=== PATIENT | male | born 1955 | race Caucasian/White ===

== ENCOUNTER 2020-11-11 20:41 | Inpatient (IN) ==
[2020-11-11] MEDS ORDERED: CEFEPIME 2,000 MG/20 ML VIAL IV STA (20:53)
[2020-11-11] MEDS ORDERED: ACETAMINOPHEN 1000 MG/100 ML IV IV STA (20:58)
[2020-11-11] MEDS ORDERED: SODIUM CHLORIDE 0.9% 1000ML 1,000 ML IV SCH (21:00)
--- NOTE | 2020-11-11 21:05 | Emergency Department Note ---
Impression & Plan Sepsis, Altered mental status, Acute UTI, Hypokalemia, Elevated lactic acid level, COVID-19 ED Provider Note NAME: SHANON [id number] [facility] AGE: 65 SEX: M : 1955 ARRIVES VIA: Ambulance INFORMANT: [nurses, ems, guards] ED PROVIDER(S): [Ras Perkins MD] CHIEF COMPLAINT: Illness HISTORY OF PRESENT ILLNESS: The patient is a 65-year-old male who is confined to the [facility]. He was fine 2 hours ago but then suddenly, just before arrival, spiked a fever and stopped talking. He typically is verbal. The temperature was recorded 104 at the [facility]. The patient has not been coughing. There has been no vomiting or diarrhea, no rash. Patient has not had any complaints. He is at the [facility] on a permanent basis because of his inability to ambulate and his lower extremity contractures. He was tested recently for Covid and was negative, the exact day is unclear. Given the mental state, no further history obtainable. REVIEW OF SYSTEMS: Unobtainable given his mental state. PMHx/PSHx: See Below SOCIAL HISTORY: See Below. PHYSICAL EXAM: GENERAL: Patient is in no acute distress. HEENT: No acute trauma, normocephalic atraumatic, mucous membranes moist, no nasal congestion, no scleral icterus. NECK: No stridor, no adenopathy, no meningismus, trachea is midline. LUNGS: Clear to auscultation when listening anterior, no wheezing, no respiratory distress. HEART: Mildly tachycardic, 2/6 systolic murmur, regular rhythm. ABDOMEN: Soft, nontender, bowel sounds positive, no hernias, no peritonitis. EXTREMITIES: No cyanosis or edema, the patient does have lower extremity contractures as described in the history. No evidence for acute trauma. NEUROLOGIC: Awake and alert, nonverbal. Does not follow commands. SKIN: No rash, no jaundice, no diaphoresis. Groin: No scrotal erythema. DIFFERENTIAL DIAGNOSIS: Sepsis, UTI, pneumonia, metabolic abnormality, electrolyte abnormalities, COVID- 19, influenza, intracranial bleeding, stroke, cardiac sources, cellulitis, UTI, bacteremia, intracerebral event, toxicologic etiology, neurologic event, as well as other pathologies. EMERGENCY DEPARTMENT COURSE/PROCEDURES: ECG: Indication was possible sepsis. The ECG shows a normal sinus rhythm with a rate of 97. There is some subtle nonspecific ST changes noted diffusely. There is no ST elevation, no PVCs. The QTc is 480. There is some baseline artifact noted. Continuous Cardiac Monitoring: An order was placed for continuous cardiac mo nitoring. The monitor shows a rate of 83 with normal sinus rhythm. Critical Care Note: I have personally spent 52 minutes of critical care time in the direct management of this patient. This includes bedside care, interpretation of diagnostic studies, and testing, discussion with consultants, patient, and family members, and other required patient management activities. This 52 minutes is in excess of all separately billable procedures. MEDICAL DECISION MAKING: There is no leukocytosis or concerning anemia. There is a normal platelet count. No coagulopathy. Potassium was low at 2.6, no kidney failure. Lactic acid level was elevated at 2.8, consistent with infection/sepsis. No concerning liver enzyme elevation. Procalcitonin level was not elevated. Urinalysis did show evidence for infection, urine culture and blood cultures are pending. Chest film showed some congestion in the left lower lung consistent with a possible infiltrate versus atelectasis. Brain CT showed no acute bleed or mass- effect. Abdominal and pelvis CT showed some chronic findings, no source of infection identified by CT scan. Covid testing returned positive, influenza testing returned negative. On exam, the patient was febrile and mildly ta chycardic. He was nonverbal which was a shift from his baseline, typically he is talkative. The patient was aggressively managed. He was given IV Tylenol for his fever, he received a liter of IV saline for hydration. He received an additional 500 cc of saline for hydration. He was given IV potassium, IV daptomycin and IV cefepime. The patient's mental status has improved. He is now verbal and as per the nursing staff, appears oriented. He is improved. The patient is in need of a hospital stay. He meets criteria for sepsis. He presented with a change in mental status. He is hypokalemic. He appears to have a UTI. He is Covid positive. I did speak with the guards, I talked to the patient. The on-call hospitalist has been consulted. Case management has been involved. Past Med/Surg History Medical History Elevation of cardiac enzymes Tachycardia Weakness Social History Smoking Status: Unknown if ever smoked Feels Safe at Home: Yes Allergies Allergies Allergy/AdvReac Type Severity Reaction Status Date / Time No Known Allergies Allergy Unverified 11/11/20 22:07 Home Meds Home Medications Medication Instructions Recorded Confirmed cyanocobalamin (vitamin B-12) 500 mcg PO DAILY 11/11/20 11/11/20 [Vitamin B-12] furosemide [Lasix] 40 mg PO BID 11/11/20 11/11/20 lubiprostone [Amitiza] 24 mcg PO BID 11/11/20 11/11/20 metoprolol tartrate 50 mg PO BID 11/11/20 11/11/20 nortriptyline 25 mg PO DAILY 11/11/20 11/11/20 nystatin [Mycostatin] 1 applic TOPICAL DAILY 11/11/20 11/11/20 oxcarbazepine 600 mg PO BID 11/11/20 11/11/20 rosuvastatin 10 mg PO HS 11/11/20 11/11/20 tamsulosin [Flomax] 0.4 mg PO HS 11/11/20 11/11/20 terbinafine HCl 1 applic TOPICAL BID 11/11/20 11/11/20 zinc oxide 1 applic TOPICAL DAILY 11/11/20 11/11/20 Results & Data (ED) Vital Signs Vital Signs - 24 hr 11/11/20 20:46 11/11/20 20:50 11/11/20 21:00 Temperature Temperature Source Pulse Rate 97 H 98 H 96 H Pulse Rate from SpO2 Sensor 98 H 98 H Respiratory Rate 19 22 25 H Respiratory Effort / Characteristics Blood Pressure 157/87 H Blood Pressure Mean 110 Pulse Oximetry 95 94 Oxygen Delivery Method Sepsis Recent Fever Within 48 Hours Sepsis New/Unexplained Change in Mental Status Sepsis Action Taken by Nursing 11/11/20 21:15 11/11/20 21:16 11/11/20 21:22 Temperature 38.5 C H Temperature Source Oral Pulse Rate 105 H 97 H Pulse Rate from SpO2 Sensor 104 H 97 H Respiratory Rate 25 H 24 Respiratory Effort / Characteristics Non-Labored Blood Pressure 146/90 H 157/87 H Blood Pressure Mean 108 110 Pulse Oximetry 95 96 97 Oxygen Delivery Method Room Air Room Air Sepsis Recent Fever Within 48 Hours Yes Sepsis New/Unexplained Change in Mental Status Yes Sepsis Action Taken by Nursing Physician Notified 11/11/20 21:30 11/11/20 21:31 11/11/20 21:45 Temperature Temperature Source Pulse Rate 101 H 99 H 97 H Pulse Rate from SpO2 Sensor 101 H 99 H 97 H Respiratory Rate 24 24 25 H Respiratory Effort / Characteristics Blood Pressure 139/82 126/82 Blood Pressure Mean 101 96 Pulse Oximetry 94 93 93 Oxygen Delivery Method Sepsis Recent Fever Within 48 Hours Sepsis New/Unexplained Change in Mental Status Sepsis Action Taken by Nursing 11/11/20 21:46 11/11/20 22:00 11/11/20 22:01 Temperature Temperature Source Pulse Rate 94 H 93 H 94 H Pulse Rate from SpO2 Sensor 94 H 94 H 93 H Respiratory Rate 25 H 20 20 Respiratory Effort / Characteristics Blood Pressure 128/77 Blood Pressure Mean 94 Pulse Oximetry 93 93 93 Oxygen Delivery Method Sepsis Recent Fever Within 48 Hours Sepsis New/Unexplained Change in Mental Status Sepsis Action Taken by Nursing 11/11/20 22:22 11/11/20 22:23 11/11/20 22:24 Temperature Temperature Source Pulse Rate 91 H 90 89 Pulse Rate from SpO2 Sensor 91 H 90 89 Respiratory Rate 20 22 24 Respiratory Effort / Characteristics Blood Pressure 129/69 Blood Pressure Mean 89 Pulse Oximetry 94 93 94 Oxygen Delivery Method Sepsis Recent Fever Within 48 Hours Sepsis New/Unexplained Change in Mental Status Sepsis Action Taken by Nursing 11/11/20 22:30 11/11/20 22:31 11/11/20 22:45 Temperature Temperature Source Pulse Rate 88 87 83 Pulse Rate from SpO2 Sensor 88 87 83 Respiratory Rate 21 21 20 Respiratory Effort / Characteristics Blood Pressure 115/64 106/62 Blood Pressure Mean 81 76 Pulse Oximetry 95 94 95 Oxygen Delivery Method Sepsis Recent Fever Within 48 Hours Sepsis New/Unexplained Change in Mental Status Sepsis Action Taken by Nursing 11/11/20 22:46 11/11/20 23:00 11/11/20 23:01 Temperature Temperature Source Pulse Rate 83 82 82 Pulse Rate from SpO2 Sensor 83 81 83 Respiratory Rate 18 18 19 Respiratory Effort / Characteristics Blood Pressure 115/57 L Blood Pressure Mean 76 Pulse Oximetry 95 95 95 Oxygen Delivery Method Sepsis Recent Fever Within 48 Hours Sepsis New/Unexplained Change in Mental Status Sepsis Action Taken by Nursing 11/11/20 23:02 11/11/20 23:15 11/11/20 23:16 Temperature Temperature Source Pulse Rate 81 78 78 Pulse Rate from SpO2 Sensor 82 79 78 Respiratory Rate 24 20 19 Respiratory Effort / Characteristics Blood Pressure 108/59 L Blood Pressure Mean 75 Pulse Oximetry 94 94 94 Oxygen Delivery Method Sepsis Recent Fever Within 48 Hours Sepsis New/Unexplained Change in Mental Status Sepsis Action Taken by [facility] Medications Current Medication List: was personally reviewed by me Laboratory Data Attestation: I reviewed the patient's lab results. Result diagrams: 11/11/20 21:00 11/11/20 21:00 Lab Results 11/11/20 11/11/20 11/11/20 Range/Units 21:00 21:00 21:00 WBC 5.87 (4.8-10.8) K/uL RBC 4.49 L (4.7-6.1) M/uL Hgb 14.1 (14.0-18.0) g/dL Hct 41.0 L (42-52) % MCV 91.3 (80-100) fL MCH 31.4 (25-34) pg MCHC 34.4 (32-36) g/dL RDW Std Deviation 43.7 (36.4-46.3) fL RDW Coeff of Abad 13.0 (11.5-14.5) % Plt Count 190 (130-400) K/uL MPV 9.2 (7.4-10.4) fL Immature Gran % (Auto) 0.5 % Neut % (Auto) 80.4 % Lymph % (Auto) 14.3 % Elk % (Auto) 4.6 % Eos % (Auto) 0.0 % Baso % (Auto) 0.2 % Neut # (Auto) 4.72 (1.4-6.5) K/uL Lymph # (Auto) 0.84 L (1.2-3.4) K/uL Elk # (Auto) 0.27 (0.11-0.59) K/uL Eos # (Auto) 0.00 (0-0.5) K/uL Baso # (Auto) 0.01 (0-0.2) K/uL Immature Gran # (Auto) 0.03 H (0.00-0.02) K/uL PT (9.0-12.0) Seconds INR (0.9-1.1) APTT (21.0-31.0) Seconds PTT Ratio Sodium 142 (136-145) mmol/L Potassium 2.6 L (3.5-5.1) mmol/L Chloride 103 (98-107) mmol/L Carbon Dioxide 28 (21-32) mmol/L Anion Gap 11.0 (3-11) BUN 21 H (7-18) mg/dl Creatinine 0.99 (0.6-1.4) mg/dl Est Cr Clr Drug Dosing 76.8 ml/min Est GFR ( Amer) 92.2 Est GFR (Non-Af Amer) 79.6 BUN/Creatinine Ratio 21.1 H (10-20) Glucose 125 H (70-99) mg/dl Lactate (0.4-2.0) mmol/L Calcium 9.2 (8.5-10.1) mg/dl Magnesium 2.1 (1.8-2.4) mg/dl Total Bilirubin 0.9 (0.2-1) mg/dl AST 19 (15-37) U/L ALT 28 (12-78) U/L Alkaline Phosphatase 133 H (45-117) U/L Troponin I < 0.015 (0-0.045) ng/ml Total Protein 8.0 (6.4-8.2) gm/dl Albumin 3.3 L (3.4-5.0) gm/dl Globulin 4.7 H (2.5-4.0) gm/dl Albumin/Globulin Ratio 0.7 L (0.9-2) Procalcitonin 0.07 (0-0.5) ng/ml Urine Color Urine Appearance (Clear) Urine pH (4.5-7.5) Ur Specific [place] (1.000-1.030) Urine Protein (Negative) Urine Glucose (UA) (Negative) Urine Ketones (Negative) Urine Blood (Negative) Urine Nitrite (Negative) Urine Bilirubin (Negative) Urine Urobilinogen (Negative) Ur Leukocyte Esterase (Negative) Urine WBC (Auto) (0-5) /hpf Urine RBC (Auto) (0-4) /hpf U Hyaline Cast (Auto) (0-5) /lpf U Epithel Cells (Auto) (0-5) /lpf Urine Bacteria (Auto) (Negative) COVID-19 Eval Order SARS-CoV-2 (PCR) (Negative) Influenza Type A (PCR) (Neg) Influenza Type B (PCR) (Neg) RSV (RT-PCR) (Neg) 11/11/20 11/11/20 11/11/20 Range/Units 21:00 21:00 21:43 WBC (4.8-10.8) K/uL RBC (4.7-6.1) M/uL Hgb (14.0-18.0) g/dL Hct (42-52) % MCV (80-100) fL MCH (25-34) pg MCHC (32-36) g/dL RDW Std Deviation (36.4-46.3) fL RDW Coeff of Abad (11.5-14.5) % Plt Count (130-400) K/uL MPV (7.4-10.4) fL Immature Gran % (Auto) % Neut % (Auto) % Lymph % (Auto) % Elk % (Auto) % Eos % (Auto) % Baso % (Auto) % Neut # (Auto) (1.4-6.5) K/uL Lymph # (Auto) (1.2-3.4) K/uL Elk # (Auto) (0.11-0.59) K/uL Eos # (Auto) (0-0.5) K/uL Baso # (Auto) (0-0.2) K/uL Immature Gran # (Auto) (0.00-0.02) K/uL PT 11.4 (9.0-12.0) Seconds INR 1.1 (0.9-1.1) APTT 25.1 (21.0-31.0) Seconds PTT Ratio 1.0 Sodium (136-145) mmol/L Potassium (3.5-5.1) mmol/L Chloride (98-107) mmol/L Carbon Dioxide (21-32) mmol/L Anion Gap (3-11) BUN (7-18) mg/dl Creatinine (0.6-1.4) mg/dl Est Cr Clr Drug Dosing ml/min Est GFR ( Amer) Est GFR (Non-Af Amer) BUN/Creatinine Ratio (10-20) Glucose (70-99) mg/dl Lactate 2.8 H* (0.4-2.0) mmol/L Calcium (8.5-10.1) mg/dl Magnesium (1.8-2.4) mg/dl Total Bilirubin (0.2-1) mg/dl AST (15-37) U/L ALT (12-78) U/L Alkaline Phosphatase (45-117) U/L Troponin I (0-0.045) ng/ml Total Protein (6.4-8.2) gm/dl Albumin (3.4-5.0) gm/dl Globulin (2.5-4.0) gm/dl Albumin/Globulin Ratio (0.9-2) Procalcitonin (0-0.5) ng/ml Urine Color Urine Appearance (Clear) Urine pH (4.5-7.5) Ur Specific [place] (1.000-1.030) Urine Protein (Negative) Urine Glucose (UA) (Negative) Urine Ketones (Negative) Urine Blood (Negative) Urine Nitrite (Negative) Urine Bilirubin (Negative) Urine Urobilinogen (Negative) Ur Leukocyte Esterase (Negative) Urine WBC (Auto) (0-5) /hpf Urine RBC (Auto) (0-4) /hpf U Hyaline Cast (Auto) (0-5) /lpf U Epithel Cells (Auto) (0-5) /lpf Urine Bacteria (Auto) (Negative) COVID-19 Eval Order [facility] at [facility] SARS-CoV-2 (PCR) (Negative) Influenza Type A (PCR) (Neg) Influenza Type B (PCR) (Neg) RSV (RT-PCR) (Neg) 11/11/20 11/11/20 Range/Units 21:43 21:45 WBC (4.8-10.8) K/uL RBC (4.7-6.1) M/uL Hgb (14.0-18.0) g/dL Hct (42-52) % MCV (80-100) fL MCH (25-34) pg MCHC (32-36) g/dL RDW Std Deviation (36.4-46.3) fL RDW Coeff of Abad (11.5-14.5) % Plt Count (130-400) K/uL MPV (7.4-10.4) fL Immature Gran % (Auto) % Neut % (Auto) % Lymph % (Auto) % Elk % (Auto) % Eos % (Auto) % Baso % (Auto) % Neut # (Auto) (1.4-6.5) K/uL Lymph # (Auto) (1.2-3.4) K/uL Elk # (Auto) (0.11-0.59) K/uL Eos # (Auto) (0-0.5) K/uL Baso # (Auto) (0-0.2) K/uL Immature Gran # (Auto) (0.00-0.02) K/uL PT (9.0-12.0) Seconds INR (0.9-1.1) APTT (21.0-31.0) Seconds PTT Ratio Sodium (136-145) mmol/L Potassium (3.5-5.1) mmol/L Chloride (98-107) mmol/L Carbon Dioxide (21-32) mmol/L Anion Gap (3-11) BUN (7-18) mg/dl Creatinine (0.6-1.4) mg/dl Est Cr Clr Drug Dosing ml/min Est GFR ( Amer) Est GFR (Non-Af Amer) BUN/Creatinine Ratio (10-20) Glucose (70-99) mg/dl Lactate (0.4-2.0) mmol/L Calcium (8.5-10.1) mg/dl Magnesium (1.8-2.4) mg/dl Total Bilirubin (0.2-1) mg/dl AST (15-37) U/L ALT (12-78) U/L Alkaline Phosphatase (45-117) U/L Troponin I (0-0.045) ng/ml Total Protein (6.4-8.2) gm/dl Albumin (3.4-5.0) gm/dl Globulin (2.5-4.0) gm/dl Albumin/Globulin Ratio (0.9-2) Procalcitonin (0-0.5) ng/ml Urine Color Yellow Urine Appearance Cloudy A (Clear) Urine pH 6.5 (4.5-7.5) Ur Specific [place] 1.013 (1.000-1.030) Urine Protein Negative (Negative) Urine Glucose (UA) Negative (Negative) Urine Ketones Negative (Negative) Urine Blood 1+ H (Negative) Urine Nitrite Negative (Negative) Urine Bilirubin Negative (Negative) Urine Urobilinogen Negative (Negative) Ur Leukocyte Esterase 3+ H (Negative) Urine WBC (Auto) >30 H (0-5) /hpf Urine RBC (Auto) 0-4 (0-4) /hpf U Hyaline Cast (Auto) 1-5 (0-5) /lpf U Epithel Cells (Auto) 5-10 H (0-5) /lpf Urine Bacteria (Auto) 1+ H (Negative) COVID-19 Eval Order SARS-CoV-2 (PCR) POSITIVE A* (Negative) Influenza Type A (PCR) Negative (Neg) Influenza Type B (PCR) Negative (Neg) RSV (RT-PCR) Negative (Neg) Administered Medications Discontinued Medications Acetaminophen (Acetaminophen 1000 Mg/100 Ml Iv) 1,000 mg IV NOW STA Stop: 11/11/20 20:59 Last Admin: 11/11/20 21:39 Dose: 1,000 mg Documented by: [id number] Sodium Chloride (Nss 1000ml) 1,000 mls @ 999 mls/hr IV .[id number] JJ Stop: 11/11/20 22:00 Last Infusion: 11/11/20 22:44 Dose: 0 mls/hr Documented by: [id number] Admin: 11/11/20 21:40 Dose: 999 mls/hr Documented by: [id number] Cefepime HCl (Maxipime) 2,000 mg in 20 mls @ 5 mls/min IV NOW STA; Protocol Stop: 11/11/20 20:56 Last Admin: 11/11/20 21:40 Dose: 5 mls/min Documented by: [id number] Potassium Chloride (K Andrew / Wtr) 10 meq in 100 mls @ 100 mls/hr IV ONE ONE Stop: 11/11/20 22:44 Last Admin: 11/11/20 22:31 Dose: 100 mls/hr Documented by: [id number] Daptomycin 450 mg/ Syringe 9 mls @ 4.5 mls/min IV NOW ONE; Protocol Stop: 11/11/20 21:46 Last Admin: 11/11/20 23:22 Dose: 4.5 mls/min Documented by: [id number] Sodium Chloride (Nss 1000ml) 500 mls @ 999 mls/hr IV .Q31M ONE Stop: 11/11/20 22:16 Last Infusion: 11/11/20 23:25 Dose: 0 mls/hr Documented by: [id number] Admin: 11/11/20 22:32 Dose: 999 mls/hr Documented by: [id number] Imaging Data Attestation: I personally reviewed and interpreted this imaging study as follows: My Impression: Chest x-ray: There is some left lung congestion especially the lower lobes, this could be atelectasis or possibly an acute infiltrate. No free air. Radiologist's Impression: Brain CT without contrast: There is no intracranial hemorrhage, mass-effect or edema. No evidence for acute stroke. Periventricular small vessel ischemic change. Mastoid air cells are clear. Abdominal and pelvis CT with IV contrast: There is a moderate amount of fecal matter within the colon and rectum consistent with constipation. Bilateral nonobstructing stones measuring up to 6 mm in diameter were noted. There was dependent high density in the urinary bladder lumen suggestive of stones. There is dependent density in the gallbladder lumen which could be from sludge. Discharge Plan Visit Data Chief Complaint: Illness Stated Complaint: FEVER, AMS ED Provider: Ras Perkins Discharge Problem: Sepsis, Altered mental status, Acute UTI, Hypokalemia, Elevated lactic acid level, COVID-19 Patient Disposition: Admitted As Inpatient Condition: Serious Forms Stand Alone Forms: My [facility] Prescriptions Prescriptions: No Action furosemide [Lasix] 40 mg Tablet 40 mg PO BID RF: 0 terbinafine HCl 1 % Cream 1 applic TOPICAL BID RF: 0 nortriptyline 25 mg Capsule 25 mg PO DAILY RF: 0 cyanocobalamin (vitamin B-12) [Vitamin B-12] 500 mcg Tablet 500 mcg PO DAILY RF: 0 tamsulosin [Flomax] 0.4 mg Capsule 0.4 mg PO HS RF: 0 metoprolol tartrate 50 mg Tablet 50 mg PO BID RF: 0 oxcarbazepine 600 mg Tablet 600 mg PO BID RF: 0 nystatin [Mycostatin] 100,000 unit/gram Powder 1 applic TOPICAL DAILY RF: 0 rosuvastatin 10 mg Tablet 10 mg PO HS RF: 0 lubiprostone [Amitiza] 24 mcg Capsule 24 mcg PO BID RF: 0 zinc oxide 40 % Ointment 1 applic TOPICAL DAILY RF: 0 Referrals Referrals: Raj MARIO [Primary Care Provider] - Discharge Problem: Sepsis Qualifiers: Sepsis type: sepsis due to unspecified organism Sepsis acute organ dysfunction status: without acute organ dysfunction Qualified Code(s): A41.9 - Sepsis, unspecified organism Altered mental status Qualifiers: Altered mental status type: unspecified Qualified Code(s): R41.82 - Altered mental status, unspecified
[2020-11-11 21:23] LABS: Basophils # (auto) 0.01 K/uL (0-0.2); Basophils % (auto) 0.2 %; Hemoglobin 14.1 g/dL (14.0-18.0); Immature Granulocytes # (auto) 0.03 K/uL (0.00-0.02); Immature Granulocytes % (auto) 0.5 %; Lymphocytes # (auto) 0.84 K/uL (1.2-3.4); Lymphocytes % (auto) 14.3 %; Mean Corpuscular Hemoglobin 31.4 pg (25-34); Mean Corpuscular Hgb Conc 34.4 g/dL (32-36); Mean Corpuscular Volume 91.3 fL (80-100); Mean Platelet Volume 9.2 fL (7.4-10.4); Monocytes # (auto) 0.27 K/uL (0.11-0.59); Monocytes % (auto) 4.6 %; Neutrophils # (auto) 4.72 K/uL (1.4-6.5); Neutrophils % (auto) 80.4 %; Platelet Count 190 K/uL (130-400); RDW Standard Deviation 43.7 fL (36.4-46.3); Red Blood Count 4.49 M/uL (4.7-6.1); White Blood Count 5.87 K/uL (4.8-10.8)
[2020-11-11 21:39] LABS: Alanine Aminotransferase 28 U/L (12-78); Albumin Level 3.3 gm/dl (3.4-5.0); Aspartate Aminotransferase 19 U/L (15-37); BUN Creatinine Ratio 21.1 (10-20); Blood Urea Nitrogen 21 mg/dl (7-18); Calcium 9.2 mg/dl (8.5-10.1); Carbon Dioxide 28 mmol/L (21-32); Chloride 103 mmol/L (98-107); Creatinine Clr Calc Pharmacy 76.8 ml/min; Est GFR (African American) 92.2; Est GFR (Non-African American) 79.6; Glucose 125 mg/dl (70-99); INR 1.1 (0.9-1.1); Magnesium 2.1 mg/dl (1.8-2.4); Partial Thromboplastin Time 25.1 Seconds (21.0-31.0); Potassium 2.6 mmol/L (3.5-5.1); Prothrombin Time 11.4 Seconds (9.0-12.0); Sodium 142 mmol/L (136-145)
[2020-11-11 21:45] LABS: Albumin Globulin Ratio 0.7 (0.9-2); Alkaline Phosphatase 133 U/L (45-117); Bilirubin,Total 0.9 mg/dl (0.2-1); Globulin 4.7 gm/dl (2.5-4.0)
[2020-11-11] MEDS ORDERED: POTASSIUM CHLORIDE / WTR 10 MEQ/100 ML PLCT IV ONE (21:45)
[2020-11-11] MEDS ORDERED: DAPTOmycin 450 MG in SYRINGE 0 ML IV ONE (21:45)
[2020-11-11] MEDS ORDERED: SODIUM CHLORIDE 0.9% 1000ML 500 ML IV ONE (21:46)
[2020-11-11 21:58] LABS: Troponin I < 0.015 ng/ml (0-0.045)
[2020-11-11 22:38] LABS: Appearance Urine Cloudy (Clear); Bacteria Urine Automated 1+ (Negative); Bilirubin Urine Negative (Negative); Blood Urine 1+ (Negative); Color Urine Yellow; Glucose Urine UA Negative (Negative); Ketones Urine Negative (Negative); Leukocyte Esterase Urine 3+ (Negative); Nitrite Urine Negative (Negative); Protein Urine Negative (Negative); RBC Urine Automated 0-4 /hpf (0-4); Specific Gravity Urine 1.013 (1.000-1.030); Urobilinogen Urine Negative (Negative); WBC Urine Automated >30 /hpf (0-5); pH Urine 6.5 (4.5-7.5)
[2020-11-11 23:11] LABS: Influenza A virus by PCR Negative (Neg); Influenza B virus by PCR Negative (Neg); RSV by PCR Negative (Neg)
[2020-11-11 23:18] LABS: SARS CoV2 RNA(COVID-19) InHosp POSITIVE (Negative)
[2020-11-12] MEDS ORDERED: cefTRIAXone SODIUM 1,000 MG/50 ML BAG IV STA (00:14)
[2020-11-12] MEDS ORDERED: SODIUM CHLORIDE 0.9% 1000ML 500 ML IV ONE (00:14)
--- NOTE | 2020-11-12 00:53 | History & Physical Report ---
Date of Service November 12, 2020 Assessment & Plan (1) Sepsis: Sepsis/altered mental status/urinary tract infection- Empiric antibiotics with daptomycin and Zosyn IV. Follow urine culture and sensitivities Follow blood culture and sensitivities NSS + KCl 20 mEq 100 mils per hour. Patient did receive a total of 1500 mL of normal saline while in the ED with some improvement in mentation CT scan of abdomen and pelvis did note constipation, bladder stones, and bilateral stones up to 6 mm that were nonobstructive. Question of gallbladder sludge was noted as well, with normal liver tests, and no complaint of abdominal or right upper quadrant pain Present on Admission?: Yes (2) Acute UTI: See above Present on Admission?: Yes (3) Altered mental status: See above Patient was initially noted to be responsive upon arrival to the ED. At the time of my interview, patient was somewhat responsive, answering questions slowly but appropriately with short answers Present on Admission?: Yes (4) COVID-19: Unclear contribution to his initially unresponsive state which is now become somewhat improved after IV fluid rehydration. Place on dexamethasone 6 mg IV every morning Ventolin HFA 2 puffs 4 times daily as needed Zinc sulfate 220 mg p.o. every morning Nasal cannula oxygen, titrate to keep pulse ox around 95%. Lowest pulse ox recorded in the ED was 93% on room air Present on Admission?: Yes (5) Diabetes: Listed as a diagnosis for patient, however, he is on no medications for start, and his glucose is 125 upon admission If his glucose goes up on morning labs, will institute Accu-Chek and sliding scale program at that time. Present on Admission?: Yes (6) Hypokalemia: Hypokalemia/dehydration- Likely due to combination of illness and being on furosemide 40 mg p.o. twice daily, which will be held. Placed on NSS + KCl 20 mEq at 100 mils per hour. Repeat laboratories every a.m. Present on Admission?: Yes (7) Dehydration: See above Present on Admission?: Yes (8) Seizure disorder: Continue oxcarbazepine 600 mg p.o. twice daily Present on Admission?: Yes (9) Hypertension: Hypertension/tachycardia holding furosemide above as noted continue metoprolol tartrate 50 mg p.o. twice daily Present on Admission?: Yes (10) Tachycardia: See above Present on Admission?: Yes (11) BPH w urinary obs/LUTS: Continue tamsulosin 0.4 mg p.o. at bedtime Pinedo catheter placed, and draining large volumes of urine, at least 1 L by the time of discharge from the ED Present on Admission?: Yes (12) Hyperlipidemia: Continue rosuvastatin 10 mg at bedtime Present on Admission?: Yes History of Present Illness Chief Complaint: The patient presents to the emergency department from the [facility] at [facility], due to altered mental status and initially unresponsive. Primary Care Provider: FABIANO Anthony The patient is a 65-year-old male with a past medical history including tachycardia, weakness, elevated cardiac enzymes, diabetes, dehydration, generalized weakness, edema, gastric dysmotility, hypertension, BPH with LUTS, hyperlipidemia, seizure disorder, vitamin B12 deficiency, and lower extremity muscle contractures. The patient is [facility] due to persistent muscle contractures and ambulatory dysfunction. He was noted to be doing well 2 hours prior to arrival, but then suddenly developed a temperature of 104 F and stopped talking. He reportedly has had a recent negative COVID-19 test. The patient himself was not able to contribute to his HPI due to his nonresponsive state. Allergies Allergy/AdvReac Type Severity Reaction Status Date / Time No Known Allergies Allergy Unverified 11/11/20 22:07 Home Medications Medication Instructions Recorded Confirmed Type cyanocobalamin (vitamin B-12) 500 mcg PO DAILY 11/11/20 11/11/20 History [Vitamin B-12] furosemide [Lasix] 40 mg PO BID 11/11/20 11/11/20 History lubiprostone [Amitiza] 24 mcg PO BID 11/11/20 11/11/20 History metoprolol tartrate 50 mg PO BID 11/11/20 11/11/20 History nortriptyline 25 mg PO DAILY 11/11/20 11/11/20 History nystatin [Mycostatin] 1 applic TOPICAL DAILY 11/11/20 11/11/20 History oxcarbazepine 600 mg PO BID 11/11/20 11/11/20 History rosuvastatin 10 mg PO HS 11/11/20 11/11/20 History tamsulosin [Flomax] 0.4 mg PO HS 11/11/20 11/11/20 History terbinafine HCl 1 applic TOPICAL BID 11/11/20 11/11/20 History zinc oxide 1 applic TOPICAL DAILY 11/11/20 11/11/20 History Past Med/Surg History Medical History Elevation of cardiac enzymes Tachycardia Weakness Social History Smoking Status: Former smoker Smoking End Date: 2018; Second Hand Exposure: No; Do You Dip or Chew Tobacco: No; Hx Alcohol Use: No Hx Substance Use: No Preferred Language: Amharic Communication Ability: Effective [employer] Required: No Beliefs That Will Affect Care: Jewish Jewish Beliefs: Jewish Current Living Situation: Other Current Living Situation Comment: inmate at [facility] Other Information That Helps Us Care for You: No Feels Safe at Home: Yes Safety Concerns: Feels Safe At This Time Assistive Devices: Wheelchair Review of Systems Review of Systems: Unobtainable due to reduced consciousness Physical Exam Physical Exam: The patient is initially unresponsive, but later able to answer questions, normocephalic and atraumatic, lying in bed and in no acute distress. HEENT--PERRL, EOMI, mucous membranes and oropharynx dry. Neck--supple. No JVD. No bruits. Thyroid normal, trachea midline, no adenopathy. Heart--normal S1 and S2. No murmurs, rubs or gallops. Lungs--clear bilaterally, no respiratory distress, no accessory muscle use. Abdomen--normal bowel sounds and soft. Nontender. Nondistended. Extremities--no cyanosis or clubbing. No edema. There are good distal pulses b/l. Dermatologic--normal skin turgor, normal color, no abnormal lymph nodes, no rash. Neurologic--limited exam rheumatologic--contractures of lower greater than upper extremities noted, with subsequent decreased range of motion psychiatric--initially unresponsive, but did become more arousable after IV fluids Results & Data Results & Data ([facility]) Vital Signs (Past 12 Hours) Vital Signs Temp Pulse Resp BP Pulse Ox 11/12/20 00:31 71 19 95 11/12/20 00:30 75 20 95/57 L 96 11/12/20 00:16 74 19 94 11/12/20 00:15 74 19 92/53 L 95 11/12/20 00:01 71 20 93 11/12/20 00:00 70 20 92/51 L 94 11/11/20 23:46 70 21 95 11/11/20 23:45 71 21 93 11/11/20 23:38 97.7 F 11/11/20 23:31 79 17 95 11/11/20 23:30 77 19 103/56 L 95 11/11/20 23:16 78 19 94 11/11/20 23:15 78 20 108/59 L 94 11/11/20 23:02 81 24 94 11/11/20 23:01 82 19 115/57 L 95 11/11/20 23:00 82 18 95 11/11/20 22:46 83 18 95 11/11/20 22:45 83 20 106/62 95 11/11/20 22:31 87 21 94 11/11/20 22:30 88 21 115/64 95 11/11/20 22:24 89 24 94 11/11/20 22:23 90 22 129/69 93 11/11/20 22:22 91 H 20 94 11/11/20 22:01 94 H 20 93 11/11/20 22:00 93 H 20 128/77 93 11/11/20 21:46 94 H 25 H 93 11/11/20 21:45 97 H 25 H 126/82 93 11/11/20 21:31 99 H 24 93 11/11/20 21:30 101 H 24 139/82 94 11/11/20 21:22 97 11/11/20 21:16 101.3 F H 97 H 24 157/87 H 96 11/11/20 21:15 105 H 25 H 146/90 H 95 11/11/20 21:00 96 H 25 H 11/11/20 20:50 98 H 22 94 11/11/20 20:46 97 H 19 157/87 H 95 Laboratory Results Laboratory Results WBC 5.87 K/uL (4.8-10.8) 11/11/20 21:00 RBC 4.49 M/uL (4.7-6.1) L 11/11/20 21:00 Hgb 14.1 g/dL (14.0-18.0) 11/11/20 21:00 Hct 41.0 % (42-52) L 11/11/20 21:00 MCV 91.3 fL (80-100) 11/11/20 21:00 MCH 31.4 pg (25-34) 11/11/20 21:00 MCHC 34.4 g/dL (32-36) 11/11/20 21:00 RDW Std Deviation 43.7 fL (36.4-46.3) 11/11/20 21:00 RDW Coeff of Abad 13.0 % (11.5-14.5) 11/11/20 21:00 Plt Count 190 K/uL (130-400) 11/11/20 21:00 MPV 9.2 fL (7.4-10.4) 11/11/20 21:00 Immature Gran % (Auto) 0.5 % 11/11/20 21:00 Neut % (Auto) 80.4 % 11/11/20 21:00 Lymph % (Auto) 14.3 % 11/11/20 21:00 Burke % (Auto) 4.6 % 11/11/20 21:00 Eos % (Auto) 0.0 % 11/11/20 21:00 Baso % (Auto) 0.2 % 11/11/20 21:00 Neut # (Auto) 4.72 K/uL (1.4-6.5) 11/11/20 21:00 Lymph # (Auto) 0.84 K/uL (1.2-3.4) L 11/11/20 21:00 Burke # (Auto) 0.27 K/uL (0.11-0.59) 11/11/20 21:00 Eos # (Auto) 0.00 K/uL (0-0.5) 11/11/20 21:00 Baso # (Auto) 0.01 K/uL (0-0.2) 11/11/20 21:00 Immature Gran # (Auto) 0.03 K/uL (0.00-0.02) H 11/11/20 21:00 PT 11.4 Seconds (9.0-12.0) 11/11/20 21:00 INR 1.1 (0.9-1.1) 11/11/20 21:00 APTT 25.1 Seconds (21.0-31.0) 11/11/20 21:00 PTT Ratio 1.0 11/11/20 21:00 Sodium 142 mmol/L (136-145) 11/11/20 21:00 Potassium 2.6 mmol/L (3.5-5.1) L 11/11/20 21:00 Chloride 103 mmol/L (98-107) 11/11/20 21:00 Carbon Dioxide 28 mmol/L (21-32) 11/11/20 21:00 Anion Gap 11.0 (3-11) 11/11/20 21:00 BUN 21 mg/dl (7-18) H 11/11/20 21:00 Creatinine 0.99 mg/dl (0.6-1.4) 11/11/20 21:00 Est Cr Clr Drug Dosing 76.8 ml/min 11/11/20 21:00 Est GFR ( Amer) 92.2 11/11/20 21:00 Est GFR (Non-Af Amer) 79.6 11/11/20 21:00 BUN/Creatinine Ratio 21.1 (10-20) H 11/11/20 21:00 Glucose 125 mg/dl (70-99) H 11/11/20 21:00 Lactate 0.9 mmol/L (0.4-2.0) 11/11/20 23:35 Calcium 9.2 mg/dl (8.5-10.1) 11/11/20 21:00 Magnesium 2.1 mg/dl (1.8-2.4) 11/11/20 21:00 Total Bilirubin 0.9 mg/dl (0.2-1) 11/11/20 21:00 AST 19 U/L (15-37) 11/11/20 21:00 ALT 28 U/L (12-78) 11/11/20 21:00 Alkaline Phosphatase 133 U/L (45-117) H 11/11/20 21:00 Troponin I < 0.015 ng/ml (0-0.045) 11/11/20 21:00 Total Protein 8.0 gm/dl (6.4-8.2) 11/11/20 21:00 Albumin 3.3 gm/dl (3.4-5.0) L 11/11/20 21:00 Globulin 4.7 gm/dl (2.5-4.0) H 11/11/20 21:00 Albumin/Globulin Ratio 0.7 (0.9-2) L 11/11/20 21:00 Procalcitonin 0.07 ng/ml (0-0.5) 11/11/20 21:00 Urine Color Yellow 11/11/20 21:45 Urine Appearance Cloudy (Clear) A 11/11/20 21:45 Urine pH 6.5 (4.5-7.5) 11/11/20 21:45 Ur Specific [place] 1.013 (1.000-1.030) 11/11/20 21:45 Urine Protein Negative (Negative) 11/11/20 21:45 Urine Glucose (UA) Negative (Negative) 11/11/20 21:45 Urine Ketones Negative (Negative) 11/11/20 21:45 Urine Blood 1+ (Negative) H 11/11/20 21:45 Urine Nitrite Negative (Negative) 11/11/20 21:45 Urine Bilirubin Negative (Negative) 11/11/20 21:45 Urine Urobilinogen Negative (Negative) 11/11/20 21:45 Ur Leukocyte Esterase 3+ (Negative) H 11/11/20 21:45 Urine WBC (Auto) >30 /hpf (0-5) H 11/11/20 21:45 Urine RBC (Auto) 0-4 /hpf (0-4) 11/11/20 21:45 U Hyaline Cast (Auto) 1-5 /lpf (0-5) 11/11/20 21:45 U Epithel Cells (Auto) 5-10 /lpf (0-5) H 11/11/20 21:45 Urine Bacteria (Auto) 1+ (Negative) H 11/11/20 21:45 COVID-19 Eval Order CovFluRsv at [facility] 11/11/20 21:43 SARS-CoV-2 (PCR) POSITIVE (Negative) A* 11/11/20 21:43 Influenza Type A (PCR) Negative (Neg) 11/11/20 21:43 Influenza Type B (PCR) Negative (Neg) 11/11/20 21:43 RSV (RT-PCR) Negative (Neg) 11/11/20 21:43 Diagnostic Findings [facility] Patient: SHANON WILL [id number] (Male) : 55 Status: ER Date: 11/11/20 22:12 Room #: History: AMS Slices: 73 Priors: Tech: Jackson Hays @ [id number] Exams: CT HEAD Contrast: Accession Numbers: [id number] Preliminary Findings Only See Final Report For Complete Findings CT HEAD: No ICH, mass effect or edema. No evidence of acute cortical stroke. Periventricular small vessel ischemic change. Visualized sinuses and mastoid air cells are clear. Radiologist: Kashif Victoria MD Study ready at 22:14 and initial results transmitted at 22:22 *This report constitutes a preliminary interpretation only. Non-acute findings felt to be unrelated to the clinical presentation may not be discussed in this report. The study will be interpreted and a final report will be generated by the local Radiologist the following shift. To reach the hospital radiology department call [phone]. If a discrepancy is found between the preliminary and final interpretations of this study, please notify us via our Client Portal at [email or web address].You can also fax this report with a description of the discrepancy, or include the final report, to our daytime fax number [phone].If faxing, please indicate the severity of discrepancy using one of the following categories: [ ] 1 - Agree/Informational [ ] 2 - Unlikely to Affect Management [ ] 3 - Possible Eventual Change of Management [ ] 4 - Probable Immediate Change of Management For all other patient related information, please fax us at [phone]. [id number] [facility] Patient: SHANON WILL [id number] (Male) : 55 Status: ER Date: 11/11/20 22:19 Room #: History: FEVER POSSIBLE INFECTION Slices: 840 Priors: Tech: Jackson Hays @ [id number] Exams: CT ABDOMEN & PELVIS With Contrast Contrast: IV Amt: 93 Accession Numbers: [id number] Preliminary Findings Only See Final Report For Complete Findings CT ABDOMEN & PELVIS With Contrast: Impression: Moderate amount of fecal matter seen in the colon and rectum. This is suggestive of constipation. Bilateral nonobstructing stones measuring up to 6 mm in diameter. Dependent high density in the urinary bladder lumen, suggestive of stones. Dependent density in the gallbladder lumen could be from sludge. Radiologist: Kashif Victoria MD Study ready at 22:33 and initial results transmitted at 22:40 *This report constitutes a preliminary interpretation only. Non-acute findings felt to be unrelated to the clinical presentation may not be discussed in this report. The study will be interpreted and a final report will be generated by the local Radiologist the following shift. To reach the hospital radiology department call [phone]. If a discrepancy is found between the preliminary and final interpretations of this study, please notify us via our Client Portal at [email or web address].You can also fax this report with a description of the discrepancy, or include the final report, to our daytime fax number [phone].If faxing, please indicate the severity of discrepancy using one of the following categories: [ ] 1 - Agree/Informational [ ] 2 - Unlikely to Affect Management [ ] 3 - Possible Eventual Change of Management [ ] 4 - Probable Immediate Change of Management For all other patient related information, please fax us at [phone]. [id number] Code Status & VTE Plan Code Status Full code VTE Prophylaxis Plan VTE Prophylaxis will be ordered: Yes PG Care Time/CCT Total # of Minutes Spent Total Time Spent with Patient: Total time spent is greater than 50% in coordination of care (as documented) at patient's floor/unit and/or counseling patient: Coding Level of Care Code 63388 Initial Inpt Care Lvl 3 Diagnoses Sepsis A41.9 Sepsis acute organ dysfunction status: without acute organ dysfunction Sepsis type: sepsis due to unspecified organism Acute UTI N39.0 Altered mental status R41.82 Altered mental status type: unspecified COVID-19 U07.1 Diabetes E11.9 Hypokalemia E87.6 Dehydration E86.0 Seizure disorder G40.909 Hypertension I10 Tachycardia R00.0 BPH w urinary obs/LUTS N40.1; N13.8 Hyperlipidemia E78.5 (1) Sepsis Sepsis acute organ dysfunction status: without acute organ dysfunction Sepsis type: sepsis due to unspecified organism Qualified Code(s): A41.9 - Sepsis, unspecified organism (2) Altered mental status Altered mental status type: unspecified Qualified Code(s): R41.82 - Altered mental status, unspecified
[2020-11-12] MEDS ORDERED: ONDANSETRON INJ 2 MG/ML 2 ML VIAL IV PRN (03:05)
[2020-11-12] MEDS ORDERED: PIPERACILLIN/TAZOBACTAM 4.5 GM in DEXTROSE 5% 100 ML IV ONE (03:05)
[2020-11-12] MEDS ORDERED: PIPERACILL/TAZOBAC CONSULT ACTIVE PRN (03:05)
[2020-11-12] MEDS ORDERED: ALBUTEROL HFA 8 GM INHALER INH PRN (03:05)
[2020-11-12] MEDS: NSS + 20MEQ KCL 20 MEQ/1,000 ML BAG IV SCH ×3 (03:33→23:31)
[2020-11-12] MEDS: OXcarbazepine 150 MG TABLET PO SCH ×3 (03:38→20:32)
--- NOTE | 2020-11-12 07:16 | CT Scan Report ---
HEAD CT NONCONTRAST CT DOSE: 1988.19 mGy.cm HISTORY: mental status change TECHNIQUE: Multiaxial CT images of the head were performed without the use of intravenous contrast. A utomated exposure control was utilized for this study. A dose lowering technique was utilized adheri ng to the principles of ALARA. Comparison: None. Findings: The paranasal sinuses and mastoid air cells are clear. The calvarium and skull base are int act. There is no mass, hematoma, midline shift, acute infarct. White matter hypodensity is nonspecifi c but suggestive of microvascular ischemic change. The ventricles and sulci demonstrate mild age-rela rena involutional changes. Impression: No acute intracranial abnormality. ACT 112: Negative or not required by law. Electronically signed by: Emre Morgan M.D. 11/12/2020 7:14 AM
--- NOTE | 2020-11-12 08:01 | XRay Report ---
XR chest 1V portable CLINICAL HISTORY: SEPSIS COMPARISON STUDY: 07/01/2014 FINDINGS: The patient is listing to the left. The cardiac and mediastinal contours remain stable. The re are low lung volumes with bronchovascular crowding. There is no lobar consolidation. Increased mar kings at the left lung base, are likely atelectatic[ IMPRESSION: 1. Low lung volumes with bronchovascular crowding 2. No evidence of lobar consolidation 3. Increased left basilar markings likely atelectatic ACT 112: Negative or not required by law. Electronically signed by: Rush Cohen M.D. 11/12/2020 8:00 AM
--- NOTE | 2020-11-12 08:17 | CT Scan Report ---
ABDOMEN AND PELVIS CT WITH IV CONTRAST CT DOSE: 1101.52 mGy.cm HISTORY: fever, poss infection TECHNIQUE: Multiaxial CT images of the abdomen and pelvis were performed following the use of intrave nous contrast. A dose lowering technique was utilized adhering to the principles of ALARA. COMPARISON STUDY: None. FINDINGS: A few small bibasilar linear densities suggesting subsegmental atelectasis. Otherwise, lung bases are clear. Motion artifact results in suboptimal evaluation of the abdomen and pelvis. No pneu moperitoneum. No pneumatosis. No fractures within the visualized osseous structures. Lobular contour to the liver suggesting mild cirrhosis. No definite hepatic or splenic masses. The gallbladder is mil dly distended. No gallbladder wall thickening. Mild thickening at the fundus of the gallbladder may r epresent adenomyomatosis. The adrenal glands, pancreas, and spleen are unremarkable. Multifocal scarr ing seen within the kidneys. A few punctate bilateral renal calculi. No ureteral calculi. No hydronep hrosis. The main portal vein is patent. Small fat-containing left inguinal hernia. There is a Pinedo c atheter decompressing the bladder. Punctate densities within the bladder favor small stones. No retro peritoneal lymphadenopathy. Moderate to large amount well-formed stool seen throughout the colon and rectum. No bowel wall thickening or obstruction. Normal appendix. IMPRESSION: 1. Lobular contour to the liver suggesting mild cirrhosis. 2. Distended gallbladder. No gallbladder wall thickening. 3. Bilateral nephrolithiasis. No hydronephrosis. Punctate densities within the bladder favor small st ones. 4. Moderate to large amount of well-formed stool seen throughout the colon and rectum. 5. No bowel wall thickening or obstruction. 6. Normal appendix. ACT 112: Negative or not required by law. Electronically signed by: Emre Morgan M.D. 11/12/2020 8:16 AM
[2020-11-12 08:38] LABS: Hematocrit (blood only) 35.4 % (42-52); Hemoglobin 12.2 g/dL (14.0-18.0); Mean Corpuscular Hemoglobin 31.9 pg (25-34); Mean Corpuscular Hgb Conc 34.5 g/dL (32-36); Mean Corpuscular Volume 92.7 fL (80-100); Mean Platelet Volume 9.2 fL (7.4-10.4); Platelet Count 157 K/uL (130-400); RDW Coefficient of Variation 13.1 % (11.5-14.5); RDW Standard Deviation 44.3 fL (36.4-46.3); Red Blood Count 3.82 M/uL (4.7-6.1); White Blood Count 3.55 K/uL (4.8-10.8)
[2020-11-12] MEDS: FUROSEMIDE 40 MG TAB PO SCH ×2 (08:44→09:08)
[2020-11-12] MEDS: CYANOCOBALAMIN 500 MCG TABLET (VITAMIN B-12) PO SCH (08:44)
[2020-11-12] MEDS: METOPROLOL TARTRATE 50 MG TAB PO SCH ×2 (08:44→20:32)
[2020-11-12] MEDS: ZINC SULFATE 220 MG CAPSULE PO SCH (08:44)
[2020-11-12] MEDS: LUBIPROSTONE 8 MCG CAP PO SCH ×2 (08:45→20:32)
[2020-11-12 08:48] LABS: BUN Creatinine Ratio 20.4 (10-20); Calcium 8.6 mg/dl (8.5-10.1); Creatinine Clr Calc Pharmacy 62.3 ml/min; Est GFR (African American) 71.7; Est GFR (Non-African American) 61.8; Magnesium 2.2 mg/dl (1.8-2.4); Potassium 2.7 mmol/L (3.5-5.1)
[2020-11-12] MEDS: PIPERACILLIN/TAZOBACTAM 3.375 GM in DEXTROSE 5% 100 ML IV SCH ×3 (08:51→23:31)
[2020-11-12] MEDS ORDERED: dexAMETHasone 6 MG in SYRINGE 0 ML IV SCH (09:00)
[2020-11-12] MEDS ORDERED: ZINC OXIDE 40% TOP SCH (09:00)
--- NOTE | 2020-11-12 11:28 | History & Physical Bridge Note ---
Date of Service November 12, 2020 History & Physical Bridge Note I have examined the patient, reviewed the History & Physical and in the interval since the performance of the History & Physical I have noted the following changes of clinical significance: patient admitted after midnight for UTI, sepsis, had a + COVID test patient says he tested positive for COVID in the past at [facility], he has no dyspnea, no hypoxia and CXR is clear, will stop dexamethasone repeat labs show K is still low at 2.7, will add PO replacement to the K in the maintenance fluids follow up on urine and blood cultures, continue IV antibiotics eating well, had a double breakfast he is resting comfortably, discussed that he will likely be here through the weekend
[2020-11-12] MEDS: POTASSIUM CHLORIDE CRTAB 20 MEQ TABCR PO SCH ×2 (12:05→20:32)
[2020-11-12] MEDS: DAPTOmycin 450 MG in SYRINGE 0 ML IV SCH (20:26)
[2020-11-12] MEDS: ROSUVASTATIN CALCIUM 10 MG TAB PO SCH (20:31)
[2020-11-12] MEDS: NORTRIPTYLINE HCL 25 MG CAP PO SCH (20:32)
[2020-11-12] MEDS: TAMSULOSIN HCL 0.4 MG CAP PO SCH (20:32)
--- NOTE | 2020-11-13 06:05 | Electrocardiogram Report ---
Test Reason : Blood Pressure : / mmHG Vent. Rate : 097 BPM Atrial Rate : 097 BPM P-R Int : 176 ms QRS Dur : 104 ms QT Int : 378 ms P-R-T Axes : -05 055 030 degrees QTc Int : 480 ms Poor data quality, interpretation may be adversely affected Normal sinus rhythm Incomplete right bundle branch block Nonspecific ST and T wave abnormality Prolonged QT Abnormal ECG When compared with ECG of 28-JUL-2014 20:52, QRS duration has increased ST now depressed in Anterior leads Confirmed by Alan Greenfield ([id number]) on 11/13/2020 6:05:10 AM Referred By: Raj MARIO Confirmed By:Alan Greenfield
[2020-11-13 07:04] LABS: Basophils # (auto) 0.01 K/uL (0-0.2); Basophils % (auto) 0.2 %; Eosinophils # (auto) 0.07 K/uL (0-0.5); Eosinophils % (auto) 1.7 %; Hematocrit (blood only) 35.7 % (42-52); Hemoglobin 12.2 g/dL (14.0-18.0); Immature Granulocytes # (auto) 0.01 K/uL (0.00-0.02); Immature Granulocytes % (auto) 0.2 %; Lymphocytes # (auto) 0.66 K/uL (1.2-3.4); Lymphocytes % (auto) 16.1 %; Mean Corpuscular Hemoglobin 30.5 pg (25-34); Mean Corpuscular Hgb Conc 34.2 g/dL (32-36); Mean Corpuscular Volume 89.3 fL (80-100); Mean Platelet Volume 8.8 fL (7.4-10.4); Monocytes % (auto) 7.3 %; Neutrophils # (auto) 3.06 K/uL (1.4-6.5); Neutrophils % (auto) 74.5 %; Platelet Count 140 K/uL (130-400); RDW Standard Deviation 42.6 fL (36.4-46.3); White Blood Count 4.11 K/uL (4.8-10.8)
[2020-11-13 07:33] LABS: Albumin Level 2.5 gm/dl (3.4-5.0); BUN Creatinine Ratio 18.8 (10-20); Calcium 8.4 mg/dl (8.5-10.1); Creatinine Clr Calc Pharmacy 76.3 ml/min; Est GFR (African American) 82.1; Est GFR (Non-African American) 70.9; Potassium 2.9 mmol/L (3.5-5.1)
[2020-11-13 07:42] LABS: Albumin Globulin Ratio 0.7 (0.9-2); Bilirubin,Total 0.5 mg/dl (0.2-1); Globulin 3.5 gm/dl (2.5-4.0)
[2020-11-13] MEDS: OXcarbazepine 150 MG TABLET PO SCH ×2 (08:23→21:56)
[2020-11-13] MEDS: METOPROLOL TARTRATE 50 MG TAB PO SCH ×2 (08:23→21:55)
[2020-11-13] MEDS: ZINC SULFATE 220 MG CAPSULE PO SCH (08:23)
[2020-11-13] MEDS: POTASSIUM CHLORIDE CRTAB 20 MEQ TABCR PO SCH ×3 (08:24→21:55)
[2020-11-13] MEDS: CYANOCOBALAMIN 500 MCG TABLET (VITAMIN B-12) PO SCH (08:24)
[2020-11-13] MEDS: LUBIPROSTONE 8 MCG CAP PO SCH ×2 (08:24→21:53)
[2020-11-13] MEDS: NSS + 20MEQ KCL 20 MEQ/1,000 ML BAG IV SCH (08:29)
[2020-11-13] MEDS: PIPERACILLIN/TAZOBACTAM 3.375 GM in DEXTROSE 5% 100 ML IV SCH ×2 (08:31→16:37)
--- NOTE | 2020-11-13 15:34 | Hospitalist Progress Note ---
Date of Service November 13, 2020 Assessment & Plan (1) Sepsis: Sepsis/altered mental status/urinary tract infection- continue with daptomycin and Zosyn IV urine culture with Streptococcus, could be enterococcus, VRE? taper antibiotics once final culture/sensitivity back blood cultures clean reduce NSS + KCl 20 mEq to 80 mils per hour and then stop tonight CT scan of abdomen and pelvis did note constipation, bladder stones, and bilateral stones up to 6 mm that were nonobstructive. give Miralax for constipation (2) Acute UTI: See above culture growing Streptococcus (3) Altered mental status: Patient was initially noted to be unresponsive upon arrival to the ED. he is alert/oriented today, suspect AMS due to infection (4) COVID-19: Unclear contribution to his initially unresponsive state which is now become somewhat improved after IV fluid rehydration. no hypoxia, no need for dexamethasone tested positive in detention over a week ago Ventolin HFA 2 puffs 4 times daily as needed Zinc sulfate 220 mg p.o. every morning (5) Hypokalemia: Hypokalemia/dehydration- Likely due to combination of illness and being on furosemide 40 mg p.o. twice daily, which will be held. Placed on NSS + KCl 20 mEq, can stop this evening continue TID replacement PO K is 2.9, repeat tomorrow (6) Dehydration: resolved with IV fluids, appears euvolemic eating and drinking well (7) Seizure disorder: Continue oxcarbazepine 600 mg p.o. twice daily (8) Hypertension: Hypertension/tachycardia holding furosemide above as noted continue metoprolol tartrate 50 mg p.o. twice daily (9) Tachycardia: resolved with fluids due to sepsis and dehydration (10) BPH w urinary obs/LUTS: Continue tamsulosin 0.4 mg p.o. at bedtime Pinedo catheter placed, and draining large volumes of urine, at least 1 L by the time of discharge from the ED (11) Hyperlipidemia: Continue rosuvastatin 10 mg at bedtime Admission and Anticipated Discharge Date Admission Date: November 12, 2020 Subjective patient doing okay, no major issues overnight or today eating very well, no BM in a few days, making urine no dyspnea, no chest pain, no fever, no sweats, no nausea/diarrhea reviewed cultures, blood clean, urine growing Streptococcus species vitals stable, no hypoxia WBC 4k, Cr 1.09, k low at 2.9 Review of Systems Review of Systems: All systems reviewed & are unremarkable except as noted in Subjective Constitutional: no fever, no chills, no sweats, no fatigue and no weakness Respiratory: no cough and no dyspnea Cardiovascular: no chest pain and no edema Gastrointestinal: + constipation Physical Exam Constitutional: well developed and well nourished; no acute distress Neck: trachea midline, no thyromegaly Respiratory: normal respiratory effort, lungs clear to auscultation Cardiovascular: RRR, no murmur, no edema Gastrointestinal (Abdomen): normal bowel sounds, soft, nontender, no hepatosplenomegaly Musculoskeletal: Head/Neck/Chest: normocephalic, head atraumatic and neck supple Extremities: + abnormal strength; + extremities abnormal to inspection (lower extremities with contractures), no cyanosis, no clubbing and no petechiae Skin: no rashes, warm and dry Neurologic: patellar DTR's 2+ bilat, sensation intact and PERRL, EOMI, accommodation nl, no face palsy, no dysarthria Psychiatric: A+Ox3, euthymic affect Lymphatic: no cervical or axillary lymphadenopathy Results & Data Results & Data ([facility]) Vital Signs (Past 12 Hours) Vital Signs Temp Pulse Pulse Resp BP Pulse Ox 11/13/20 13:34 36.7 C 81 19 108/66 94 11/13/20 08:00 96 H 11/13/20 05:15 36.9 C 99 H 18 121/75 93 Laboratory Results Laboratory Results - last 24 hr 11/13/20 11/13/20 06:42 06:42 WBC 4.11 L RBC 4.00 L Hgb 12.2 L Hct 35.7 L MCV 89.3 MCH 30.5 MCHC 34.2 RDW Std Deviation 42.6 RDW Coeff of Abad 13.0 Plt Count 140 MPV 8.8 Immature Gran % (Auto) 0.2 Neut % (Auto) 74.5 Lymph % (Auto) 16.1 [place] % (Auto) 7.3 Eos % (Auto) 1.7 Baso % (Auto) 0.2 Neut # (Auto) 3.06 Lymph # (Auto) 0.66 L [place] # (Auto) 0.30 Eos # (Auto) 0.07 Baso # (Auto) 0.01 Immature Gran # (Auto) 0.01 Sodium 143 Potassium 2.9 L Chloride 111 H Carbon Dioxide 23 Anion Gap 9.0 BUN 21 H Creatinine 1.09 Est Cr Clr Drug Dosing 76.3 Est GFR ( Amer) 82.1 Est GFR (Non-Af Amer) 70.9 BUN/Creatinine Ratio 18.8 Glucose 93 Calcium 8.4 L Total Bilirubin 0.5 AST 26 ALT 23 Alkaline Phosphatase 90 Total Protein 6.0 L D Albumin 2.5 L Globulin 3.5 Albumin/Globulin Ratio 0.7 L Medications Administered Current Inpatient Medications Acetaminophen (Acetaminophen 325 Mg Tab) 650 mg PO Q4H PRN PRN Reason: Pain or Fever Stop: 12/12/20 03:04 Albuterol (Albuterol Hfa 8 Gm Inhaler) 2 puffs INH QID PRN PRN Reason: Dyspnea Stop: 12/12/20 03:04 Cyanocobalamin (Cyanocobalamin 500 Mcg Tablet (Vitamin B-12)) 500 mcg PO DAILY [facility] Stop: 12/12/20 08:59 Last Admin: 11/13/20 08:24 Dose: 500 mcg Documented by: Furosemide (Furosemide 40 Mg Tab) 40 mg PO [id number] [facility] Stop: 12/12/20 08:59 Last Admin: 11/12/20 09:08 Dose: Not Given Documented by: Potassium Chloride/Sodium Chloride (Normal Saline W/20 Meq Kcl) 20 meq in 1,000 mls @ 80 mls/hr IV .[id number] [facility] Stop: 12/12/20 03:04 Last Admin: 11/13/20 08:29 Dose: 100 mls/hr Documented by: Daptomycin 450 mg/ Syringe 9 mls @ 4.5 mls/min IV Q24H [facility]; Protocol Stop: 11/17/20 23:59 Last Admin: 11/12/20 20:26 Dose: 4.5 mls/min Documented by: Piperacillin Sod/Tazobactam (Sod 3.375 gm/ Dextrose) 115 mls @ 28.75 mls/hr IV Q8H [facility]; Protocol Stop: 11/17/20 23:59 Last Infusion: 11/13/20 12:35 Dose: Infused Documented by: Lubiprostone (Lubiprostone 8 Mcg Cap) 24 mcg PO BID JJ Stop: 12/12/20 08:59 Last Admin: 11/13/20 08:24 Dose: 24 mcg Documented by: Metoprolol Tartrate (Metoprolol Tartrate 50 Mg Tab) 50 mg PO BID [facility] Stop: 12/12/20 08:59 Last Admin: 11/13/20 08:23 Dose: 50 mg Documented by: Miscellaneous Information (Daptomycin Consult Active) 1 ea N/A UD PRN PRN Reason: Consult Stop: 12/12/20 03:04 Miscellaneous Information (Piperacill/Tazobac Consult Active) 1 ea N/A UD PRN PRN Reason: Consult Stop: 12/12/20 03:04 Nortriptyline HCl (Nortriptyline Hcl 25 Mg Cap) 25 mg PO [facility] Stop: 12/12/20 20:59 Last Admin: 11/12/20 20:32 Dose: 25 mg Documented by: Ondansetron HCl (Ondansetron Inj 2 Mg/Ml 2 Ml Vial) 4 mg IV Q6H PRN PRN Reason: Nausea Stop: 12/12/20 03:04 Oxcarbazepine (Oxcarbazepine 150 Mg Tablet) 600 mg PO BID JJ Stop: 12/12/20 03:04 Last Admin: 11/13/20 08:23 Dose: 600 mg Documented by: Potassium Chloride (Potassium Chloride Crtab 20 Meq Tabcr) 20 meq PO TID [facility] Stop: 12/13/20 08:59 Last Admin: 11/13/20 14:56 Dose: 20 meq Documented by: Rosuvastatin Calcium (Rosuvastatin Calcium 10 Mg Tab) 10 mg PO [facility] Stop: 12/12/20 20:59 Last Admin: 11/12/20 20:31 Dose: 10 mg Documented by: Tamsulosin HCl (Tamsulosin Hcl 0.4 Mg Cap) 0.4 mg PO [facility] Stop: 12/12/20 20:59 Last Admin: 11/12/20 20:32 Dose: 0.4 mg Documented by: Zinc Sulfate (Zinc Sulfate 220 Mg Capsule) [facility] Stop: 12/12/20 08:59 Last Admin: 11/13/20 08:23 Dose: 220 mg Documented by: PG Care Time/CCT Total # of Minutes Spent Total Time Spent with Patient: Total time spent is greater than 50% in coordination of care (as documented) at patient's floor/unit and/or counseling patient: Coding Level of Care Code 35439 Subseq Hosp Care Lvl 3 Diagnoses Sepsis A41.9 Sepsis acute organ dysfunction status: without acute organ dysfunction Sepsis type: sepsis due to unspecified organism Acute UTI N39.0 Altered mental status R41.82 Altered mental status type: unspecified COVID-19 U07.1 Hypokalemia E87.6 Dehydration E86.0 Seizure disorder G40.909 Hypertension I10 Tachycardia R00.0 BPH w urinary obs/LUTS N40.1; N13.8 Hyperlipidemia E78.5 (1) Sepsis Sepsis acute organ dysfunction status: without acute organ dysfunction Sepsis type: sepsis due to unspecified organism Qualified Code(s): A41.9 - Sepsis, unspecified organism (2) Altered mental status Altered mental status type: unspecified Qualified Code(s): R41.82 - Altered mental status, unspecified
[2020-11-13] MEDS: DAPTOmycin 450 MG in SYRINGE 0 ML IV SCH (21:52)
[2020-11-13] MEDS: ROSUVASTATIN CALCIUM 10 MG TAB PO SCH (21:54)
[2020-11-13] MEDS: TAMSULOSIN HCL 0.4 MG CAP PO SCH (21:54)
[2020-11-13] MEDS: NORTRIPTYLINE HCL 25 MG CAP PO SCH (21:55)
[2020-11-14] MEDS: PIPERACILLIN/TAZOBACTAM 3.375 GM in DEXTROSE 5% 100 ML IV SCH ×3 (00:25→16:18)
[2020-11-14 08:37] LABS: Eosinophils # (auto) 0.34 K/uL (0-0.5); Eosinophils % (auto) 9.1 %; Hematocrit (blood only) 36.2 % (42-52); Hemoglobin 12.3 g/dL (14.0-18.0); Immature Granulocytes # (auto) 0.01 K/uL (0.00-0.02); Immature Granulocytes % (auto) 0.3 %; Lymphocytes # (auto) 0.67 K/uL (1.2-3.4); Mean Corpuscular Hemoglobin 31.4 pg (25-34); Mean Corpuscular Volume 92.3 fL (80-100); Mean Platelet Volume 8.8 fL (7.4-10.4); Monocytes # (auto) 0.25 K/uL (0.11-0.59); Monocytes % (auto) 6.7 %; Neutrophils # (auto) 2.46 K/uL (1.4-6.5); Neutrophils % (auto) 65.9 %; Platelet Count 121 K/uL (130-400); RDW Coefficient of Variation 13.6 % (11.5-14.5); RDW Standard Deviation 45.6 fL (36.4-46.3); Red Blood Count 3.92 M/uL (4.7-6.1); White Blood Count 3.73 K/uL (4.8-10.8)
[2020-11-14] MEDS: LUBIPROSTONE 8 MCG CAP PO SCH ×2 (08:49→21:33)
[2020-11-14] MEDS: METOPROLOL TARTRATE 50 MG TAB PO SCH ×2 (08:50→21:34)
[2020-11-14] MEDS: CYANOCOBALAMIN 500 MCG TABLET (VITAMIN B-12) PO SCH (08:50)
[2020-11-14] MEDS: POTASSIUM CHLORIDE CRTAB 20 MEQ TABCR PO SCH ×2 (08:50→21:34)
[2020-11-14] MEDS: OXcarbazepine 150 MG TABLET PO SCH ×2 (08:50→21:33)
[2020-11-14] MEDS: ZINC SULFATE 220 MG CAPSULE PO SCH (08:51)
[2020-11-14] MEDS ORDERED: POLYETHYLENE (MIRALAX) 17 GM PACK PO SCH (09:00)
[2020-11-14 09:44] LABS: Albumin Globulin Ratio 0.8 (0.9-2); Albumin Level 2.5 gm/dl (3.4-5.0); BUN Creatinine Ratio 21.2 (10-20); Bilirubin,Total 0.5 mg/dl (0.2-1); Calcium 8.4 mg/dl (8.5-10.1); Est GFR (African American) 106.5; Est GFR (Non-African American) 91.9; Globulin 3.3 gm/dl (2.5-4.0); Potassium 3.5 mmol/L (3.5-5.1); Total Protein 5.8 gm/dl (6.4-8.2)
--- NOTE | 2020-11-14 11:10 | Hospitalist Progress Note ---
Date of Service November 14, 2020 Assessment & Plan (1) Sepsis: Sepsis/altered mental status/urinary tract infection- continue with daptomycin and Zosyn IV urine culture with Streptococcus, 100k colonies, could be enterococcus, VRE? taper antibiotics once final culture/sensitivity back, hopeful by today/tomorrow morning blood cultures clean off fluids since 11/13 CT scan of abdomen and pelvis did note constipation, bladder stones, and bilateral stones up to 6 mm that were nonobstructive. give Miralax for constipation, still no success (2) Acute UTI: See above culture growing Streptococcus 100k colonies (3) Altered mental status: Patient was initially noted to be unresponsive upon arrival to the ED. he is alert/oriented past three days, suspect AMS due to infection (4) COVID-19: no hypoxia, no need for dexamethasone tested positive in [facility] over a week ago Ventolin HFA 2 puffs 4 times daily as needed Zinc sulfate 220 mg p.o. every morning (5) Hypokalemia: Hypokalemia/dehydration- Likely due to combination of illness and being on furosemide 40 mg p.o. twice daily, which will be held. K is up to 3.5 today, repeat tomorrow decrease supplementation to BID (6) Dehydration: resolved with IV fluids, appears euvolemic eating and drinking well (7) Seizure disorder: Continue oxcarbazepine 600 mg p.o. twice daily (8) Hypertension: Hypertension/tachycardia holding furosemide above as noted continue metoprolol tartrate 50 mg p.o. twice daily (9) Tachycardia: resolved with fluids due to sepsis and dehydration (10) BPH w urinary obs/LUTS: Continue tamsulosin 0.4 mg p.o. at bedtime Pinedo catheter placed, and draining large volumes of urine, at least 1 L by the time of discharge from the ED (11) Hyperlipidemia: Continue rosuvastatin 10 mg at bedtime (12) Constipated: Miralax daily says he has a hard time using bedpan, but admits that he does not walk well Admission and Anticipated Discharge Date Admission Date: November 12, 2020 Subjective patient is stable today, no complaints labs show K is 3.5, continue supplementation urine culture still with just 100k Streptococcus, still awaiting sensitivities no fever, vitals stable no chest pain, no dyspnea, no cough, no headache, no GI symptoms Review of Systems Review of Systems: All systems reviewed & are unremarkable except as noted in Subjective Physical Exam Constitutional: well developed and well nourished; no acute distress Neck: trachea midline, no thyromegaly Respiratory: normal respiratory effort, lungs clear to auscultation Cardiovascular: RRR, no murmur, no edema Gastrointestinal (Abdomen): normal bowel sounds, soft, nontender, no hepatosplenomegaly Musculoskeletal: Head/Neck/Chest: normocephalic, head atraumatic and neck supple Extremities: + abnormal strength; + extremities abnormal to inspection (lower extremities with contractures), no cyanosis, no clubbing and no petechiae Skin: no rashes, warm and dry Neurologic: patellar DTR's 2+ bilat, sensation intact and PERRL, EOMI, accommodation nl, no face palsy, no dysarthria Psychiatric: A+Ox3, euthymic affect Lymphatic: no cervical or axillary lymphadenopathy Results & Data Results & Data ([facility]) Vital Signs (Past 12 Hours) Vital Signs Temp Pulse Pulse Resp BP Pulse Ox 11/14/20 07:15 79 11/14/20 00:46 37.2 C 82 20 115/73 94 Laboratory Results Laboratory Results - last 24 hr 11/13/20 11/13/20 11/14/20 16:13 20:42 08:13 WBC 3.73 L RBC 3.92 L Hgb 12.3 L Hct 36.2 L MCV 92.3 MCH 31.4 MCHC 34.0 RDW Std Deviation 45.6 RDW Coeff of Abad 13.6 Plt Count 121 L MPV 8.8 Immature Gran % (Auto) 0.3 Neut % (Auto) 65.9 Lymph % (Auto) 18.0 [place] % (Auto) 6.7 Eos % (Auto) 9.1 Baso % (Auto) 0.0 Neut # (Auto) 2.46 Lymph # (Auto) 0.67 L [place] # (Auto) 0.25 Eos # (Auto) 0.34 Baso # (Auto) 0.00 Immature Gran # (Auto) 0.01 Sodium Potassium Chloride Carbon Dioxide Anion Gap BUN Creatinine Est Cr Clr Drug Dosing Est GFR ( Amer) Est GFR (Non-Af Amer) BUN/Creatinine Ratio Glucose POC Glucose 112 H 90 Calcium Total Bilirubin AST ALT Alkaline Phosphatase Total Protein Albumin Globulin Albumin/Globulin Ratio 11/14/20 08:13 WBC RBC Hgb Hct MCV MCH MCHC RDW Std Deviation RDW Coeff of Abad Plt Count MPV Immature Gran % (Auto) Neut % (Auto) Lymph % (Auto) [place] % (Auto) Eos % (Auto) Baso % (Auto) Neut # (Auto) Lymph # (Auto) [place] # (Auto) Eos # (Auto) Baso # (Auto) Immature Gran # (Auto) Sodium 147 H Potassium 3.5 D Chloride 115 H Carbon Dioxide 26 Anion Gap 6.0 BUN 18 Creatinine 0.84 Est Cr Clr Drug Dosing 99.0 Est GFR ( Amer) 106.5 Est GFR (Non-Af Amer) 91.9 BUN/Creatinine Ratio 21.2 H Glucose 85 POC Glucose Calcium 8.4 L Total Bilirubin 0.5 AST 28 ALT 24 Alkaline Phosphatase 83 Total Protein 5.8 L Albumin 2.5 L Globulin 3.3 Albumin/Globulin Ratio 0.8 L Medications Administered Current Inpatient Medications Acetaminophen (Acetaminophen 325 Mg Tab) 650 mg PO Q4H PRN PRN Reason: Pain or Fever Stop: 12/12/20 03:04 Albuterol (Albuterol Hfa 8 Gm Inhaler) 2 puffs INH QID PRN PRN Reason: Dyspnea Stop: 12/12/20 03:04 Cyanocobalamin (Cyanocobalamin 500 Mcg Tablet (Vitamin B-12)) 500 mcg PO DAILY [facility] Stop: 12/12/20 08:59 Last Admin: 11/14/20 08:50 Dose: 500 mcg Documented by: Furosemide (Furosemide 40 Mg Tab) 40 mg PO BID17 [facility] Stop: 12/12/20 08:59 Last Admin: 11/12/20 09:08 Dose: Not Given Documented by: Daptomycin 450 mg/ Syringe 9 mls @ 4.5 mls/min IV Q24H JJ; Protocol Stop: 11/17/20 23:59 Last Admin: 11/13/20 21:52 Dose: 4.5 mls/min Documented by: Piperacillin Sod/Tazobactam (Sod 3.375 gm/ Dextrose) 115 mls @ 28.75 mls/hr IV Q8H JJ; Protocol Stop: 11/17/20 23:59 Last Admin: 11/14/20 08:57 Dose: 28.8 mls/hr Documented by: Lubiprostone (Lubiprostone 8 Mcg Cap) 24 mcg PO BID JJ Stop: 12/12/20 08:59 Last Admin: 11/14/20 08:49 Dose: 24 mcg Documented by: Metoprolol Tartrate (Metoprolol Tartrate 50 Mg Tab) 50 mg PO BID JJ Stop: 12/12/20 08:59 Last Admin: 11/14/20 08:50 Dose: 50 mg Documented by: Miscellaneous Information (Daptomycin Consult Active) 1 ea N/A UD PRN PRN Reason: Consult Stop: 12/12/20 03:04 Miscellaneous Information (Piperacill/Tazobac Consult Active) 1 ea N/A UD PRN PRN Reason: Consult Stop: 12/12/20 03:04 Nortriptyline HCl (Nortriptyline Hcl 25 Mg Cap) 25 mg PO HS JJ Stop: 12/12/20 20:59 Last Admin: 11/13/20 21:55 Dose: 25 mg Documented by: Ondansetron HCl (Ondansetron Inj 2 Mg/Ml 2 Ml Vial) 4 mg IV Q6H PRN PRN Reason: Nausea Stop: 12/12/20 03:04 Oxcarbazepine (Oxcarbazepine 150 Mg Tablet) 600 mg PO BID JJ Stop: 12/12/20 03:04 Last Admin: 11/14/20 08:50 Dose: 600 mg Documented by: Polyethylene Glycol (Polyethylene (Miralax) 17 Gm Pack) 17 gm PO DAILY JJ Stop: 12/14/20 08:59 Last Admin: 11/14/20 08:49 Dose: 17 gm Documented by: Potassium Chloride (Potassium Chloride Crtab 20 Meq Tabcr) 20 meq PO TID JJ Stop: 12/13/20 08:59 Last Admin: 11/14/20 08:50 Dose: 20 meq Documented by: Rosuvastatin Calcium (Rosuvastatin Calcium 10 Mg Tab) 10 mg PO HS JJ Stop: 12/12/20 20:59 Last Admin: 11/13/20 21:54 Dose: 10 mg Documented by: Tamsulosin HCl (Tamsulosin Hcl 0.4 Mg Cap) 0.4 mg PO HS JJ Stop: 12/12/20 20:59 Last Admin: 11/13/20 21:54 Dose: 0.4 mg Documented by: Zinc Sulfate (Zinc Sulfate 220 Mg Capsule) 220 mg PO QAM JJ Stop: 12/12/20 08:59 Last Admin: 11/14/20 08:51 Dose: 220 mg Documented by: PG Care Time/CCT Total # of Minutes Spent Total Time Spent with Patient: Total time spent is greater than 50% in coordination of care (as documented) at patient's floor/unit and/or counseling patient: Coding Level of Care Code 87311 Subseq Hosp Care Lvl 2 Diagnoses Sepsis A41.9 Sepsis acute organ dysfunction status: without acute organ dysfunction Sepsis type: sepsis due to unspecified organism Acute UTI N39.0 Altered mental status R41.82 Altered mental status type: unspecified COVID-19 U07.1 Hypokalemia E87.6 Dehydration E86.0 Seizure disorder G40.909 Hypertension I10 Tachycardia R00.0 BPH w urinary obs/LUTS N40.1; N13.8 Hyperlipidemia E78.5 Constipated K59.00 (1) Sepsis Sepsis acute organ dysfunction status: without acute organ dysfunction Sepsis type: sepsis due to unspecified organism Qualified Code(s): A41.9 - Sepsis, unspecified organism (2) Altered mental status Altered mental status type: unspecified Qualified Code(s): R41.82 - Altered mental status, unspecified
[2020-11-14] MEDS: ROSUVASTATIN CALCIUM 10 MG TAB PO SCH (21:33)
[2020-11-14] MEDS: DAPTOmycin 450 MG in SYRINGE 0 ML IV SCH (21:33)
[2020-11-14] MEDS: TAMSULOSIN HCL 0.4 MG CAP PO SCH (21:33)
[2020-11-14] MEDS: POLYETHYLENE (MIRALAX) 17 GM PACK PO SCH (21:34)
[2020-11-14] MEDS: NORTRIPTYLINE HCL 25 MG CAP PO SCH (21:34)
[2020-11-15] MEDS: POLYETHYLENE (MIRALAX) 17 GM PACK PO SCH ×2 (08:14→21:43)
[2020-11-15] MEDS: OXcarbazepine 150 MG TABLET PO SCH ×2 (08:14→21:42)
[2020-11-15] MEDS: ZINC SULFATE 220 MG CAPSULE PO SCH (08:15)
[2020-11-15] MEDS: METOPROLOL TARTRATE 50 MG TAB PO SCH ×2 (08:15→21:42)
[2020-11-15] MEDS: POTASSIUM CHLORIDE CRTAB 20 MEQ TABCR PO SCH ×2 (08:15→21:42)
[2020-11-15] MEDS: CYANOCOBALAMIN 500 MCG TABLET (VITAMIN B-12) PO SCH (08:15)
[2020-11-15] MEDS: LUBIPROSTONE 8 MCG CAP PO SCH ×2 (08:15→21:42)
[2020-11-15] MEDS: FUROSEMIDE 40 MG TAB PO SCH ×2 (08:16→16:52)
--- NOTE | 2020-11-15 11:51 | Hospitalist Progress Note ---
Date of Service November 15, 2020 Assessment & Plan (1) Sepsis: Sepsis/altered mental status/urinary tract infection- treated with Daptomycin and Zosyn initially urine culture with VRE back on 11/14, stopped Zosyn, continue Daptomycin 450mg IV daily for 10 days total today is day 4 spoke with BILL at [facility], they will order in Daptomcyin 450mg IV, should have it by Monday so he can go back tomorrow afternoon/evening would treat for 10 days total blood cultures clean off fluids since 11/13 CT scan of abdomen and pelvis did note constipation, bladder stones, and bilateral stones up to 6 mm that were nonobstructive. give Miralax for constipation, still no success (2) Acute UTI: See above culture growing VRE, only sensitive to Daptomycin no urinary symptoms (3) Altered mental status: Patient was initially noted to be unresponsive upon arrival to the ED. he is alert/oriented past four days, suspect AMS due to infection (4) COVID-19: no hypoxia, no need for dexamethasone tested positive in [facility] over a week ago Ventolin HFA 2 puffs 4 times daily as needed Zinc sulfate 220 mg p.o. every morning (5) Hypokalemia: Hypokalemia/dehydration- Likely due to combination of illness and being on furosemide 40 mg p.o. twice daily, which will be held. K is up to 3.5 on 11/14 decrease supplementation to BID check BMP tomorrow (6) Dehydration: resolved with IV fluids, appears euvolemic eating and drinking well (7) Seizure disorder: Continue oxcarbazepine 600 mg p.o. twice daily (8) Hypertension: Hypertension/tachycardia holding furosemide above as noted continue metoprolol tartrate 50 mg p.o. twice daily (9) Tachycardia: resolved with fluids due to sepsis and dehydration (10) BPH w urinary obs/LUTS: Continue tamsulosin 0.4 mg p.o. at bedtime Vieira catheter placed, and draining large volumes of urine, at least 1 L by the time of discharge from the ED would keep vieira for 10 days, can perform a voiding trial at [facility] after discharge spoke with PALLIATIVE MEDICINE PHYSICIAN at [facility] and she agrees with plan (11) Hyperlipidemia: Continue rosuvastatin 10 mg at bedtime (12) Constipated: Miralax daily had a BM last night Admission and Anticipated Discharge Date Admission Date: November 12, 2020 Subjective urine culture with VRE, sensitive to Daptomycin spoke with pv design and installation technician PALLIATIVE MEDICINE PHYSICIAN at [facility], Eve, requested she order the Daptomycin 450mg IV daily plan to send back to [facility] tomorrow as long as they can get the Daptomcyin by Monday patient had a BM last night he is eating well, no fevers Review of Systems Review of Systems: All systems reviewed & are unremarkable except as noted in Subjective Physical Exam Constitutional: well developed and well nourished; no acute distress Neck: trachea midline, no thyromegaly Respiratory: normal respiratory effort, lungs clear to auscultation Cardiovascular: RRR, no murmur, no edema Gastrointestinal (Abdomen): normal bowel sounds, soft, nontender, no hepatosplenomegaly Musculoskeletal: Head/Neck/Chest: normocephalic, head atraumatic and neck supple Extremities: + abnormal strength; + extremities abnormal to inspection (lower extremities with contractures), no cyanosis, no clubbing and no petechiae Skin: no rashes, warm and dry Neurologic: patellar DTR's 2+ bilat, sensation intact and PERRL, EOMI, accommodation nl, no face palsy, no dysarthria Psychiatric: A+Ox3, euthymic affect Lymphatic: no cervical or axillary lymphadenopathy Results & Data Results & Data ([facility]) Vital Signs (Past 12 Hours) Vital Signs Temp Pulse Pulse Resp BP Pulse Ox 11/15/20 07:56 37 C 89 16 111/71 98 11/15/20 07:30 87 11/15/20 00:13 95 H Laboratory Results Laboratory Results - last 24 hr 11/15/20 05:57 Total Creatine Kinase 162 Medications Administered Current Inpatient Medications Acetaminophen (Acetaminophen 325 Mg Tab) 650 mg PO Q4H PRN PRN Reason: Pain or Fever Stop: 12/12/20 03:04 Albuterol (Albuterol Hfa 8 Gm Inhaler) 2 puffs INH QID PRN PRN Reason: Dyspnea Stop: 12/12/20 03:04 Cyanocobalamin (Cyanocobalamin 500 Mcg Tablet (Vitamin B-12)) 500 mcg PO DAILY JJ Stop: 12/12/20 08:59 Last Admin: 11/15/20 08:15 Dose: 500 mcg Documented by: Furosemide (Furosemide 40 Mg Tab) 40 mg PO BID17 JJ Stop: 12/12/20 08:59 Last Admin: 11/15/20 08:16 Dose: Not Given Documented by: Daptomycin 450 mg/ Syringe 9 mls @ 4.5 mls/min IV Q24H [facility]; Protocol Stop: 11/17/20 23:59 Last Admin: 11/14/20 21:33 Dose: 4.5 mls/min Documented by: Lubiprostone (Lubiprostone 8 Mcg Cap) 24 mcg PO BID JJ Stop: 12/12/20 08:59 Last Admin: 11/15/20 08:15 Dose: 24 mcg Documented by: Metoprolol Tartrate (Metoprolol Tartrate 50 Mg Tab) 50 mg PO BID [facility] Stop: 12/12/20 08:59 Last Admin: 11/15/20 08:15 Dose: 50 mg Documented by: Miscellaneous Information (Daptomycin Consult Active) 1 ea N/A UD PRN PRN Reason: Consult Stop: 12/12/20 03:04 Nortriptyline HCl (Nortriptyline Hcl 25 Mg Cap) 25 mg PO [facility] Stop: 12/12/20 20:59 Last Admin: 11/14/20 21:34 Dose: 25 mg Documented by: Ondansetron HCl (Ondansetron Inj 2 Mg/Ml 2 Ml Vial) 4 mg IV Q6H PRN PRN Reason: Nausea Stop: 12/12/20 03:04 Oxcarbazepine (Oxcarbazepine 150 Mg Tablet) 600 mg PO BID [facility] Stop: 12/12/20 03:04 Last Admin: 11/15/20 08:14 Dose: 600 mg Documented by: Polyethylene Glycol (Polyethylene (Miralax) 17 Gm Pack) 17 gm PO BID [facility] Stop: 12/14/20 20:59 Last Admin: 11/15/20 08:14 Dose: 17 gm Documented by: Potassium Chloride (Potassium Chloride Crtab 20 Meq Tabcr) 20 meq PO BID [facility] Stop: 12/14/20 20:59 Last Admin: 11/15/20 08:15 Dose: 20 meq Documented by: Rosuvastatin Calcium (Rosuvastatin Calcium 10 Mg Tab) 10 mg PO [facility] Stop: 12/12/20 20:59 Last Admin: 11/14/20 21:33 Dose: 10 mg Documented by: Tamsulosin HCl (Tamsulosin Hcl 0.4 Mg Cap) 0.4 mg PO HS JJ Stop: 12/12/20 20:59 Last Admin: 11/14/20 21:33 Dose: 0.4 mg Documented by: Zinc Sulfate (Zinc Sulfate 220 Mg Capsule) 220 mg PO QAM JJ Stop: 12/12/20 08:59 Last Admin: 11/15/20 08:15 Dose: 220 mg Documented by: PG Care Time/CCT Total # of Minutes Spent Total Time Spent: 32 Total Time Spent with Patient: Total time spent is greater than 50% in coordination of care (as documented) at patient's floor/unit and/or counseling patient: spent 12 minutes on phone with [facility] and then calling PALLIATIVE MEDICINE PHYSICIAN to discuss plan 20 minutes on exam, reviewing records, plan, documentation Coding Level of Care Code 55943 Subseq Hosp Care Lv 3 Diagnoses Sepsis A41.9 Sepsis acute organ dysfunction status: without acute organ dysfunction Sepsis type: sepsis due to unspecified organism Acute UTI N39.0 Altered mental status R41.82 Altered mental status type: unspecified COVID-19 U07.1 Hypokalemia E87.6 Dehydration E86.0 Seizure disorder G40.909 Hypertension I10 Tachycardia R00.0 BPH w urinary obs/LUTS N40.1; N13.8 Hyperlipidemia E78.5 Constipated K59.00 (1) Sepsis Sepsis acute organ dysfunction status: without acute organ dysfunction Sepsis type: sepsis due to unspecified organism Qualified Code(s): A41.9 - Sepsis, unspecified organism (2) Altered mental status Altered mental status type: unspecified Qualified Code(s): R41.82 - Altered mental status, unspecified
[2020-11-15] MEDS: ACETAMINOPHEN 325 MG TAB PO PRN (12:19)
[2020-11-15] MEDS: NORTRIPTYLINE HCL 25 MG CAP PO SCH (21:42)
[2020-11-15] MEDS: ROSUVASTATIN CALCIUM 10 MG TAB PO SCH (21:42)
[2020-11-15] MEDS: TAMSULOSIN HCL 0.4 MG CAP PO SCH (21:42)
[2020-11-15] MEDS: DAPTOmycin 450 MG in SYRINGE 0 ML IV SCH (21:43)
[2020-11-16 07:22] LABS: BUN Creatinine Ratio 16.1 (10-20); Calcium 8.3 mg/dl (8.5-10.1); Creatinine Clr Calc Pharmacy 103.1 ml/min; Est GFR (African American) 108.1; Est GFR (Non-African American) 93.3; Magnesium 1.8 mg/dl (1.8-2.4); Phosphorus 2.1 mg/dl (2.5-4.9); Potassium 3.1 mmol/L (3.5-5.1)
[2020-11-16] MEDS: LUBIPROSTONE 8 MCG CAP PO SCH ×2 (09:46→21:50)
[2020-11-16] MEDS: CYANOCOBALAMIN 500 MCG TABLET (VITAMIN B-12) PO SCH (09:47)
[2020-11-16] MEDS: ZINC SULFATE 220 MG CAPSULE PO SCH (09:47)
[2020-11-16] MEDS: POLYETHYLENE (MIRALAX) 17 GM PACK PO SCH ×2 (09:47→22:25)
[2020-11-16] MEDS: POTASSIUM CHLORIDE CRTAB 20 MEQ TABCR PO SCH ×2 (09:47→21:50)
[2020-11-16] MEDS: METOPROLOL TARTRATE 50 MG TAB PO SCH ×2 (09:47→22:25)
[2020-11-16] MEDS: OXcarbazepine 150 MG TABLET PO SCH ×2 (09:47→22:25)
[2020-11-16] MEDS: FUROSEMIDE 40 MG TAB PO SCH ×2 (09:47→15:48)
[2020-11-16] MEDS ORDERED: POTASSIUM PHOS 3 MMOL/1 ML INFUSION IV STA (09:49)
[2020-11-16] MEDS ORDERED: POTASSIUM PHOSPHATE 15 MMOL in SODIUM CHLORIDE 0.9% 250 ML IV ONE (10:00)
[2020-11-16] MEDS ORDERED: LINEZOLID CONSULT ACTIVE PRN (16:53)
[2020-11-16] MEDS ORDERED: methylPREDNISolone 125 MG/2 ML VIAL IV STA (16:54)
--- NOTE | 2020-11-16 16:55 | Hospitalist Progress Note ---
Date of Service November 16, 2020 Assessment & Plan (1) Sepsis: Presented with fever, acute metabolic encephalopathy, tachycardia, and evidence of UTI. Also with Covid-19. Blood cultures remain no growth UTI with VRE treated with Daptomycin and Zosyn initially Then has been on Daptomycin 450mg IV daily for 5 days, however with diffuse rash today possibly drug rash versus viral exanthem CT scan of abdomen and pelvis did note constipation, bladder stones, and bilateral stones up to 6 mm that were nonobstructive. Continues with low-grade fevers today but could very well likely just be from the Covid-19 Discussed antibiotic choice with pharmacy-DC daptomycin given possible allergic reaction and start linezolid 600 mg p.o. twice daily to finish out the 10-day course -We will need to hold nortriptyline while on linezolid and watch for serotonin syndrome over the next 2 weeks Continue to follow blood cultures (2) Acute UTI: See above culture growing VRE, changing from daptomycin to linezolid on 11/16 no urinary symptoms (3) Rash: With diffuse petechial and macular erythematous rash on limbs, torso, abdomen-first noted on 11/16 Could be drug reaction possibly to daptomycin versus viral exanthem from Covid- 19? I have requested a dermatology consultation and discussed the case with Dr. Torrez who will likely see the patient tomorrow -Start IV Solu-Medrol 125 mg x 1 loading dose and then 60 mg IV every 8 hours Tylenol as needed for fever and discomfort (4) Altered mental status: Acute metabolic encephalopathy secondary to sepsis and Covid-19 Patient was initially noted to be unresponsive upon arrival to the ED. he was alert/oriented for the next four days, although today he seems to be not quite as oriented or perhaps with some behavioral issues? Does have low-grade fever and perhaps this is contributing-treat with Tylenol Continue antibiotics and reassess tomorrow Check vitamin B1 level in the morning and start IV thiamine given his poor nutritional status (5) COVID-19: no hypoxia, no need for dexamethasone, but now on IV Solu-Medrol as well for suspected drug rash Unclear if tested positive in [facility] over a week ago Ventolin HFA 2 puffs 4 times daily as needed Zinc sulfate 220 mg p.o. every morning (6) Hypokalemia: Hypokalemia/dehydration- Likely due to combination of illness and being on furosemide 40 mg p.o. twice daily, which was held but has since been restarted. Potassium remains low at 3.1 Giving potassium phosphorus IV today along with p.o. potassium chloride 20 mEq p.o. twice daily Follow BMP, magnesium levels in the morning -Hold Lasix for now especially as he had very minimal p.o. intake today Giving normal saline 1 L over 10 hours (7) Dehydration: resolved with IV fluids, now with poor p.o. intake Holding Lasix and giving IV fluids as above (8) Seizure disorder: No acute issues Continue oxcarbazepine 600 mg p.o. twice daily (9) Hypertension: Blood pressures are mildly elevated -Continue metoprolol tartrate 50 mg p.o. twice daily (10) Tachycardia: Sinus tachycardia-resolved with fluids, but now returning again with mild fever due to sepsis and dehydration Give Tylenol and IV fluids No need to remain on telemetry (11) BPH w urinary obs/LUTS: Continue tamsulosin 0.4 mg p.o. at bedtime Vieira catheter placed, and draining large volumes of urine, at least 1 L by the time of discharge from the ED would keep vieira for 10 days, can perform a voiding trial at [facility] after discharge spoke with CLAM SORTER at [facility] and she agrees with plan (12) Hyperlipidemia: Continue rosuvastatin 10 mg at bedtime (13) Constipated: Found to have large amounts of stool on CT scan of abdomen/pelvis Continue Miralax daily, Amitiza twice daily had a BM on 11/14 and again on 11/16 (14) Hypophosphatemia: Mildly low today, replacing with IV potassium phosphorus Follow level in the morning (15) Flexion contractures: Noted in LUE and bilateral lower extremities, and is bedbound typically in the infirmary at the present (16) DVT prophylaxis: Add Lovenox high-dose given Covid-19 and bedbound status Disposition-continued stay, can downgrade to medical/surgical floor Eventually back to the [facility] Admission and Anticipated Discharge Date Admission Date: November 12, 2020 Subjective Patient mostly nonverbal with me except when I asked if he was eating, he said "while I try to." He then refused to answer any of my other questions but when the guard at the bedside said his name, he promptly directed his attention to him. Nursing reports that he will do this at times and then be more conversational at other times. He is eating some food for breakfast but not much for lunch today. He has a diffuse rash all over his body which was not present yesterday as per my discussion with previous hospitalist. The patient does not seem to be bothered by the rash but will not answer my questions about if it is bothering him. Telemetry with normal sinus rhythm and sinus tachycardia with rates in the 80s to 100s I discussed his care with the pharmacist regarding his antibiotics. I discussed his care with the russian history professor who will be consulted. Review of Systems Review of Systems: Unobtainable due to cognitive status Physical Exam Constitutional: well developed, + behavioral limitations (It seems he chooses not to answer questions at times-guards confirm this) and + disheveled; no acute distress Eyes: + anicteric sclerae Neck: trachea midline, no thyromegaly Respiratory: normal respiratory effort, lungs clear to auscultation Cardiovascular: Rate/Rhythm: regular rate and regular rhythm Heart Sounds: + murmur (2/6 HEIDY RUSB) Extremities: no edema Chest (Breasts): Chest: normal inspection of chest Gastrointestinal (Abdomen): normal bowel sounds, soft, nontender, no hepatosplenomegaly Musculoskeletal: Extremities: + extremities abnormal to inspection (LUE and Bilat LEs with flexion contractures), no cyanosis and no clubbing Skin: + rash (Diffuse petechial rash on extremities and abdomen and macular erythema) Neurologic: awake; not confused Speech / Cognition: normal speech Psychiatric: Orientation: alert; + uncooperative Eye Contact: + fair eye contact Affect: + flat affect Genitourinary: no penis abnormality (Vieira catheter in place) Results & Data Results & Data ([facility]) Vital Signs (Past 12 Hours) Vital Signs Temp Pulse Pulse Resp BP Pulse Ox 11/16/20 13:13 36.9 C 102 H 16 129/74 96 11/16/20 08:00 94 H 11/16/20 07:16 37.0 C 98 H 16 117/73 98 Laboratory Results 11/16/20 Range/Units 06:21 Sodium 140 (136-145) mmol/L Potassium 3.1 L (3.5-5.1) mmol/L Chloride 107 (98-107) mmol/L Carbon Dioxide 26 (21-32) mmol/L Anion Gap 7.0 (3-11) BUN 13 (7-18) mg/dl Creatinine 0.81 (0.6-1.4) mg/dl Est Cr Clr Drug Dosing 103.1 ml/min Est GFR ( Amer) 108.1 Est GFR (Non-Af Amer) 93.3 BUN/Creatinine Ratio 16.1 (10-20) Glucose 118 H (70-99) mg/dl Calcium 8.3 L (8.5-10.1) mg/dl Phosphorus 2.1 L (2.5-4.9) mg/dl Magnesium 1.8 (1.8-2.4) mg/dl PG Care Time/CCT Total # of Minutes Spent Total Time Spent with Patient: Total time spent is greater than 50% in coordination of care (as documented) at patient's floor/unit and/or counseling patient: Coding Level of Care Code 02036 Subseq Hosp Care Lvl 3 Diagnoses Sepsis A41.9 Sepsis acute organ dysfunction status: without acute organ dysfunction Sepsis type: sepsis due to unspecified organism Acute UTI N39.0 Rash R21 Altered mental status R41.82 Altered mental status type: unspecified COVID-19 U07.1 Hypokalemia E87.6 Dehydration E86.0 Seizure disorder G40.909 Hypertension I10 Tachycardia R00.0 BPH w urinary obs/LUTS N40.1; N13.8 Hyperlipidemia E78.5 Constipated K59.00 Hypophosphatemia E83.39 Flexion contractures M24.50 DVT prophylaxis Z29.9 (1) Sepsis Sepsis acute organ dysfunction status: without acute organ dysfunction Sepsis type: sepsis due to unspecified organism Qualified Code(s): A41.9 - Sepsis, unspecified organism (2) Altered mental status Altered mental status type: unspecified Qualified Code(s): R41.82 - Altered mental status, unspecified
[2020-11-16] MEDS ORDERED: methylPREDNISolone 125 MG in SYRINGE 0 ML IV STA (16:59)
[2020-11-16] MEDS ORDERED: ACETAMINOPHEN 1,000 MG/100 ML VIAL IV STA (19:32)
[2020-11-16] MEDS ORDERED: SODIUM CHLORIDE 0.9% 1000ML 1,000 ML IV SCH (20:00)
[2020-11-16] MEDS: ENOXAPARIN INJ 60 MG/0.6 ML SYR SQ SCH (20:47)
[2020-11-16] MEDS: ROSUVASTATIN CALCIUM 10 MG TAB PO SCH (21:50)
[2020-11-16] MEDS: TAMSULOSIN HCL 0.4 MG CAP PO SCH (21:50)
[2020-11-16] MEDS: LINEZOLID 600 MG TAB PO SCH (22:25)
[2020-11-16] MEDS: methylPREDNISolone 60 MG in SYRINGE 0 ML IV SCH (22:42)
[2020-11-17] MEDS: methylPREDNISolone 60 MG in SYRINGE 0 ML IV SCH ×3 (06:08→22:19)
[2020-11-17 07:42] LABS: Basophils # (auto) 0.02 K/uL (0-0.2); Basophils % (auto) 0.2 %; Eosinophils # (auto) 0.19 K/uL (0-0.5); Eosinophils % (auto) 1.7 %; Hematocrit (blood only) 39.8 % (42-52); Hemoglobin 13.4 g/dL (14.0-18.0); Immature Granulocytes # (auto) 0.03 K/uL (0.00-0.02); Immature Granulocytes % (auto) 0.3 %; Lymphocytes # (auto) 0.72 K/uL (1.2-3.4); Lymphocytes % (auto) 6.3 %; Mean Corpuscular Hemoglobin 30.6 pg (25-34); Mean Corpuscular Hgb Conc 33.7 g/dL (32-36); Mean Corpuscular Volume 90.9 fL (80-100); Mean Platelet Volume 9.7 fL (7.4-10.4); Monocytes # (auto) 0.37 K/uL (0.11-0.59); Monocytes % (auto) 3.3 %; Neutrophils # (auto) 10.04 K/uL (1.4-6.5); Neutrophils % (auto) 88.2 %; Platelet Count 156 K/uL (130-400); RDW Coefficient of Variation 13.5 % (11.5-14.5); RDW Standard Deviation 44.8 fL (36.4-46.3); Red Blood Count 4.38 M/uL (4.7-6.1); White Blood Count 11.37 K/uL (4.8-10.8)
[2020-11-17 08:09] LABS: BUN Creatinine Ratio 21.2 (10-20); Calcium 8.3 mg/dl (8.5-10.1); Creatinine Clr Calc Pharmacy 86.1 ml/min; Est GFR (African American) 94.6; Est GFR (Non-African American) 81.6; Magnesium 1.8 mg/dl (1.8-2.4); Potassium 3.5 mmol/L (3.5-5.1)
[2020-11-17 08:10] LABS: Phosphorus 2.7 mg/dl (2.5-4.9)
[2020-11-17] MEDS: ENOXAPARIN INJ 60 MG/0.6 ML SYR SQ SCH ×2 (08:59→22:15)
[2020-11-17] MEDS: POLYETHYLENE (MIRALAX) 17 GM PACK PO SCH ×2 (09:00→22:18)
[2020-11-17] MEDS: METOPROLOL TARTRATE 50 MG TAB PO SCH ×2 (09:00→22:18)
[2020-11-17] MEDS: LINEZOLID 600 MG TAB PO SCH ×2 (09:00→22:19)
[2020-11-17] MEDS: ZINC SULFATE 220 MG CAPSULE PO SCH (09:01)
[2020-11-17] MEDS: POTASSIUM CHLORIDE CRTAB 20 MEQ TABCR PO SCH ×2 (09:01→22:18)
[2020-11-17] MEDS: LUBIPROSTONE 8 MCG CAP PO SCH ×2 (09:01→22:17)
[2020-11-17] MEDS: OXcarbazepine 150 MG TABLET PO SCH ×2 (09:02→22:18)
[2020-11-17] MEDS: CYANOCOBALAMIN 500 MCG TABLET (VITAMIN B-12) PO SCH (09:02)
[2020-11-17] MEDS: THIAMINE HCL 200 MG in SODIUM CHLORIDE 0.9% 50 ML IV SCH ×2 (09:07→22:07)
--- NOTE | 2020-11-17 12:58 | Dermatology Consultation ---
Date of Consultation November 17, 2020 Assessment & Plan (1) Morbilliform rash: Patient's presentation is c/w a morbilliform/exanthematous drug eruption, which typically starts 3-14 days after drug initiation. Doubt COVID-related component given that he is not symptomatic otherwise (also there seems to be some uncertainty as to whether he previously tested positive at [facility]). Based on medications received, favor daptomycin over zosyn given that the zosyn had been stopped prior to the eruption starting. Both medications have been appropriately stopped at this point. - Agree with short-term systemic steroids (can be tapered over the next 7-10 days) - Start triamcinolone 0.1% cream to areas twice daily x 2 weeks. - It is common for it to take 2-3 weeks for the eruption to completely resolve depending on half-life of the offending agent. - Thanks for the consult. Call with questions. Present on Admission?: No History of Present Illness Reason for Consultation: Rash Requesting Physician: Gisela Garvin MD Attending Physician: Gisela Garvin MD History of Present Illness Patient is a 65 y/o male admitted to [facility] on 11/12/2020 with VRE UTI + sepsis. He was also found to be COVID-positive (it is unclear whether or not he tested positive at [facility] last week). I have been consulted for evaluation of a rash on the trunk and proximal extremities. According to the nursing staff, this apparently started on the trunk region around 11/15/2020. It has gradually spread to involve areas of the arms and proximal legs. Patient denies any significant itching. He denies any sores in the mouth, pain with swallowing or any irritation in the eyes. He was initially started on empiric IV daptomycin and Zosyn at the time of admission. Zosyn was discontinued on 11/14/2020 after his urine culture was finally resulted. Daptomycin was continued until yesterday when concern arose for possible contribution to his rash. Yesterday daptomycin was switched to linezolid 600 mg twice daily to finish out his treatm ent course. He was also started on IV Solumedrol 125mg x 1, then 60mg every 8 hours. Patient denies any history of similar eruption in the past. He denies any other skin complaints today and reports that he is starting to feel better overall. Allergies Allergy/AdvReac Type Severity Reaction Status Date / Time No Known Allergies Allergy Unverified 11/11/20 22:07 Home Medications Medication Instructions Recorded Confirmed Type cyanocobalamin (vitamin B-12) 500 mcg PO DAILY 11/11/20 11/11/20 History [Vitamin B-12] furosemide [Lasix] 40 mg PO BID 11/11/20 11/11/20 History lubiprostone [Amitiza] 24 mcg PO BID 11/11/20 11/11/20 History metoprolol tartrate 50 mg PO BID 11/11/20 11/11/20 History nortriptyline 25 mg PO DAILY 11/11/20 11/11/20 History nystatin [Mycostatin] 1 applic TOPICAL DAILY 11/11/20 11/11/20 History oxcarbazepine 600 mg PO BID 11/11/20 11/11/20 History rosuvastatin 10 mg PO HS 11/11/20 11/11/20 History tamsulosin [Flomax] 0.4 mg PO HS 11/11/20 11/11/20 History terbinafine HCl 1 applic TOPICAL BID 11/11/20 11/11/20 History zinc oxide 1 applic TOPICAL DAILY 11/11/20 11/11/20 History Patient History Medical History (Updated 11/17/20 @ 12:50 by Uziel Dietz MD) BPH w urinary obs/LUTS Elevation of cardiac enzymes Flexion contractures Hyperlipidemia Hypertension Morbilliform rash Seizure disorder Tachycardia Weakness Social History Smoking Status: Former smoker Smoking End Date: 2018; Second Hand Exposure: No; Do You Dip or Chew Tobacco: No; Hx Alcohol Use: No Hx Substance Use: No Preferred Language: Serbian Communication Ability: Impaired Opal Polisher Required: No Beliefs That Will Affect Care: Sabianism Sabianism Beliefs: Restorationism Current Living Situation: Other Current Living Situation Comment: inmate at [facility] Other Information That Helps Us Care for You: No Feels Safe at Home: Yes Safety Concerns: Feels Safe At This Time Assistive Devices: None Review of Systems Review of Systems: All systems reviewed & are unremarkable except as noted in HPI & below Constitutional: no fever and no chills Eyes: no eye pain Ear, Nose, Mouth, Throat: no mouth lesions Respiratory: no cough and no dyspnea Integumentary: as per Subjective / HPI Physical Exam Physical Exam: General Appearance: Well developed, well-nourished and in no acute distress Psych: Alert and Appropriate Skin Type: 2 Scalp/Hair: no abnormalities noted Face: no abnormalities noted Eyelids/Ocular Mucosa: no abnormalities noted Lips/Teeth/Gums: no ulcerations/erosions Neck: no abnormalities noted Right Lower Extremity: morbilliform, erythematous blanchable patches on the proximal thigh; no vesicles/bullae/erosions Left Lower Extremity: morbilliform, erythematous blanchable patches on the proximal thigh; no vesicles/bullae/erosions Back: morbilliform, erythematous blanchable patches; no vesicles/bullae/erosions Buttocks/Groin/Genitalia: morbilliform, erythematous blanchable patches; no vesicles/bullae/erosions Right Upper Extremity: morbilliform, erythematous blanchable patches on the upper arm, proximal forearm; no vesicles/bullae/erosions Left Upper Extremity: morbilliform, erythematous blanchable patches on the upper arm, proximal forearm; no vesicles/bullae/erosions Chest/Breast/Axillae: morbilliform, erythematous blanchable patches; no vesicles/bullae/erosions Abdomen: morbilliform, erythematous blanchable patches; no vesicles/bullae/erosions Nails: no abnormalities noted Results & Data ([facility]) Vital Signs (Past 12 Hours) Vital Signs Temp Pulse Resp BP BP Pulse Ox 11/17/20 08:07 36.8 C 103 H 22 148/88 H 97 11/17/20 03:39 36.4 C L 11/17/20 00:51 36.6 C 104 H 32 H 141/85 H 96 Laboratory Results Laboratory Results - last 24 hr 11/17/20 11/17/20 11/17/20 07:19 07:19 07:19 WBC 11.37 H RBC 4.38 L Hgb 13.4 L Hct 39.8 L MCV 90.9 MCH 30.6 MCHC 33.7 RDW Std Deviation 44.8 RDW Coeff of Abad 13.5 Plt Count 156 MPV 9.7 Immature Gran % (Auto) 0.3 Neut % (Auto) 88.2 Lymph % (Auto) 6.3 Dunn % (Auto) 3.3 Eos % (Auto) 1.7 Baso % (Auto) 0.2 Neut # (Auto) 10.04 H Lymph # (Auto) 0.72 L Dunn # (Auto) 0.37 Eos # (Auto) 0.19 Baso # (Auto) 0.02 Immature Gran # (Auto) 0.03 H Sodium 142 Potassium 3.5 Chloride 112 H Carbon Dioxide 21 Anion Gap 9.0 BUN 21 H D Creatinine 0.97 Est Cr Clr Drug Dosing 86.1 Est GFR ( Amer) 94.6 Est GFR (Non-Af Amer) 81.6 BUN/Creatinine Ratio 21.2 H Glucose 177 H Calcium 8.3 L Phosphorus 2.7 Magnesium 1.8 Whole Bld Vitamin B1 Pending Diagnostic Findings 11/11/20 21:00 Aerobic Blood Culture - Final Blood No growth in Aerobic bottle after 5 days. Anaerobic Blood Culture - Final No growth in Anaerobic bottle after 5 days. 11/11/20 21:05 Aerobic Blood Culture - Final Blood No growth in Aerobic bottle after 5 days. Anaerobic Blood Culture - Final No growth in Anaerobic bottle after 5 days. 11/11/20 21:45 Urine Culture - Final Urine,Straight Cath Enterococcus faecium VRE PG Care Time/CCT Total # of Minutes Spent Total Time Spent with Patient: Total time spent is greater than 50% in coordination of care (as documented) at patient's floor/unit and/or counseling patient: Coding Level of Care Code 77805 Inpt Consult Level 3 Diagnoses Morbilliform rash R21
--- NOTE | 2020-11-17 18:07 | Hospitalist Progress Note ---
Date of Service November 17, 2020 Assessment & Plan (1) Sepsis: Presented with fever, acute metabolic encephalopathy, tachycardia, and evidence of UTI. Also with Covid-19. Blood cultures remain no growth UTI with VRE treated with Daptomycin and Zosyn initially and then Zosyn was discontinued shortly afterwards after urine culture resulted Then was on Daptomycin 450mg IV daily for 5 days, however with diffuse rash starting around 11/16-suspected morbilliform/exanthematous drug eruption as per dermatology consultation and daptomycin discontinued Linezolid was started on 11/16 CT scan of abdomen and pelvis did note constipation, bladder stones, and bilateral stones up to 6 mm that were nonobstructive. Again had fever on 11/16 but could very well likely just be from the Covid-19 as the UTI is adequately treated. Perhaps fever also could be part of a drug reaction Continue linezolid 600 mg p.o. twice daily to finish out the 10-day course -We will need to hold nortriptyline while on linezolid and watch for serotonin syndrome over the next 2 weeks Continue to follow blood cultures (2) Acute UTI: See above culture growing VRE, changing from daptomycin to linezolid on 11/16 no urinary symptoms Vieira catheter remains in place for urinary retention (3) Morbilliform rash: As above, suspected drug eruption related to daptomycin Continue steroids and taper over the next 7 to 10 days Start triamcinolone cream twice daily Appreciate dermatology consultation Have since discontinued daptomycin (4) Altered mental status: Acute metabolic encephalopathy secondary to sepsis and Covid-19 Patient was initially noted to be unresponsive upon arrival to the ED. he was alert/oriented for the next four days, then became altered again on 11/16 in the setting of a fever and drug eruption-this was treated with Tylenol Now significantly improved after fever resolved on 11/17 Check vitamin B1 level-pending -Started IV thiamine given his poor nutritional status (5) COVID-19: no hypoxia, no need for dexamethasone, but now on IV Solu-Medrol as well for suspected drug rash Unclear [facility], but is positive here on 11/11 Ventolin HFA 2 puffs 4 times daily as needed Zinc sulfate 220 mg p.o. every morning (6) Hypokalemia: Hypokalemia/dehydration- Likely due to combination of illness and being on furosemide 40 mg p.o. twice daily, which has now been held Now improved with replacement Follow BMP, magnesium levels in the morning -Continue to hold Lasix as he has minimal p.o. intake although is picking up today Gave 1 L of normal saline on 11/16-11/17 (7) Dehydration: resolved with IV fluids, holding Lasix (8) Seizure disorder: No acute issues Continue oxcarbazepine 600 mg p.o. twice daily (9) Hypertension: Blood pressures are controlled -Continue metoprolol tartrate 50 mg p.o. twice daily (10) Tachycardia: Sinus tachycardia-resolved with fluids, then returned on 11/16 again with mild fever-now resolved due to sepsis and dehydration Give Tylenol and IV fluids as needed No need to remain on telemetry (11) BPH w urinary obs/LUTS: Continue tamsulosin 0.4 mg p.o. at bedtime Vieira catheter placed, and draining large volumes of urine, at least 1 L by the time of discharge from the ED would keep vieira for 10 days, can perform a voiding trial at [facility] after discharge spoke with SUPERVISOR [employer]ING [employer] at [facility] and she agrees with plan (12) Hyperlipidemia: Continue rosuvastatin 10 mg at bedtime (13) Constipated: Found to have large amounts of stool on CT scan of abdomen/pelvis Continue Miralax daily, Amitiza twice daily had a BM on 11/14 and again on 11/16 (14) Hypophosphatemia: Replaced and resolved (15) Flexion contractures: Noted in LUE and bilateral lower extremities, and is bedbound typically in the [facility] at the present (16) DVT prophylaxis: Lovenox high-dose given Covid-19 and bedbound status Disposition-continued stay on medical/surgical floor Eventually back to the [facility] Admission and Anticipated Discharge Date Admission Date: November 12, 2020 Subjective Patient ended up having a fever last night and after was given IV Tylenol, his mental status significantly improved after being quite lethargic. Patient feeling much better today. He states that he does not like to eat and he only likes to drink sodas-guards report he is already had 5 sodas today and is requesting another one. He is much more interactive. He denies any pain or itching anywhere. Rash is still present diffusely and I discussed his case with the butcher apprentice today. He denies chest pain or shortness of breath, no cough, no headache. No pain anywhere. Review of Systems Review of Systems: All systems reviewed & are unremarkable except as noted in HPI & below Physical Exam Constitutional: well developed and + disheveled; no acute distress Eyes: + anicteric sclerae Neck: trachea midline, no thyromegaly Respiratory: normal respiratory effort, lungs clear to auscultation Cardiovascular: Rate/Rhythm: regular rate and regular rhythm Heart Sounds: + murmur (2/6 HEIDY RUSB) Extremities: no edema Chest (Breasts): Chest: normal inspection of chest Gastrointestinal (Abdomen): normal bowel sounds, soft, nontender, no hepatosplenomegaly Musculoskeletal: Extremities: + extremities abnormal to inspection (LUE and Bilat LEs with flexion contractures), no cyanosis and no clubbing Skin: + rash (Diffuse petechial rash on extremities and abdomen and macular erythema) Neurologic: awake; not confused Speech / Cognition: normal speech Psychiatric: Orientation: alert, oriented to person, oriented to place and cooperative Speech: normal rate/rhythm/volume of speech Affect: euthymic affect Genitourinary: no penis abnormality (Vieira catheter in place) Results & Data Results & Data ([facility]) Vital Signs (Past 12 Hours) Vital Signs Temp Pulse Resp BP BP Pulse Ox 11/17/20 15:43 36.8 C 81 22 118/54 L 96 11/17/20 08:07 36.8 C 103 H 22 148/88 H 97 Laboratory Results 11/17/20 11/17/20 11/17/20 Range/Units 07:19 07:19 07:19 WBC 11.37 H (4.8-10.8) K/uL RBC 4.38 L (4.7-6.1) M/uL Hgb 13.4 L (14.0-18.0) g/dL Hct 39.8 L (42-52) % MCV 90.9 (80-100) fL MCH 30.6 (25-34) pg MCHC 33.7 (32-36) g/dL RDW Std Deviation 44.8 (36.4-46.3) fL RDW Coeff of Abad 13.5 (11.5-14.5) % Plt Count 156 (130-400) K/uL MPV 9.7 (7.4-10.4) fL Immature Gran % (Auto) 0.3 % Neut % (Auto) 88.2 % Lymph % (Auto) 6.3 % Hettinger % (Auto) 3.3 % Eos % (Auto) 1.7 % Baso % (Auto) 0.2 % Neut # (Auto) 10.04 H (1.4-6.5) K/uL Lymph # (Auto) 0.72 L (1.2-3.4) K/uL Hettinger # (Auto) 0.37 (0.11-0.59) K/uL Eos # (Auto) 0.19 (0-0.5) K/uL Baso # (Auto) 0.02 (0-0.2) K/uL Immature Gran # (Auto) 0.03 H (0.00-0.02) K/uL Sodium 142 (136-145) mmol/L Potassium 3.5 (3.5-5.1) mmol/L Chloride 112 H (98-107) mmol/L Carbon Dioxide 21 (21-32) mmol/L Anion Gap 9.0 (3-11) BUN 21 H D (7-18) mg/dl Creatinine 0.97 (0.6-1.4) mg/dl Est Cr Clr Drug Dosing 86.1 ml/min Est GFR ( Amer) 94.6 Est GFR (Non-Af Amer) 81.6 BUN/Creatinine Ratio 21.2 H (10-20) Glucose 177 H (70-99) mg/dl Calcium 8.3 L (8.5-10.1) mg/dl Phosphorus 2.7 (2.5-4.9) mg/dl Magnesium 1.8 (1.8-2.4) mg/dl Whole Bld Vitamin B1 Pending PG Care Time/CCT Total # of Minutes Spent Total Time Spent with Patient: Total time spent is greater than 50% in coordination of care (as documented) at patient's floor/unit and/or counseling patient: Coding Level of Care Code 67271 Subseq Hosp Care Lvl 2 Diagnoses Sepsis A41.9 Sepsis acute organ dysfunction status: without acute organ dysfunction Sepsis type: sepsis due to unspecified organism Acute UTI N39.0 Morbilliform rash R21 Altered mental status R41.82 Altered mental status type: unspecified COVID-19 U07.1 Hypokalemia E87.6 Dehydration E86.0 Seizure disorder G40.909 Hypertension I10 Tachycardia R00.0 BPH w urinary obs/LUTS N40.1; N13.8 Hyperlipidemia E78.5 Constipated K59.00 Hypophosphatemia E83.39 Flexion contractures M24.50 DVT prophylaxis Z29.9 (1) Sepsis Sepsis acute organ dysfunction status: without acute organ dysfunction Sepsis type: sepsis due to unspecified organism Qualified Code(s): A41.9 - Sepsis, unspecified organism (2) Altered mental status Altered mental status type: unspecified Qualified Code(s): R41.82 - Altered mental status, unspecified
[2020-11-17] MEDS: TRIAMCINOLONE ACET 0.1% CR 80 GM TUBE EXT SCH (22:17)
[2020-11-17] MEDS: ROSUVASTATIN CALCIUM 10 MG TAB PO SCH (22:18)
[2020-11-17] MEDS: TAMSULOSIN HCL 0.4 MG CAP PO SCH (22:18)
[2020-11-18] MEDS: methylPREDNISolone 60 MG in SYRINGE 0 ML IV SCH (05:53)
[2020-11-18] MEDS: POLYETHYLENE (MIRALAX) 17 GM PACK PO SCH ×2 (07:58→19:19)
[2020-11-18] MEDS: LUBIPROSTONE 8 MCG CAP PO SCH ×2 (08:00→21:14)
[2020-11-18] MEDS: TRIAMCINOLONE ACET 0.1% CR 80 GM TUBE EXT SCH ×2 (08:00→21:14)
[2020-11-18] MEDS: OXcarbazepine 150 MG TABLET PO SCH ×2 (08:00→21:15)
[2020-11-18] MEDS: POTASSIUM CHLORIDE CRTAB 20 MEQ TABCR PO SCH ×2 (08:01→21:15)
[2020-11-18] MEDS: LINEZOLID 600 MG TAB PO SCH ×2 (08:01→21:15)
[2020-11-18] MEDS: METOPROLOL TARTRATE 50 MG TAB PO SCH ×2 (08:01→21:15)
[2020-11-18] MEDS: THIAMINE HCL 200 MG in SODIUM CHLORIDE 0.9% 50 ML IV SCH (08:38)
[2020-11-18] MEDS: ENOXAPARIN INJ 60 MG/0.6 ML SYR SQ SCH ×2 (08:39→21:13)
[2020-11-18] MEDS: CYANOCOBALAMIN 500 MCG TABLET (VITAMIN B-12) PO SCH (08:40)
[2020-11-18] MEDS: ZINC SULFATE 220 MG CAPSULE PO SCH (08:40)
--- NOTE | 2020-11-18 14:57 | Hospitalist Progress Note ---
Date of Service November 18, 2020 Assessment & Plan (1) Sepsis: Presented with fever, acute metabolic encephalopathy, tachycardia, and evidence of UTI. Also with Covid-19. Blood cultures remain no growth UTI with VRE treated with Daptomycin and Zosyn initially and then Zosyn was discontinued shortly afterwards after urine culture resulted Then was on Daptomycin 450mg IV daily for 5 days, however with diffuse rash starting around 11/16-suspected morbilliform/exanthematous drug eruption as per dermatology consultation and daptomycin discontinued Linezolid was started on 11/16--> end date will be evening of 11/20 CT scan of abdomen and pelvis did note constipation, bladder stones, and justin ateral stones up to 6 mm that were nonobstructive. Again had fever on 11/16 but could very well likely just be from the Covid-19 as the UTI is adequately treated. Perhaps fever also could be part of a drug reaction Continue linezolid 600 mg p.o. twice daily to finish out the 10-day course -We will need to hold nortriptyline while on linezolid and watch for serotonin syndrome over the next 2 weeks Continue to follow blood cultures-NGTD (2) Acute UTI: See above culture growing VRE, changing from daptomycin to linezolid on 11/16 no urinary symptoms Vieira catheter remains in place for urinary retention and should have a trial of void in 1 week (3) Morbilliform rash: As above, suspected drug eruption related to daptomycin Continue steroids and taper over the next 7 to 10 days-transition to po prednisone today Started triamcinolone cream twice daily Appreciate dermatology consultation Have since discontinued daptomycin Rash not bothersome at all (4) Altered mental status: Acute metabolic encephalopathy secondary to sepsis and Covid-19 Patient was initially noted to be unresponsive upon arrival to the ED. he was alert/oriented for the next four days, then became altered again on 11/16 in the setting of a fever and drug eruption-this was treated with Tylenol Now significantly improved after fever resolved on 11/17 Check vitamin B1 level-pending -Started IV thiamine given his poor nutritional status-switch to po thiamine (5) COVID-19: no symptoms, doing well no hypoxia, no need for dexamethasone, but now on IV Solu-Medrol as well for suspected drug rash Unclear if tested positive in [facility] over a week ago, but is positive here on 11/11 Ventolin HFA 2 puffs 4 times daily as needed Zinc sulfate 220 mg p.o. every morning (6) Hypokalemia: Hypokalemia/dehydration- Likely due to combination of illness and being on furosemide 40 mg p.o. twice daily, which has now been held Now improved with replacement Follow BMP, magnesium levels in the morning -Continue to hold Lasix as he has minimal p.o. intake although is picking up today Gave 1 L of normal saline on 11/16-11/17 (7) Dehydration: resolved with IV fluids, holding Lasix (8) Seizure disorder: No acute issues Continue oxcarbazepine 600 mg p.o. twice daily (9) Hypertension: Blood pressures are controlled -Continue metoprolol tartrate 50 mg p.o. twice daily (10) Tachycardia: Sinus tachycardia-resolved with fluids, then returned on 11/16 again with mild fever-now resolved due to sepsis and dehydration Give Tylenol and IV fluids as needed no longer on telemetry (11) BPH w urinary obs/LUTS: Continue tamsulosin 0.4 mg p.o. at bedtime Vieira catheter placed, and draining large volumes of urine, at least 1 L by the time of discharge from the ED would keep vieira for 10 days, can perform a voiding trial at [facility] after discharge spoke with CAMELID FIBER SORTER at [facility] and she agrees with plan (12) Hyperlipidemia: Continue rosuvastatin 10 mg at bedtime (13) Constipated: Found to have large amounts of stool on CT scan of abdomen/pelvis Continue Miralax daily, Amitiza twice daily had a BM on 11/14 and again on 11/16, 11/18 (14) Hypophosphatemia: Replaced and resolved (15) Flexion contractures: Noted in LUE and bilateral lower extremities, and is bedbound typically in the [place] at the present (16) DVT prophylaxis: Lovenox high-dose given Covid-19 and bedbound status Disposition-continued stay on medical/surgical floor---> medically stable for discharge but I was unable to get through to the [facility] after 4 attempts throughout the morning. When I finally did get through and spoke to the MD relocation services specialist, it was 1445 and they said it was too late in the day to arrange a litter transport Plan for return back to the [facility] tomorrow, will send his last dose of linezolid with him from our pharmacy Admission and Anticipated Discharge Date Admission Date: November 12, 2020 Subjective Pt has no complaints. Denies SOB or CP, no abd pain. He refuses to eat because he doesn't want to, but loves to drink Boost and sodas. No cough, no itching, rash not bothersome Review of Systems Review of Systems: All systems reviewed & are unremarkable except as noted in HPI & below Physical Exam Constitutional: well developed; no acute distress Eyes: + anicteric sclerae Neck: trachea midline, no thyromegaly Respiratory: normal respiratory effort, lungs clear to auscultation Cardiovascular: Rate/Rhythm: regular rate and regular rhythm Heart Sounds: + murmur (2/6 HEIDY RUSB) Extremities: no edema Chest (Breasts): Chest: normal inspection of chest Gastrointestinal (Abdomen): normal bowel sounds, soft, nontender, no hepatosplenomegaly Musculoskeletal: Extremities: + extremities abnormal to inspection (LUE and Bilat LEs with flexion contractures), no cyanosis and no clubbing Skin: + rash (Diffuse petechial rash on extremities and abdomen and macular erythema) Neurologic: awake; not confused Speech / Cognition: normal speech Psychiatric: Orientation: alert, oriented to person, oriented to place and cooperative Eye Contact: + fair eye contact Speech: normal rate/rhythm/volume of speech Affect: euthymic affect Genitourinary: no penis abnormality (Vieira catheter in place) Results & Data Results & Data ([facility]) Vital Signs (Past 12 Hours) Vital Signs Temp Pulse Resp BP Pulse Ox 11/18/20 07:31 36.3 C L 67 16 121/73 99 Laboratory Results PG Care Time/CCT Total # of Minutes Spent Total Time Spent with Patient: Total time spent is greater than 50% in coordination of care (as documented) at patient's floor/unit and/or counseling patient: Coding Level of Care Code 69151 Subseq Hosp Care Lvl 2 Diagnoses Sepsis A41.9 Sepsis acute organ dysfunction status: without acute organ dysfunction Sepsis type: sepsis due to unspecified organism Acute UTI N39.0 Morbilliform rash R21 Altered mental status R41.82 Altered mental status type: unspecified COVID-19 U07.1 Hypokalemia E87.6 Dehydration E86.0 Seizure disorder G40.909 Hypertension I10 Tachycardia R00.0 BPH w urinary obs/LUTS N40.1; N13.8 Hyperlipidemia E78.5 Constipated K59.00 Hypophosphatemia E83.39 Flexion contractures M24.50 DVT prophylaxis Z29.9 (1) Sepsis Sepsis acute organ dysfunction status: without acute organ dysfunction Sepsis type: sepsis due to unspecified organism Qualified Code(s): A41.9 - Sepsis, unspecified organism (2) Altered mental status Altered mental status type: unspecified Qualified Code(s): R41.82 - Altered mental status, unspecified
[2020-11-18] MEDS: TAMSULOSIN HCL 0.4 MG CAP PO SCH (21:14)
[2020-11-18] MEDS: ROSUVASTATIN CALCIUM 10 MG TAB PO SCH (21:14)
[2020-11-18] MEDS: THIAMINE HCL 100 MG TAB PO SCH (21:15)
[2020-11-19] MEDS: METOPROLOL TARTRATE 50 MG TAB PO SCH (08:34)
[2020-11-19] MEDS: LUBIPROSTONE 8 MCG CAP PO SCH (08:34)
[2020-11-19] MEDS: POTASSIUM CHLORIDE CRTAB 20 MEQ TABCR PO SCH (08:34)
[2020-11-19] MEDS: CYANOCOBALAMIN 500 MCG TABLET (VITAMIN B-12) PO SCH (08:35)
[2020-11-19] MEDS: THIAMINE HCL 100 MG TAB PO SCH (08:35)
[2020-11-19] MEDS: ZINC SULFATE 220 MG CAPSULE PO SCH (08:35)
[2020-11-19] MEDS: OXcarbazepine 150 MG TABLET PO SCH (08:35)
[2020-11-19] MEDS: ENOXAPARIN INJ 60 MG/0.6 ML SYR SQ SCH (08:36)
[2020-11-19] MEDS: LINEZOLID 600 MG TAB PO SCH (08:36)
[2020-11-19] MEDS ORDERED: predniSONE 20 MG TAB PO SCH (09:00)
[2020-11-19 09:09] LABS: BUN Creatinine Ratio 23.3 (10-20); Calcium 8.3 mg/dl (8.5-10.1); Creatinine Clr Calc Pharmacy 107.1 ml/min; Est GFR (African American) 109.8; Est GFR (Non-African American) 94.7; Potassium 3.7 mmol/L (3.5-5.1)
[2020-11-19] MEDS ORDERED: LINEZOLID CONSULT ACTIVE PRN (09:47)
--- NOTE | 2020-11-19 09:47 | Discharge Summary ---
Date of Service November 19, 2020 Admission HPI Per Admitting Provider The patient is a 65-year-old male with a past medical history including tachycardia, weakness, elevated cardiac enzymes, diabetes, dehydration, generalized weakness, edema, gastric dysmotility, hypertension, BPH with LUTS, hyperlipidemia, seizure disorder, vitamin B12 deficiency, and lower extremity muscle contractures. [facility] due to persistent muscle contractures and ambulatory dysfunction. He was noted to be doing well 2 hours prior to arrival, but then suddenly developed a temperature of 104 F and stopped talking. He reportedly has had a recent negative COVID-19 test. The patient himself was not able to contribute to his HPI due to his nonresponsive state. Principal Diagnosis VRE UTI and sepsis, COVID-19, Drug rash, Acute metabolic encephalopathy Discharge Exam Constitutional well developed; no acute distress Eyes + anicteric sclerae Neck trachea midline, no thyromegaly Respiratory normal respiratory effort, lungs clear to auscultation Cardiovascular Rate/Rhythm: regular rate and regular rhythm Heart Sounds: + murmur (2/6 systoic murmur at apex radiating to axilla) Extremities: no edema Chest (Breasts) Chest: normal inspection of chest Gastrointestinal (Abdomen) normal bowel sounds, soft, nontender, no hepatosplenomegaly Musculoskeletal Extremities: + extremities abnormal to inspection (LUE and Bilat LEs with flexion contractures), no cyanosis and no clubbing Skin + rash (Diffuse petechial rash on extremities and abdomen and macular erythema) rash is improving, turning more purplish and less erythema Neurologic awake; not confused Speech / Cognition: normal speech Psychiatric Orientation: alert, oriented to person, oriented to place and cooperative Speech: normal rate/rhythm/volume of speech Affect: euthymic affect Genitourinary no penis abnormality (Vieira catheter in place) Discharge Data Allergies Allergy/AdvReac Type Severity Reaction Status Date / Time Daptomycin Allergy Intermediate Rash Uncoded 11/17/20 18:17 Consultations 11/11/20 22:51 ED Decision to Admit Stat 11/12/20 03:05 Consult Case Management - Discharge Planning Routine 11/16/20 17:19 Consult Dermatology Routine Ordered Studies 11/11/20 20:59 CT head/brain wo con Urgent 11/11/20 21:47 CT abd pelvis IV con only Urgent CXR Hospital Course (1) Sepsis: Presented with fever, acute metabolic encephalopathy, tachycardia, and evidence of UTI. Also with Covid-19. Blood cultures remain no growth UTI with VRE treated with Daptomycin and Zosyn initially and then Zosyn was discontinued shortly afterwards after urine culture resulted Then was on Daptomycin 450mg IV daily for 5 days, however with diffuse rash starting around 11/16-suspected morbilliform/exanthematous drug eruption as per dermatology consultation and daptomycin discontinued Linezolid was started on 11/16--> end date will be evening of 11/20 CT scan of abdomen and pelvis did note constipation, bladder stones, and bilateral stones up to 6 mm that were nonobstructive. Again had fever on 11/16 but could very well likely just be from the Covid-19 as the UTI is adequately treated. Perhaps fever also could be part of a drug reaction Continue linezolid 600 mg p.o. twice daily to finish out the 10-day course -We will need to hold nortriptyline while on linezolid and watch for serotonin syndrome over the next 2 weeks Blood cultures NEGATIVE (2) Acute UTI: See above culture growing VRE, changing from daptomycin to linezolid on 11/16 no urinary symptoms but had urinary retention, constipation Vieira catheter remains in place for urinary retention and should have a trial of void in 3-4 more days (3) Morbilliform rash: As above, suspected drug eruption related to daptomycin Review of hospital stay in 2011 he also had a similar diffuse rash and was noted to have had this rash back to 2011--> there was a question of a connective tissue disease Also with h/o chronic Hep C but does not seem like LCV Seen by DERM who agreed drug rash Continue steroids with prednisone 40mg daily x 5 more days Started triamcinolone cream twice daily x 2 weeks Appreciate dermatology consultation Have since discontinued daptomycin Rash not bothersome at all (4) Altered mental status: Acute metabolic encephalopathy secondary to sepsis and Covid-19 Patient was initially noted to be unresponsive upon arrival to the ED in setting of fever to 104. he was alert/oriented for the next four days, then became altered again on 11/16 in the setting of a fever and drug eruption-this was treated with Tylenol Now significantly improved after fever resolved on 11/17 Check vitamin B1 level-pending -Started IV thiamine given his poor nutritional status-switched to po thiamine for discharge (5) COVID-19: no symptoms, doing well no hypoxia, no need for dexamethasone, but then placed on IV Solu-Medrol as well for suspected drug rash Unclear if tested positive in correction over a week ago, but is positive here on 11/11 Ventolin HFA 2 puffs 4 times daily as needed Zinc sulfate 220 mg p.o. every morning (6) Hypokalemia: Hypokalemia/dehydration- Likely due to combination of illness and being on furosemide 40 mg p.o. twice daily, which was held here for poor po intake Was given IVFs initially Now improved with replacement continue KCl 20meq po once daily restart lasix once daily rather than home bid dosing (7) Dehydration: resolved with IV fluids, holding Lasix (8) Seizure disorder: No acute issues Continue oxcarbazepine 600 mg p.o. twice daily (9) Hypertension: Blood pressures are controlled -Continue metoprolol tartrate 50 mg p.o. twice daily (10) Tachycardia: Sinus tachycardia-resolved with fluids, then returned on 11/16 again with mild fever-now resolved due to sepsis and dehydration Gave Tylenol and IV fluids as needed no longer on telemetry (11) BPH w urinary obs/LUTS: Continue tamsulosin 0.4 mg p.o. at bedtime Vieira catheter placed, and draining large volumes of urine, at least 1 L by the time of discharge from the ED would keep vieira for 10 days, can perform a voiding trial at [facility] after discharge in 3 days spoke with [facility] at [facility] and she agrees with plan (12) Hyperlipidemia: Continue rosuvastatin 10 mg at bedtime (13) Constipated: Found to have large amounts of stool on CT scan of abdomen/pelvis Continue Miralax daily, Amitiza twice daily had a BM on 11/14 and again on 11/16, 11/18 (14) Hypophosphatemia: Replaced and resolved (15) Flexion contractures: Noted in LUE and bilateral lower extremities, and [facility] (16) Murmur, cardiac: has mitral regurg murmur on exam. Has a h/o MV endocarditis with vegetat ion noted in 2013 and was treated BCxs here are negative possible persistent scarring or nonifective vegetation with regurg? restart home lasix continue beta tiburcio follow as outpt with ECHO, PCP (17) DVT prophylaxis: Lovenox high-dose given Covid-19 and bedbound status Disposition-dc to [facility] Total Time Total Time Spent Total Time Spent (In Minutes): 40 min Total Time Includes: Examination of the Patient, Discharge Planning and Medication Reconciliation Discharge Plan Discharge Items Patient Disposition: [facility] Reason For Visit: SEPSIS, UTI, COVID-19 Discharge Diagnosis: COVID-19, Sepsis, VRE UTI, Drug rash Condition on Discharge: Fair Activity: Resume your previous activity Non-emergency contact: Primary Care Provider Call non-emergency contact if: you have any medication questions and your symptoms worsen Follow-up/Referrals: Raj MARIO [Primary Care Provider] - Diet: Heart Healthy Addtl Attending Provider Instructions: Please finish out the course of prednisone for the drug rash as a reaction to Daptomycin. Continue triamcinolone cream to the areas of rash twice a day x 2 weeks. You will need to finish your course of linezolid through the evening of 11/20 [facility] will be supplied by the [facility]. Please HOLD your nortriptyline until after the linezolid course is completed to avoid serotonin syndrome. Please continue Vieira catheter for now and trial of void with removal of Vieira in 3-4 more days. You were also quite constipated and this may contribute to development of urine retention and UTI. Please continue on a good daily bowl regimen. You do have COVID-19 but fortunately did not have significant issues with this and are not requiring oxygen. Pending Studies at Discharge: Yes Studies:: Vitamin B1 level-pending Stand-Alone Forms: My [facility] Skilled Items Patient informed of condition?: Yes Discharge Level of Care: Other Communicable Disease: Yes Discharge Prognosis: Improving Lines: None Urinary Catheter: Yes Medications and DC Order Prescriptions: New linezolid 600 mg Tablet 600 mg PO BID Qty: 3 RF: 0 polyethylene glycol 3350 [Miralax] 17 gram Powder In Packet 17 g PO BID Qty: 30 RF: 0 potassium chloride [Klor-Con M20] 20 mEq Tablet,Er Particles/Crystals 20 meq PO QAM Qty: 30 RF: 0 prednisone 20 mg Tablet 40 mg PO QAM 5 Days Qty: 10 RF: 0 triamcinolone acetonide 0.1 % Cream 1 applic EXT BID 14 Days Qty: 30 RF: 0 thiamine HCl (vitamin B1) [Vitamin B-1] 100 mg Tablet 100 mg PO QAM Qty: 30 RF: 0 Continued terbinafine HCl 1 % Cream 1 applic TOPICAL BID RF: 0 cyanocobalamin (vitamin B-12) [Vitamin B-12] 500 mcg Tablet 500 mcg PO DAILY RF: 0 tamsulosin [Flomax] 0.4 mg Capsule 0.4 mg PO HS RF: 0 metoprolol tartrate 50 mg Tablet 50 mg PO BID RF: 0 oxcarbazepine 600 mg Tablet 600 mg PO BID RF: 0 nystatin 100,000 unit/gram Powder 1 applic TOPICAL DAILY RF: 0 rosuvastatin 10 mg Tablet 10 mg PO HS RF: 0 lubiprostone [Amitiza] 24 mcg Capsule 24 mcg PO BID RF: 0 zinc oxide 40 % Ointment 1 applic TOPICAL DAILY RF: 0 Changed furosemide [Lasix] 40 mg Tablet 40 mg PO QAM Qty: 0 RF: 0 Discontinued nortriptyline 25 mg Capsule 25 mg PO DAILY RF: 0 Discharge Orders: Discharge Order (Routine); Ordered 11/19/20 Ordered By: Gisela Garvin Admission Data Admit Date/Time: 11/12/20 00:52 Attending Provider: Gisela Garvin Admit Provider: Bereket Palafox Primary Care Provider: Raj MARIO Other Providers: Bereket Palafox ; Uziel Dietz Other Interventions: Discharge Summary Assessment (RN) Last Done: 11/19/20 10:01 Coding Level of Care Code D/C Day Management >30 mins Diagnoses Sepsis A41.9 Sepsis acute organ dysfunction status: without acute organ dysfunction Sepsis type: sepsis due to unspecified organism Acute UTI N39.0 Morbilliform rash R21 Altered mental status R41.82 Altered mental status type: unspecified COVID-19 U07.1 Hypokalemia E87.6 Dehydration E86.0 Seizure disorder G40.909 Hypertension I10 Tachycardia R00.0 BPH w urinary obs/LUTS N40.1; N13.8 Hyperlipidemia E78.5 Constipated K59.00 Hypophosphatemia E83.39 Flexion contractures M24.50 Murmur, cardiac R01.1 DVT prophylaxis Z29.9
[2020-11-19] MEDS: TRIAMCINOLONE ACET 0.1% CR 80 GM TUBE EXT SCH (09:55)
[2020-11-19] MEDS: POLYETHYLENE (MIRALAX) 17 GM PACK PO SCH (09:55)
[2020-11-19] MEDS ORDERED: LINEZOLID 600 MG TAB PO SCH ×2 (10:00→21:00)
[2020-11-19] MEDS: ACETAMINOPHEN 325 MG TAB PO PRN (10:56)
== END 2020-11-19 11:26 | DRG 871 ==
LOC: ED 20:41 → 2S 11-12 00:52 → SUATTDRO 11-12 00:52 → 2S 11-12 01:43 → 2W 11-13 15:37 → 3E 11-16 14:42 → 3W 11-19 06:22

== ENCOUNTER 2020-12-04 09:20 | Inpatient (IN) ==
--- NOTE | 2020-12-04 09:52 | Emergency Department Note ---
Impression & Plan Weakness, COVID-19, Acute pyelonephritis, Hypokalemia ED Provider Note NAME: SHANON [id number] [facility] AGE: 65 SEX: M : 1955 ARRIVES VIA: Ambulance INFORMANT: Patient, ED PROVIDER(S): Des Raya DO CHIEF COMPLAINT: Altered mental status HPI: The patient is a 65-year-old male who presented to the emergency department from [facility] for an evaluation of altered mental status. The patient does have a history of hepatitis C. The patient has had no history of trauma. Reportedly the patient had unequal pupils when he was evaluated at the [facility] at the [facility]. The patient himself denies having any trauma. The patient states he has no abdominal pain. He denies having any chest pain. He has had no recent fevers. He does have a history of chronic urinary tract infections because of a chronic indwelling Pinedo. He does have a history of being paraplegic. The patient has been eating and drinking is normal. The patient was accompanied by 2 guards who are familiar with him and state that currently he is at his normal mental status. He has a history of seizures but no seizure was reported today. ROS: See above HPI for pertinent positives & negatives. A total of 10 systems reviewed and were otherwise negative. PAST MEDICAL HISTORY: See Below PAST SURGICAL HISTORY: See Below FAMILY HISTORY: See Below SOCIAL HISTORY: See Below HOME MEDICATIONS: See Below ALLERGIES: See Below VITALS: See Below PHYSICAL EXAMINATION: GENERAL: The patient is awake and alert. He answers questions appropriately. EYES: The conjunctivae are clear. The pupils are round and reactive. EARS, NOSE, MOUTH AND THROAT: The nose is without any evidence of any deformity. Mucous membranes are dry. NECK: The neck is nontender and supple. RESPIRATORY: Normal respiratory effort is noted there is no evidence of wheezing rhonchi or rales CARDIOVASCULAR: Regular rate and rhythm noted there no murmurs rubs or gallops normal S1 normal S2. GASTROINTESTINAL: The abdomen is soft. Abdomen is nontender. MUSCULOSKELETAL/EXTREMITIES: There is no evidence of gross deformity full range of motion is noted in the hips and shoulders. SKIN: Skin is warm and dry. There is pedal edema bilaterally. Pulses are symmetric in both feet. NEUROLOGIC: Patient is awake alert and oriented x3. Field Servicer strength is symm etric. There is no facial droop. MEDICAL DECISION MAKING: The patient is a 65-year-old male who presented to the emergency department for an evaluation of general weakness and altered mental status. The patient has a history of a chronic indwelling Pinedo. The patient has had very resistant bacteria in the urine in the past. Patient was treated with IV fluids in the emergency department. He was also treated with IV potassium replacement. He was started on IV antibiotics for presumed urinary tract infection with his urinalysis findings as well as his elevated white blood cell count. He was reevaluated multiple times and on subsequent reevaluation was feeling much better. I discussed the patient's laboratory and radiographic studies with him. [facility] have agreed to evaluate the patient in the emergency department for further management and disposition. Triage Nursing notes reviewed. Prior medical records reviewed Vital Signs: reviewed and remarkable for no significant abnormalities Differential diagnosis: Infection, hypoglycemia, electrolyte abnormalities, overdose, toxicologic, cardiac sources, intracerebral event, neurologic, trauma, as well as other pathologies. ER treatment provided: See below Diagnostics interpreted by me: ECG: EKG was obtained in the emergency department. My interpretation is sinus tachycardia at 101 bpm. There was no ectopy. There was no acute ST segment elevations noted. Diffuse ST depressions were noted with Q waves in the inferior leads. This was compared to a tracing from November 112020. The ST segment abnormalities do appear new compared to the earlier tracing. Cardiac Monitoring: An order was placed for continuous cardiac monitoring. The monitor shows a rate of 85 bpm with sinus rhythm. Laboratory studies: As stated above and show below. Imaging studies: See below Consultation(s): I discussed this case with Dr. Garvin who is on-call for the [facility] hospitalist group. They have agreed to evaluate the patient in the emergency department for further management and disposition. Past Med/Surg History Medical History BPH w urinary obs/LUTS Elevation of cardiac enzymes Flexion contractures History of endocarditis Hyperlipidemia Hypertension Morbilliform rash Murmur, cardiac Seizure disorder Weakness Social History Smoking Status: Former smoker Tobacco Type: Cigarettes Second Hand Exposure: No; Hx Alcohol Use: No Hx Substance Use: No Preferred Language: Yoruba Communication Ability: Impaired Tuber Helper Required: No Beliefs That Will Affect Care: Voodoo Voodoo Beliefs: Caodaism Current Living Situation: Other Current Living Situation Comment: inmate at [facility] Feels Safe at Home: Yes Assistive Devices: None Allergies Allergies Allergy/AdvReac Type Severity Reaction Status Date / Time Daptomycin Allergy Intermediate Rash Uncoded 12/04/20 10:37 Home Meds Home Medications Medication Instructions Recorded Confirmed cyanocobalamin (vitamin B-12) 500 mcg PO QAM 11/11/20 12/04/20 [Vitamin B-12] lubiprostone [Amitiza] 24 mcg PO BID 11/11/20 12/04/20 metoprolol tartrate 50 mg PO BID 11/11/20 12/04/20 oxcarbazepine 600 mg PO BID 11/11/20 12/04/20 rosuvastatin 10 mg PO HS 11/11/20 12/04/20 tamsulosin [Flomax] 0.4 mg PO HS 11/11/20 12/04/20 zinc oxide 1 applic TOPICAL QAM 11/11/20 12/04/20 nortriptyline 25 mg PO HS 12/04/20 12/04/20 nortriptyline 75 mg PO HS 12/04/20 12/04/20 nystatin [Mycostatin] 1 applic TOPICAL QAM 12/04/20 12/04/20 Previous Rx's Medication Instructions Recorded furosemide [Lasix] 40 mg PO QAM #0 tab 11/19/20 Results & Data (ED) Vital Signs Vital Signs - 24 hr 12/04/20 09:35 12/04/20 09:37 12/04/20 09:41 Temperature 36.8 C Temperature Source Oral Pulse Rate 100 H 100 H 101 H Pulse Rate from SpO2 Sensor 100 H 100 H Respiratory Rate 17 16 16 Respiratory Effort / Characteristics Non-Labored Spontaneous Respiratory Depth Normal Respiratory Pattern Regular Blood Pressure 104/72 104/72 Blood Pressure Mean 82 82 Pulse Oximetry 94 93 96 Oxygen Delivery Method Room Air Sepsis Recent Fever Within 48 Hours No Sepsis New/Unexplained Change in Mental Status N/A Sepsis Action Taken by Nursing No Action Required 12/04/20 10:00 12/04/20 10:01 12/04/20 10:30 Temperature Temperature Source Pulse Rate 101 H 101 H 101 H Pulse Rate from SpO2 Sensor 101 H 101 H Respiratory Rate 18 12 23 Respiratory Effort / Characteristics Respiratory Depth Respiratory Pattern Blood Pressure 101/49 L Blood Pressure Mean 66 Pulse Oximetry 94 93 Oxygen Delivery Method Sepsis Recent Fever Within 48 Hours Sepsis New/Unexplained Change in Mental Status Sepsis Action Taken by Nursing 12/04/20 11:00 12/04/20 11:02 12/04/20 11:03 Temperature Temperature Source Pulse Rate 99 H 102 H 103 H Pulse Rate from SpO2 Sensor 99 H 104 H 103 H Respiratory Rate 21 15 16 Respiratory Effort / Characteristics Respiratory Depth Respiratory Pattern Blood Pressure 112/74 Blood Pressure Mean 86 Pulse Oximetry 96 96 96 Oxygen Delivery Method Sepsis Recent Fever Within 48 Hours Sepsis New/Unexplained Change in Mental Status Sepsis Action Taken by Nursing 12/04/20 11:22 12/04/20 11:41 12/04/20 11:43 Temperature Temperature Source Pulse Rate 72 103 H 106 H Pulse Rate from SpO2 Sensor 103 H 106 H Respiratory Rate 20 14 23 Respiratory Effort / Characteristics Respiratory Depth Respiratory Pattern Blood Pressure 101/73 Blood Pressure Mean 82 Pulse Oximetry 96 96 95 Oxygen Delivery Method Sepsis Recent Fever Within 48 Hours Sepsis New/Unexplained Change in Mental Status Sepsis Action Taken by Nursing 12/04/20 12:00 12/04/20 12:01 12/04/20 12:30 Temperature Temperature Source Pulse Rate 100 H 101 H Pulse Rate from SpO2 Sensor 101 H 102 H 98 H Respiratory Rate 21 17 Respiratory Effort / Characteristics Respiratory Depth Respiratory Pattern Blood Pressure 114/69 105/67 Blood Pressure Mean 84 79 Pulse Oximetry 95 95 96 Oxygen Delivery Method Sepsis Recent Fever Within 48 Hours Sepsis New/Unexplained Change in Mental Status Sepsis Action Taken by Nursing 12/04/20 12:31 12/04/20 13:00 12/04/20 13:01 Temperature Temperature Source Pulse Rate Pulse Rate from SpO2 Sensor 97 H 95 H 95 H Respiratory Rate 20 Respiratory Effort / Characteristics Respiratory Depth Respiratory Pattern Blood Pressure 108/67 Blood Pressure Mean 80 Pulse Oximetry 96 95 95 Oxygen Delivery Method Sepsis Recent Fever Within 48 Hours Sepsis New/Unexplained Change in Mental Status Sepsis Action Taken by Nursing 12/04/20 13:30 12/04/20 13:31 12/04/20 14:00 Temperature Temperature Source Pulse Rate 98 H 98 H 94 H Pulse Rate from SpO2 Sensor 98 H 97 H 94 H Respiratory Rate 19 18 21 Respiratory Effort / Characteristics Respiratory Depth Respiratory Pattern Blood Pressure 110/68 97/62 L Blood Pressure Mean 82 73 Pulse Oximetry 96 95 98 Oxygen Delivery Method Sepsis Recent Fever Within 48 Hours Sepsis New/Unexplained Change in Mental Status Sepsis Action Taken by Nursing 12/04/20 14:01 12/04/20 14:30 12/04/20 14:31 Temperature Temperature Source Pulse Rate 90 97 H 91 H Pulse Rate from SpO2 Sensor 92 H 98 H 94 H Respiratory Rate 20 16 20 Respiratory Effort / Characteristics Respiratory Depth Respiratory Pattern Blood Pressure 97/71 L Blood Pressure Mean 79 Pulse Oximetry 97 99 98 Oxygen Delivery Method Sepsis Recent Fever Within 48 Hours Sepsis New/Unexplained Change in Mental Status Sepsis Action Taken by Nursing 12/04/20 15:00 12/04/20 15:01 Temperature Temperature Source Pulse Rate 81 81 Pulse Rate from SpO2 Sensor 82 79 Respiratory Rate 19 13 Respiratory Effort / Characteristics Respiratory Depth Respiratory Pattern Blood Pressure 104/68 Blood Pressure Mean 80 Pulse Oximetry 99 98 Oxygen Delivery Method Sepsis Recent Fever Within 48 Hours Sepsis New/Unexplained Change in Mental Status Sepsis Action Taken by [facility] Medications Current Medication List: was personally reviewed by me Laboratory Data Attestation: I reviewed the patient's lab results. Result diagrams: 12/04/20 10:23 12/04/20 10:23 Lab Results 12/04/20 12/04/20 12/04/20 Range/Units 10:23 10:23 10:23 WBC 17.94 H (4.8-10.8) K/uL RBC 4.39 L (4.7-6.1) M/uL Hgb 13.8 L (14.0-18.0) g/dL Hct 39.4 L (42-52) % MCV 89.7 (80-100) fL MCH 31.4 (25-34) pg MCHC 35.0 (32-36) g/dL RDW Std Deviation 45.6 (36.4-46.3) fL RDW Coeff of Abad 14.0 (11.5-14.5) % Plt Count 177 (130-400) K/uL MPV 9.6 (7.4-10.4) fL Immature Gran % (Auto) 0.4 % Neut % (Auto) 82.2 % Lymph % (Auto) 6.9 % [place] % (Auto) 10.3 % Eos % (Auto) 0.1 % Baso % (Auto) 0.1 % Neut # (Auto) 14.76 H (1.4-6.5) K/uL Lymph # (Auto) 1.23 (1.2-3.4) K/uL [place] # (Auto) 1.85 H (0.11-0.59) K/uL Eos # (Auto) 0.01 (0-0.5) K/uL Baso # (Auto) 0.02 (0-0.2) K/uL Immature Gran # (Auto) 0.07 H (0.00-0.02) K/uL PT 11.4 (9.0-12.0) Seconds INR 1.1 (0.9-1.1) APTT 26.9 (21.0-31.0) Seconds PTT Ratio 1.0 VBG pH (7.36-7.41) VBG pCO2 (38-50) mmHg VBG pO2 mmHg VBG HCO3 mmol/L VBG O2 Saturation % VBG Base Excess mEq/L Barometric Pressure mm/Hg Sodium 136 (136-145) mmol/L Potassium 2.7 L (3.5-5.1) mmol/L Chloride 100 (98-107) mmol/L Carbon Dioxide 27 (21-32) mmol/L Anion Gap 9.0 (3-11) BUN 15 (7-18) mg/dl Creatinine 0.92 (0.6-1.4) mg/dl Est Cr Clr Drug Dosing 82.7 ml/min Est GFR ( Amer) 100.8 Est GFR (Non-Af Amer) 87.0 BUN/Creatinine Ratio 16.1 (10-20) Glucose 154 H (70-99) mg/dl Lactate (0.4-2.0) mmol/L Calcium 8.8 (8.5-10.1) mg/dl Magnesium 2.0 (1.8-2.4) mg/dl Total Bilirubin 1.0 (0.2-1) mg/dl AST 29 (15-37) U/L ALT 33 (12-78) U/L Alkaline Phosphatase 130 H (45-117) U/L Ammonia (11-32) umol/L Total Creatine Kinase 547 H (39-308) U/L Troponin I < 0.015 (0-0.045) ng/ml Total Protein 7.1 (6.4-8.2) gm/dl Albumin 3.1 L (3.4-5.0) gm/dl Globulin 4.0 (2.5-4.0) gm/dl Albumin/Globulin Ratio 0.8 L (0.9-2) TSH 3.650 (0.300-4.500) uIu/ml Urine Color Urine Appearance (Clear) Urine pH (4.5-7.5) Ur Specific [place] (1.000-1.030) Urine Protein (Negative) Urine Glucose (UA) (Negative) Urine Ketones (Negative) Urine Blood (Negative) Urine Nitrite (Negative) Urine Bilirubin (Negative) Urine Urobilinogen (Negative) Ur Leukocyte Esterase (Negative) Urine WBC (Auto) (0-5) /hpf Urine RBC (Auto) (0-4) /hpf U Hyaline Cast (Auto) (0-5) /lpf U Epithel Cells (Auto) (0-5) /lpf Urine Bacteria (Auto) (Negative) COVID-19 Eval Order SARS-CoV-2, RNA, NAAT (NEGATIVE) 12/04/20 12/04/20 12/04/20 Range/Units 10:23 10:23 11:05 WBC (4.8-10.8) K/uL RBC (4.7-6.1) M/uL Hgb (14.0-18.0) g/dL Hct (42-52) % MCV (80-100) fL MCH (25-34) pg MCHC (32-36) g/dL RDW Std Deviation (36.4-46.3) fL RDW Coeff of Abad (11.5-14.5) % Plt Count (130-400) K/uL MPV (7.4-10.4) fL Immature Gran % (Auto) % Neut % (Auto) % Lymph % (Auto) % [place] % (Auto) % Eos % (Auto) % Baso % (Auto) % Neut # (Auto) (1.4-6.5) K/uL Lymph # (Auto) (1.2-3.4) K/uL [place] # (Auto) (0.11-0.59) K/uL Eos # (Auto) (0-0.5) K/uL Baso # (Auto) (0-0.2) K/uL Immature Gran # (Auto) (0.00-0.02) K/uL PT (9.0-12.0) Seconds INR (0.9-1.1) APTT (21.0-31.0) Seconds PTT Ratio VBG pH 7.53 H (7.36-7.41) VBG pCO2 34 L (38-50) mmHg VBG pO2 51 mmHg VBG HCO3 28 mmol/L VBG O2 Saturation 89.7 % VBG Base Excess 5.2 mEq/L Barometric Pressure 737.5 mm/Hg Sodium (136-145) mmol/L Potassium (3.5-5.1) mmol/L Chloride (98-107) mmol/L Carbon Dioxide (21-32) mmol/L Anion Gap (3-11) BUN (7-18) mg/dl Creatinine (0.6-1.4) mg/dl Est Cr Clr Drug Dosing ml/min Est GFR ( Amer) Est GFR (Non-Af Amer) BUN/Creatinine Ratio (10-20) Glucose (70-99) mg/dl Lactate (0.4-2.0) mmol/L Calcium (8.5-10.1) mg/dl Magnesium (1.8-2.4) mg/dl Total Bilirubin (0.2-1) mg/dl AST (15-37) U/L ALT (12-78) U/L Alkaline Phosphatase (45-117) U/L Ammonia 13.4 (11-32) umol/L Total Creatine Kinase (39-308) U/L Troponin I (0-0.045) ng/ml Total Protein (6.4-8.2) gm/dl Albumin (3.4-5.0) gm/dl Globulin (2.5-4.0) gm/dl Albumin/Globulin Ratio (0.9-2) TSH (0.300-4.500) uIu/ml Urine Color Dark Yellow Urine Appearance Cloudy A (Clear) Urine pH 6.0 (4.5-7.5) Ur Specific [place] 1.017 (1.000-1.030) Urine Protein 1+ H (Negative) Urine Glucose (UA) Negative (Negative) Urine Ketones Negative (Negative) Urine Blood Trace H (Negative) Urine Nitrite Negative (Negative) Urine Bilirubin Negative (Negative) Urine Urobilinogen Negative (Negative) Ur Leukocyte Esterase 3+ H (Negative) Urine WBC (Auto) >30 H (0-5) /hpf Urine RBC (Auto) 0-4 (0-4) /hpf U Hyaline Cast (Auto) 1-5 (0-5) /lpf U Epithel Cells (Auto) 5-10 H (0-5) /lpf Urine Bacteria (Auto) 4+ H (Negative) COVID-19 Eval Order SARS-CoV-2, RNA, NAAT (NEGATIVE) 12/04/20 12/04/20 12/04/20 Range/Units 13:20 13:20 14:52 WBC (4.8-10.8) K/uL RBC (4.7-6.1) M/uL Hgb (14.0-18.0) g/dL Hct (42-52) % MCV (80-100) fL MCH (25-34) pg MCHC (32-36) g/dL RDW Std Deviation (36.4-46.3) fL RDW Coeff of Abad (11.5-14.5) % Plt Count (130-400) K/uL MPV (7.4-10.4) fL Immature Gran % (Auto) % Neut % (Auto) % Lymph % (Auto) % [place] % (Auto) % Eos % (Auto) % Baso % (Auto) % Neut # (Auto) (1.4-6.5) K/uL Lymph # (Auto) (1.2-3.4) K/uL [place] # (Auto) (0.11-0.59) K/uL Eos # (Auto) (0-0.5) K/uL Baso # (Auto) (0-0.2) K/uL Immature Gran # (Auto) (0.00-0.02) K/uL PT (9.0-12.0) Seconds INR (0.9-1.1) APTT (21.0-31.0) Seconds PTT Ratio VBG pH (7.36-7.41) VBG pCO2 (38-50) mmHg VBG pO2 mmHg VBG HCO3 mmol/L VBG O2 Saturation % VBG Base Excess mEq/L Barometric Pressure mm/Hg Sodium (136-145) mmol/L Potassium (3.5-5.1) mmol/L Chloride (98-107) mmol/L Carbon Dioxide (21-32) mmol/L Anion Gap (3-11) BUN (7-18) mg/dl Creatinine (0.6-1.4) mg/dl Est Cr Clr Drug Dosing ml/min Est GFR ( Amer) Est GFR (Non-Af Amer) BUN/Creatinine Ratio (10-20) Glucose (70-99) mg/dl Lactate 2.0 (0.4-2.0) mmol/L Calcium (8.5-10.1) mg/dl Magnesium (1.8-2.4) mg/dl Total Bilirubin (0.2-1) mg/dl AST (15-37) U/L ALT (12-78) U/L Alkaline Phosphatase (45-117) U/L Ammonia (11-32) umol/L Total Creatine Kinase (39-308) U/L Troponin I (0-0.045) ng/ml Total Protein (6.4-8.2) gm/dl Albumin (3.4-5.0) gm/dl Globulin (2.5-4.0) gm/dl Albumin/Globulin Ratio (0.9-2) TSH (0.300-4.500) uIu/ml Urine Color Urine Appearance (Clear) Urine pH (4.5-7.5) Ur Specific [place] (1.000-1.030) Urine Protein (Negative) Urine Glucose (UA) (Negative) Urine Ketones (Negative) Urine Blood (Negative) Urine Nitrite (Negative) Urine Bilirubin (Negative) Urine Urobilinogen (Negative) Ur Leukocyte Esterase (Negative) Urine WBC (Auto) (0-5) /hpf Urine RBC (Auto) (0-4) /hpf U Hyaline Cast (Auto) (0-5) /lpf U Epithel Cells (Auto) (0-5) /lpf Urine Bacteria (Auto) (Negative) COVID-19 Eval [facility], RNA, NAAT POSITIVE A* (NEGATIVE) Administered Medications Discontinued Medications Sodium Chloride (Nss 1000ml) 1,000 mls @ 999 mls/hr IV .Q1H1M JJ Stop: 12/04/20 11:00 Last Infusion: 12/04/20 13:27 Dose: 0 mls/hr Documented by: [id number] Admin: 12/04/20 11:43 Dose: 999 mls/hr Documented by: [id number] Potassium Chloride (K Andrew / Wtr) 10 meq in 100 mls @ 100 mls/hr IV Q1H JJ Stop: 12/04/20 13:29 Last Infusion: 12/04/20 13:28 Dose: 0 mls/hr Documented by: [id number] Admin: 12/04/20 11:43 Dose: 100 mls/hr Documented by: [id number] Infusion: 12/04/20 11:43 Dose: 100 mls/hr Documented by: [id number] Admin: 12/04/20 11:43 Dose: 100 mls/hr Documented by: [id number] Sodium Chloride (Nss 1000ml) 1,000 mls @ 999 mls/hr IV .Q1H1M ONE Stop: 12/04/20 14:15 Last Infusion: 12/04/20 14:29 Dose: 0 mls/hr Documented by: [id number] Admin: 12/04/20 13:36 Dose: 999 mls/hr Documented by: [id number] Ceftriaxone Sodium (Rocephin) 1,000 mg in 50 mls @ 100 mls/hr IV NOW STA Stop: 12/04/20 13:49 Last Infusion: 12/04/20 14:29 Dose: 0 mls/hr Documented by: [id number] Admin: 12/04/20 13:36 Dose: 100 mls/hr Documented by: [id number] Potassium Chloride (Potassium Chloride 10 Meq Tabcr) 20 meq PO NOW STA Stop: 12/04/20 11:18 Last Admin: 12/04/20 11:43 Dose: 20 meq Documented by: [id number] Imaging Data Radiologist's Impression: [facility], [phone] CT Scan Report Patient: SHANON WILL [id number] Date: 12/04/20MR#: [id number]: [address] [place] [address] DRAcct ID:[id number]: [facility] [address] [facility] Zip: [place] [address]Rox: 65Location: EDSex: MRoom/Bed:Att Phy:Diagnosis: CONFUSIONPri Phy: [facility]nerService Date: 12/04/20Fam Phy:Interpreting Phy: Brian CabanAdmit Phy: Ordering Phy: Des Raya DO cc: ~ CT head/brain wo con CLINICAL HISTORY: 65 years-old Male with AMS. Acutely altered mental status TECHNIQUE: Multiple axial CT images of the head were obtained without contrast. A dose lowering technique was utilized adhering to the principles of ALARA. CT DOSE: 1123.23 mGycm COMPARISON: Head CT 11/11/2020. FINDINGS: No acute intracranial hemorrhage, midline shift, intracranial mass, hydrocephalus, territorial ischemia or abnormal extra-axial collection. Age- related involutional changes with ex vacuo ventriculomegaly. Minimal white matter hypodensities suggest chronic microvascular ischemic disease. Cerebral vascular calcifications. The calvarium is intact. The paranasal sinuses, mastoid air cells, and middle ear cavities are clear. IMPRESSION: No acute intracranial abnormality. ACT 112: Negative or not required by law. The above report was generated using voice recognition software. It may contain grammatical, syntax or spelling errors. Electronically signed by: Elmer Caban M.D. 12/04/2020 11:40 AM Dictated: 12/04/20 1139Transcribed: 12/04/20 1139 Patient: SHANON WILL [id number] Date: 12/04/20MR#: [id number]: [address] [place] [address] DRAcct ID:[id number]: SCI BENNERBirth Date: [address] [place] [address] Zip: [place], [place] [address]Sxh: 65Location: EDSex: MRoom/Bed:Att Phy:Diagnosis: CONFUSIONPri Phy: [facility] BennerService Date: 12/04/20Fam Phy:Interpreting Phy: Emre Morgan MDAdmit Phy: Ordering Phy: Des Raya DO cc: ~ XR chest 1V portable HISTORY: weakness COMPARISON: Chest 11/11/2020. FINDINGS: There are low lung volumes. The cardiac silhouette remains mildly enlarged. Small linear density left lung base favors subsegmental atelectasis are scarring. Otherwise, lungs are clear. No effusions. No pneumothorax. No evidence for pulmonary edema. IMPRESSION: Low lung volumes, unchanged. No acute process within the chest. ACT 112: Negative or not required by law. Electronically signed by: Emre Morgan M.D. 12/04/2020 10:48 AM Dictated: 12/04/20 1046Transcribed: 12/04/201045 Discharge Plan Visit Data Chief Complaint: Illness ED Provider: Des Raya Discharge Problem: Weakness, COVID-19, Acute pyelonephritis, Hypokalemia Forms Stand Alone Forms: [facility] charity: water Prescriptions Prescriptions: No Action cyanocobalamin (vitamin B-12) [Vitamin B-12] 500 mcg Tablet 500 mcg PO QAM RF: 0 tamsulosin [Flomax] 0.4 mg Capsule 0.4 mg PO HS RF: 0 metoprolol tartrate 50 mg Tablet 50 mg PO BID RF: 0 oxcarbazepine 600 mg Tablet 600 mg PO BID RF: 0 rosuvastatin 10 mg Tablet 10 mg PO HS RF: 0 lubiprostone [Amitiza] 24 mcg Capsule 24 mcg PO BID RF: 0 zinc oxide 40 % Ointment 1 applic TOPICAL QAM RF: 0 furosemide [Lasix] 40 mg Tablet 40 mg PO QAM Qty: 0 RF: 0 nortriptyline 25 mg Capsule 25 mg PO HS RF: 0 nortriptyline 75 mg Capsule 75 mg PO HS RF: 0 nystatin [Mycostatin] 100,000 unit/gram Powder 1 applic TOPICAL QAM RF: 0 Referrals Referrals: Araceli MARIO [Primary Care Provider] -
[2020-12-04] MEDS ORDERED: SODIUM CHLORIDE 0.9% 1000ML 1,000 ML IV SCH (10:00)
[2020-12-04 10:32] LABS: Basophils # (auto) 0.02 K/uL (0-0.2); Basophils % (auto) 0.1 %; Eosinophils # (auto) 0.01 K/uL (0-0.5); Eosinophils % (auto) 0.1 %; Hematocrit (blood only) 39.4 % (42-52); Hemoglobin 13.8 g/dL (14.0-18.0); Immature Granulocytes # (auto) 0.07 K/uL (0.00-0.02); Immature Granulocytes % (auto) 0.4 %; Lymphocytes # (auto) 1.23 K/uL (1.2-3.4); Lymphocytes % (auto) 6.9 %; Mean Corpuscular Hemoglobin 31.4 pg (25-34); Mean Corpuscular Volume 89.7 fL (80-100); Mean Platelet Volume 9.6 fL (7.4-10.4); Monocytes # (auto) 1.85 K/uL (0.11-0.59); Monocytes % (auto) 10.3 %; Neutrophils # (auto) 14.76 K/uL (1.4-6.5); Neutrophils % (auto) 82.2 %; Platelet Count 177 K/uL (130-400); RDW Standard Deviation 45.6 fL (36.4-46.3); Red Blood Count 4.39 M/uL (4.7-6.1); White Blood Count 17.94 K/uL (4.8-10.8)
[2020-12-04 10:34] LABS: Base Excess VBG 5.2 mEq/L; Oxygen Saturation VBG 89.7 %; pH VBG 7.53 (7.36-7.41)
[2020-12-04 10:43] LABS: INR 1.1 (0.9-1.1); Partial Thromboplastin Time 26.9 Seconds (21.0-31.0); Prothrombin Time 11.4 Seconds (9.0-12.0)
[2020-12-04 10:49] LABS: Albumin Level 3.1 gm/dl (3.4-5.0); Aspartate Aminotransferase 29 U/L (15-37); BUN Creatinine Ratio 16.1 (10-20); Blood Urea Nitrogen 15 mg/dl (7-18); Calcium 8.8 mg/dl (8.5-10.1); Carbon Dioxide 27 mmol/L (21-32); Chloride 100 mmol/L (98-107); Creatinine Clr Calc Pharmacy 82.7 ml/min; Est GFR (African American) 100.8; Glucose 154 mg/dl (70-99); Potassium 2.7 mmol/L (3.5-5.1); Sodium 136 mmol/L (136-145)
--- NOTE | 2020-12-04 10:49 | XRay Report ---
XR chest 1V portable HISTORY: weakness COMPARISON: Chest 11/11/2020. FINDINGS: There are low lung volumes. The cardiac silhouette remains mildly enlarged. Small linear de nsity left lung base favors subsegmental atelectasis are scarring. Otherwise, lungs are clear. No eff usions. No pneumothorax. No evidence for pulmonary edema. IMPRESSION: Low lung volumes, unchanged. No acute process within the chest. ACT 112: Negative or not required by law. Electronically signed by: Emre Morgan M.D. 12/04/2020 10:48 AM
[2020-12-04 11:00] LABS: Alanine Aminotransferase 33 U/L (12-78); Albumin Globulin Ratio 0.8 (0.9-2); Alkaline Phosphatase 130 U/L (45-117); Creatine Kinase 547 U/L (39-308); Total Protein 7.1 gm/dl (6.4-8.2); Troponin I < 0.015 ng/ml (0-0.045)
[2020-12-04] MEDS ORDERED: POTASSIUM CHLORIDE 10 MEQ TABCR PO STA (11:17)
[2020-12-04 11:26] LABS: Appearance Urine Cloudy (Clear); Bacteria Urine Automated 4+ (Negative); Bilirubin Urine Negative (Negative); Blood Urine Trace (Negative); Color Urine Dark Yellow; Glucose Urine UA Negative (Negative); Ketones Urine Negative (Negative); Leukocyte Esterase Urine 3+ (Negative); Nitrite Urine Negative (Negative); Protein Urine 1+ (Negative); RBC Urine Automated 0-4 /hpf (0-4); Specific Gravity Urine 1.017 (1.000-1.030); Urobilinogen Urine Negative (Negative); WBC Urine Automated >30 /hpf (0-5)
--- NOTE | 2020-12-04 11:42 | CT Scan Report ---
CT head/brain wo con CLINICAL HISTORY: 65 years-old Male with AMS. Acutely altered mental status TECHNIQUE: Multiple axial CT images of the head were obtained without contrast. A dose lowering tech nique was utilized adhering to the principles of ALARA. CT DOSE: 1123.23 mGycm COMPARISON: Head CT 11/11/2020. FINDINGS: No acute intracranial hemorrhage, midline shift, intracranial mass, hydrocephalus, territorial ischem ia or abnormal extra-axial collection. Age-related involutional changes with ex vacuo ventriculomegal y. Minimal white matter hypodensities suggest chronic microvascular ischemic disease. Cerebral vascul ar calcifications. The calvarium is intact. The paranasal sinuses, mastoid air cells, and middle ear cavities are clear . IMPRESSION: No acute intracranial abnormality. ACT 112: Negative or not required by law. The above report was generated using voice recognition software. It may contain grammatical, syntax o r spelling errors. Electronically signed by: Elmer Caban M.D. 12/04/2020 11:40 AM
[2020-12-04] MEDS: POTASSIUM CHLORIDE / WTR 10 MEQ/100 ML PLCT IV SCH (11:43)
[2020-12-04] MEDS ORDERED: SODIUM CHLORIDE 0.9% 1000ML 1,000 ML IV ONE (13:15)
[2020-12-04] MEDS ORDERED: cefTRIAXone SODIUM 1,000 MG/50 ML BAG IV STA (13:20)
[2020-12-04] MEDS ORDERED: LINEZOLID CONSULT ACTIVE PRN (13:20)
[2020-12-04] MEDS ORDERED: LINEZOLID 600 MG/300 ML D5W IV ONE (13:20)
[2020-12-04] MEDS ORDERED: LINEZOLID 600 MG/300 ML BAG IV ONE (13:20)
--- NOTE | 2020-12-04 14:55 | History & Physical Report ---
Date of Service December 04, 2020 Assessment & Plan (1) Sepsis: Tachycardic and hypotensive on arrival, received 2 liters of saline with adequate response in blood pressure and HR - Blood cultures pending, urine + culture and sensitivitis pending - VRE on last admission with murmur--> obtain ECHO - MAP goal >65 - Keep LR at 125 ml/hour tonight as patient's ability to replace fluids orally is decreased with contractures. -linezolid to cover for Dapto, Ceftriaxone for usual coverage for UTI -hold TCA while on linezolid (2) Acute metabolic encephalopathy: -likely secondary to infection -possible seizure? unclear history now resolved (3) UTI (urinary tract infection) due to urinary indwelling Vieira catheter: - WBC 17, NLR: 7:1, lactate 2.0 - Urine cloudy and yellow, WBC >30 LE (+), Nitrate (-) - Source urine- Vieira discontinued - Bladder training while in house with Vieiar discontinuation. Bladder scan and straight cath for >500 - Would like to keep instrumentation out of patient if possible (4) Hyperlipidemia: Continue Rosuvastatin (5) BPH w urinary obs/LUTS: As above, bladder training - diaper for incontinence - PVR after void if possible - keep skin dry, turn q2 hours (6) Hypertension: Hold antihypertensives for tonight to ensure to maintain MAPS - restart in morning goal <140 (7) Seizure disorder: Continue oxcarbazepine 600 mg BID - ? mild CK elevation on admission with mental status alteration and no reports of trauma - Normal head CT - Patient is at baseline now - Will continue hydration as below, recheck CK tonight to ensure decrease (8) COVID-19: Patient COVID remains (+) from nasal swab but is 23 days out from initial test, does not need precautions - renal and liver indices normal - not hypoxic - patient seems to have recovered well (9) Flexion contractures: range of motion as can be done - keep skin dry - Zinc oxide or protection in moist/wet areas (10) DVT prophylaxis: Lovenox SQ Disposition-admit to medical/surgical floor History of Present Illness Primary Care Provider: SCI Alex 65 YOM prisoner from [facility], with medical history of weakness, diabetes, weakness, gastric motility, HTN, BPH with LUTS, HLD, Vitamin B12 deficiency, and contractures, UTI and metabolic encephalopathy, COVID 19 (Nov 11, 2020) and generalized seizure disorder. Patient was recently discharged in October from a UTI and vieira catheter, that was to be discontinued at [facility] however, it remains in place. The patient comes in today for altered mental status and "not feeling well". His mental status has improved after receiving 1 liter of 0.9% saline and antibiotics. He is awake and conversant, just slow responses and weak appearing. Patient states that he has had some chills and fevers, with a decreased appetite, he is unable to say how long he has not felt well. He is contracted at baseline with pain in his hips and shoulders. The patient will be admitted for complicated UTI secondary to the altered mental status. He is also hypokalemic on evaluation. The report from [facility] was unequal pupils and unresponsive however, pupils and mental status are normal on my exam. The patient CK are elevated with no report of trauma and/or seizure. The gaurds with the patient are not familiar with him and just took over during my evaluation. The rash that was reported on last admission has since resolved, will add back the medications that he was discharged on, potassium chloride oral, thiamine, and PEG. Allergies Allergy/AdvReac Type Severity Reaction Status Date / Time daptomycin Allergy Rash Verified 12/04/20 17:40 Home Medications Medication Instructions Recorded Confirmed Type cyanocobalamin (vitamin B-12) 500 mcg PO QAM 11/11/20 12/04/20 History [Vitamin B-12] lubiprostone [Amitiza] 24 mcg PO BID 11/11/20 12/04/20 History metoprolol tartrate 50 mg PO BID 11/11/20 12/04/20 History oxcarbazepine 600 mg PO BID 11/11/20 12/04/20 History rosuvastatin 10 mg PO HS 11/11/20 12/04/20 History tamsulosin [Flomax] 0.4 mg PO HS 11/11/20 12/04/20 History zinc oxide 1 applic TOPICAL QAM 11/11/20 12/04/20 History furosemide [Lasix] 40 mg PO QAM #0 tab 11/19/20 12/04/20 Rx nortriptyline 25 mg PO HS 12/04/20 12/04/20 History nortriptyline 75 mg PO HS 12/04/20 12/04/20 History nystatin [Mycostatin] 1 applic TOPICAL QAM 12/04/20 12/04/20 History Past Med/Surg History Medical History BPH w urinary obs/LUTS Elevation of cardiac enzymes Flexion contractures History of endocarditis Hyperlipidemia Hypertension Morbilliform rash Murmur, cardiac Seizure disorder Weakness Family History (Updated 12/04/20 @ 20:44 by Gisela Garvin MD) Other Family history non-contributory Social History Smoking Status: Former smoker Tobacco Type: Cigarettes Second Hand Exposure: No; Hx Alcohol Use: No Hx Substance Use: No Preferred Language: Uzbek Communication Ability: Impaired Bobbin Hauler Required: No Beliefs That Will Affect Care: Restorationist Restorationist Beliefs: Alevism Current Living Situation: Other Current Living Situation Comment: SCI alex Inmate Feels Safe at Home: Yes Assistive Devices: None Review of Systems Review of Systems: REVIEW OF SYSTEMS: Constitutional: (+) fever, sweats or chills Eyes: No diplopia, no worsening or blurred vision ENT: normal hearing, no trouble swallowing Respiratory: No cough, sputum, dyspnea at rest or on exertion Cardiovascular: No chest pain, tightness or palpitations Abdomen: (+) constipation, No pain, nausea, vomiting, diarrhea, Musculoskeletal: (+) chronic flexed contractures, joint pain as per HPI, calf pain, swelling Neurologic: No weakness, numbness/tingling, or balance problems Psychiatric: No anxiety or depression Skin: No rash or itch Physical Exam Physical Exam: PHYSICAL EXAM: General: awake, alert, no apparent distress Head: normocephalic, atraumatic ENT: PERRL, EOMI, mucous membranes dry Neuro: AAO x 3, speech weak but appropriate, strength intact bilaterally 5/5, sensation intact and equal all extremities, contractures as above Chest: equal rise and fall of the chest, no accessory muscle use, no heaves or thrills, Clear to auscultation, on room air, Cardiac: Regular rate and rhythm, telemetry reviewed, skin warm dry, cap refill <3 seconds, peripheral pules +2 no JVD, no murmur, no edema GI: NABS x 4 quadrants, soft, nontender to palpation, no rebound, guarding or tenderness : Vieira to gravity, will be removed. No CVA tenderness, Urine clear yellow Extremities: Normal inspection, no peripheral edema or erythema, calfs nontender to palpation Psych: Normal mood and affect Skin: no rash or erythema Results & Data Results & Data ([facility]) Vital Signs (Past 12 Hours) Vital Signs Temp Pulse Resp BP Pulse Ox 12/04/20 14:01 90 20 97 12/04/20 14:00 94 H 21 97/62 L 98 12/04/20 13:31 98 H 18 95 12/04/20 13:30 98 H 19 110/68 96 12/04/20 13:01 95 12/04/20 13:00 20 108/67 95 12/04/20 12:31 96 12/04/20 12:30 105/67 96 12/04/20 12:01 101 H 17 95 12/04/20 12:00 100 H 21 114/69 95 12/04/20 11:43 106 H 23 101/73 95 12/04/20 11:41 103 H 14 96 12/04/20 11:22 72 20 96 12/04/20 11:03 103 H 16 96 12/04/20 11:02 102 H 15 112/74 96 12/04/20 11:00 99 H 21 96 12/04/20 10:30 101 H 23 93 12/04/20 10:01 101 H 12 101/49 L 94 12/04/20 10:00 101 H 18 12/04/20 09:41 36.8 C 101 H 16 104/72 96 12/04/20 09:37 100 H 16 93 12/04/20 09:35 100 H 17 104/72 94 Laboratory Results Abnormal lab results 12/04/20 12/04/20 12/04/20 Range/Units 10:23 10:23 10:23 WBC 17.94 H (4.8-10.8) K/uL RBC 4.39 L (4.7-6.1) M/uL Hgb 13.8 L (14.0-18.0) g/dL Hct 39.4 L (42-52) % Neut # (Auto) 14.76 H (1.4-6.5) K/uL Carolina # (Auto) 1.85 H (0.11-0.59) K/uL Immature Gran # (Auto) 0.07 H (0.00-0.02) K/uL VBG pH 7.53 H (7.36-7.41) VBG pCO2 34 L (38-50) mmHg Potassium 2.7 L (3.5-5.1) mmol/L Glucose 154 H (70-99) mg/dl Alkaline Phosphatase 130 H (45-117) U/L Total Creatine Kinase 547 H (39-308) U/L Albumin 3.1 L (3.4-5.0) gm/dl Albumin/Globulin Ratio 0.8 L (0.9-2) Urine Appearance (Clear) Urine Protein (Negative) Urine Blood (Negative) Ur Leukocyte Esterase (Negative) Urine WBC (Auto) (0-5) /hpf U Epithel Cells (Auto) (0-5) /lpf Urine Bacteria (Auto) (Negative) SARS-CoV-2, RNA, NAAT (NEGATIVE) 12/04/20 12/04/20 Range/Units 11:05 13:20 WBC (4.8-10.8) K/uL RBC (4.7-6.1) M/uL Hgb (14.0-18.0) g/dL Hct (42-52) % Neut # (Auto) (1.4-6.5) K/uL Carolina # (Auto) (0.11-0.59) K/uL Immature Gran # (Auto) (0.00-0.02) K/uL VBG pH (7.36-7.41) VBG pCO2 (38-50) mmHg Potassium (3.5-5.1) mmol/L Glucose (70-99) mg/dl Alkaline Phosphatase (45-117) U/L Total Creatine Kinase (39-308) U/L Albumin (3.4-5.0) gm/dl Albumin/Globulin Ratio (0.9-2) Urine Appearance Cloudy A (Clear) Urine Protein 1+ H (Negative) Urine Blood Trace H (Negative) Ur Leukocyte Esterase 3+ H (Negative) Urine WBC (Auto) >30 H (0-5) /hpf U Epithel Cells (Auto) 5-10 H (0-5) /lpf Urine Bacteria (Auto) 4+ H (Negative) SARS-CoV-2, RNA, NAAT POSITIVE A* (NEGATIVE) Diagnostic Findings CT head/brain wo con CLINICAL HISTORY: 65 years-old Male with AMS. Acutely altered mental status TECHNIQUE: Multiple axial CT images of the head were obtained without contrast. A dose lowering technique was utilized adhering to the principles of ALARA. CT DOSE: 1123.23 mGycm COMPARISON: Head CT 11/11/2020. FINDINGS: No acute intracranial hemorrhage, midline shift, intracranial mass, hydrocephalus, territorial ischemia or abnormal extra-axial collection. Age- related involutional changes with ex vacuo ventriculomegaly. Minimal white matter hypodensities suggest chronic microvascular ischemic disease. Cerebral vascular calcifications. The calvarium is intact. The paranasal sinuses, mastoid air cells, and middle ear cavities are clear. IMPRESSION: No acute intracranial abnormality. XR chest 1V portable HISTORY: weakness COMPARISON: Chest 11/11/2020. FINDINGS: There are low lung volumes. The cardiac silhouette remains mildly enlarged. Small linear density left lung base favors subsegmental atelectasis are scarring. Otherwise, lungs are clear. No effusions. No pneumothorax. No evidence for pulmonary edema. IMPRESSION: Low lung volumes, unchanged. No acute process within the chest. Medications Administered Discontinued Medications Sodium Chloride (Nss 1000ml) 1,000 mls @ 999 mls/hr IV .Q1H1M JJ Stop: 12/04/20 11:00 Last Infusion: 12/04/20 13:27 Dose: 0 mls/hr Documented by: [id number] Admin: 12/04/20 11:43 Dose: 999 mls/hr Documented by: [id number] Potassium Chloride (K Andrew / Wtr) 10 meq in 100 mls @ 100 mls/hr IV Q1H JJ Stop: 12/04/20 13:29 Last Infusion: 12/04/20 13:28 Dose: 0 mls/hr Documented by: [id number] Admin: 12/04/20 11:43 Dose: 100 mls/hr Documented by: [id number] Infusion: 12/04/20 11:43 Dose: 100 mls/hr Documented by: [id number] Admin: 12/04/20 11:43 Dose: 100 mls/hr Documented by: [id number] Sodium Chloride (Nss 1000ml) 1,000 mls @ 999 mls/hr IV .Q1H1M ONE Stop: 12/04/20 14:15 Last Infusion: 12/04/20 14:29 Dose: 0 mls/hr Documented by: [id number] Admin: 12/04/20 13:36 Dose: 999 mls/hr Documented by: [id number] Ceftriaxone Sodium (Rocephin) 1,000 mg in 50 mls @ 100 mls/hr IV NOW STA Stop: 12/04/20 13:49 Last Infusion: 12/04/20 14:29 Dose: 0 mls/hr Documented by: [id number] Admin: 12/04/20 13:36 Dose: 100 mls/hr Documented by: [id number] Potassium Chloride (Potassium Chloride 10 Meq Tabcr) 20 meq PO NOW STA Stop: 12/04/20 11:18 Last Admin: 12/04/20 11:43 Dose: 20 meq Documented by: [id number] ECG Additional Comments: Sinus tachycardia with 1st degree A-V block Code Status & VTE Plan Code Status FUll VTE: Lovenox VTE Prophylaxis Plan VTE Prophylaxis will be ordered: Yes Supervising Physician Co-Signing Physician Notes CASE CONSULTANT Supervision note: I have personally seen and examined the patient and discussed and verified the ash points of the history and physical along with the plan with BILL Pedro with the following exceptions and/or additions: This patient is a 65-year-old male with a history of flexion contractures, seizure disorder, hypertension, hyperlipidemia, urinary retention, constipation, here with altered mental status at the present and found to have UTI with indwelling Vieira catheter. [facility]-it is unclear if this ever occurred. He was found to have leukocytosis, elevated lactate, and altered mental status in the ER with UTI. History and ROS reviewed as above Vitals reviewed Gen: AAO to person and place, NAD HEENT: Anicteric sclerae, EOMI CV: RRR 3/6 systolic murmur heard at the apex nl S1S2 Pulm: CTAB no wcr Abd: +BS soft NT ND no masses or hernias Ext: No edema, flexion contractures in the lower extremities bilaterally Skin: No rashes, warm/dry Neuro: Moves all extremities 65-year-old male with history as above, here with UTI, sepsis, acute metabolic encephalopathy -Treatment plan outlined as above PG Care Time/CCT Total # of Minutes Spent Total Time Spent with Patient: Total time spent is greater than 50% in coordination of care (as documented) at patient's floor/unit and/or counseling patient: Coding Level of Care Code 64672 Initial Inpt Care Lvl 3 Diagnoses Sepsis A41.9 Acute metabolic encephalopathy G93.41 UTI (urinary tract infection) due to urinary indwelling Vieira catheter T83 .511A; N39.0 Hyperlipidemia E78.5 BPH w urinary obs/LUTS N40.1; N13.8 Hypertension I10 Seizure disorder G40.909 COVID-19 U07.1 Flexion contractures M24.50 DVT prophylaxis Z29.9
[2020-12-04] MEDS ORDERED: LACTATED RINGER'S 1,000 ML IV ONE (17:31)
[2020-12-04] MEDS ORDERED: ACETAMINOPHEN 325 MG TAB PO PRN (17:31)
[2020-12-04] MEDS ORDERED: ONDANSETRON INJ 2 MG/ML 2 ML VIAL IV PRN (17:31)
[2020-12-04] MEDS ORDERED: POLYETHYLENE (MIRALAX) 17 GM PACK PO PRN (17:31)
[2020-12-04] MEDS: LUBIPROSTONE 8 MCG CAP PO SCH (19:12)
[2020-12-04] MEDS: ROSUVASTATIN CALCIUM 10 MG TAB PO SCH (20:06)
[2020-12-04] MEDS: POTASSIUM CHLORIDE CRTAB 20 MEQ TABCR PO SCH (20:07)
[2020-12-04] MEDS: TAMSULOSIN HCL 0.4 MG CAP PO SCH (20:07)
[2020-12-04] MEDS: METOPROLOL TARTRATE 50 MG TAB PO SCH (20:08)
[2020-12-04] MEDS: ENOXAPARIN INJ 40 MG/0.4 ML SYR SQ SCH (20:09)
[2020-12-04] MEDS: OXcarbazepine 150 MG TABLET PO SCH (20:10)
[2020-12-04] MEDS ORDERED: NORTRIPTYLINE HCL 25 MG CAP PO SCH ×2 (21:00)
--- NOTE | 2020-12-04 21:05 | Electrocardiogram Report ---
Test Reason : Blood Pressure : / mmHG Vent. Rate : 101 BPM Atrial Rate : 101 BPM P-R Int : 220 ms QRS Dur : 088 ms QT Int : 362 ms P-R-T Axes : 101 066 051 degrees QTc Int : 469 ms Poor data quality, interpretation may be adversely affected Sinus tachycardia with 1st degree A-V block Nonspecific ST and T wave abnormality Abnormal ECG When compared with ECG of 11-NOV-2020 20:52, PA interval has increased ST less depressed in Anterior leads Confirmed by Venkatesh Shankar ([id number]) on 12/04/2020 9:04:33 PM Referred By: Raj MARIO Confirmed By:Venkatesh Shankar
[2020-12-04] MEDS: LACTATED RINGER'S 1,000 ML IV SCH (21:56)
[2020-12-05] MEDS: LINEZOLID 600 MG/300 ML BAG IV SCH ×2 (03:36→18:20)
[2020-12-05] MEDS: LACTATED RINGER'S 1,000 ML IV SCH ×3 (03:36→23:03)
[2020-12-05 07:19] LABS: Basophils # (auto) 0.03 K/uL (0-0.2); Basophils % (auto) 0.3 %; Eosinophils # (auto) 0.22 K/uL (0-0.5); Eosinophils % (auto) 2.3 %; Hematocrit (blood only) 32.6 % (42-52); Hemoglobin 11.2 g/dL (14.0-18.0); Immature Granulocytes # (auto) 0.02 K/uL (0.00-0.02); Immature Granulocytes % (auto) 0.2 %; Lymphocytes # (auto) 1.16 K/uL (1.2-3.4); Lymphocytes % (auto) 12.3 %; Mean Corpuscular Hemoglobin 30.7 pg (25-34); Mean Corpuscular Hgb Conc 34.4 g/dL (32-36); Mean Corpuscular Volume 89.3 fL (80-100); Mean Platelet Volume 9.5 fL (7.4-10.4); Monocytes # (auto) 1.01 K/uL (0.11-0.59); Monocytes % (auto) 10.7 %; Neutrophils # (auto) 7.01 K/uL (1.4-6.5); Neutrophils % (auto) 74.2 %; Platelet Count 140 K/uL (130-400); RDW Coefficient of Variation 14.1 % (11.5-14.5); RDW Standard Deviation 46.3 fL (36.4-46.3); Red Blood Count 3.65 M/uL (4.7-6.1); White Blood Count 9.45 K/uL (4.8-10.8)
[2020-12-05 07:47] LABS: BUN Creatinine Ratio 19.5 (10-20); Calcium 8.2 mg/dl (8.5-10.1); Creatinine Clr Calc Pharmacy 110.2 ml/min; Est GFR (African American) 115.5; Est GFR (Non-African American) 99.6; Magnesium 1.6 mg/dl (1.8-2.4); Potassium 2.9 mmol/L (3.5-5.1)
[2020-12-05] MEDS: THIAMINE HCL 100 MG TAB PO SCH (07:53)
[2020-12-05] MEDS: METOPROLOL TARTRATE 50 MG TAB PO SCH ×2 (07:53→20:11)
[2020-12-05] MEDS: OXcarbazepine 150 MG TABLET PO SCH ×2 (07:53→20:11)
[2020-12-05] MEDS: LUBIPROSTONE 8 MCG CAP PO SCH ×2 (07:54→16:41)
[2020-12-05] MEDS: CYANOCOBALAMIN 500 MCG TABLET (VITAMIN B-12) PO SCH (07:54)
[2020-12-05] MEDS: NYSTATIN POWDER 15GM BTL EXT SCH (07:54)
[2020-12-05] MEDS: POTASSIUM CHLORIDE CRTAB 20 MEQ TABCR PO SCH ×2 (07:54→20:11)
[2020-12-05] MEDS: BUTT PASTE (ZINC OXIDE 16%) 171 APPLN/57 GM JAR EXT SCH (07:58)
[2020-12-05] MEDS ORDERED: FUROSEMIDE 40 MG TAB PO SCH (09:00)
[2020-12-05] MEDS ORDERED: POTASSIUM CHLORIDE CRTAB 20 MEQ TABCR PO STA (12:29)
--- NOTE | 2020-12-05 12:29 | Hospitalist Progress Note ---
Date of Service December 05, 2020 Assessment & Plan (1) UTI (urinary tract infection) due to urinary indwelling Pinedo catheter: Urine cloudy and yellow, WBC >30 LE (+), Nitrate (-). Had a Pinedo at the time. - Continue ceftriaxone - Stopped linezolid on 12/05 for Gram(-) bacilli on urine culture - Required straight cath on 12/05. Consider urology consult. (2) Sepsis: Tachycardic and hypotensive on arrival, received 2 liters of saline with adequate response in blood pressure and HR. - No longer hypotensive. - Treat as above (3) BPH w urinary obs/LUTS: - Continue tamsulosin (4) Acute metabolic encephalopathy: Likely secondary to infection. - Now resolved (5) Hyperlipidemia: - Continue rosuvastatin (6) Hypertension: BP today is 110/70. - Continue metoprolol (7) Seizure disorder: No seizure inpatient so far. - Continue oxcarbazepine 600 mg BID (8) COVID-19: Patient COVID remains (+) from nasal swab but is 23 days out from initial test, does not need precautions. - No inpatient needs. (9) Flexion contractures: Unclear cause. Range of motion as can be done. - Keep skin dry - Zinc oxide or protection in moist/wet areas (10) DVT prophylaxis: Lovenox 40 mg SQ daily Admission and Anticipated Discharge Date Admission Date: December 04, 2020 Subjective Doing well today. No major pain in the suprapubic area. Appears alert and awake. Reports no fevers/chills, chest pain, shortness of breath, abdominal pain, nausea, or vomiting. Physical Exam Constitutional: WD/WN, vitals as above Eyes: EOM intact bilaterally; no conjunctival abnormality ENMT: external ear and nose normal, oropharynx normal Neck: trachea midline, no thyromegaly normal visual inspection Respiratory: normal respiratory effort, lungs clear to auscultation no respiratory distress Cardiovascular: RRR, no murmur, no edema Gastrointestinal (Abdomen): Inspection/Auscultation: abdomen normal to inspection; abdomen not distended Musculoskeletal: no cyanosis or clubbing, extremities motor strength 5/5 Skin: no rashes, warm and dry Neurologic: moves all extremities and awake Psychiatric: Orientation: alert, oriented to person and cooperative Results & Data Results & Data ([facility]) Vital Signs (Past 12 Hours) Vital Signs Temp Pulse Resp BP Pulse Ox 12/05/20 07:08 36.8 C 95 H 18 112/70 96 PG Care Time/CCT Total # of Minutes Spent Total Time Spent with Patient: Total time spent is greater than 50% in coordination of care (as documented) at patient's floor/unit and/or counseling patient: Coding Level of Care Code 64045 Subseq Hosp Care Lvl 2 Diagnoses UTI (urinary tract infection) due to urinary indwelling Pinedo catheter T83.511A; N39.0 Sepsis A41.9 BPH w urinary obs/LUTS N40.1; N13.8 Acute metabolic encephalopathy G93.41 Hyperlipidemia E78.5 Hypertension I10 Seizure disorder G40.909 COVID-19 U07.1 Flexion contractures M24.50 DVT prophylaxis Z29.9
[2020-12-05] MEDS ORDERED: cefTRIAXone SODIUM 2,000 MG in DEXTROSE 5% 50 ML IV SCH (14:00)
[2020-12-05] MEDS: MAGNESIUM SULFATE / D5W 1 GM/100 ML BAG IV SCH ×2 (14:28→16:36)
[2020-12-05] MEDS: TAMSULOSIN HCL 0.4 MG CAP PO SCH (20:11)
[2020-12-05] MEDS: ENOXAPARIN INJ 40 MG/0.4 ML SYR SQ SCH (20:11)
[2020-12-05] MEDS: ROSUVASTATIN CALCIUM 10 MG TAB PO SCH (20:11)
[2020-12-06] MEDS: LINEZOLID 600 MG/300 ML BAG IV SCH (03:43)
[2020-12-06] MEDS: LACTATED RINGER'S 1,000 ML IV SCH (08:24)
[2020-12-06] MEDS: LUBIPROSTONE 8 MCG CAP PO SCH ×2 (08:25→17:10)
[2020-12-06] MEDS: BUTT PASTE (ZINC OXIDE 16%) 171 APPLN/57 GM JAR EXT SCH (08:25)
[2020-12-06] MEDS: METOPROLOL TARTRATE 50 MG TAB PO SCH ×2 (08:26→20:29)
[2020-12-06] MEDS: NYSTATIN POWDER 15GM BTL EXT SCH (08:26)
[2020-12-06] MEDS: POTASSIUM CHLORIDE CRTAB 20 MEQ TABCR PO SCH ×2 (08:26→20:29)
[2020-12-06] MEDS: THIAMINE HCL 100 MG TAB PO SCH (08:27)
[2020-12-06] MEDS: OXcarbazepine 150 MG TABLET PO SCH ×2 (08:27→20:30)
[2020-12-06] MEDS: CYANOCOBALAMIN 500 MCG TABLET (VITAMIN B-12) PO SCH (08:27)
[2020-12-06 09:43] LABS: Basophils # (auto) 0.01 K/uL (0-0.2); Basophils % (auto) 0.2 %; Eosinophils # (auto) 0.36 K/uL (0-0.5); Eosinophils % (auto) 8.8 %; Hematocrit (blood only) 31.3 % (42-52); Hemoglobin 10.7 g/dL (14.0-18.0); Immature Granulocytes # (auto) 0.02 K/uL (0.00-0.02); Immature Granulocytes % (auto) 0.5 %; Lymphocytes # (auto) 0.76 K/uL (1.2-3.4); Lymphocytes % (auto) 18.6 %; Mean Corpuscular Hemoglobin 30.7 pg (25-34); Mean Corpuscular Hgb Conc 34.2 g/dL (32-36); Mean Corpuscular Volume 89.9 fL (80-100); Mean Platelet Volume 9.6 fL (7.4-10.4); Monocytes # (auto) 0.35 K/uL (0.11-0.59); Monocytes % (auto) 8.6 %; Neutrophils # (auto) 2.58 K/uL (1.4-6.5); Neutrophils % (auto) 63.3 %; Platelet Count 108 K/uL (130-400); Red Blood Count 3.48 M/uL (4.7-6.1); White Blood Count 4.08 K/uL (4.8-10.8)
[2020-12-06 10:06] LABS: Calcium 8.2 mg/dl (8.5-10.1); Creatinine Clr Calc Pharmacy 146.2 ml/min; Est GFR (African American) 129.7; Est GFR (Non-African American) 111.9; Magnesium 1.8 mg/dl (1.8-2.4); Potassium 3.1 mmol/L (3.5-5.1)
--- NOTE | 2020-12-06 13:32 | Hospitalist Progress Note ---
Date of Service December 06, 2020 Assessment & Plan (1) UTI (urinary tract infection) due to urinary indwelling Pinedo catheter: Urine cloudy and yellow, WBC >30 LE (+), Nitrate (-). Had a Pinedo at the time. - Continue ceftriaxone - Stopped linezolid on 12/05 for Gram(-) bacilli on urine culture - Switched to ertapenem on 12/06 for ESBL E. coli. Will get 7-day course given complex nature. End date: 12/13 since we are starting fresh coverage. - Required Pinedo on 12/05. Will get urology consult on Monday. (2) Sepsis: Tachycardic and hypotensive on arrival, received 2 liters of saline with adequate response in blood pressure and HR. - No longer hypotensive. - Treat as above (3) BPH w urinary obs/LUTS: - Continue tamsulosin (4) Acute metabolic encephalopathy: Likely secondary to infection. - Now resolved (5) Hyperlipidemia: - Continue rosuvastatin (6) Hypertension: BP today is 110/70. - Continue metoprolol (7) Seizure disorder: No seizure inpatient so far. - Continue oxcarbazepine 600 mg BID (8) COVID-19: Patient COVID remains (+) from nasal swab but is 23 days out from initial test, does not need precautions. - No inpatient needs. (9) Flexion contractures: Unclear cause. Range of motion as can be done. - Keep skin dry - Zinc oxide or protection in moist/wet areas (10) DVT prophylaxis: Lovenox 40 mg SQ daily Admission and Anticipated Discharge Date Admission Date: December 04, 2020 Subjective Feeling better today from the urinary standpoint; however, he notes multiple BMs yesterday night into this morning. Reports no fevers/chills, chest pain, shortness of breath, abdominal pain, nausea, or vomiting. Physical Exam Constitutional: WD/WN, vitals as above Eyes: EOM intact bilaterally; no conjunctival abnormality ENMT: external ear and nose normal, oropharynx normal Neck: trachea midline, no thyromegaly normal visual inspection Respiratory: normal respiratory effort, lungs clear to auscultation no respiratory distress Cardiovascular: RRR, no murmur, no edema Gastrointestinal (Abdomen): Inspection/Auscultation: abdomen normal to inspe ction; abdomen not distended Musculoskeletal: no cyanosis or clubbing, extremities motor strength 5/5 Skin: no rashes, warm and dry Neurologic: moves all extremities and awake Psychiatric: Orientation: alert, oriented to person and cooperative Results & Data Results & Data ([facility]) Vital Signs (Past 12 Hours) Vital Signs Temp Pulse Resp BP Pulse Ox 12/06/20 08:05 36.7 C 65 16 113/70 95 PG Care Time/CCT Total # of Minutes Spent Total Time Spent with Patient: Total time spent is greater than 50% in coordination of care (as documented) at patient's floor/unit and/or counseling patient: Coding Level of Care Code 37946 Subseq Hosp Care Lvl 2 Diagnoses UTI (urinary tract infection) due to urinary indwelling Pinedo catheter T83.511A; N39.0 Sepsis A41.9 BPH w urinary obs/LUTS N40.1; N13.8 Acute metabolic encephalopathy G93.41 Hyperlipidemia E78.5 Hypertension I10 Seizure disorder G40.909 COVID-19 U07.1 Flexion contractures M24.50 DVT prophylaxis Z29.9
[2020-12-06] MEDS: ERTAPENEM SODIUM 1,000 MG in SODIUM CHLORIDE 0.9% 50 ML IV SCH (14:45)
[2020-12-06] MEDS: TAMSULOSIN HCL 0.4 MG CAP PO SCH (20:29)
[2020-12-06] MEDS: ENOXAPARIN INJ 40 MG/0.4 ML SYR SQ SCH (20:30)
[2020-12-06] MEDS: ROSUVASTATIN CALCIUM 10 MG TAB PO SCH (20:30)
[2020-12-07 07:07] LABS: Basophils # (auto) 0.01 K/uL (0-0.2); Basophils % (auto) 0.3 %; Eosinophils # (auto) 0.49 K/uL (0-0.5); Eosinophils % (auto) 12.7 %; Hemoglobin 11.4 g/dL (14.0-18.0); Immature Granulocytes # (auto) 0.02 K/uL (0.00-0.02); Immature Granulocytes % (auto) 0.5 %; Lymphocytes # (auto) 0.83 K/uL (1.2-3.4); Lymphocytes % (auto) 21.6 %; Mean Corpuscular Hemoglobin 30.9 pg (25-34); Mean Corpuscular Hgb Conc 34.5 g/dL (32-36); Mean Corpuscular Volume 89.4 fL (80-100); Mean Platelet Volume 9.6 fL (7.4-10.4); Monocytes # (auto) 0.34 K/uL (0.11-0.59); Monocytes % (auto) 8.8 %; Neutrophils # (auto) 2.16 K/uL (1.4-6.5); Neutrophils % (auto) 56.1 %; Platelet Count 123 K/uL (130-400); RDW Coefficient of Variation 13.9 % (11.5-14.5); RDW Standard Deviation 45.9 fL (36.4-46.3); Red Blood Count 3.69 M/uL (4.7-6.1); White Blood Count 3.85 K/uL (4.8-10.8)
[2020-12-07 07:38] LABS: BUN Creatinine Ratio 11.8 (10-20); Calcium 7.8 mg/dl (8.5-10.1); Creatinine Clr Calc Pharmacy 122.6 ml/min; Est GFR (African American) 120.7; Est GFR (Non-African American) 104.1; Magnesium 1.8 mg/dl (1.8-2.4); Potassium 3.7 mmol/L (3.5-5.1)
[2020-12-07] MEDS: LUBIPROSTONE 8 MCG CAP PO SCH ×2 (09:17→18:11)
[2020-12-07] MEDS: METOPROLOL TARTRATE 50 MG TAB PO SCH ×2 (09:18→21:15)
[2020-12-07] MEDS: CYANOCOBALAMIN 500 MCG TABLET (VITAMIN B-12) PO SCH (09:18)
[2020-12-07] MEDS: BUTT PASTE (ZINC OXIDE 16%) 171 APPLN/57 GM JAR EXT SCH (09:18)
[2020-12-07] MEDS: THIAMINE HCL 100 MG TAB PO SCH (09:18)
[2020-12-07] MEDS: POTASSIUM CHLORIDE CRTAB 20 MEQ TABCR PO SCH ×2 (09:18→21:15)
[2020-12-07] MEDS: NYSTATIN POWDER 15GM BTL EXT SCH (09:19)
[2020-12-07] MEDS: OXcarbazepine 150 MG TABLET PO SCH ×2 (09:19→21:15)
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
--- NOTE | 2020-12-07 13:32 | Hospitalist Progress Note ---
Date of Service December 07, 2020 Assessment & Plan (1) UTI (urinary tract infection) due to urinary indwelling Pinedo catheter: Urine cloudy and yellow, WBC >30 LE (+), Nitrate (-). Had a Pinedo at the time. This was removed on admission (12/04). - Initially on ceftriaxone - Stopped linezolid on 12/05 for Gram(-) bacilli on urine culture - Switched to ertapenem on 12/06 for ESBL E. coli. Will get 14-day course given complex nature. End date: 12/20 since we are starting fresh coverage. - Required Pinedo on 12/05. - Urology on 12/07 saw the patient. Will follow up in 1-2 weeks for Pinedo removal and cystoscopy. (2) Sepsis: Tachycardic and hypotensive on arrival, received 2 liters of saline with adequate response in blood pressure and HR. - No longer hypotensive. - Treat as above (3) BPH w urinary obs/LUTS: - Continue tamsulosin (4) Acute metabolic encephalopathy: Likely secondary to infection. - Now resolved (5) Hyperlipidemia: - Continue rosuvastatin (6) Hypertension: BP today is 125/75. - Continue metoprolol (7) Seizure disorder: No seizure inpatient so far. - Continue oxcarbazepine 600 mg BID (8) COVID-19: Patient COVID remains (+) from nasal swab but is 23 days out from initial test, does not need precautions. - No inpatient needs. (9) Flexion contractures: Unclear cause. Range of motion as can be done. - Keep skin dry - Zinc oxide or protection in moist/wet areas (10) DVT prophylaxis: Lovenox 40 mg SQ daily Admission and Anticipated Discharge Date Admission Date: December 04, 2020 Subjective No issues today. No urinary pain, no bleeding. Reports no fevers/chills, chest pain, shortness of breath, abdominal pain, nausea, or vomiting. Physical Exam Constitutional: WD/WN, vitals as above Eyes: EOM intact bilaterally; no conjunctival abnormality ENMT: external ear and nose normal, oropharynx normal Neck: trachea midline, no thyromegaly normal visual inspection Respiratory: normal respiratory effort, lungs clear to auscultation no respiratory distress Cardiovascular: RRR, no murmur, no edema Gastrointestinal (Abdomen): Inspection/Auscultation: abdomen normal to inspection; abdomen not distended Musculoskeletal: no cyanosis or clubbing, extremities motor strength 5/5 Skin: no rashes, warm and dry Neurologic: moves all extremities and awake Psychiatric: Orientation: alert, oriented to person and cooperative Results & Data Results & Data ([facility]) Vital Signs (Past 12 Hours) Vital Signs Temp Pulse Resp BP Pulse Ox 12/07/20 08:02 37.1 C 105 H 18 124/77 97 PG Care Time/CCT Total # of Minutes Spent Total Time Spent with Patient: Total time spent is greater than 50% in coordination of care (as documented) at patient's floor/unit and/or counseling patient: Coding Level of Care Code 26656 Subseq Hosp Care Lvl 2 Diagnoses UTI (urinary tract infection) due to urinary indwelling Pinedo catheter T83.511A; N39.0 Sepsis A41.9 BPH w urinary obs/LUTS N40.1; N13.8 Acute metabolic encephalopathy G93.41 Hyperlipidemia E78.5 Hypertension I10 Seizure disorder G40.909 COVID-19 U07.1 Flexion contractures M24.50 DVT prophylaxis Z29.9
[2020-12-07] MEDS: ERTAPENEM SODIUM 1,000 MG in SODIUM CHLORIDE 0.9% 50 ML IV SCH (13:41)
[2020-12-07] MEDS: ROSUVASTATIN CALCIUM 10 MG TAB PO SCH (21:15)
[2020-12-07] MEDS: ENOXAPARIN INJ 40 MG/0.4 ML SYR SQ SCH (21:16)
[2020-12-07] MEDS: TAMSULOSIN HCL 0.4 MG CAP PO SCH (21:16)
[2020-12-08 09:12] LABS: BUN Creatinine Ratio 13.9 (10-20); Calcium 8.9 mg/dl (8.5-10.1); Creatinine Clr Calc Pharmacy 131.1 ml/min
[2020-12-08] MEDS: LUBIPROSTONE 8 MCG CAP PO SCH (09:16)
[2020-12-08] MEDS: POTASSIUM CHLORIDE CRTAB 20 MEQ TABCR PO SCH (09:17)
[2020-12-08] MEDS: BUTT PASTE (ZINC OXIDE 16%) 171 APPLN/57 GM JAR EXT SCH (09:17)
[2020-12-08] MEDS: NYSTATIN POWDER 15GM BTL EXT SCH (09:18)
[2020-12-08] MEDS: METOPROLOL TARTRATE 50 MG TAB PO SCH (09:18)
[2020-12-08] MEDS: CYANOCOBALAMIN 500 MCG TABLET (VITAMIN B-12) PO SCH (09:19)
[2020-12-08] MEDS: OXcarbazepine 150 MG TABLET PO SCH (09:19)
[2020-12-08] MEDS: THIAMINE HCL 100 MG TAB PO SCH (09:20)
--- NOTE | 2020-12-08 17:43 | Discharge Summary ---
Date of Service December 08, 2020 Admission HPI Per Admitting Provider 65 YOM prisoner from [facility], with medical history of weakness, diabetes, weakness, gastric motility, HTN, BPH with LUTS, HLD, Vitamin B12 deficiency, and contractures, UTI and metabolic encephalopathy, COVID 19 (Nov 11, 2020) and generalized seizure disorder. Patient was recently discharged in October from a UTI and vieira catheter, that was to be discontinued at [facility] however, it remains in place. The patient comes in today for altered mental status and "not feeling well". His mental status has improved after receiving 1 liter of 0.9% saline and antibiotics. He is awake and conversant, just slow responses and weak appearing. Patient states that he has had some chills and fevers, with a decreased appetite, he is unable to say how long he has not felt well. He is contracted at baseline with pain in his hips and shoulders. The patient will be admitted for complicated UTI secondary to the altered mental status. He is also hypokalemic on evaluation. The report from [facility] was unequal pupils and unresponsive however, pupils and mental status are normal on my exam. The patient CK are elevated with no report of trauma and/or seizure. The gaurds with the patient are not familiar with him and just took over during my evaluation. The rash that was reported on last admission has since resolved, will add back the medications that he was discharged on, potassium chloride oral, thiamine, and PEG. Principal Diagnosis ESBL E. coli UTI Discharge Exam Constitutional WD/WN, vitals as above Eyes EOM intact bilaterally; no conjunctival abnormality ENMT external ear and nose normal, oropharynx normal Neck trachea midline, no thyromegaly normal visual inspection Respiratory normal respiratory effort, lungs clear to auscultation no respiratory distress Cardiovascular RRR, no murmur, no edema Gastrointestinal (Abdomen) Inspection/Auscultation: abdomen normal to inspection; abdomen not distended Musculoskeletal no cyanosis or clubbing, extremities motor strength 5/5 Skin no rashes, warm and dry Neurologic moves all extremities and awake Psychiatric Orientation: alert, oriented to person and cooperative Discharge Data Allergies Allergy/AdvReac Type Severity Reaction Status Date / Time daptomycin Allergy Rash Verified 12/04/20 17:40 Consultations 12/04/20 13:56 ED Decision to Admit Stat 12/07/20 07:02 Consult Urology Routine Ordered Studies 12/04/20 09:48 CT head/brain wo con Stat Hospital Course (1) UTI (urinary tract infection) due to urinary indwelling Vieira catheter: Urine cloudy and yellow, WBC >30 LE (+), Nitrate (-). Had a Vieira at the time. This was removed on admission (12/04). - Initially on ceftriaxone - Stopped linezolid on 12/05 for Gram(-) bacilli on urine culture - Switched to ertapenem on 12/06 for ESBL E. coli. Will get 14-day course given complex nature. End date: 12/20 since we are starting fresh coverage. - Required Vieira on 12/05. - Urology on 12/07 saw the patient. Will follow up in 1-2 weeks for Vieira removal and cystoscopy. (2) Sepsis: Tachycardic and hypotensive on arrival, received 2 liters of saline with adequate response in blood pressure and HR. - No longer hypotensive. - Treat as above (3) BPH w urinary obs/LUTS: - Continue tamsulosin (4) Acute metabolic encephalopathy: Likely secondary to infection. - Now resolved (5) Hyperlipidemia: - Continue rosuvastatin (6) Hypertension: BP today is 125/75. - Continue metoprolol (7) Seizure disorder: No seizure inpatient so far. - Continue oxcarbazepine 600 mg BID (8) COVID-19: Patient COVID remains (+) from nasal swab but is 23 days out from initial test, does not need precautions. - No inpatient needs. (9) Flexion contractures: Unclear cause. Range of motion as can be done. - Keep skin dry - Zinc oxide or protection in moist/wet areas (10) DVT prophylaxis: Lovenox 40 mg SQ daily Total Time Total Time Spent Total Time Spent (In Minutes): 35 Discharge Plan Discharge Items [facility] Disposition[facility] Reason For Visit: SEPSIS Discharge Diagnosis: ESBL UTI Activity: Resume your previous activity Non-emergency contact: Primary Care Provider and Urologist Call non-emergency contact if: your symptoms worsen Follow-up/Referrals: Erick Gautam MD [Physician] - (Please see Dr. Gautam or another urology provider in 2 weeks.) Raj MARIO [Primary Care Provider] - Diet: Heart Healthy Addtl Attending Provider Instructions: Mr. Weakland was admitted with sepsis from a UTI. This turned out to be E. coli, and he will need a total of 14 days of ertapenem 1 g IV daily. End date: 12/20/2020. He got his dose of ertapenem before leaving on 12/08/2020, so next dose is tomorrow morning. He has an ultrasound-guided IV which can be left in until his treatment course is done. He should follow up with urology in 2 weeks for a voiding trial and cystoscopy. Pending Studies at Discharge: No Stand-Alone Forms: [facility] Skilled Items Patient informed of condition?: Yes Discharge Level of Care: Other Communicable Disease: Yes Discharge Prognosis: Stable Lines: Peripheral IV Urinary Catheter: Yes Medications and DC Order Prescriptions: Continued cyanocobalamin (vitamin B-12) [Vitamin B-12] 500 mcg Tablet 500 mcg PO QAM RF: 0 tamsulosin [Flomax] 0.4 mg Capsule 0.4 mg PO HS RF: 0 metoprolol tartrate 50 mg Tablet 50 mg PO BID RF: 0 oxcarbazepine 600 mg Tablet 600 mg PO BID RF: 0 rosuvastatin 10 mg Tablet 10 mg PO HS RF: 0 lubiprostone [Amitiza] 24 mcg Capsule 24 mcg PO BID RF: 0 zinc oxide 40 % Ointment 1 applic TOPICAL QAM RF: 0 furosemide [Lasix] 40 mg Tablet 40 mg PO QAM Qty: 0 RF: 0 nortriptyline 25 mg Capsule 25 mg PO HS RF: 0 nortriptyline 75 mg Capsule 75 mg PO HS RF: 0 nystatin 100,000 unit/gram Powder 1 applic TOPICAL QAM RF: 0 Discharge Orders: Discharge Order (Routine); Ordered 12/08/20 Ordered By: Sotero Hyman Admission Data Admit Date/Time: 12/04/20 14:55 Attending Provider: Sotero Hyman Admit Provider: Gisela Garvin Primary Care Provider: Raj MARIO Other Providers: Sotero Hyman ; Erick Gautam Other Interventions: Discharge Summary Assessment (RN) Last Done: 12/08/20 12:45 Coding Level of Care Code D/C Day Management >30 mins Diagnoses UTI (urinary tract infection) due to urinary indwelling Vieira catheter T83.511A; N39.0 Sepsis A41.9 BPH w urinary obs/LUTS N40.1; N13.8 Acute metabolic encephalopathy G93.41 Hyperlipidemia E78.5 Hypertension I10 Seizure disorder G40.909 COVID-19 U07.1 Flexion contractures M24.50 DVT prophylaxis Z29.9
== END 2020-12-08 13:56 | DRG 698 ==
LOC: ED 09:20 → 3W 14:55 → SUATTDRO 14:55 → 3W 16:16

== ENCOUNTER 2021-01-29 09:47 | Inpatient (IN) ==
[2021-01-29] MEDS ORDERED: VANCOMYCIN CONSULT ACTIVE PRN (10:00)
[2021-01-29] MEDS ORDERED: CEFEPIME 2,000 MG/20 ML VIAL IV STA (10:00)
[2021-01-29] MEDS ORDERED: VANCOMYCIN HCL 2,000 MG in SODIUM CHLORIDE 0.9% 500 ML IV ONE (10:00)
--- NOTE | 2021-01-29 10:38 | XRay Report ---
XR chest 1V portable CLINICAL HISTORY: Sepsis COMPARISON STUDY: 12/04/2020 FINDINGS: The cardiac and mediastinal contours remain stable. There is no failure. There is no lobar consolidation. There are no pleural effusions. There is a suboptimal inspiration with mild bronchovas cular crowding the lung bases.[ IMPRESSION: 1. Suboptimal inspiration with mild bronchovascular crowding lung bases 2. No evidence of lobar consolidation. ACT 112: Negative or not required by law. Electronically signed by: Rush Cohen M.D. 01/29/2021 10:36 AM
[2021-01-29 10:46] LABS: Appearance Urine Turbid (Clear); Bacteria Urine Automated 4+ (Negative); Basophils # (auto) 0.03 K/uL (0-0.2); Basophils % (auto) 0.2 %; Bilirubin Urine Negative (Negative); Blood Urine 2+ (Negative); Color Urine Yellow; Eosinophils # (auto) 0.01 K/uL (0-0.5); Eosinophils % (auto) 0.1 %; Glucose Urine UA Negative (Negative); Hematocrit (blood only) 39.4 % (42-52); Hemoglobin 13.4 g/dL (14.0-18.0); Immature Granulocytes # (auto) 0.08 K/uL (0.00-0.02); Immature Granulocytes % (auto) 0.5 %; Ketones Urine Negative (Negative); Leukocyte Esterase Urine 3+ (Negative); Lymphocytes # (auto) 0.99 K/uL (1.2-3.4); Lymphocytes % (auto) 6.7 %; Mean Corpuscular Hemoglobin 30.5 pg (25-34); Mean Corpuscular Volume 89.5 fL (80-100); Mean Platelet Volume 9.6 fL (7.4-10.4); Monocytes % (auto) 8.1 %; Neutrophils # (auto) 12.44 K/uL (1.4-6.5); Neutrophils % (auto) 84.4 %; Nitrite Urine Negative (Negative); Platelet Count 231 K/uL (130-400); Protein Urine 2+ (Negative); RDW Coefficient of Variation 14.5 % (11.5-14.5); RDW Standard Deviation 47.6 fL (36.4-46.3); Specific Gravity Urine 1.013 (1.000-1.030); Urobilinogen Urine Negative (Negative); WBC Urine Automated >30 /hpf (0-5); White Blood Count 14.75 K/uL (4.8-10.8); pH Urine 6.5 (4.5-7.5)
--- NOTE | 2021-01-29 10:50 | Emergency Department Note ---
History of Present Illness General Chief complaint: Illness Stated complaint: septic Source: patient Mode of arrival: EMS Limitations: altered mental status History of Present Illness Provider complaint: Fever This is a 65-year-old male who presents to the ED with a chief complaint of a fever. The patient had a fever at the [facility] in [facility], [facility] where he was prior to coming here. He is reportedly bedbound at baseline. He is normally more coherent but was not responding well this morning and EMS was called. He had a temperature of 38.2 here today. Patient answers basic questions like his name but otherwise seems to be very weak and cannot carry on a conversation or answer any other questions. Unable to provide any additional information at this time due to his altered mental status. He seems very weak. Evaluated by the wound care nurse yesterday for left foot ulcer. This apparently does not require antibiotics at this time. Home Medications Medication Instructions Recorded Confirmed Type cyanocobalamin (vitamin B-12) 500 mcg PO QAM 11/11/20 01/29/21 History [Vitamin B-12] lubiprostone [Amitiza] 24 mcg PO BID 11/11/20 01/29/21 History metoprolol tartrate 50 mg PO BID 11/11/20 01/29/21 History oxcarbazepine 600 mg PO BID 11/11/20 01/29/21 History rosuvastatin 10 mg PO HS 11/11/20 01/29/21 History tamsulosin [Flomax] 0.4 mg PO HS 11/11/20 01/29/21 History nortriptyline 25 mg PO HS 12/04/20 01/29/21 History nortriptyline 75 mg PO HS 12/04/20 01/29/21 History acetaminophen-codeine 1 tab PO BID 01/29/21 01/29/21 History ammonium lactate 1 applic TOPICAL BID 01/29/21 01/29/21 History baclofen 5 mg PO BID 01/29/21 01/29/21 History furosemide 20 mg PO DAILY 01/29/21 01/29/21 History Allergies Allergy/AdvReac Type Severity Reaction Status Date / Time daptomycin Allergy Rash Verified 01/29/21 11:52 Past Med/Surg History Medical History (Updated 01/29/21 @ 15:12 by Bubba Molina DO) Adjustment disorder with anxious mood Anemia BPH w urinary obs/LUTS Chronic hepatitis C Congestive heart failure Constipation Diverticulosis Dysthymia Elevation of cardiac enzymes Flexion contractures Gait abnormality GERD (gastroesophageal reflux disease) Hemorrhoids History of endocarditis Hyperlipidemia Hypertension Insomnia Low back pain Major depressive disorder Major depressive disorder with psychotic features Morbilliform rash Murmur, cardiac Onychomycosis Peripheral vascular disease Rhinitis, allergic Seizure disorder Tinea unguium Urinary retention Weakness Family History Other Family history non-contributory Social History Smoking Status: Former smoker Tobacco Type: Cigarettes Second Hand Exposure: No; Hx Alcohol Use: No Hx Substance Use: No Preferred Language: Qatari Communication Ability: Impaired Merchandise Displayer Required: No Beliefs That Will Affect Care: Orthodox Orthodox Beliefs: Religious Current Living Situation: Other Current Living Situation Comment: [facility] Inmate Feels Safe at Home: Yes Assistive Devices: None Review of Systems Unobtainable due to cognitive status Physical Exam Vital Signs Vital Signs - 24 hr 01/29/21 09:47 01/29/21 09:55 01/29/21 09:56 Temperature 38.2 C H Temperature Source Rectal Pulse Rate 96 H 95 H 92 H Pulse Rate [Apical] Pulse Rate from SpO2 Sensor 94 H 92 H Pulse Rhythm [Apical] Pulse Strength [Apical] Respiratory Rate 29 H 16 18 Respiratory Effort / Characteristics Respiratory Depth Blood Pressure 96/59 L Blood Pressure [Right Arm] 96/59 L Blood Pressure Mean 71 Blood Pressure Mean [Right Arm] 71 Blood Pressure Position [Right Arm] Pulse Oximetry 94 90 99 Oxygen Delivery Method Room Air Oxygen Flow Rate Sepsis Recent Fever Within 48 Hours Yes Sepsis New/Unexplained Change in Mental Status Yes Sepsis Action Taken by Nursing Physician Notified 01/29/21 10:00 01/29/21 10:03 01/29/21 10:05 Temperature Temperature Source Pulse Rate 91 H 92 H Pulse Rate [Apical] Pulse Rate from SpO2 Sensor 96 H Pulse Rhythm [Apical] Pulse Strength [Apical] Respiratory Rate 19 20 Respiratory Effort / Characteristics Respiratory Depth Blood Pressure Blood Pressure [Right Arm] Blood Pressure Mean Blood Pressure Mean [Right Arm] Blood Pressure Position [Right Arm] Pulse Oximetry 100 99 99 Oxygen Delivery Method Nasal Cannula Oxygen Flow Rate 2 2 Sepsis Recent Fever Within 48 Hours Sepsis New/Unexplained Change in Mental Status Sepsis Action Taken by Nursing 01/29/21 10:10 01/29/21 10:15 01/29/21 10:32 Temperature Temperature Source Pulse Rate 92 H 91 H 88 Pulse Rate [Apical] Pulse Rate from SpO2 Sensor 92 H 90 88 Pulse Rhythm [Apical] Pulse Strength [Apical] Respiratory Rate 19 21 20 Respiratory Effort / Characteristics Respiratory Depth Blood Pressure 87/57 L Blood Pressure [Right Arm] Blood Pressure Mean 67 Blood Pressure Mean [Right Arm] Blood Pressure Position [Right Arm] Pulse Oximetry 100 100 100 Oxygen Delivery Method Oxygen Flow Rate Sepsis Recent Fever Within 48 Hours Sepsis New/Unexplained Change in Mental Status Sepsis Action Taken by Nursing 01/29/21 10:40 01/29/21 10:45 01/29/21 10:46 Temperature Temperature Source Pulse Rate 78 85 85 Pulse Rate [Apical] Pulse Rate from SpO2 Sensor 86 87 89 Pulse Rhythm [Apical] Pulse Strength [Apical] Respiratory Rate 17 14 17 Respiratory Effort / Characteristics Respiratory Depth Blood Pressure 86/51 L 95/56 L Blood Pressure [Right Arm] Blood Pressure Mean 62 69 Blood Pressure Mean [Right Arm] Blood Pressure Position [Right Arm] Pulse Oximetry 100 100 94 Oxygen Delivery Method Oxygen Flow Rate Sepsis Recent Fever Within 48 Hours Sepsis New/Unexplained Change in Mental Status Sepsis Action Taken by Nursing 01/29/21 11:08 01/29/21 11:10 01/29/21 11:15 Temperature Temperature Source Pulse Rate 83 81 Pulse Rate [Apical] Pulse Rate from SpO2 Sensor 87 82 81 Pulse Rhythm [Apical] Pulse Strength [Apical] Respiratory Rate 15 15 Respiratory Effort / Characteristics Respiratory Depth Blood Pressure 81/55 L 77/53 L Blood Pressure [Right Arm] Blood Pressure Mean 63 61 Blood Pressure Mean [Right Arm] Blood Pressure Position [Right Arm] Pulse Oximetry 100 96 96 Oxygen Delivery Method Oxygen Flow Rate Sepsis Recent Fever Within 48 Hours Sepsis New/Unexplained Change in Mental Status Sepsis Action Taken by Nursing 01/29/21 11:16 01/29/21 11:17 01/29/21 11:25 Temperature Temperature Source Pulse Rate 73 84 Pulse Rate [Apical] Pulse Rate from SpO2 Sensor 75 83 Pulse Rhythm [Apical] Pulse Strength [Apical] Respiratory Rate 16 15 12 Respiratory Effort / Characteristics Non-Labored Spontaneous Respiratory Depth Normal Blood Pressure 83/53 L Blood Pressure [Right Arm] 83/53 L Blood Pressure Mean 63 Blood Pressure Mean [Right Arm] 63 Blood Pressure Position [Right Arm] Lying Pulse Oximetry 96 97 93 Oxygen Delivery Method Room Air Oxygen Flow Rate Sepsis Recent Fever Within 48 Hours Sepsis New/Unexplained Change in Mental Status Sepsis Action Taken by Nursing 01/29/21 11:26 01/29/21 11:30 01/29/21 11:31 Temperature Temperature Source Pulse Rate 66 66 Pulse Rate [Apical] 68 Pulse Rate from SpO2 Sensor 66 66 Pulse Rhythm [Apical] Regular Pulse Strength [Apical] Normal Respiratory Rate 12 10 L 15 Respiratory Effort / Characteristics Non-Labored Spontaneous Non-Labored Spontaneous Respiratory Depth Normal Blood Pressure 100/56 L Blood Pressure [Right Arm] 100/56 L Blood Pressure Mean 70 Blood Pressure Mean [Right Arm] 70 Blood Pressure Position [Right Arm] Pulse Oximetry 93 94 95 Oxygen Delivery Method Room Air Room Air Oxygen Flow Rate Sepsis Recent Fever Within 48 Hours Sepsis New/Unexplained Change in Mental Status Sepsis Action Taken by Nursing 01/29/21 11:45 01/29/21 11:46 01/29/21 11:52 Temperature Temperature Source Pulse Rate 75 69 78 Pulse Rate [Apical] Pulse Rate from SpO2 Sensor 69 Pulse Rhythm [Apical] Pulse Strength [Apical] Respiratory Rate 26 H 24 19 Respiratory Effort / Characteristics Respiratory Depth Blood Pressure 100/56 L 109/55 L Blood Pressure [Right Arm] Blood Pressure Mean 70 73 Blood Pressure Mean [Right Arm] Blood Pressure Position [Right Arm] Pulse Oximetry 56 L 58 L 100 Oxygen Delivery Method Oxygen Flow Rate Sepsis Recent Fever Within 48 Hours Sepsis New/Unexplained Change in Mental Status Sepsis Action Taken by Nursing 01/29/21 12:00 01/29/21 12:01 01/29/21 12:07 Temperature Temperature Source Pulse Rate 69 66 66 Pulse Rate [Apical] 74 Pulse Rate from SpO2 Sensor 68 68 67 Pulse Rhythm [Apical] Regular Pulse Strength [Apical] Normal Respiratory Rate 19 17 19 Respiratory Effort / Characteristics Non-Labored Spontaneous Respiratory Depth Normal Blood Pressure 90/53 L 76/53 L Blood Pressure [Right Arm] 90/53 L Blood Pressure Mean 65 60 Blood Pressure Mean [Right Arm] 65 Blood Pressure Position [Right Arm] Lying Pulse Oximetry 100 100 100 Oxygen Delivery Method Room Air Oxygen Flow Rate Sepsis Recent Fever Within 48 Hours Sepsis New/Unexplained Change in Mental Status Sepsis Action Taken by Nursing 01/29/21 12:15 01/29/21 12:16 01/29/21 12:30 Temperature Temperature Source Pulse Rate Pulse Rate [Apical] 69 70 Pulse Rate from SpO2 Sensor 68 68 Pulse Rhythm [Apical] Regular Regular Pulse Strength [Apical] Normal Normal Respiratory Rate 19 18 17 Respiratory Effort / Characteristics Non-Labored Non-Labored Spontaneous Respiratory Depth Normal Normal Blood Pressure 96/53 L 86/55 L Blood Pressure [Right Arm] 96/53 L 86/55 L Blood Pressure Mean 67 65 Blood Pressure Mean [Right Arm] 67 65 Blood Pressure Position [Right Arm] Pulse Oximetry 89 L 73 L 77 L Oxygen Delivery Method Room Air Nasal Cannula Oxygen Flow Rate 4 Sepsis Recent Fever Within 48 Hours Sepsis New/Unexplained Change in Mental Status Sepsis Action Taken by Nursing 01/29/21 12:31 01/29/21 12:45 01/29/21 12:46 Temperature Temperature Source Pulse Rate 78 71 71 Pulse Rate [Apical] 70 Pulse Rate from SpO2 Sensor 72 71 Pulse Rhythm [Apical] Regular Pulse Strength [Apical] Normal Respiratory Rate 26 H 19 15 Respiratory Effort / Characteristics Non-Labored Spontaneous Respiratory Depth Normal Blood Pressure 114/64 Blood Pressure [Right Arm] 114/64 Blood Pressure Mean 80 Blood Pressure Mean [Right Arm] 80 Blood Pressure Position [Right Arm] Lying Pulse Oximetry 80 L 100 100 Oxygen Delivery Method Nasal Cannula Oxygen Flow Rate 3 Sepsis Recent Fever Within 48 Hours Sepsis New/Unexplained Change in Mental Status Sepsis Action Taken by Nursing 01/29/21 13:00 01/29/21 13:01 01/29/21 13:15 Temperature Temperature Source Pulse Rate 70 71 75 Pulse Rate [Apical] 70 72 Pulse Rate from SpO2 Sensor 72 72 Pulse Rhythm [Apical] Regular Pulse Strength [Apical] Normal Respiratory Rate 18 18 19 Respiratory Effort / Characteristics Non-Labored Spontaneous Respiratory Depth Normal Blood Pressure 110/67 120/74 Blood Pressure [Right Arm] 110/67 120/74 Blood Pressure Mean 81 89 Blood Pressure Mean [Right Arm] 81 89 Blood Pressure Position [Right Arm] Pulse Oximetry 100 100 98 Oxygen Delivery Method Nasal Cannula Oxygen Flow Rate 3 3 Sepsis Recent Fever Within 48 Hours Sepsis New/Unexplained Change in Mental Status Sepsis Action Taken by Nursing 01/29/21 13:16 01/29/21 13:30 01/29/21 13:31 Temperature Temperature Source Pulse Rate 75 74 74 Pulse Rate [Apical] 73 Pulse Rate from SpO2 Sensor 75 74 75 Pulse Rhythm [Apical] Regular Pulse Strength [Apical] Respiratory Rate 19 19 24 Respiratory Effort / Characteristics Non-Labored Spontaneous Respiratory Depth Normal Blood Pressure 120/60 Blood Pressure [Right Arm] 120/60 Blood Pressure Mean 80 Blood Pressure Mean [Right Arm] 80 Blood Pressure Position [Right Arm] Pulse Oximetry 100 100 100 Oxygen Delivery Method Nasal Cannula Oxygen Flow Rate 3 Sepsis Recent Fever Within 48 Hours Sepsis New/Unexplained Change in Mental Status Sepsis Action Taken by Nursing 01/29/21 13:45 01/29/21 13:46 01/29/21 14:00 Temperature Temperature Source Pulse Rate 81 80 90 Pulse Rate [Apical] 80 87 Pulse Rate from SpO2 Sensor 81 78 86 Pulse Rhythm [Apical] Regular Regular Pulse Strength [Apical] Respiratory Rate 22 23 20 Respiratory Effort / Characteristics Non-Labored Respiratory Depth Normal Normal Blood Pressure 123/68 143/64 H Blood Pressure [Right Arm] 123/68 143/69 H Blood Pressure Mean 86 90 Blood Pressure Mean [Right Arm] 86 93 Blood Pressure Position [Right Arm] Pulse Oximetry 99 100 100 Oxygen Delivery Method Nasal Cannula Nasal Cannula Oxygen Flow Rate 3 3 Sepsis Recent Fever Within 48 Hours Sepsis New/Unexplained Change in Mental Status Sepsis Action Taken by Nursing 01/29/21 14:01 01/29/21 14:15 01/29/21 14:16 Temperature Temperature Source Pulse Rate 90 91 H 89 Pulse Rate [Apical] Pulse Rate from SpO2 Sensor 88 91 H 88 Pulse Rhythm [Apical] Pulse Strength [Apical] Respiratory Rate 18 21 19 Respiratory Effort / Characteristics Respiratory Depth Blood Pressure 133/71 Blood Pressure [Right Arm] Blood Pressure Mean 91 Blood Pressure Mean [Right Arm] Blood Pressure Position [Right Arm] Pulse Oximetry 98 100 100 Oxygen Delivery Method Oxygen Flow Rate Sepsis Recent Fever Within 48 Hours Sepsis New/Unexplained Change in Mental Status Sepsis Action Taken by Nursing 01/29/21 14:30 01/29/21 14:31 01/29/21 14:45 Temperature Temperature Source Pulse Rate 91 H 94 H 94 H Pulse Rate [Apical] Pulse Rate from SpO2 Sensor 94 H 92 H 96 H Pulse Rhythm [Apical] Pulse Strength [Apical] Respiratory Rate 21 22 22 Respiratory Effort / Characteristics Respiratory Depth Blood Pressure 131/76 111/60 Blood Pressure [Right Arm] Blood Pressure Mean 94 77 Blood Pressure Mean [Right Arm] Blood Pressure Position [Right Arm] Pulse Oximetry 100 96 100 Oxygen Delivery Method Oxygen Flow Rate Sepsis Recent Fever Within 48 Hours Sepsis New/Unexplained Change in Mental Status Sepsis Action Taken by Nursing 01/29/21 14:46 01/29/21 15:00 01/29/21 15:01 Temperature Temperature Source Pulse Rate 94 H 98 H 98 H Pulse Rate [Apical] Pulse Rate from SpO2 Sensor 93 H 95 H 97 H Pulse Rhythm [Apical] Pulse Strength [Apical] Respiratory Rate 25 H 22 22 Respiratory Effort / Characteristics Respiratory Depth Blood Pressure 112/63 Blood Pressure [Right Arm] Blood Pressure Mean 79 Blood Pressure Mean [Right Arm] Blood Pressure Position [Right Arm] Pulse Oximetry 100 100 100 Oxygen Delivery Method Oxygen Flow Rate Sepsis Recent Fever Within 48 Hours Sepsis New/Unexplained Change in Mental Status Sepsis Action Taken by Nursing CONSTITUTIONAL/VITAL SIGNS: Reviewed / noted above. GENERAL: Non-toxic in appearance. INTEGUMENTARY: Warm, dry, and [place]. HEAD: Normocephalic. EYES: without scleral icterus or trauma. ENT/OROPHARYNX: clear and moist. LYMPHADENOPATHY/NECK: Is supple without lymphadenopathy or meningismus. RESPIRATORY: Lungs clear and equal. CARDIOVASCULAR: Regular rate and rhythm. GI/ABDOMEN: Soft and nontender. No organomegaly or pulsatile mass. No rebound or guarding. Normal bowel sounds. EXTREMITIES: Warm and well perfused. Dressing on left foot. BACK: No CVA tenderness. NEUROLOGICAL: Patient seems groggy and weak. He weakly answer to his name when asked but otherwise was unable to carry on a conversation. Seems weak in all extremities. PSYCHIATRIC: normal affect. MUSCULOSKELETAL: Normally developed with poor muscle tone. TRIAGE NURSING DOCUMENTATION REVIEWED. Course Administered Medications Norepinephrine Bitartrate (Levophed/D5w) 8 mg in 508 mls @ 14.478 mls/hr IV .Q24H [facility]; Protocol Stop: 02/28/21 12:14 Last Titration: 01/29/21 14:28 Dose: 0 mcg/kg/min, 0 mls/hr Documented by: [id number] Admin: 01/29/21 12:33 Dose: 0.05 mcg/kg/min, 14.5 mls/hr Documented by: [id number] Cosigned by: [id number] Discontinued Medications Vancomycin HCl 2,000 mg/ (Sodium Chloride) 540 mls @ 200 mls/hr IV NOW ONE Stop: 01/29/21 12:41 Last Infusion: 01/29/21 13:52 Dose: 0 mls/hr Documented by: [id number] Admin: 01/29/21 10:56 Dose: 200 mls/hr Documented by: [id number] Sodium Chloride (Nss 1000ml) 1,000 mls @ 999 mls/hr IV .Q1H1M JJ Stop: 01/29/21 11:01 Last Infusion: 01/29/21 13:22 Dose: 0 mls/hr Documented by: [id number] Admin: 01/29/21 12:21 Dose: 999 mls/hr Documented by: [id number] Infusion: 01/29/21 12:21 Dose: 0 mls/hr Documented by: [id number] Admin: 01/29/21 11:20 Dose: 999 mls/hr Documented by: [id number] Sodium Chloride (Nss 1000ml) 1,000 mls @ 999 mls/hr IV .Q1H1M JJ Stop: 01/29/21 12:01 Last Infusion: 01/29/21 11:20 Dose: 0 mls/hr Documented by: [id number] Admin: 01/29/21 10:14 Dose: 999 mls/hr Documented by: [id number] Cefepime HCl (Maxipime) 2,000 mg in 20 mls @ 5 mls/min IV NOW STA; Protocol Stop: 01/29/21 10:03 Last Admin: 01/29/21 10:20 Dose: 5 mls/min Documented by: [id number] Potassium Chloride (K Andrew / Wtr) 20 meq in 100 mls @ 50 mls/hr IV ONE ONE Stop: 01/29/21 14:10 Last Admin: 01/29/21 14:17 Dose: 50 mls/hr Documented by: [id number] Meropenem 500 mg/ Syringe 10 mls @ 2 mls/min IV NOW STA; Protocol Stop: 01/29/21 13:19 Last Admin: 01/29/21 13:52 Dose: 2 mls/min Documented by: [id number] Critical Care Time Critical Care Time: Yes Total Critical Care Time: 90 I have personally spent 90 minutes of critical care time in the direct management of this patient. This includes bedside care, interpretation of diagnostic studies, and testing, discussion with consultants, patient, and family members, and other required patient management activities. This 90 minutes is in excess of all separately billable procedures. Medical Decision Making Differential Diagnosis Differential includes viral illness, influenza, streptococcal pharyngitis, meningitis, pneumonia, sinusitis, UTI, pyelonephritis, otitis media. Medical decision Medical Records Attestation: I reviewed the patient's medical records. Home Medications Current Medication List: was personally reviewed by me Laboratory Data Attestation: I reviewed the patient's lab results. Result diagrams: 01/29/21 10:08 01/29/21 10:08 Lab Results 01/29/21 01/29/21 01/29/21 Range/Units 10:08 10:08 10:08 WBC 14.75 H (4.8-10.8) K/uL RBC 4.40 L (4.7-6.1) M/uL Hgb 13.4 L (14.0-18.0) g/dL Hct 39.4 L (42-52) % MCV 89.5 (80-100) fL MCH 30.5 (25-34) pg MCHC 34.0 (32-36) g/dL RDW Std Deviation 47.6 H (36.4-46.3) fL RDW Coeff of Abad 14.5 (11.5-14.5) % Plt Count 231 (130-400) K/uL MPV 9.6 (7.4-10.4) fL Immature Gran % (Auto) 0.5 % Neut % (Auto) 84.4 % Lymph % (Auto) 6.7 % [place] % (Auto) 8.1 % Eos % (Auto) 0.1 % Baso % (Auto) 0.2 % Neut # (Auto) 12.44 H (1.4-6.5) K/uL Lymph # (Auto) 0.99 L (1.2-3.4) K/uL [place] # (Auto) 1.20 H (0.11-0.59) K/uL Eos # (Auto) 0.01 (0-0.5) K/uL Baso # (Auto) 0.03 (0-0.2) K/uL Immature Gran # (Auto) 0.08 H (0.00-0.02) K/uL PT (9.0-12.0) Seconds INR (0.9-1.1) APTT (21.0-31.0) Seconds PTT Ratio ABG pH ABG pCO2 ABG pO2 ABG HCO3 ABG O2 Saturation ABG Base Excess Maury Test Barometric Pressure Oxygen Given Sodium 143 (136-145) mmol/L Potassium 2.9 L (3.5-5.1) mmol/L Chloride 108 H (98-107) mmol/L Carbon Dioxide 27 (21-32) mmol/L Anion Gap 8.0 (3-11) BUN 25 H (7-18) mg/dl Creatinine 1.14 (0.6-1.4) mg/dl Est Cr Clr Drug Dosing 66.7 ml/min Est GFR ( Amer) 77.8 Est GFR (Non-Af Amer) 67.1 BUN/Creatinine Ratio 22.2 H (10-20) Glucose 151 H (70-99) mg/dl Lactate (0.4-2.0) mmol/L Calcium 8.7 (8.5-10.1) mg/dl Magnesium 2.0 (1.8-2.4) mg/dl Total Bilirubin 0.7 (0.2-1) mg/dl AST 31 (15-37) U/L ALT 39 (12-78) U/L Alkaline Phosphatase 150 H (45-117) U/L Troponin I < 0.015 (0-0.045) ng/ml Total Protein 6.8 (6.4-8.2) gm/dl Albumin 3.3 L (3.4-5.0) gm/dl Globulin 3.5 (2.5-4.0) gm/dl Albumin/Globulin Ratio 0.9 (0.9-2) Procalcitonin 0.42 (0-0.5) ng/ml Urine Color Urine Appearance (Clear) Urine pH (4.5-7.5) Ur Specific [place] (1.000-1.030) Urine Protein (Negative) Urine Glucose (UA) (Negative) Urine Ketones (Negative) Urine Blood (Negative) Urine Nitrite (Negative) Urine Bilirubin (Negative) Urine Urobilinogen (Negative) Ur Leukocyte Esterase (Negative) Urine WBC (Auto) (0-5) /hpf Urine RBC (Auto) (0-4) /hpf U Hyaline Cast (Auto) (0-5) /lpf U Epithel Cells (Auto) (0-5) /lpf Urine Bacteria (Auto) (Negative) Urine Yeast COVID-19 Eval Order SARS-CoV-2 (PCR) (Negative) Influenza Type A (PCR) (Neg) Influenza Type B (PCR) (Neg) RSV (RT-PCR) (Neg) 01/29/21 01/29/21 01/29/21 Range/Units 10:08 10:08 10:08 WBC (4.8-10.8) K/uL RBC (4.7-6.1) M/uL Hgb (14.0-18.0) g/dL Hct (42-52) % MCV (80-100) fL MCH (25-34) pg MCHC (32-36) g/dL RDW Std Deviation (36.4-46.3) fL RDW Coeff of Abad (11.5-14.5) % Plt Count (130-400) K/uL MPV (7.4-10.4) fL Immature Gran % (Auto) % Neut % (Auto) % Lymph % (Auto) % [place] % (Auto) % Eos % (Auto) % Baso % (Auto) % Neut # (Auto) (1.4-6.5) K/uL Lymph # (Auto) (1.2-3.4) K/uL [place] # (Auto) (0.11-0.59) K/uL Eos # (Auto) (0-0.5) K/uL Baso # (Auto) (0-0.2) K/uL Immature Gran # (Auto) (0.00-0.02) K/uL PT 11.4 (9.0-12.0) Seconds INR 1.1 (0.9-1.1) APTT 29.5 (21.0-31.0) Seconds PTT Ratio 1.1 ABG pH ABG pCO2 ABG pO2 ABG HCO3 ABG O2 Saturation ABG Base Excess Maury Test Barometric Pressure Oxygen Given Sodium (136-145) mmol/L Potassium (3.5-5.1) mmol/L Chloride (98-107) mmol/L Carbon Dioxide (21-32) mmol/L Anion Gap (3-11) BUN (7-18) mg/dl Creatinine (0.6-1.4) mg/dl Est Cr Clr Drug Dosing ml/min Est GFR ( Amer) Est GFR (Non-Af Amer) BUN/Creatinine Ratio (10-20) Glucose (70-99) mg/dl Lactate 1.7 (0.4-2.0) mmol/L Calcium (8.5-10.1) mg/dl Magnesium (1.8-2.4) mg/dl Total Bilirubin (0.2-1) mg/dl AST (15-37) U/L ALT (12-78) U/L Alkaline Phosphatase (45-117) U/L Troponin I (0-0.045) ng/ml Total Protein (6.4-8.2) gm/dl Albumin (3.4-5.0) gm/dl Globulin (2.5-4.0) gm/dl Albumin/Globulin Ratio (0.9-2) Procalcitonin (0-0.5) ng/ml Urine Color Yellow Urine Appearance Turbid A (Clear) Urine pH 6.5 (4.5-7.5) Ur Specific [place] 1.013 (1.000-1.030) Urine Protein 2+ H (Negative) Urine Glucose (UA) Negative (Negative) Urine Ketones Negative (Negative) Urine Blood 2+ H (Negative) Urine Nitrite Negative (Negative) Urine Bilirubin Negative (Negative) Urine Urobilinogen Negative (Negative) Ur Leukocyte Esterase 3+ H (Negative) Urine WBC (Auto) >30 H (0-5) /hpf Urine RBC (Auto) 5-10 H (0-4) /hpf U Hyaline Cast (Auto) 1-5 (0-5) /lpf U Epithel Cells (Auto) 10-20 H (0-5) /lpf Urine Bacteria (Auto) 4+ H (Negative) Urine Yeast Not Reportable COVID-19 Eval Order SARS-CoV-2 (PCR) (Negative) Influenza Type A (PCR) (Neg) Influenza Type B (PCR) (Neg) RSV (RT-PCR) (Neg) 01/29/21 01/29/21 01/29/21 Range/Units 10:21 10:21 12:34 WBC (4.8-10.8) K/uL RBC (4.7-6.1) M/uL Hgb (14.0-18.0) g/dL Hct (42-52) % MCV (80-100) fL MCH (25-34) pg MCHC (32-36) g/dL RDW Std Deviation (36.4-46.3) fL RDW Coeff of Abad (11.5-14.5) % Plt Count (130-400) K/uL MPV (7.4-10.4) fL Immature Gran % (Auto) % Neut % (Auto) % Lymph % (Auto) % [place] % (Auto) % Eos % (Auto) % Baso % (Auto) % Neut # (Auto) (1.4-6.5) K/uL Lymph # (Auto) (1.2-3.4) K/uL [place] # (Auto) (0.11-0.59) K/uL Eos # (Auto) (0-0.5) K/uL Baso # (Auto) (0-0.2) K/uL Immature Gran # (Auto) (0.00-0.02) K/uL PT (9.0-12.0) Seconds INR (0.9-1.1) APTT (21.0-31.0) Seconds PTT Ratio ABG pH Cancelled ABG pCO2 Cancelled ABG pO2 Cancelled ABG HCO3 Cancelled ABG O2 Saturation Cancelled ABG Base Excess Cancelled Maury Test Cancelled Barometric Pressure Cancelled Oxygen Given Cancelled Sodium (136-145) mmol/L Potassium (3.5-5.1) mmol/L Chloride (98-107) mmol/L Carbon Dioxide (21-32) mmol/L Anion Gap (3-11) BUN (7-18) mg/dl Creatinine (0.6-1.4) mg/dl Est Cr Clr Drug Dosing ml/min Est GFR ( Amer) Est GFR (Non-Af Amer) BUN/Creatinine Ratio (10-20) Glucose (70-99) mg/dl Lactate (0.4-2.0) mmol/L Calcium (8.5-10.1) mg/dl Magnesium (1.8-2.4) mg/dl Total Bilirubin (0.2-1) mg/dl AST (15-37) U/L ALT (12-78) U/L Alkaline Phosphatase (45-117) U/L Troponin I (0-0.045) ng/ml Total Protein (6.4-8.2) gm/dl Albumin (3.4-5.0) gm/dl Globulin (2.5-4.0) gm/dl Albumin/Globulin Ratio (0.9-2) Procalcitonin (0-0.5) ng/ml Urine Color Urine Appearance (Clear) Urine pH (4.5-7.5) Ur Specific [place] (1.000-1.030) Urine Protein (Negative) Urine Glucose (UA) (Negative) Urine Ketones (Negative) Urine Blood (Negative) Urine Nitrite (Negative) Urine Bilirubin (Negative) Urine Urobilinogen (Negative) Ur Leukocyte Esterase (Negative) Urine WBC (Auto) (0-5) /hpf Urine RBC (Auto) (0-4) /hpf U Hyaline Cast (Auto) (0-5) /lpf U Epithel Cells (Auto) (0-5) /lpf Urine Bacteria (Auto) (Negative) Urine Yeast COVID-19 Eval Order CovFluRsv at [facility] SARS-CoV-2 (PCR) POSITIVE A* (Negative) Influenza Type A (PCR) Negative (Neg) Influenza Type B (PCR) Negative (Neg) RSV (RT-PCR) Negative (Neg) 01/29/21 Range/Units 13:15 WBC (4.8-10.8) K/uL RBC (4.7-6.1) M/uL Hgb (14.0-18.0) g/dL Hct (42-52) % MCV (80-100) fL MCH (25-34) pg MCHC (32-36) g/dL RDW Std Deviation (36.4-46.3) fL RDW Coeff of Abad (11.5-14.5) % Plt Count (130-400) K/uL MPV (7.4-10.4) fL Immature Gran % (Auto) % Neut % (Auto) % Lymph % (Auto) % [place] % (Auto) % Eos % (Auto) % Baso % (Auto) % Neut # (Auto) (1.4-6.5) K/uL Lymph # (Auto) (1.2-3.4) K/uL [place] # (Auto) (0.11-0.59) K/uL Eos # (Auto) (0-0.5) K/uL Baso # (Auto) (0-0.2) K/uL Immature Gran # (Auto) (0.00-0.02) K/uL PT (9.0-12.0) Seconds INR (0.9-1.1) APTT (21.0-31.0) Seconds PTT Ratio ABG pH Cancelled ABG pCO2 Cancelled ABG pO2 Cancelled ABG HCO3 Cancelled ABG O2 Saturation Cancelled ABG Base Excess Cancelled [place] Test Cancelled Barometric Pressure Cancelled Oxygen Given Cancelled Sodium (136-145) mmol/L Potassium (3.5-5.1) mmol/L Chloride (98-107) mmol/L Carbon Dioxide (21-32) mmol/L Anion Gap (3-11) BUN (7-18) mg/dl Creatinine (0.6-1.4) mg/dl Est Cr Clr Drug Dosing ml/min Est GFR ( Amer) Est GFR (Non-Af Amer) BUN/Creatinine Ratio (10-20) Glucose (70-99) mg/dl Lactate (0.4-2.0) mmol/L Calcium (8.5-10.1) mg/dl Magnesium (1.8-2.4) mg/dl Total Bilirubin (0.2-1) mg/dl AST (15-37) U/L ALT (12-78) U/L Alkaline Phosphatase (45-117) U/L Troponin I (0-0.045) ng/ml Total Protein (6.4-8.2) gm/dl Albumin (3.4-5.0) gm/dl Globulin (2.5-4.0) gm/dl Albumin/Globulin Ratio (0.9-2) Procalcitonin (0-0.5) ng/ml Urine Color Urine Appearance (Clear) Urine pH (4.5-7.5) Ur Specific [place] (1.000-1.030) Urine Protein (Negative) Urine Glucose (UA) (Negative) Urine Ketones (Negative) Urine Blood (Negative) Urine Nitrite (Negative) Urine Bilirubin (Negative) Urine Urobilinogen (Negative) Ur Leukocyte Esterase (Negative) Urine WBC (Auto) (0-5) /hpf Urine RBC (Auto) (0-4) /hpf U Hyaline Cast (Auto) (0-5) /lpf U Epithel Cells (Auto) (0-5) /lpf Urine Bacteria (Auto) (Negative) Urine Yeast COVID-19 Eval Order SARS-CoV-2 (PCR) (Negative) Influenza Type A (PCR) (Neg) Influenza Type B (PCR) (Neg) RSV (RT-PCR) (Neg) Imaging Data Radiologist's Impression: Chest X-Ray 01/29/21 10:01 XR chest 1V portable CLINICAL HISTORY: Sepsis COMPARISON STUDY: 12/04/2020 FINDINGS: The cardiac and mediastinal contours remain stable. There is no failure. There is no lobar consolidation. There are no pleural effusions. There is a suboptimal inspiration with mild bronchovascular crowding the lung bases.[ IMPRESSION: 1. Suboptimal inspiration with mild bronchovascular crowding lung bases 2. No evidence of lobar consolidation. ACT 112: Negative or not required by law. Electronically signed by: Rush Cohen M.D. 01/29/2021 10:[address] 01/29/21 10:02 CT head/brain wo con CLINICAL HISTORY: Acute change in mental status COMPARISON STUDY: December 04, 2020 TECHNIQUE: Axial CT of the brain is performed from the vertex to the skull base. IV contrast was not administered for this examination. A dose lowering technique was utilized adhering to the principles of ALARA. CT DOSE: 691.05 mGy.cm FINDINGS: No intra or extra-axial mass lesions are visualized. There is no CT evidence of acute cortical infarction. There is no evidence of midline shift. There is no acute hemorrhage. No calvarial fractures are visualized. There are patchy white matter hypodensities likely on a small vessel basis. There is no evidence of pathologic ventricular dilatation. There is no evidence of acute sinusitis IMPRESSION: No acute intracranial findings ACT 112: Negative or not required by law. Electronically signed by: Rush Cohen M.D. 01/29/2021 11:11 AM Chest X-Ray 01/29/21 11:58 XR chest 1V portable CLINICAL HISTORY: Chest x-ray status post central line placement COMPARISON STUDY: 01/29/2021 FINDINGS: The cardiac and mediastinal contours remain stable. There has been interval insertion of a right internal jugular central venous catheter. The tip projects at the superior vena cava. There is no pneumothorax. There is no acute parenchymal consolidation.[ IMPRESSION: Interval placement of a right internal jugular central venous catheter. The tip projects over the superior vena cava. There is no pneumothorax. ACT 112: Negative or not required by law. Electronically signed by: Rush Cohen M.D. 01/29/2021 12:56 PM ECG Data Attestation: I personally reviewed and interpreted this ECG as follows: Indication: + weakness Rate (beats per minute): 93 Rhythm: + sinus rhythm ECG ST segments: no ST elevation ECG Findings: no PVCs MDM Narrative Patient presents to the ED with fever and altered mental status and worsening weakness. He was also hypotensive here. His initial vital signs for EMS with systolic blood pressure in the 80s. EMS provided 1 L normal saline IV. He was given additional 2 L IV here. He was also given IV antibiotics here. His twelve-lead EKG shows a normal sinus rhythm. Chest x-ray did not show acute process. CT scan of the brain was negative for acute disease white blood cell count is 14.7. Urine suggest infection. Potassium is 2.9. Troponin was negative. Procalcitonin was negative. Covid test was positive. The patient was apparently treated with IV Zosyn. He was also given a total of 3 L normal saline IV. The patient was given IV potassium 20 mEq. The patient's blood pressure was low during his stay despite IV fluids and norepinephrine was initiated through a central line. Central line was placed by myself. The patient blood pressure did improve after norepinephrine. The patient will be admitted to the hospitalist for further evaluation and care. Covid test was positive. Cardiac monitoring: An order was placed for continuous cardiac monitoring. The monitor shows a rate of 95 with sinus rhythm. Impression & Plan Sepsis, Acute UTI, COVID-19 Discharge Plan Visit Data Chief Complaint: Illness Stated Complaint: septic ED Provider: Bubba Molina Discharge Problem: Sepsis, Acute UTI, COVID-19 Patient Disposition: Admitted As Inpatient Forms Stand Alone Forms: [facility] Prescriptions Prescriptions: No Action cyanocobalamin (vitamin B-12) [Vitamin B-12] 500 mcg Tablet 500 mcg PO QAM RF: 0 tamsulosin [Flomax] 0.4 mg Capsule 0.4 mg PO HS RF: 0 metoprolol tartrate 50 mg Tablet 50 mg PO BID RF: 0 oxcarbazepine 600 mg Tablet 600 mg PO BID RF: 0 rosuvastatin 10 mg Tablet 10 mg PO HS RF: 0 lubiprostone [Amitiza] 24 mcg Capsule 24 mcg PO BID RF: 0 nortriptyline 25 mg Capsule 25 mg PO HS RF: 0 nortriptyline 75 mg Capsule 75 mg PO HS RF: 0 acetaminophen-codeine 300-30 mg Tablet 1 tab PO BID RF: 0 ammonium lactate 12 % Cream 1 applic TOPICAL BID RF: 0 furosemide 20 mg Tablet 20 mg PO DAILY RF: 0 baclofen 5 mg Tablet 5 mg PO BID RF: 0 Referrals Referrals: Raj MARIO [Primary Care Provider] - Discharge Problem: Sepsis Qualifiers: Sepsis type: sepsis due to unspecified organism Sepsis acute organ dysfunction status: unspecified Qualified Code(s): A41.9 - Sepsis, unspecified organism
[2021-01-29 10:55] LABS: INR 1.1 (0.9-1.1); Partial Thromboplastin Ratio 1.1; Partial Thromboplastin Time 29.5 Seconds (21.0-31.0); Prothrombin Time 11.4 Seconds (9.0-12.0)
[2021-01-29 10:58] LABS: Alanine Aminotransferase 39 U/L (12-78); Albumin Level 3.3 gm/dl (3.4-5.0); Aspartate Aminotransferase 31 U/L (15-37); BUN Creatinine Ratio 22.2 (10-20); Blood Urea Nitrogen 25 mg/dl (7-18); Calcium 8.7 mg/dl (8.5-10.1); Carbon Dioxide 27 mmol/L (21-32); Chloride 108 mmol/L (98-107); Creatinine Clr Calc Pharmacy 66.7 ml/min; Est GFR (African American) 77.8; Est GFR (Non-African American) 67.1; Glucose 151 mg/dl (70-99); Potassium 2.9 mmol/L (3.5-5.1); Sodium 143 mmol/L (136-145)
[2021-01-29] MEDS ORDERED: SODIUM CHLORIDE 0.9% 1000ML 1,000 ML IV SCH (11:01)
[2021-01-29 11:03] LABS: Albumin Globulin Ratio 0.9 (0.9-2); Alkaline Phosphatase 150 U/L (45-117); Bilirubin,Total 0.7 mg/dl (0.2-1); Globulin 3.5 gm/dl (2.5-4.0); Total Protein 6.8 gm/dl (6.4-8.2); Troponin I < 0.015 ng/ml (0-0.045)
--- NOTE | 2021-01-29 11:12 | CT Scan Report ---
CT head/brain wo con CLINICAL HISTORY: Acute change in mental status COMPARISON STUDY: December 04, 2020 TECHNIQUE: Axial CT of the brain is performed from the vertex to the skull base. IV contrast was not administered for this examination. A dose lowering technique was utilized adhering to the principles of ALARA. CT DOSE: 691.05 mGy.cm FINDINGS: No intra or extra-axial mass lesions are visualized. There is no CT evidence of acute cortical infarc tion. There is no evidence of midline shift. There is no acute hemorrhage. No calvarial fractures ar e visualized. There are patchy white matter hypodensities likely on a small vessel basis. There is no evidence of pathologic ventricular dilatation. There is no evidence of acute sinusitis IMPRESSION: No acute intracranial findings ACT 112: Negative or not required by law. Electronically signed by: Rush Cohen M.D. 01/29/2021 11:11 AM
[2021-01-29] MEDS: SODIUM CHLORIDE 0.9% 1000ML 1,000 ML IV SCH ×2 (11:20→12:21)
[2021-01-29 11:28] LABS: Influenza A virus by PCR Negative (Neg); Influenza B virus by PCR Negative (Neg); RSV by PCR Negative (Neg)
--- NOTE | 2021-01-29 11:51 | Electrocardiogram Report ---
Test Reason : Blood Pressure : / mmHG Vent. Rate : 093 BPM Atrial Rate : 097 BPM P-R Int : 198 ms QRS Dur : 094 ms QT Int : 370 ms P-R-T Axes : 025 070 065 degrees QTc Int : 460 ms Poor data quality, interpretation may be adversely affected Probable Sinus rhythm Abnormal ECG When compared with ECG of 04-DEC-2020 10:08, Artifact now present Otherwise no significant change Confirmed by Joel Messina ([id number]) on 01/29/2021 11:51:02 AM Referred By: REFERRED SELF Confirmed By:Joel Messina
[2021-01-29 11:54] LABS: SARS CoV2 RNA(COVID-19) InHosp POSITIVE (Negative)
[2021-01-29] MEDS ORDERED: POTASSIUM CHLORIDE / WTR 20 MEQ/100 ML PLCT IV ONE ×2 (12:11→17:00)
[2021-01-29] MEDS ORDERED: STAT IV Infusion **Titration per Protocol STA (12:14)
[2021-01-29] MEDS ORDERED: NOREPINEPHRINE/D5W 8 MG/508 ML BAG IV SCH (12:15)
--- NOTE | 2021-01-29 12:58 | XRay Report ---
XR chest 1V portable CLINICAL HISTORY: Chest x-ray status post central line placement COMPARISON STUDY: 01/29/2021 FINDINGS: The cardiac and mediastinal contours remain stable. There has been interval insertion of a right internal jugular central venous catheter. The tip projects at the superior vena cava. There is no pneumothorax. There is no acute parenchymal consolidation.[ IMPRESSION: Interval placement of a right internal jugular central venous catheter. The tip projects over the superior vena cava. There is no pneumothorax. ACT 112: Negative or not required by law. Electronically signed by: Rush Cohen M.D. 01/29/2021 12:56 PM
--- NOTE | 2021-01-29 13:04 | History & Physical Report ---
Date of Service January 29, 2021 Assessment & Plan (1) Sepsis: Most likely secondary to UTI from significant urinary retention, and less likely secondary to open wound of right foot as it does not really appear all that infected, with very minimal surrounding erythema With hypotension minimally responsive to IV fluid resuscitation with 3 L Was placed with central line in the right IJ, placed on Levophed in the ER and blood pressures are now improved Lactate negative, procalcitonin normal Blood cultures and urine culture pending Pinedo catheter placed in the ER -Admit to ICU for close monitoring of blood pressures -Appreciate records technician consultation-discussed care on the phone -Continue antibiotics but changed to IV meropenem and IV linezolid given history and sensitivities of ESBL Klebsiella and VRE, along with he has an allergy to IV daptomycin -Wean off Levophed as able to Follow urine output which is adequate -Creatinine increased over baseline-follow BMP, CBC -Consider MRI of the right foot once stabilized to further evaluate for evidence of osteomyelitis -Follow cultures -Continue maintenance IV fluids now with Normosol at 80 mL's per hour (2) Acute metabolic encephalopathy: Secondary to sepsis with shock, UTI Treating sepsis as below Keep n.p.o. until awake enough to eat and swallow (3) UTI (urinary tract infection) due to urinary indwelling Pinedo catheter: As above (4) Diabetic ulcer of right heel: As above Wound care consultation (5) Diabetic ulcer of right foot: As above (6) Hypokalemia: Potassium 2.9 on admission Received 20 mEq of IV potassium chloride in the ER We will give another 20 mEq IV after admission Follow BMP, magnesium (7) Murmur, cardiac: Mitral regurgitation murmur heard on examination Has a remote history of mitral valve endocarditis Check echocardiogram (8) COVID-19: He initially tested positive for Covid-19 in mid October 2020 and continues to test positive I do not think he has an active infection and does not need to be on airborne precautions He will be on contact precautions anyway for history of VRE and ESBL Klebsiella (9) Flexion contractures: Causing him to have bedbound status, this is for unknown reasons, is no history of stroke, has been nonambulatory and bedbound for many years at the present At risk for pressure ulcers as he does have these above -Hold home baclofen until can take p.o. that he takes for muscle spasms in the legs (10) Hyperlipidemia: Holding home statin until can take p.o. (11) BPH w urinary obs/LUTS: With numerous failures of trials of void throughout hospitalization and at the present Had 1200 mL returned upon placement of Pinedo catheter here Never followed up with urology since last admission and was supposed to have outpatient cystoscopy Consult urology this admission again for further evaluation for management Hold Flomax while hypotensive (12) Hypertension: Hypotensive as above Hold home metoprolol, furosemide (13) Seizure disorder: No concern for seizure at this time Hold home oxcarbazepine unless can take p.o. Seizure precautions (14) Diabetes: Has a presumed history of diabetes but is not on medication for this. No hemoglobin A1c is listed in the chart Check hemoglobin A1c in the morning Sliding scale insulin as needed and Accu-Cheks every 6 hours 1 p.o. (15) Major depressive disorder: Hold home nortriptyline while on linezolid (16) Constipation: Chronic constipation Continue home Amitiza once he can take p.o. Bisacodyl rectal suppositories as needed for now (17) DVT prophylaxis: Start Lovenox, SCDs Disposition-admit to ICU Full code, however may benefit from palliative care consultation to determine goals of care as he has had numerous recent hospitalizations and has overall very poor health, often comes in with encephalopathy and is difficult to determine what his wishes are History of Present Illness Chief Complaint: Fever, altered mental status/lethargy Primary Care Provider: FABIANO Anthony This patient is a 65-year-old male prisoner with a history of intermittent indwelling Pinedo catheter, HTN, flexion contractures and bedbound status, ESBL Klebsiella and VRE Pinedo catheter associated UTIs with sepsis, seizure disorder, hyperlipidemia, chronic constipation, history of mitral valve endocarditis in 2013 who presents to the ER with fever and increased lethargy at the residential today. He does have a long history of UTIs and sepsis, however he was also seen at the wound care clinic yesterday and had one of his right foot wounds debrided after it probed to the bone and was noted to have erythema surrounding it with moderate amount of serosanguineous drainage. His right heel wound is covered in eschar and is being pain and with Betadine, well his right lateral ankle wound with 70% improved in size with some surrounding erythema. When I saw him, all he did was moan when his legs were touched, but he would not answer any of my questions. He did open his eyes and look at me from time to time when I shouted his name and touched him. He was unable to give any information. In the ER, a Pinedo catheter was placed and approximately 1200 mL of purulent cloudy urine came out. EMS was contacted and he was given 1 L of IV fluids by EMS on the way here for blood pressures in the 80s systolic, and 2 more liters of IV fluids here in the ER. His blood pressures remained with a MAP less than 65 and he was started on Levophed and had a central line placed. He was febrile in the ER. Lactate was normal, procalcitonin was normal. He was initially given IV cefepime and vancomycin, however after review of his previous cultures, I ordered meropenem and linezolid to cover for his history of previous resistant bacteria. He was hypoxic to 73% and was also placed on 3 L nasal cannula. Chest x-ray was negative for pneumonia. CT of the head was negative for acute issues. CBC showed a leukocytosis of 14,000 with neutrophilia, he was also hypokalemic with potassium 2.9 and this was replaced in the ER with 20 mEq of IV potassium chloride. Renal function was up from baseline but still fairly within normal limits, and LFTs only with mildly elevated alkaline phosphatase. Troponin was negative. Urinalysis was grossly abnormal. His Covid-19 test was also positive, however he has been positive at 3 different times over the last 3 months and is still within 90 days from his initial positive test. It is unclear if he has an ongoing Covid infection, however most likely he does not. He will be admitted to the ICU for UTI and possibly acute osteomyelitis with septic shock requiring vasopressors as well as acute respiratory failure with hypoxia. Allergies Allergy/AdvReac Type Severity Reaction Status Date / Time daptomycin Allergy Rash Verified 01/29/21 11:52 Home Medications Medication Instructions Recorded Confirmed Type cyanocobalamin (vitamin B-12) 500 mcg PO QAM 11/11/20 01/29/21 History [Vitamin B-12] lubiprostone [Amitiza] 24 mcg PO BID 11/11/20 01/29/21 History metoprolol tartrate 50 mg PO BID 11/11/20 01/29/21 History oxcarbazepine 600 mg PO BID 11/11/20 01/29/21 History rosuvastatin 10 mg PO HS 11/11/20 01/29/21 History tamsulosin [Flomax] 0.4 mg PO HS 11/11/20 01/29/21 History nortriptyline 25 mg PO HS 12/04/20 01/29/21 History nortriptyline 75 mg PO HS 12/04/20 01/29/21 History acetaminophen-codeine 1 tab PO BID 01/29/21 01/29/21 History ammonium lactate 1 applic TOPICAL BID 01/29/21 01/29/21 History baclofen 5 mg PO BID 01/29/21 01/29/21 History furosemide 20 mg PO DAILY 01/29/21 01/29/21 History Past Med/Surg History Medical History (Updated 01/29/21 @ 14:52 by Gisela Garvin MD) Adjustment disorder with anxious mood Anemia BPH w urinary obs/LUTS Chronic hepatitis C Congestive heart failure Constipation Diverticulosis Dysthymia Elevation of cardiac enzymes Flexion contractures Gait abnormality GERD (gastroesophageal reflux disease) Hemorrhoids History of endocarditis Hyperlipidemia Hypertension Insomnia Low back pain Major depressive disorder Major depressive disorder with psychotic features Morbilliform rash Murmur, cardiac Onychomycosis Peripheral vascular disease Rhinitis, allergic Seizure disorder Tinea unguium Urinary retention Weakness Family History Other Family history non-contributory Social History Smoking Status: Former smoker Tobacco Type: Cigarettes Second Hand Exposure: No; Hx Alcohol Use: No Hx Substance Use: No Preferred Language: [place] Communication Ability: Impaired [employer] Unit Leader Required: No Beliefs That Will Affect Care: Scientologist Scientologist Beliefs: Sabianist Current Living Situation: Other Current Living Situation Comment: [facility] Inmate Feels Safe at Home: Yes Assistive Devices: None Review of Systems Review of Systems: Unobtainable due to cognitive status Physical Exam Constitutional: + ill appearing, average body habitus and + lethargic; no acute distress Eyes: PERRL, conjunctivae normal, anicteric sclerae ENMT: Nose: no external nose abnormality Mouth: + dry oral mucous membranes Neck: trachea midline, no thyromegaly Respiratory: normal respiratory effort, lungs clear to auscultation Cardiovascular: RRR, no murmur, no edema Chest (Breasts): Chest: normal inspection of chest Gastrointestinal (Abdomen): Inspection/Auscultation: + abdomen distended (Mild, chronic for him) and normal bowel sounds Percussion/Palpation: + abdomen tender (Moans with palpation but no guarding) and abdomen soft Musculoskeletal: Extremities: + extremities abnormal to inspection (Flexion contractures of the lower extremities bilaterally), no cyanosis and no clubbing Skin: no rashes, warm and dry right lateral ankle wound is closed over and is approximately half centimeter in size, very minimal erythema right first met head wound measures approximately 1 cm with small amount of surrounding erythema, with yellow exudate and scant bloody drainage Wound with eschar right heel measures 5 cm in size, no surrounding erythema, no drainage, painted with Betadine Neurologic: + focal motor deficit (Cannot extend legs) and + confused; + not awake (But does open eyes to loud verbal and tactile stimulus) Motor/Sensory: no tremor Genitourinary: Pinedo catheter in place with cloudy urine Lymphatic: no lymphedema Results & Data Results & Data ([facility]) Vital Signs (Past 12 Hours) Vital Signs Temp Pulse Pulse Resp BP BP Pulse Ox 01/29/21 12:46 71 15 100 01/29/21 12:45 71 70 19 114/64 114/64 100 01/29/21 12:31 78 26 H 80 L 01/29/21 12:30 70 17 86/55 L 86/55 L 77 L 01/29/21 12:16 18 73 L 01/29/21 12:15 69 19 96/53 L 96/53 L 89 L 01/29/21 12:07 66 19 76/53 L 100 01/29/21 12:01 66 17 100 01/29/21 12:00 69 74 19 90/53 L 90/53 L 100 01/29/21 11:52 78 19 109/55 L 100 01/29/21 11:46 69 24 58 L 01/29/21 11:45 75 26 H 100/56 L 56 L 01/29/21 11:31 66 15 95 01/29/21 11:30 66 68 10 L 100/56 L 100/56 L 94 01/29/21 11:26 12 93 01/29/21 11:25 12 83/53 L 93 01/29/21 11:17 84 15 83/53 L 97 01/29/21 11:16 73 16 96 01/29/21 11:15 81 15 77/53 L 96 01/29/21 11:10 83 15 81/55 L 96 01/29/21 11:08 100 01/29/21 10:46 85 17 94 01/29/21 10:45 85 14 95/56 L 100 01/29/21 10:40 78 17 86/51 L 100 01/29/21 10:32 88 20 100 01/29/21 10:15 91 H 21 100 01/29/21 10:10 92 H 19 87/57 L 100 01/29/21 10:05 99 01/29/21 10:03 92 H 20 99 01/29/21 10:00 91 H 19 100 01/29/21 09:56 92 H 18 96/59 L 96/59 L 99 01/29/21 09:55 95 H 16 90 01/29/21 09:47 38.2 C H 96 H 29 H 94 Laboratory Results 01/29/21 01/29/21 01/29/21 Range/Units 12:34 10:21 10:21 WBC (4.8-10.8) K/uL RBC (4.7-6.1) M/uL Hgb (14.0-18.0) g/dL Hct (42-52) % MCV (80-100) fL MCH (25-34) pg MCHC (32-36) g/dL RDW Std Deviation (36.4-46.3) fL RDW Coeff of Abad (11.5-14.5) % Plt Count (130-400) K/uL MPV (7.4-10.4) fL Immature Gran % (Auto) % Neut % (Auto) % Lymph % (Auto) % [place] % (Auto) % Eos % (Auto) % Baso % (Auto) % Neut # (Auto) (1.4-6.5) K/uL Lymph # (Auto) (1.2-3.4) K/uL [place] # (Auto) (0.11-0.59) K/uL Eos # (Auto) (0-0.5) K/uL Baso # (Auto) (0-0.2) K/uL Immature Gran # (Auto) (0.00-0.02) K/uL PT (9.0-12.0) Seconds INR (0.9-1.1) APTT (21.0-31.0) Seconds PTT Ratio ABG pH Cancelled ABG pCO2 Cancelled ABG pO2 Cancelled ABG HCO3 Cancelled ABG O2 Saturation Cancelled ABG Base Excess Cancelled [place] Test Cancelled Barometric Pressure Cancelled Oxygen Given Cancelled Sodium (136-145) mmol/L Potassium (3.5-5.1) mmol/L Chloride (98-107) mmol/L Carbon Dioxide (21-32) mmol/L Anion Gap (3-11) BUN (7-18) mg/dl Creatinine (0.6-1.4) mg/dl Est Cr Clr Drug Dosing ml/min Est GFR ( Amer) Est GFR (Non-Af Amer) BUN/Creatinine Ratio (10-20) Glucose (70-99) mg/dl Lactate (0.4-2.0) mmol/L Calcium (8.5-10.1) mg/dl Magnesium (1.8-2.4) mg/dl Total Bilirubin (0.2-1) mg/dl AST (15-37) U/L ALT (12-78) U/L Alkaline Phosphatase (45-117) U/L Troponin I (0-0.045) ng/ml Total Protein (6.4-8.2) gm/dl Albumin (3.4-5.0) gm/dl Globulin (2.5-4.0) gm/dl Albumin/Globulin Ratio (0.9-2) Procalcitonin (0-0.5) ng/ml Urine Color Urine Appearance (Clear) Urine pH (4.5-7.5) Ur Specific [place] (1.000-1.030) Urine Protein (Negative) Urine Glucose (UA) (Negative) Urine Ketones (Negative) Urine Blood (Negative) Urine Nitrite (Negative) Urine Bilirubin (Negative) Urine Urobilinogen (Negative) Ur Leukocyte Esterase (Negative) Urine WBC (Auto) (0-5) /hpf Urine RBC (Auto) (0-4) /hpf U Hyaline Cast (Auto) (0-5) /lpf U Epithel Cells (Auto) (0-5) /lpf Urine Bacteria (Auto) (Negative) Urine Yeast COVID-19 Eval Order CovFluRsv at [facility] SARS-CoV-2 (PCR) POSITIVE A* (Negative) Influenza Type A (PCR) Negative (Neg) Influenza Type B (PCR) Negative (Neg) RSV (RT-PCR) Negative (Neg) 01/29/21 01/29/21 01/29/21 Range/Units 10:08 10:08 10:08 WBC (4.8-10.8) K/uL RBC (4.7-6.1) M/uL Hgb (14.0-18.0) g/dL Hct (42-52) % MCV (80-100) fL MCH (25-34) pg MCHC (32-36) g/dL RDW Std Deviation (36.4-46.3) fL RDW Coeff of Abad (11.5-14.5) % Plt Count (130-400) K/uL MPV (7.4-10.4) fL Immature Gran % (Auto) % Neut % (Auto) % Lymph % (Auto) % [place] % (Auto) % Eos % (Auto) % Baso % (Auto) % Neut # (Auto) (1.4-6.5) K/uL Lymph # (Auto) (1.2-3.4) K/uL [place] # (Auto) (0.11-0.59) K/uL Eos # (Auto) (0-0.5) K/uL Baso # (Auto) (0-0.2) K/uL Immature Gran # (Auto) (0.00-0.02) K/uL PT 11.4 (9.0-12.0) Seconds INR 1.1 (0.9-1.1) APTT 29.5 (21.0-31.0) Seconds PTT Ratio 1.1 ABG pH ABG pCO2 ABG pO2 ABG HCO3 ABG O2 Saturation ABG Base Excess [place] Test Barometric Pressure Oxygen Given Sodium (136-145) mmol/L Potassium (3.5-5.1) mmol/L Chloride (98-107) mmol/L Carbon Dioxide (21-32) mmol/L Anion Gap (3-11) BUN (7-18) mg/dl Creatinine (0.6-1.4) mg/dl Est Cr Clr Drug Dosing ml/min Est GFR ( Amer) Est GFR (Non-Af Amer) BUN/Creatinine Ratio (10-20) Glucose (70-99) mg/dl Lactate 1.7 (0.4-2.0) mmol/L Calcium (8.5-10.1) mg/dl Magnesium (1.8-2.4) mg/dl Total Bilirubin (0.2-1) mg/dl AST (15-37) U/L ALT (12-78) U/L Alkaline Phosphatase (45-117) U/L Troponin I (0-0.045) ng/ml Total Protein (6.4-8.2) gm/dl Albumin (3.4-5.0) gm/dl Globulin (2.5-4.0) gm/dl Albumin/Globulin Ratio (0.9-2) Procalcitonin (0-0.5) ng/ml Urine Color Yellow Urine Appearance Turbid A (Clear) Urine pH 6.5 (4.5-7.5) Ur Specific [place] 1.013 (1.000-1.030) Urine Protein 2+ H (Negative) Urine Glucose (UA) Negative (Negative) Urine Ketones Negative (Negative) Urine Blood 2+ H (Negative) Urine Nitrite Negative (Negative) Urine Bilirubin Negative (Negative) Urine Urobilinogen Negative (Negative) Ur Leukocyte Esterase 3+ H (Negative) Urine WBC (Auto) >30 H (0-5) /hpf Urine RBC (Auto) 5-10 H (0-4) /hpf U Hyaline Cast (Auto) 1-5 (0-5) /lpf U Epithel Cells (Auto) 10-20 H (0-5) /lpf Urine Bacteria (Auto) 4+ H (Negative) Urine Yeast Not Reportable COVID-19 Eval Order SARS-CoV-2 (PCR) (Negative) Influenza Type A (PCR) (Neg) Influenza Type B (PCR) (Neg) RSV (RT-PCR) (Neg) 01/29/21 01/29/21 01/29/21 Range/Units 10:08 10:08 10:08 WBC 14.75 H (4.8-10.8) K/uL RBC 4.40 L (4.7-6.1) M/uL Hgb 13.4 L (14.0-18.0) g/dL Hct 39.4 L (42-52) % MCV 89.5 (80-100) fL MCH 30.5 (25-34) pg MCHC 34.0 (32-36) g/dL RDW Std Deviation 47.6 H (36.4-46.3) fL RDW Coeff of Abad 14.5 (11.5-14.5) % Plt Count 231 (130-400) K/uL MPV 9.6 (7.4-10.4) fL Immature Gran % (Auto) 0.5 % Neut % (Auto) 84.4 % Lymph % (Auto) 6.7 % [place] % (Auto) 8.1 % Eos % (Auto) 0.1 % Baso % (Auto) 0.2 % Neut # (Auto) 12.44 H (1.4-6.5) K/uL Lymph # (Auto) 0.99 L (1.2-3.4) K/uL [place] # (Auto) 1.20 H (0.11-0.59) K/uL Eos # (Auto) 0.01 (0-0.5) K/uL Baso # (Auto) 0.03 (0-0.2) K/uL Immature Gran # (Auto) 0.08 H (0.00-0.02) K/uL PT (9.0-12.0) Seconds INR (0.9-1.1) APTT (21.0-31.0) Seconds PTT Ratio ABG pH ABG pCO2 ABG pO2 ABG HCO3 ABG O2 Saturation ABG Base Excess [place] Test Barometric Pressure Oxygen Given Sodium 143 (136-145) mmol/L Potassium 2.9 L (3.5-5.1) mmol/L Chloride 108 H (98-107) mmol/L Carbon Dioxide 27 (21-32) mmol/L Anion Gap 8.0 (3-11) BUN 25 H (7-18) mg/dl Creatinine 1.14 (0.6-1.4) mg/dl Est Cr Clr Drug Dosing 66.7 ml/min Est GFR ( Amer) 77.8 Est GFR (Non-Af Amer) 67.1 BUN/Creatinine Ratio 22.2 H (10-20) Glucose 151 H (70-99) mg/dl Lactate (0.4-2.0) mmol/L Calcium 8.7 (8.5-10.1) mg/dl Magnesium 2.0 (1.8-2.4) mg/dl Total Bilirubin 0.7 (0.2-1) mg/dl AST 31 (15-37) U/L ALT 39 (12-78) U/L Alkaline Phosphatase 150 H (45-117) U/L Troponin I < 0.015 (0-0.045) ng/ml Total Protein 6.8 (6.4-8.2) gm/dl Albumin 3.3 L (3.4-5.0) gm/dl Globulin 3.5 (2.5-4.0) gm/dl Albumin/Globulin Ratio 0.9 (0.9-2) Procalcitonin 0.42 (0-0.5) ng/ml Urine Color Urine Appearance (Clear) Urine pH (4.5-7.5) Ur Specific [place] (1.000-1.030) Urine Protein (Negative) Urine Glucose (UA) (Negative) Urine Ketones (Negative) Urine Blood (Negative) Urine Nitrite (Negative) Urine Bilirubin (Negative) Urine Urobilinogen (Negative) Ur Leukocyte Esterase (Negative) Urine WBC (Auto) (0-5) /hpf Urine RBC (Auto) (0-4) /hpf U Hyaline Cast (Auto) (0-5) /lpf U Epithel Cells (Auto) (0-5) /lpf Urine Bacteria (Auto) (Negative) Urine Yeast COVID-19 Eval Order SARS-CoV-2 (PCR) (Negative) Influenza Type A (PCR) (Neg) Influenza Type B (PCR) (Neg) RSV (RT-PCR) (Neg) Diagnostic Findings Chest X-Ray 01/29/21 10:01 XR chest 1V portable CLINICAL HISTORY: Sepsis COMPARISON STUDY: 12/04/2020 FINDINGS: The cardiac and mediastinal contours remain stable. There is no failure. There is no lobar consolidation. There are no pleural effusions. There is a suboptimal inspiration with mild bronchovascular crowding the lung bases.[ IMPRESSION: 1. Suboptimal inspiration with mild bronchovascular crowding lung bases 2. No evidence of lobar consolidation. ACT 112: Negative or not required by law. Electronically signed by: Rush Cohen M.D. 01/29/2021 10:[address] 01/29/21 10:02 CT head/brain wo con CLINICAL HISTORY: Acute change in mental status COMPARISON STUDY: December 04, 2020 TECHNIQUE: Axial CT of the brain is performed from the vertex to the skull base. IV contrast was not administered for this examination. A dose lowering technique was utilized adhering to the principles of ALARA. CT DOSE: 691.05 mGy.cm FINDINGS: No intra or extra-axial mass lesions are visualized. There is no CT evidence of acute cortical infarction. There is no evidence of midline shift. There is no acute hemorrhage. No calvarial fractures are visualized. There are patchy white matter hypodensities likely on a small vessel basis. There is no evidence of pathologic ventricular dilatation. There is no evidence of acute sinusitis IMPRESSION: No acute intracranial findings ACT 112: Negative or not required by law. Electronically signed by: Rush Cohen M.D. 01/29/2021 11:11 AM Chest X-Ray 01/29/21 11:58 XR chest 1V portable CLINICAL HISTORY: Chest x-ray status post central line placement COMPARISON STUDY: 01/29/2021 FINDINGS: The cardiac and mediastinal contours remain stable. There has been interval insertion of a right internal jugular central venous catheter. The tip projects at the superior vena cava. There is no pneumothorax. There is no acute parenchymal consolidation.[ IMPRESSION: Interval placement of a right internal jugular central venous catheter. The tip projects over the superior vena cava. There is no pneumothorax. ACT 112: Negative or not required by law. Electronically signed by: Rush Cohen M.D. 01/29/2021 12:56 PM ECG Additional Comments: ECG on 01/29/2021 at 957 with probable sinus rhythm, rate 93, artifact present, otherwise no ischemic changes apparent Code Status & VTE Plan Code Status Full code as per previous admission VTE Prophylaxis Plan VTE Prophylaxis will be ordered: Yes PG Care Time/CCT Total # of Minutes Spent Total Time Spent with Patient: Total time spent is greater than 50% in coordination of care (as documented) at patient's floor/unit and/or counseling patient: Coding Level of Care Code 81219 Initial Inpt Care Lvl 3 Diagnoses Sepsis A41.9 Acute metabolic encephalopathy G93.41 UTI (urinary tract infection) due to urinary indwelling Pinedo catheter T83.511A; N39.0 Diabetic ulcer of right heel E11.621; L97.419 Diabetic ulcer of right foot E11.621; L97.519 Hypokalemia E87.6 Murmur, cardiac R01.1 COVID-19 U07.1 Flexion contractures M24.50 Hyperlipidemia E78.5 BPH w urinary obs/LUTS N40.1; N13.8 Hypertension I10 Seizure disorder G40.909 Diabetes E11.9 Major depressive disorder F32.9 Constipation K59.00 DVT prophylaxis Z29.9
[2021-01-29] MEDS ORDERED: MEROPENEM CONSULT ACITVE PRN (13:09)
[2021-01-29] MEDS ORDERED: LINEZOLID CONSULT ACTIVE PRN (13:09)
[2021-01-29] MEDS ORDERED: MEROPENEM 500 MG in SYRINGE 0 ML IV STA (13:15)
[2021-01-29] MEDS ORDERED: LINEZOLID 600 MG/300 ML D5W IV STA (13:16)
--- NOTE | 2021-01-29 15:31 | Critical Care Consultation ---
Date of Consultation January 29, 2021 Assessment & Plan (1) Acute UTI: Reason critically ill: 65 y/o male presented with urosepsis, required vasopressors in the ED but no longer on vasopressors. Neuro: - CAM: unable to assess secondary to altered mental status - Delirium precautions - Hx of seizure disorder; seizure precautions Metabolic Encephalopathy - Acute encephalopathy secondary to urosepsis - Patient does not verbally respond to questions nor does he follow commands - Per RN, patient has intermittently voiced statements such as that hurts but he does not speak to me at all - Head CT 01/29: No acute intracranial findings Cardiac/Vascular: - History of HTN, HLD, and mitral valve endocarditis - TTE pending for mitral murmur Hypotension - Continue IVF resuscitation with Normosol at 80 cc/hr - Maintain map > 65 Respiratory: Acute hypoxemic respiratory failure - CXR 01/29: Suboptimal inspiration with mild bronchovascular crowding lung bases. No evidence of lobar consolidation. - Patient maintaining O2 sats > 95% on 3 L NC. - Maintain O2 sats 92-94% COVID (+) Status - Patient has been COVID (+) since October with a total of 3 positive tests, most recent today on admission - Do not suspect that this is an acute infection GI/Nutrition: - NPO while patient remains with AMS Renal/Lytes: - Hypokalemia with K of 2.9 on admission. Repleting K as ordered on admission - [facility] qAM Genitourinary: UTI w/ urosepsis - Will treat with meropenem and linezolid as noted below - Awaiting urine cx, speciation/sensitivities - Vieira catheter in place - Monitor Is/Os - Urology consulted per hospitalist team - Lactate negative Endo: Hx of DM. Unknown most recent A1c. - BGs per unit protocol Heme: - Hemodynamically stable - No acute issues ID: - Leukocytosis with WBC 14.75. Febrile at 38.2 C. - Suspect source of infection is urinary. Also noted, though, are wounds to his right foot; he did have wound care visit yesterday -- per that documentation, recent XR with no osteomyelitis but recommend MRI for further evaluation to r/o osteomyelitis. Wound care consult. - Patient received IV cefepime and vancomycin in ED. Switched to meropenem and linezolid on admission. Continue until urine speciation and sensitivities with goal to change to ertapenem and linezolid. - Hold home nortriptyline while on linezolid; monitor for serotonin syndrome Lines/IV Access: R central line venous catheter, vieira catheter DVT Prophylaxis: [] (2) Sepsis: (3) COVID-19: (4) Constipation: (5) Major depressive disorder: (6) Diabetic ulcer of right heel: (7) Diabetic ulcer of right foot: (8) Acute metabolic encephalopathy: (9) Hypokalemia: (10) Murmur, cardiac: (11) Hyperlipidemia: (12) Hypertension: (13) Seizure disorder: Supervising Physician Co-Signing Physician Notes Patient seen and examined. Electronic medical record reviewed. Discussed with family practice resident as well as with the admitting hospitalist. Agree with FP assessment and plan as noted. There was initial concern about potential urosepsis. The patient was on vasopressors for an extremely short period of time in the emergency room and is now normotensive. His lactate was normal. He does have a chronic indwelling Vieira and a history of recurrent urinary tract infections. This is the likely source of his encephalopathy, and septic shock. He has responded favorably to IV fluids. Other potential sources of infection would include the ulcer on his lower extremities. Consider wound consult and potential MRI with orthopedics consult if osteomyelitis is felt to be in the differential. If this were the case he would require long-term antibiotics. As the patient's hypotension has resolved, I do not believe that he has a critical care need at this point time. Discussed with the hospitalist who are comfortable downgrading him to PCU status. Critical care services will sign off at this point time. Feel free to contact us if we can be of additional assistance. Total of 39 minutes critical care time was spent in evaluation management stabilization and coordinating care for this patient. History of Present Illness Reason for Consultation: UTI with sepsis and hypotension History of Present Illness Marc Shukla is a 65 yo male with a significant PMHx including HTN, HLD, DM, intermittent indwelling vieira catheters, flexion contractures, ESBL Klebsiella and VRE UTI w/ sepsis, seizure disorder, constipation, BPH, and mitral valve endocarditis who presented today from the [facility] due to altered mental status and fevers. History is limited due to patient's altered mental status and majority of the history is obtained through chart review. Per review, patient was transferred to [facility] ED from the [facility] due to fevers and AMS; while en route, patient was hypotensive with SBPs in the 80s and was given IVF. He continued to receive IVF resuscitation in the ED with an additional 2 L of IVFs. Patient was also started on levophed at 0.05 due to persistent hypo tension despite fluid resuscitation but BPs improved and levophen was subsequently discontinued. A vieira catheter was also placed which provided 1200 cc of "milky white" urine. He was started on IV cefepime and vancomycin which was subsequently changed to meropenem and linezolid. Patient was also hypoxic with O2 saturations down to low-mid 70s but he has significantly improved to the mid 90s with 3L supplemental O2 via NC. CXR with no consolidation. To note, he is COVID (+) today but he has had 3 COVID (+) tests within the past 3 months with no negative tests. On my evaluation of the patient, he is awake and alert but does not verbally respond to questions nor does he shake/nod his head/follow commands. Allergies Allergy/AdvReac Type Severity Reaction Status Date / Time daptomycin Allergy Rash Verified 01/29/21 11:52 Home Medications Medication Instructions Recorded Confirmed Type cyanocobalamin (vitamin B-12) 500 mcg PO QAM 11/11/20 01/29/21 History [Vitamin B-12] lubiprostone [Amitiza] 24 mcg PO BID 11/11/20 01/29/21 History metoprolol tartrate 50 mg PO BID 11/11/20 01/29/21 History oxcarbazepine 600 mg PO BID 11/11/20 01/29/21 History rosuvastatin 10 mg PO HS 11/11/20 01/29/21 History tamsulosin [Flomax] 0.4 mg PO HS 11/11/20 01/29/21 History nortriptyline 25 mg PO HS 12/04/20 01/29/21 History nortriptyline 75 mg PO HS 12/04/20 01/29/21 History acetaminophen-codeine 1 tab PO BID 01/29/21 01/29/21 History ammonium lactate 1 applic TOPICAL BID 01/29/21 01/29/21 History baclofen 5 mg PO BID 01/29/21 01/29/21 History furosemide 20 mg PO DAILY 01/29/21 01/29/21 History Patient History Medical History (Updated 01/29/21 @ 15:12 by Bubba Molina DO) Adjustment disorder with anxious mood Anemia BPH w urinary obs/LUTS Chronic hepatitis C Congestive heart failure Constipation Diverticulosis Dysthymia Elevation of cardiac enzymes Flexion contractures Gait abnormality GERD (gastroesophageal reflux disease) Hemorrhoids History of endocarditis Hyperlipidemia Hypertension Insomnia Low back pain Major depressive disorder Major depressive disorder with psychotic features Morbilliform rash Murmur, cardiac Onychomycosis Peripheral vascular disease Rhinitis, allergic Seizure disorder Tinea unguium Urinary retention Weakness Family History Other Family history non-contributory Social History Smoking Status: Former smoker Tobacco Type: Cigarettes Second Hand Exposure: No; Hx Alcohol Use: No Hx Substance Use: No Preferred Language: Vincentian Communication Ability: Impaired Hydrogen Braze Furnace Operator Required: No Beliefs That Will Affect Care: Buddhist Buddhist Beliefs: Restorationism Current Living Situation: Other Current Living Situation Comment: [facility] In[facility] Feels Safe at Home: Yes Assistive Devices: None Review of Systems Review of Systems: Unobtainable due to cognitive status Physical Exam Physical Exam: GENERAL: Patient appears ill, frail, and weak. Laying in bed, supine. Vital signs reviewed as above. EYES: PERRLA. Unable to assess EOM as patient does not cooperate with exam. Anicteric sclerae. Conjunctivae normal. HENT: NC in place. Dry mucous membranes. No cervical lymphadenopathy. No JVD. RESPIRATORY: Clear to auscultation bilaterally. No wheezing, rales, or rhonchi. CARDIOVASCULAR: Regular rate and rhythm. + murmur. ABDOMEN: Soft and nontender. Mildly distended. Normal bowel sounds. EXTREMITIES: No edema. Non-tender. BLE with flexion contractures and unable to extend knees. B/l hands with fingers flexed in fist position, difficult to extend fingers b/l. SKIN: Warm, dry. Right heel wound with eschar, no erythema, no drainage. NEUROLOGIC: Awake. Unable to assess due to current mental status. Patient does not follow commands. Results & Data Results & Data ([facility]) Vital Signs (Past 12 Hours) Vital Signs Temp Pulse Pulse Resp BP BP Pulse Ox 01/29/21 15:01 98 H 22 100 01/29/21 15:00 98 H 22 112/63 100 01/29/21 14:46 94 H 25 H 100 01/29/21 14:45 94 H 22 111/60 100 01/29/21 14:31 94 H 22 96 01/29/21 14:30 91 H 21 131/76 100 01/29/21 14:16 89 19 100 01/29/21 14:15 91 H 21 133/71 100 01/29/21 14:01 90 18 98 01/29/21 14:00 90 87 20 143/64 H 143/69 H 100 01/29/21 13:46 80 23 100 01/29/21 13:45 81 80 22 123/68 123/68 99 01/29/21 13:31 74 24 100 01/29/21 13:30 74 73 19 120/60 120/60 100 01/29/21 13:16 75 19 100 01/29/21 13:15 75 72 19 120/74 120/74 98 01/29/21 13:01 71 18 100 01/29/21 13:00 70 70 18 110/67 110/67 100 01/29/21 12:46 71 15 100 01/29/21 12:45 71 70 19 114/64 114/64 100 01/29/21 12:31 78 26 H 80 L 01/29/21 12:30 70 17 86/55 L 86/55 L 77 L 01/29/21 12:16 18 73 L 01/29/21 12:15 69 19 96/53 L 96/53 L 89 L 01/29/21 12:07 66 19 76/53 L 100 01/29/21 12:01 66 17 100 01/29/21 12:00 69 74 19 90/53 L 90/53 L 100 01/29/21 11:52 78 19 109/55 L 100 01/29/21 11:46 69 24 58 L 01/29/21 11:45 75 26 H 100/56 L 56 L 01/29/21 11:31 66 15 95 01/29/21 11:30 66 68 10 L 100/56 L 100/56 L 94 01/29/21 11:26 12 93 01/29/21 11:25 12 83/53 L 93 01/29/21 11:17 84 15 83/53 L 97 01/29/21 11:16 73 16 96 01/29/21 11:15 81 15 77/53 L 96 01/29/21 11:10 83 15 81/55 L 96 01/29/21 11:08 100 01/29/21 10:46 85 17 94 01/29/21 10:45 85 14 95/56 L 100 01/29/21 10:40 78 17 86/51 L 100 01/29/21 10:32 88 20 100 01/29/21 10:15 91 H 21 100 01/29/21 10:10 92 H 19 87/57 L 100 01/29/21 10:05 99 01/29/21 10:03 92 H 20 99 01/29/21 10:00 91 H 19 100 01/29/21 09:56 92 H 18 96/59 L 96/59 L 99 01/29/21 09:55 95 H 16 90 01/29/21 09:47 38.2 C H 96 H 29 H 94 Resident Activity Tracking Resident Involvement: Resident Care Provided Care Provided: Adult Hospital Medicine (1) Sepsis Sepsis acute organ dysfunction status: unspecified Sepsis type: sepsis due to unspecified organism Qualified Code(s): A41.9 - Sepsis, unspecified organism
[2021-01-29] MEDS ORDERED: GLUCAGON FOR INJ 1 MG VIAL SQ PRN (15:49)
[2021-01-29] MEDS ORDERED: ICU PROTOCOL FOR HYPERGLYCEMIA PRN (15:49)
[2021-01-29] MEDS ORDERED: GLUCOSE 10 TABS/TUBE PO PRN (15:49)
[2021-01-29] MEDS ORDERED: bisacodyL 10 MG SUPP PR PRN (15:49)
[2021-01-29] MEDS ORDERED: DEXTROSE 50% 50 ML SYRINGE IV PRN (15:49)
[2021-01-29] MEDS ORDERED: CARBOHYDRATES FOR HYPOGLYCEMIA PO PRN (15:49)
[2021-01-29] MEDS ORDERED: GLUCOSE 40% GEL 15 GM TUBE PO PRN (15:49)
[2021-01-29 15:57] LABS: Base Excess VBG 1.4 mEq/L; Oxygen Saturation VBG 66.7 %; pH VBG 7.42 (7.36-7.41)
--- NOTE | 2021-01-29 16:09 | Billing Data ---
Date of Service January 29, 2021 Coding Level of Care Code Critical Care 1st 30-74 mins Time Spent (min) 39
[2021-01-29] MEDS: NORMOSOL-R 1,000 ML IV SCH (16:28)
[2021-01-29] MEDS: INSULIN ASPART 100 UNITS/ML 3 ML PEN SC SCH ×2 (17:08→20:48)
[2021-01-29] MEDS: ENOXAPARIN INJ 40 MG/0.4 ML SYR SQ SCH (17:16)
[2021-01-29] MEDS: OXcarbazepine 150 MG TABLET PO SCH ×2 (20:05→20:10)
[2021-01-29] MEDS: MEROPENEM 500 MG in SYRINGE 0 ML IV SCH (20:14)
[2021-01-29] MEDS ORDERED: ACETAMINOPHEN 1,000 MG/100 ML VIAL IV STA (23:40)
[2021-01-30] MEDS ORDERED: LINEZOLID 600 MG/300 ML BAG IV SCH ×2 (02:00→04:00)
[2021-01-30] MEDS ORDERED: LINEZOLID 600 MG/300 ML D5W IV SCH (02:00)
[2021-01-30] MEDS: MEROPENEM 500 MG in SYRINGE 0 ML IV SCH ×4 (02:03→21:24)
[2021-01-30] MEDS: NORMOSOL-R 1,000 ML IV SCH (05:00)
[2021-01-30] MEDS: INSULIN ASPART 100 UNITS/ML 3 ML PEN SC SCH ×2 (05:02→13:46)
[2021-01-30 07:34] LABS: Basophils # (auto) 0.03 K/uL (0-0.2); Basophils % (auto) 0.3 %; Eosinophils # (auto) 0.06 K/uL (0-0.5); Eosinophils % (auto) 0.6 %; Hematocrit (blood only) 33.3 % (42-52); Hemoglobin 11.2 g/dL (14.0-18.0); Immature Granulocytes # (auto) 0.03 K/uL (0.00-0.02); Immature Granulocytes % (auto) 0.3 %; Lymphocytes % (auto) 7.4 %; Mean Corpuscular Hemoglobin 30.5 pg (25-34); Mean Corpuscular Hgb Conc 33.6 g/dL (32-36); Mean Corpuscular Volume 90.7 fL (80-100); Mean Platelet Volume 9.6 fL (7.4-10.4); Monocytes # (auto) 0.57 K/uL (0.11-0.59); Neutrophils # (auto) 8.08 K/uL (1.4-6.5); Neutrophils % (auto) 85.4 %; Platelet Count 122 K/uL (130-400); RDW Coefficient of Variation 14.8 % (11.5-14.5); RDW Standard Deviation 49.2 fL (36.4-46.3); Red Blood Count 3.67 M/uL (4.7-6.1); White Blood Count 9.47 K/uL (4.8-10.8)
[2021-01-30 08:08] LABS: Estimated Average Glucose 117 mg/dl; Hemoglobin A1C 5.7 % (4.5-5.6)
[2021-01-30 08:17] LABS: Albumin Level 2.6 gm/dl (3.4-5.0); BUN Creatinine Ratio 24.1 (10-20); Bilirubin Direct 0.3 mg/dl (0-0.2); Calcium 8.6 mg/dl (8.5-10.1); Creatinine Clr Calc Pharmacy 72.4 ml/min; Est GFR (African American) 85.9; Est GFR (Non-African American) 74.1; Magnesium 1.9 mg/dl (1.8-2.4); Potassium 2.8 mmol/L (3.5-5.1)
[2021-01-30 08:19] LABS: Bilirubin,Total 0.6 mg/dl (0.2-1); Phosphorus 2.2 mg/dl (2.5-4.9)
--- NOTE | 2021-01-30 08:27 | Urology Consultation ---
Date of Consultation January 30, 2021 Assessment & Plan (1) Sepsis: Patient with severe chronic infections with severe acute issues and overall poor health with multiple severe comorbidities. Patient came with likely bacteremia/sepsis with either urinary or foot ulcer source. Patient was on broad-spectrum antibiotics. Is poorly responsive. With significant baseline issues at baseline. Patient is being managed critically by the critical care team. He does have a history of Covid approximately 3 months ago and does continue to test positive. Patient significant infections have been an ongoing problem. Patient is recurrently getting admitted due to severe infections. Urine was significant purulent and patient has considerable issues. Has a catheter in place due to chronic retention issues. Had plans in place for cystoscopy and further assessment however patient has not been well enough to undergo work-up and has been readmitted. Patient had initially been placed on Levophed for pressor support. Was started on broad-spectrum antibiotics. Has been critically managed and is still dealing with significant acute illness. Is awaiting full cultures. Patient's complicated medical and surgical history is reviewed and summarized as above. Please see HPI section as well as previous consultations with most recent being approximately a month and a half ago. Patient had imaging from the early part of the year. No more recent imaging. Does have a history of small stones. These images were all reviewed. Discussed with hospital S possible need for repeat imaging if patient becomes more severe or develops worsening fevers or other problems. Patient currently has catheter in place which is draining. Patient's labs are all reviewed. Patient's vitals have been monitored as well. We will continue with hydration, active management of UTI, and further assessment. Need to plan for outpatient work-up and assessment with cystoscopy. We will need to consider further options for management of chronic retention with severe UTIs. Have been coordinating with the hospitalist and critical care team for management (2) Acute UTI: (3) COVID-19: (4) Diabetic ulcer of right foot: (5) BPH w urinary obs/LUTS: (6) Weakness: (7) Acute metabolic encephalopathy: History of Present Illness Attending Physician: Gisela Garvin MD History of Present Illness Urgent/emergent consultation for acutely ill and septic patient with UTI/Pyelo, discomfort, and ill feelings. Patient developed sudden onset of pain into flank going down and radiating into groin and back in waves comes and goes. Can be severe at times. Altered mental status due to acute illness Discussed and reviewed patient's personal medical, surgical, social, and family history for any history of issues, infections, and disease. Also, discussed patient's medical/surgery history especially related to any history of urinary issues or stone disease. Patient is undergoing intense/critical management for acute illness and is being admitted to undergo critical care. Hospitalist/ICU team has admitted and is undergoing observation with broad spectrum IV antibiotics. Allergies Allergy/AdvReac Type Severity Reaction Status Date / Time daptomycin Allergy Rash Verified 01/29/21 11:52 Home Medications Medication Instructions Recorded Confirmed Type cyanocobalamin (vitamin B-12) 500 mcg PO QAM 11/11/20 01/29/21 History [Vitamin B-12] lubiprostone [Amitiza] 24 mcg PO BID 11/11/20 01/29/21 History metoprolol tartrate 50 mg PO BID 11/11/20 01/29/21 History oxcarbazepine 600 mg PO BID 11/11/20 01/29/21 History rosuvastatin 10 mg PO HS 11/11/20 01/29/21 History tamsulosin [Flomax] 0.4 mg PO HS 11/11/20 01/29/21 History nortriptyline 25 mg PO HS 12/04/20 01/29/21 History nortriptyline 75 mg PO HS 12/04/20 01/29/21 History acetaminophen-codeine 1 tab PO BID 01/29/21 01/29/21 History ammonium lactate 1 applic TOPICAL BID 01/29/21 01/29/21 History baclofen 5 mg PO BID 01/29/21 01/29/21 History furosemide 20 mg PO DAILY 01/29/21 01/29/21 History Patient History Medical History Adjustment disorder with anxious mood Anemia BPH w urinary obs/LUTS Chronic hepatitis C Congestive heart failure Constipation Diverticulosis Dysthymia Elevation of cardiac enzymes Flexion contractures Gait abnormality GERD (gastroesophageal reflux disease) Hemorrhoids History of endocarditis Hyperlipidemia Hypertension Insomnia Low back pain Major depressive disorder Major depressive disorder with psychotic features Morbilliform rash Murmur, cardiac Onychomycosis Peripheral vascular disease Rhinitis, allergic Seizure disorder Tinea unguium Urinary retention Weakness Family History Other Family history non-contributory Social History Smoking Status: Former smoker Tobacco Type: Cigarettes Hx Alcohol Use: No Preferred Language: Malawian Communication Ability: Impaired Ore Charger Required: No Beliefs That Will Affect Care: None Current Living Situation: Other Current Living Situation Comment: [facility] Feels Safe at Home: Declines to Answer Assistive Devices: None Review of Systems Review of Systems: All systems reviewed & are unremarkable except as noted in HPI & below Limited due to patient illness Physical Exam Physical Exam: General: Acutely ill. Undergoing critical care management for acute severe infection HEENT: Normocephalic Atraumatic. Inspection normal. Cranial Nerves 2-12 Grossly intact. Nares are clear. Neck is supple. Normal inspection of face. Normal inspection of neck. Neurologic: No deficits on inspection. Baseline for motor function and sensory. Psychologic: Anxious, acute delirium secondary to illness Respiratory: Mild labored. No use of accessory muscles. No severe dyspnea. Cardiovascular: tachycardia Skin: [place] and Dry. No rashes or visible lesions. Febrile Extremities: Moving without issues. No motor deficits on inspection Lymphatics: Mild edema Abdomen: Mildly distended. No rebound or guarding. Mild suprapubic/flank tenderness Results & Data ([facility]) Vital Signs (Past 12 Hours) Vital Signs Temp Pulse Pulse Resp BP Pulse Ox 01/30/21 08:15 36.4 C L 98 H 18 112/79 97 01/30/21 03:29 36.7 C 103 H 20 116/89 96 01/29/21 23:47 99 H 01/29/21 22:49 36.4 C L 92 H 17 102/69 96 01/29/21 21:25 36.9 C 100 H 20 102/79 96 PG Care Time/CCT Total # of Minutes Spent Total Time Spent with Patient: Total time spent is greater than 50% in coordination of care (as documented) at patient's floor/unit and/or counseling p atient: Coding Level of Care Code 81921 Inpt Consult Level 5 Diagnoses Sepsis A41.9 Sepsis acute organ dysfunction status: unspecified Sepsis type: sepsis due to unspecified organism Acute UTI N39.0 COVID-19 U07.1 Diabetic ulcer of right foot E11.621; L97.519 BPH w urinary obs/LUTS N40.1; N13.8 Weakness R53.1 Acute metabolic encephalopathy G93.41 (1) Sepsis Sepsis acute organ dysfunction status: unspecified Sepsis type: sepsis due to unspecified organism Qualified Code(s): A41.9 - Sepsis, unspecified organism
[2021-01-30] MEDS ORDERED: POTASSIUM PHOS 3 MMOL/1 ML INFUSION IV STA (08:45)
[2021-01-30] MEDS ORDERED: ACETAMINOPHEN 1,000 MG/100 ML VIAL IV PRN (08:45)
[2021-01-30] MEDS ORDERED: POTASSIUM CHLORIDE / WTR 20 MEQ/100 ML PLCT IV ONE (09:00)
[2021-01-30] MEDS ORDERED: POTASSIUM PHOSPHATE 21 MMOL in SODIUM CHLORIDE 0.9% 500 ML IV ONE (10:00)
[2021-01-30] MEDS: OXcarbazepine 150 MG TABLET PO SCH ×2 (10:17→21:50)
[2021-01-30] MEDS ORDERED: ACETAMINOPHEN W/CODEINE #3 1 TAB PO PRN (15:02)
--- NOTE | 2021-01-30 15:11 | Hospitalist Progress Note ---
Date of Service January 30, 2021 Assessment & Plan (1) Gram negative septicemia: Secondary to UTI from significant urinary retention, and less likely secondary to open wound of right foot as it does not really appear all that infected, with very minimal surrounding erythema With hypotension minimally responsive to IV fluid resuscitation with 3 L Was placed with central line in the right IJ, placed on Levophed in the ER and blood pressures are now improved and weaned off Levophed very quickly Lactate negative, procalcitonin normal Blood cultures and urine culture now with GNRs Pineod catheter placed in the ER and should remain detention as per Urology -continued stay in PCU -Continue IV meropenem given history and sensitivities of ESBL Klebsiella, but 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 UOP great, BPs normal, 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 -Consider MRI of the right foot once stabilized to further evaluate for evidence of osteomyelitis, but do not suspect source of acute bacteremia -Follow cultures -dc maintenance IV fluids -ID consulted for length of course plus to see opinion on if should have prophylactic rotating antibodies moving forward as will have chronic indwelling Pinedo (2) Acute metabolic encephalopathy: Secondary to sepsis with shock, UTI Now much improved, was obtunded on admission, now interactive and talking Treating sepsis as below can advance diet to regular (3) UTI (urinary tract infection) due to urinary indwelling Pinedo catheter: As above (4) Diabetic ulcer of right heel: As above Wound care consultation pain with betadine (5) Diabetic ulcer of right foot: As above ordered Aquacel Ag (6) Hypokalemia: Potassium 2.9 on admission and replaced, still low today replace again with K-Phos and KCL IV Follow BMP, magnesium (7) Murmur, cardiac: Mitral regurgitation murmur heard on examination Has a remote history of mitral valve endocarditis Check echocardiogram (8) COVID-19: He initially tested positive for Covid-19 in mid October 2020 and continues to test positive I do not think he has an active infection and does not need to be on airborne precautions-to be transferred out of COVID cheney today He will be on contact precautions anyway for history of VRE and ESBL Klebsiella (9) Flexion contractures: Causing him to have bedbound status, this is for unknown reasons, is no history of stroke, has been nonambulatory and bedbound for many years at the present At risk for pressure ulcers as he does have these above -restart home baclofen, T#3, Pamelor (10) Hyperlipidemia: ok to restart home statin (11) BPH w urinary obs/LUTS: With numerous failures of trials of void throughout hospitalization and at the present Had 1200 mL returned upon placement of Pinedo catheter here Never followed up with urology since last admission and was supposed to have outpatient cystoscopy Consult urology this admission again for further evaluation for management- recommends eventual SP cathether once infection cleared vs prophylactic rotating abx/ID evaluation dc Flomax as will always have Pinedo (12) Hypertension: Hypotensive as above on admission, now improved Now with mild tachycardia restart home metoprolol, furosemide (13) Seizure disorder: No concern for seizure at this time continue home oxcarbazepine Seizure precautions (14) Diabetes: Has a presumed history of diabetes but is not on medication for this. No hemoglobin A1c is listed in the chart hemoglobin A1c here is normal at 5.7% Sliding scale insulin as needed and Accu-Cheks every 6 hours 1 p.o. (15) Major depressive disorder: Hold home nortriptyline while on linezolid, but now dcd linezolid so can restart Pamelor tonight (16) Constipation: Chronic constipation Continue home Amitiza Bisacodyl rectal suppositories as needed (17) DVT prophylaxis: Nick Roberson Disposition-continued stay in PCU Full code, however may benefit from palliative care consultation to determine goals of care as he has had numerous recent hospitalizations and has overall very poor health, often comes in with encephalopathy and is difficult to determine what his wishes are Admission and Anticipated Discharge Date Admission Date: January 29, 2021 Subjective Pt more alert and interactive today. Says he could try eating something. Has pain if covers are even lifted up from off hs legs, pain in legs and moans and yells out loud. Denies CP or SOB. Tele with ST, NSR rates 90-110s Review of Systems Review of Systems: All systems reviewed & are unremarkable except as noted in HPI & below Physical Exam Constitutional: average body habitus; no acute distress Eyes: + anicteric sclerae ENMT: Nose: no external nose abnormality Neck: trachea midline, no thyromegaly Respiratory: normal respiratory effort, lungs clear to auscultation Cardiovascular: RRR, no murmur, no edema Chest (Breasts): Chest: normal inspection of chest Gastrointestinal (Abdomen): Inspection/Auscultation: + abdomen distended (Mild, chronic for him) and normal bowel sounds Percussion/Palpation: abdomen soft Musculoskeletal: Extremities: + extremities abnormal to inspection (Flexion contractures of the lower extremities bilaterally,+TTP minimal touc), no cyanosis and no clubbing Skin: no rashes, warm and dry, right lateral ankle wound is closed over and is approximately half centimeter in size, very minimal erythema right first met head wound measures approximately 1 cm with small amount of surrounding erythema, with yellow exudate and scant bloody drainage Wound with eschar right heel measures 5 cm in size, no surrounding erythema, no drainage, painted with Betadine Neurologic: + focal motor deficit (Cannot extend legs) Motor/Sensory: no tremor Psychiatric: Orientation: alert, oriented to person, oriented to place and cooperative Eye Contact: + fair eye contact Genitourinary: no penis abnormality (Pinedo in place with clear yellow urine) Lymphatic: no lymphedema Results & Data Results & Data ([facility]) Vital Signs (Past 12 Hours) Vital Signs Temp Pulse Pulse Resp BP Pulse Ox 01/30/21 11:26 36.5 C 106 H 22 133/57 L 98 01/30/21 08:15 36.4 C L 98 H 18 112/79 97 01/30/21 08:00 101 H 01/30/21 03:29 36.7 C 103 H 20 116/89 96 Laboratory Results 01/30/21 01/30/21 01/30/21 Range/Units 12:23 07:15 07:15 WBC 9.47 (4.8-10.8) K/uL RBC 3.67 L (4.7-6.1) M/uL Hgb 11.2 L (14.0-18.0) g/dL Hct 33.3 L (42-52) % MCV 90.7 (80-100) fL MCH 30.5 (25-34) pg MCHC 33.6 (32-36) g/dL RDW Std Deviation 49.2 H (36.4-46.3) fL RDW Coeff of Abad 14.8 H (11.5-14.5) % Plt Count 122 L (130-400) K/uL MPV 9.6 (7.4-10.4) fL Immature Gran % (Auto) 0.3 % Neut % (Auto) 85.4 % Lymph % (Auto) 7.4 % Carbon % (Auto) 6.0 % Eos % (Auto) 0.6 % Baso % (Auto) 0.3 % Neut # (Auto) 8.08 H (1.4-6.5) K/uL Lymph # (Auto) 0.70 L (1.2-3.4) K/uL Carbon # (Auto) 0.57 (0.11-0.59) K/uL Eos # (Auto) 0.06 (0-0.5) K/uL Baso # (Auto) 0.03 (0-0.2) K/uL Immature Gran # (Auto) 0.03 H (0.00-0.02) K/uL VBG pH (7.36-7.41) VBG pCO2 (38-50) mmHg VBG pO2 mmHg VBG HCO3 mmol/L VBG O2 Saturation % VBG Base Excess mEq/L Barometric Pressure mm/Hg Sodium (136-145) mmol/L Potassium (3.5-5.1) mmol/L Chloride (98-107) mmol/L Carbon Dioxide (21-32) mmol/L Anion Gap (3-11) BUN (7-18) mg/dl Creatinine (0.6-1.4) mg/dl Est Cr Clr Drug Dosing ml/min Est GFR ( Amer) Est GFR (Non-Af Amer) BUN/Creatinine Ratio (10-20) Glucose (70-99) mg/dl POC Glucose 126 H (70-99) mg/dl Estimat Average Glucose 117 mg/dl Hemoglobin A1c 5.7 H (4.5-5.6) % Calcium (8.5-10.1) mg/dl Phosphorus (2.5-4.9) mg/dl Magnesium (1.8-2.4) mg/dl Total Bilirubin (0.2-1) mg/dl Direct Bilirubin (0-0.2) mg/dl AST (15-37) U/L ALT (12-78) U/L Alkaline Phosphatase (45-117) U/L Total Protein (6.4-8.2) gm/dl Albumin (3.4-5.0) gm/dl Nasal Screen MRSA (PCR) (Negative) 01/30/21 01/30/21 01/29/21 Range/Units 07:15 03:26 20:29 WBC (4.8-10.8) K/uL RBC (4.7-6.1) M/uL Hgb (14.0-18.0) g/dL Hct (42-52) % MCV (80-100) fL MCH (25-34) pg MCHC (32-36) g/dL RDW Std Deviation (36.4-46.3) fL RDW Coeff of Abad (11.5-14.5) % Plt Count (130-400) K/uL MPV (7.4-10.4) fL Immature Gran % (Auto) % Neut % (Auto) % Lymph % (Auto) % Carbon % (Auto) % Eos % (Auto) % Baso % (Auto) % Neut # (Auto) (1.4-6.5) K/uL Lymph # (Auto) (1.2-3.4) K/uL Carbon # (Auto) (0.11-0.59) K/uL Eos # (Auto) (0-0.5) K/uL Baso # (Auto) (0-0.2) K/uL Immature Gran # (Auto) (0.00-0.02) K/uL VBG pH (7.36-7.41) VBG pCO2 (38-50) mmHg VBG pO2 mmHg VBG HCO3 mmol/L VBG O2 Saturation % VBG Base Excess mEq/L Barometric Pressure mm/Hg Sodium 145 (136-145) mmol/L Potassium 2.8 L (3.5-5.1) mmol/L Chloride 111 H (98-107) mmol/L Carbon Dioxide 26 (21-32) mmol/L Anion Gap 8.0 (3-11) BUN 25 H (7-18) mg/dl Creatinine 1.05 (0.6-1.4) mg/dl Est Cr Clr Drug Dosing 72.4 ml/min Est GFR ( Amer) 85.9 Est GFR (Non-Af Amer) 74.1 BUN/Creatinine Ratio 24.1 H (10-20) Glucose 113 H (70-99) mg/dl POC Glucose 124 H 131 H (70-99) mg/dl Estimat Average Glucose mg/dl Hemoglobin A1c (4.5-5.6) % Calcium 8.6 (8.5-10.1) mg/dl Phosphorus 2.2 L (2.5-4.9) mg/dl Magnesium 1.9 (1.8-2.4) mg/dl Total Bilirubin 0.6 (0.2-1) mg/dl Direct Bilirubin 0.3 H (0-0.2) mg/dl AST 25 (15-37) U/L ALT 27 (12-78) U/L Alkaline Phosphatase 113 (45-117) U/L Total Protein 6.0 L (6.4-8.2) gm/dl Albumin 2.6 L (3.4-5.0) gm/dl Nasal Screen MRSA (PCR) (Negative) 01/29/21 01/29/21 01/29/21 Range/Units 16:37 16:30 15:39 WBC (4.8-10.8) K/uL RBC (4.7-6.1) M/uL Hgb (14.0-18.0) g/dL Hct (42-52) % MCV (80-100) fL MCH (25-34) pg MCHC (32-36) g/dL RDW Std Deviation (36.4-46.3) fL RDW Coeff of Abad (11.5-14.5) % Plt Count (130-400) K/uL MPV (7.4-10.4) fL Immature Gran % (Auto) % Neut % (Auto) % Lymph % (Auto) % Carbon % (Auto) % Eos % (Auto) % Baso % (Auto) % Neut # (Auto) (1.4-6.5) K/uL Lymph # (Auto) (1.2-3.4) K/uL Carbon # (Auto) (0.11-0.59) K/uL Eos # (Auto) (0-0.5) K/uL Baso # (Auto) (0-0.2) K/uL Immature Gran # (Auto) (0.00-0.02) K/uL VBG pH 7.42 H (7.36-7.41) VBG pCO2 41 (38-50) mmHg VBG pO2 35 mmHg VBG HCO3 26 mmol/L VBG O2 Saturation 66.7 % VBG Base Excess 1.4 mEq/L Barometric Pressure 728.5 mm/Hg Sodium (136-145) mmol/L Potassium (3.5-5.1) mmol/L Chloride (98-107) mmol/L Carbon Dioxide (21-32) mmol/L Anion Gap (3-11) BUN (7-18) mg/dl Creatinine (0.6-1.4) mg/dl Est Cr Clr Drug Dosing ml/min Est GFR ( Amer) Est GFR (Non-Af Amer) BUN/Creatinine Ratio (10-20) Glucose (70-99) mg/dl POC Glucose 114 H (70-99) mg/dl Estimat Average Glucose mg/dl Hemoglobin A1c (4.5-5.6) % Calcium (8.5-10.1) mg/dl Phosphorus (2.5-4.9) mg/dl Magnesium (1.8-2.4) mg/dl Total Bilirubin (0.2-1) mg/dl Direct Bilirubin (0-0.2) mg/dl AST (15-37) U/L ALT (12-78) U/L Alkaline Phosphatase (45-117) U/L Total Protein (6.4-8.2) gm/dl Albumin (3.4-5.0) gm/dl Nasal Screen MRSA (PCR) Negative (Negative) BCxs GNR Ur cx GNR PG Care Time/CCT Total # of Minutes Spent Total Time Spent with Patient: Total time spent is greater than 50% in coordination of care (as documented) at patient's floor/unit and/or counseling patient: Coding Level of Care Code 70425 Subseq Hosp Care Lvl 3 Diagnoses Gram negative septicemia A41.50 Acute metabolic encephalopathy G93.41 UTI (urinary tract infection) due to urinary indwelling Pinedo catheter T83.511A; N39.0 Diabetic ulcer of right heel E11.621; L97.419 Diabetic ulcer of right foot E11.621; L97.519 Hypokalemia E87.6 Murmur, cardiac R01.1 COVID-19 U07.1 Flexion contractures M24.50 Hyperlipidemia E78.5 BPH w urinary obs/LUTS N40.1; N13.8 Hypertension I10 Seizure disorder G40.909 Diabetes E11.9 Major depressive disorder F32.9 Constipation K59.00 DVT prophylaxis Z29.9
[2021-01-30] MEDS: BACLOFEN 10 MG TAB PO SCH ×2 (17:13→21:49)
[2021-01-30] MEDS: ENOXAPARIN INJ 40 MG/0.4 ML SYR SQ SCH (17:13)
[2021-01-30] MEDS: METOPROLOL TARTRATE 25 MG TAB PO SCH (21:49)
[2021-01-30] MEDS: LUBIPROSTONE 8 MCG CAP PO SCH (21:49)
[2021-01-30] MEDS: NORTRIPTYLINE HCL 25 MG CAP PO SCH ×2 (21:49)
[2021-01-30] MEDS: ROSUVASTATIN CALCIUM 10 MG TAB PO SCH (21:50)
[2021-01-31] MEDS: MEROPENEM 500 MG in SYRINGE 0 ML IV SCH ×4 (01:59→20:27)
[2021-01-31 07:38] LABS: Basophils # (auto) 0.01 K/uL (0-0.2); Basophils % (auto) 0.2 %; Eosinophils # (auto) 0.13 K/uL (0-0.5); Eosinophils % (auto) 2.3 %; Hematocrit (blood only) 31.9 % (42-52); Hemoglobin 10.5 g/dL (14.0-18.0); Immature Granulocytes # (auto) 0.03 K/uL (0.00-0.02); Immature Granulocytes % (auto) 0.5 %; Lymphocytes # (auto) 0.39 K/uL (1.2-3.4); Mean Corpuscular Hemoglobin 30.2 pg (25-34); Mean Corpuscular Hgb Conc 32.9 g/dL (32-36); Mean Corpuscular Volume 91.7 fL (80-100); Mean Platelet Volume 9.7 fL (7.4-10.4); Monocytes # (auto) 0.37 K/uL (0.11-0.59); Monocytes % (auto) 6.7 %; Neutrophils # (auto) 4.61 K/uL (1.4-6.5); Neutrophils % (auto) 83.3 %; Platelet Count 130 K/uL (130-400); RDW Coefficient of Variation 14.8 % (11.5-14.5); RDW Standard Deviation 49.8 fL (36.4-46.3); Red Blood Count 3.48 M/uL (4.7-6.1); White Blood Count 5.54 K/uL (4.8-10.8)
[2021-01-31 08:10] LABS: Albumin Level 2.7 gm/dl (3.4-5.0); BUN Creatinine Ratio 24.6 (10-20); Calcium 9.2 mg/dl (8.5-10.1); Creatinine Clr Calc Pharmacy 92.7 ml/min; Est GFR (African American) 107.6; Est GFR (Non-African American) 92.8; Potassium 2.8 mmol/L (3.5-5.1)
[2021-01-31 08:13] LABS: Bilirubin Direct 0.3 mg/dl (0-0.2); Bilirubin,Total 0.6 mg/dl (0.2-1); Phosphorus 1.9 mg/dl (2.5-4.9); Total Protein 6.1 gm/dl (6.4-8.2)
[2021-01-31] MEDS ORDERED: POTASSIUM PHOS 3 MMOL/1 ML INFUSION IV STA (09:14)
[2021-01-31] MEDS ORDERED: POTASSIUM PHOSPHATE 21 MMOL in SODIUM CHLORIDE 0.9% 500 ML IV ONE (10:00)
[2021-01-31] MEDS: OXcarbazepine 150 MG TABLET PO SCH ×3 (10:08→22:10)
[2021-01-31] MEDS: CYANOCOBALAMIN 500 MCG TABLET (VITAMIN B-12) PO SCH ×2 (10:08→11:06)
[2021-01-31] MEDS: METOPROLOL TARTRATE 25 MG TAB PO SCH ×3 (10:08→22:09)
[2021-01-31] MEDS: POTASSIUM CHLORIDE / WTR 20 MEQ/100 ML PLCT IV SCH ×2 (10:09→12:31)
[2021-01-31] MEDS: LUBIPROSTONE 8 MCG CAP PO SCH ×3 (10:09→22:09)
[2021-01-31] MEDS: BACLOFEN 10 MG TAB PO SCH ×3 (10:10→22:09)
[2021-01-31] MEDS: FUROSEMIDE 20 MG TAB PO SCH ×2 (10:12→11:06)
--- NOTE | 2021-01-31 11:34 | Hospitalist Progress Note ---
Date of Service January 31, 2021 Assessment & Plan (1) Gram negative septicemia: Secondary to UTI from significant urinary retention, and less likely secondary to open wound of right foot as it does not really appear all that infected, with very minimal surrounding erythema Initially with hypotension minimally responsive to IV fluid resuscitation with 3 L in ER Was placed with central line in the right IJ, placed on Levophed in the ER and blood pressures are now improved and weaned off Levophed very quickly Lactate negative, procalcitonin normal Blood cultures GNRs and urine culture now with ESBL Klebsiella Pinedo catheter placed in the ER and should remain buttermaker as per Urology -continued stay in PCU -Continue IV meropenem for ESBL Klebsiella UOP great, 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 normal, 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 -Consider MRI of the right foot once stabilized to further evaluate for evidence of osteomyelitis, but do not suspect source of acute bacteremia -Follow blood cultures for final ID and sensitivities -repeat BCxs-NGTD -ID consulted for length of course plus to see opinion on if should have prophylactic rotating antibodies moving forward as will have chronic indwelling Pinedo-consult pending for Monday (2) Acute metabolic encephalopathy: Secondary to sepsis with shock, UTI initially Was much improved on 01/30 after being obtunded on admission, however on 01/31 mixing up words in speech, lethargic and irritable -is moving arms bilaterally, no gaze preferential, no facial droop, do not suspect stroke or seizure, but rather could be withdrawal from missed doses of baclofen, Trileptal vs hypernatremia -he did eat breakfast today but is refusing all meds--> so asked nurse to try to crush meds if able and feed in applesauce or pudding so he can get Baclofen and Trileptal Treating sepsis as below -start D5W (3) UTI (urinary tract infection) due to urinary indwelling Pinedo catheter: As above (4) Hypernatremia: start D5W at 80mL/hr follow BMP may be contributing to his encephalopathy (5) Diabetic ulcer of right heel: As above Wound care consultation paint with betadine (6) Diabetic ulcer of right foot: As above ordered [employer] (7) Hypokalemia: Potassium 2.9 on admission and replaced, still low today again replace again with K-Phos and KCL IV Follow BMP, magnesium in AM -HOLD lasix po which he has not taken anyway (8) Murmur, cardiac: Mitral regurgitation murmur heard on examination Has a remote history of mitral valve endocarditis Check echocardiogram-still pending as was initially in COVID unit, but now is out and can have it done 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 and ESBL Klebsiella (10) Flexion contractures: Causing him to have bedbound status, this is for unknown reasons, is no history of stroke, has been nonambulatory and bedbound for many years at the group home At risk for pressure ulcers as he does have these above -continue home baclofen, T#3 prn, Pamelor if will take po (11) Hyperlipidemia: continue statin (12) BPH w urinary obs/LUTS: With numerous failures of trials of void throughout hospitalization and at the present Had 1200 mL returned upon placement of Pinedo catheter here Never followed up with urology since last admission and was supposed to have outpatient cystoscopy Consult urology this admission again for further evaluation for management- recommends eventual SP cathether once infection cleared vs prophylactic rotating abx/ID evaluation dcd Flomax as will always have Pinedo (13) Hypertension: Hypotensive as above on admission, now improved Now with mild tachycardia as not taking po metoprolol continue metoprolol, hold furosemide for dehydration and hypokalemia (14) Seizure disorder: No concern for seizure at this time continue home oxcarbazepine if will take Seizure precautions (15) Diabetes: Has a presumed history of diabetes but is not on medication for this. No hemoglobin A1c is listed in the chart hemoglobin A1c here is normal at 5.7% dc Sliding scale insulin , no need for accuchecks (16) Major depressive disorder: continue nortriptyline (17) Constipation: Chronic constipation Continue home Amitiza had a BM on 01/31 Bisacodyl rectal suppositories as needed (18) DVT prophylaxis: Lovenox, SCDs Disposition-continued stay in PCU. Eventually back to group home. 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 He had a BM this AM as per nursing and was angry about getting cleaned up, frequently yells out with being touched. Guards report he was up all night and just fell asleep a few minutes before I came in to see him around 1120. Tele with NSR, PVCs, rates 100-120 Review of Systems Review of Systems: Unobtainable due to cognitive status Physical Exam Constitutional: average body habitus and + lethargic; no acute distress Eyes: + anicteric sclerae ENMT: Nose: no external nose abnormality Neck: trachea midline, no thyromegaly Respiratory: normal respiratory effort Chest (Breasts): Chest: normal inspection of chest Musculoskeletal: Extremities: no cyanosis and no clubbing Skin: no rashes, warm and dry Neurologic: + focal motor deficit (Cannot extend legs) Motor/Sensory: no tremor Psychiatric: Orientation: alert; + uncooperative Eye Contact: + fair eye contact Genitourinary: no penis abnormality (Pinedo in place with clear yellow urine) Lymphatic: no lymphedema Results & Data Results & Data ([facility]) Vital Signs (Past 12 Hours) Vital Signs Temp Pulse Pulse Resp BP BP Pulse Ox 01/31/21 08:00 102 H 01/31/21 07:49 36.4 C L 100 H 19 146/74 H 94 01/31/21 03:04 36.7 C 106 H 18 159/86 H 96 Laboratory Results 01/31/21 01/31/21 01/30/21 Range/Units 06:58 06:58 12:23 WBC 5.54 (4.8-10.8) K/uL RBC 3.48 L (4.7-6.1) M/uL Hgb 10.5 L (14.0-18.0) g/dL Hct 31.9 L (42-52) % MCV 91.7 (80-100) fL MCH 30.2 (25-34) pg MCHC 32.9 (32-36) g/dL RDW Std Deviation 49.8 H (36.4-46.3) fL RDW Coeff of Abad 14.8 H (11.5-14.5) % Plt Count 130 (130-400) K/uL MPV 9.7 (7.4-10.4) fL Immature Gran % (Auto) 0.5 % Neut % (Auto) 83.3 % Lymph % (Auto) 7.0 % Dickens % (Auto) 6.7 % Eos % (Auto) 2.3 % Baso % (Auto) 0.2 % Neut # (Auto) 4.61 (1.4-6.5) K/uL Lymph # (Auto) 0.39 L (1.2-3.4) K/uL Dickens # (Auto) 0.37 (0.11-0.59) K/uL Eos # (Auto) 0.13 (0-0.5) K/uL Baso # (Auto) 0.01 (0-0.2) K/uL Immature Gran # (Auto) 0.03 H (0.00-0.02) K/uL Sodium 149 H (136-145) mmol/L Potassium 2.8 L (3.5-5.1) mmol/L Chloride 114 H (98-107) mmol/L Carbon Dioxide 26 (21-32) mmol/L Anion Gap 9.0 (3-11) BUN 20 H (7-18) mg/dl Creatinine 0.82 (0.6-1.4) mg/dl Est Cr Clr Drug Dosing 92.7 ml/min Est GFR ( Amer) 107.6 Est GFR (Non-Af Amer) 92.8 BUN/Creatinine Ratio 24.6 H (10-20) Glucose 93 (70-99) mg/dl POC Glucose 126 H (70-99) mg/dl Calcium 9.2 (8.5-10.1) mg/dl Phosphorus 1.9 L (2.5-4.9) mg/dl Magnesium 2.0 (1.8-2.4) mg/dl Total Bilirubin 0.6 (0.2-1) mg/dl Direct Bilirubin 0.3 H (0-0.2) mg/dl AST 57 H (15-37) U/L ALT 37 (12-78) U/L Alkaline Phosphatase 119 H (45-117) U/L Total Protein 6.1 L (6.4-8.2) gm/dl Albumin 2.7 L (3.4-5.0) gm/dl Ur cx ESBL Klebsiella BCXs GNR PG Care Time/CCT Total # of Minutes Spent Total Time Spent with Patient: Total time spent is greater than 50% in coordination of care (as documented) at patient's floor/unit and/or counseling patient: Coding Level of Care Code 24891 Subseq Hosp Care Lvl 3 Diagnoses Gram negative septicemia A41.50 Acute metabolic encephalopathy G93.41 UTI (urinary tract infection) due to urinary indwelling Pinedo catheter T83.511A; N39.0 Hypernatremia E87.0 Diabetic ulcer of right heel E11.621; L97.419 Diabetic ulcer of right foot E11.621; L97.519 Hypokalemia E87.6 Murmur, cardiac R01.1 COVID-19 U07.1 Flexion contractures M24.50 Hyperlipidemia E78.5 BPH w urinary obs/LUTS N40.1; N13.8 Hypertension I10 Seizure disorder G40.909 Diabetes E11.9 Major depressive disorder F32.9 Constipation K59.00 DVT prophylaxis Z29.9
[2021-01-31] MEDS: DEXTROSE 5% 1,000 ML IV SCH (12:32)
--- NOTE | 2021-01-31 13:05 | Urology Progress Note ---
Date of Service January 31, 2021 Assessment & Plan (1) Sepsis: 01/31/2021: On visit today patient is still poorly answering questions. His vitals have stabilized aside from some tachycardia. Medical records are showing patient has some increasing confusion though has significant fusion at baseline. Per records is refusing some of his oral medications. Is tolerating the IV. Patient has severe infection with chronic retention and incomplete emptying and chronic Pinedo catheterization with recurrent UTIs. Patient has severe comorbidities. Has a nonhealing chronic wound with previous infections due to this. Also had a recent Covid infection. Has severe weakness at baseline. Has consid erable issues. Catheter at this point appears to be draining well without major issue. Discussed with hospitalist different options and different plans for management. Patient is a poor surgical candidate and would likely be unable to tolerate major procedure such as transurethral resection. Would consider continued chronic catheterization as option. Also consider chronic intermittent cathete rization as option. Another consideration would be placement of suprapubic tube. This might be able to be done with local or a very mild monitored anesthetic care/sedation. This would allow drainage with a lower infection rate and if able to be tolerated would be a reasonable option for management of his chronic retention issues. Patient has only shown marginal improvement. But has not considerably worsened or develop more severe fevers or required more critical care or management. Would consider repeating imaging intervention was necessary with patient does develop worsening issues. As he stabilizes a renal ultrasound might be reasonable to assess patient's known history of stones as well as findings of other drainage issues or concerns. CT would also be option. Patient would likely benefit from infectious disease management. Would be a potential candidate for suppression therapy with daily antibiotics. Would likely benefit from a rotating schedule. We will need to set up with an infectious disease doctor in order to assess and discuss different options as well as, with plan for rotating schedule for management. Patient's lab work was all reviewed. Vitals reviewed. We will continue with supportive care and monitoring as well as monitoring for need for intervention for further management depending on imaging or patient clinical course moving forward. (2) Acute UTI: Patient with severe chronic infections with severe acute issues and overall poor health with multiple severe comorbidities. Patient came with likel y bacteremia/sepsis with either urinary or foot ulcer source. Patient was on broad-spectrum antibiotics. Is poorly responsive. With significant baseline issues at baseline. Patient is being managed critically by the critical care team. He does have a history of Covid approximately 3 months ago and does continue to test positive. Patient significant infections have been an ongoing problem. Patient is recurrently getting admitted due to severe infections. Urine was significant purulent and patient has considerable issues. Has a catheter in place due to chronic retention issues. Had plans in place for cystoscopy and further assessment however patient has not been well enough to undergo work-up and has been readmitted. Patient had initially been placed on Levophed for pressor support. Was started on broad-spectrum antibiotics. Has been critically managed and is still dealing with significant acute illness. Is awaiting full cultures. Patient's complicated medical and surgical history is reviewed and summarized as above. Please see HPI section as well as previous consultations with most recent being approximately a month and a half ago. Patient had imaging from the early part of the year. No more recent imaging. Does have a history of small stones. These images were all reviewed. Discussed with hospital S possible need for repeat imaging if patient becomes more severe or develops worsening fevers or other problems. Patient currently has catheter in place which is draining. Patient's labs are all reviewed. Patient's vitals have been monitored as well. We will continue with hydration, active management of UTI, and further assessment. Need to plan for outpatient work-up and assessment with cystoscopy. We will need to consider further options for management of chronic retention with severe UTIs. Have been coordinating with the hospitalist and critical care team for management (3) COVID-19: (4) Diabetic ulcer of right foot: (5) BPH w urinary obs/LUTS: (6) Weakness: (7) Acute metabolic encephalopathy: Admission and Anticipated Discharge Date Admission Date: January 29, 2021 Subjective Patient admitted with severe sepsis with chronic retention and likely urinary source with history of small stone and discomfort. Patient had severe purulent urine and underwent critical care with broad-spectrum antibiotics and initially pressure support with pressors. Patient was transferred first to the Covid unit and then as he is been cleared of the infection onto the regular floor. Currently patient is afebrile. Has been undergoing therapy with oral medications, IV medications, IV fluids, and oral intake. Patient has severe chronic issues with memory and confusion which have been exacerbated. Records are showing he is more confused today. Is not responding to questions. Still dealing with severe illness. Has not developed severe vomiting or other issues. Has not experienced fever or chills. Has been tolerating oral medications but records are saying that he is at times refusing these medicines. Is tolerating fluids. Catheter is in place and urine has cleared. Has not complained of or described having had severe pain in the back and flank. Has not passed a large amount of blood or debris that may be the stone. Overall patient had not responded to any questions. Extremely limited information from patient. Majority of information from guards who are in the room as well as the patient's medical records and conversation with hospitalist yesterday. Review of Systems Review of Systems: All systems reviewed & are unremarkable except as noted in HPI & below, Unobtainable due to mental health condition and Unobtainable due to cognitive status Significantly limited due to patient's mentation. Significant baseline issues with exacerbation due to acute illness Physical Exam Physical Exam: General: Acutely ill. Undergoing management for severe acute illness. Poorly responsive likely secondary to mentation and underlying issues. HEENT: Normocephalic Atraumatic. Inspection normal. Cranial Nerves 2-12 Juan Alberto sly intact. Nares are clear. Neck is supple. Normal inspection of face. Normal inspection of neck. Neurologic: No deficits on inspection. Baseline for motor function and sensory. Psychologic: Anxious, acute delirium secondary to illness. Baseline significant issues with mentation/confusion. Respiratory: Mild labored. No use of accessory muscles. No severe dyspnea. Cardiovascular: tachycardia Skin: [place] and Dry. No rashes or visible lesions. Extremities: Moving without issues. No motor deficits on inspection Lymphatics: Mild edema. Chronic leg wounds. Abdomen: Mildly distended. No rebound or guarding. Mild suprapubic/flank tenderness : Pinedo in place draining clear yellow urine without sediment debris or blood. Results & Data ([facility]) Vital Signs (Past 12 Hours) Vital Signs Temp Pulse Pulse Resp BP BP Pulse Ox 01/31/21 12:05 36.8 C 116 H 130/70 97 01/31/21 08:00 102 H 01/31/21 07:49 36.4 C L 100 H 19 146/74 H 94 01/31/21 03:04 36.7 C 106 H 18 159/86 H 96 PG Care Time/CCT Total # of Minutes Spent Total Time Spent with Patient: Total time spent is greater than 50% in coordination of care (as documented) at patient's floor/unit and/or counseling patient: Coding Level of Care Code 12286 Subseq Hosp Care Lvl 3 Diagnoses Sepsis A41.9 Sepsis acute organ dysfunction status: unspecified Sepsis type: sepsis due to unspecified organism Acute UTI N39.0 COVID-19 U07.1 Diabetic ulcer of right foot E11.621; L97.519 BPH w urinary obs/LUTS N40.1; N13.8 Weakness R53.1 Acute metabolic encephalopathy G93.41 (1) Sepsis Sepsis acute organ dysfunction status: unspecified Sepsis type: sepsis due to unspecified organism Qualified Code(s): A41.9 - Sepsis, unspecified organism
[2021-01-31] MEDS: ENOXAPARIN INJ 40 MG/0.4 ML SYR SQ SCH (16:40)
[2021-01-31] MEDS: NORTRIPTYLINE HCL 25 MG CAP PO SCH ×2 (22:09)
[2021-01-31] MEDS: ROSUVASTATIN CALCIUM 10 MG TAB PO SCH (22:10)
[2021-02-01] MEDS: DEXTROSE 5% 1,000 ML IV SCH (01:33)
[2021-02-01] MEDS: MEROPENEM 500 MG in SYRINGE 0 ML IV SCH ×4 (02:20→20:42)
[2021-02-01 06:45] LABS: Basophils # (auto) 0.01 K/uL (0-0.2); Basophils % (auto) 0.3 %; Eosinophils # (auto) 0.12 K/uL (0-0.5); Eosinophils % (auto) 3.8 %; Hematocrit (blood only) 30.8 % (42-52); Hemoglobin 9.9 g/dL (14.0-18.0); Immature Granulocytes # (auto) 0.02 K/uL (0.00-0.02); Immature Granulocytes % (auto) 0.6 %; Lymphocytes # (auto) 0.57 K/uL (1.2-3.4); Mean Corpuscular Hemoglobin 30.1 pg (25-34); Mean Corpuscular Hgb Conc 32.1 g/dL (32-36); Mean Corpuscular Volume 93.6 fL (80-100); Mean Platelet Volume 9.5 fL (7.4-10.4); Monocytes # (auto) 0.27 K/uL (0.11-0.59); Monocytes % (auto) 8.5 %; Neutrophils # (auto) 2.18 K/uL (1.4-6.5); Neutrophils % (auto) 68.8 %; Platelet Count 118 K/uL (130-400); RDW Coefficient of Variation 14.5 % (11.5-14.5); RDW Standard Deviation 49.8 fL (36.4-46.3); Red Blood Count 3.29 M/uL (4.7-6.1); White Blood Count 3.17 K/uL (4.8-10.8)
[2021-02-01 07:38] LABS: Albumin Level 2.4 gm/dl (3.4-5.0); BUN Creatinine Ratio 23.9 (10-20); Bilirubin Direct 0.2 mg/dl (0-0.2); Bilirubin,Total 0.5 mg/dl (0.2-1); Calcium 7.7 mg/dl (8.5-10.1); Creatinine Clr Calc Pharmacy 128.9 ml/min; Est GFR (African American) 123.1; Est GFR (Non-African American) 106.2; Magnesium 1.8 mg/dl (1.8-2.4); Phosphorus 1.8 mg/dl (2.5-4.9); Potassium 2.5 mmol/L (3.5-5.1); Total Protein 5.5 gm/dl (6.4-8.2)
[2021-02-01] MEDS: POTASSIUM CHLORIDE 40 MEQ in DEXTROSE 5% 1,000 ML IV SCH ×2 (08:48→20:50)
[2021-02-01] MEDS: POTASSIUM CHLORIDE / WTR 10 MEQ/100 ML PLCT IV SCH ×2 (08:48→09:56)
[2021-02-01] MEDS ORDERED: POTASSIUM PHOS 3 MMOL/1 ML INFUSION IV STA (10:09)
[2021-02-01] MEDS ORDERED: POTASSIUM PHOSPHATE 21 MMOL in SODIUM CHLORIDE 0.9% 500 ML IV ONE (10:30)
[2021-02-01] MEDS: METOPROLOL TARTRATE 25 MG TAB PO SCH ×2 (10:35→20:36)
[2021-02-01] MEDS: LUBIPROSTONE 8 MCG CAP PO SCH ×2 (10:35→20:37)
[2021-02-01] MEDS: OXcarbazepine 150 MG TABLET PO SCH ×2 (10:36→20:38)
[2021-02-01] MEDS: CYANOCOBALAMIN 500 MCG TABLET (VITAMIN B-12) PO SCH (10:36)
[2021-02-01] MEDS: BACLOFEN 10 MG TAB PO SCH ×2 (10:37→20:42)
--- NOTE | 2021-02-01 14:31 | Hospitalist Progress Note ---
Date of Service February 01, 2021 Assessment & Plan (1) Gram negative septicemia: ESBL bacteremia with UTI as source from urinary retention Initially with hypotension minimally responsive to IV fluid resuscitation with 3 L in ER Central line placed in the right IJ, started Levophed in ER with septic shock however weaned off Levophed very quickly. Sepsis no longer present. Vieira catheter placed in the ER and should remain custodial as per Urology - Continue IV meropenem for ESBL Klebsiella - repeat BCxs-NG 48 hours - appreciate ID consult - continue meropenem for total course 14 days from 01/30 (last day February 12). May switch to ertapenem on discharge. (2) Hypernatremia: Secondary to poor oral intake Improving with D5W. Will consult palliative care for possible goals. may be contributing to his encephalopathy (3) Acute metabolic encephalopathy: Secondary to sepsis with shock, UTI initially Was much improved on 01/30 after being obtunded on admission, however on 01/31 mixing up words in speech, lethargic and irritable - continues to refuse medications. Correctable causes include hypernatremia and possible overflow diarrhea. Consult palliative care for assistance in determining goals as if he continues not to have inadequate oral intake will likely need to be discharged on palliative as will develop hypernatremia relatively quickly once discharged. (4) UTI (urinary tract infection) due to urinary indwelling Vieira catheter: As above (5) Diabetic ulcer of right heel: Unstageable. Wound care nurse consult [place]im[place] with betadine daily Follow up with wound care clinic Consider outpatient MRI but given ESBL blood and urine cultures current sepsis from urine source rather than osteomyelitis. (6) Diabetic ulcer of right foot: As above ordered Kngroo (7) Hypokalemia: Potassium 2.9 on admission, current K 2.5 on AM labs KCl 20 meq IV + 40 meq in IV fluids + K Phos 21mmol -HOLD lasix po which he has not taken anyway (8) Murmur, cardiac: Grossly normal mitral valve on TTE. No current murmur on exam. 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 and current ESBL Klebsiella (10) Flexion contractures: Causing him to have bedbound status, this is for unknown reasons, is no history of stroke, has been nonambulatory and bedbound for many years at the custodial At risk for pressure ulcers as he does have these above -continue home baclofen, T#3 prn, Pamelor if will take po (11) Hyperlipidemia: continue statin (12) BPH w urinary obs/LUTS: With numerous failures of trials of void throughout hospitalization and at the present Had 1200 mL returned upon placement of Vieira catheter here Never followed up with urology since last admission and was supposed to have outpatient cystoscopy Consult urology this admission again for further evaluation for management- recommends eventual SP catheter once infection cleared vs prophylactic rotating abx/ID evaluation dc'd Flomax as will always have Vieira (13) Hypertension: Hypotensive as above on admission, now improved Now with mild tachycardia as not taking po metoprolol continue metoprolol, hold furosemide for dehydration and hypokalemia (14) Seizure disorder: No concern for seizure at this time continue home oxcarbazepine if will take Seizure precautions (15) Major depressive disorder: continue nortriptyline (16) Constipation: Constant brown fluid BM. Will get XR KUB to assess whether overflow diarrhea and constipation impacting overall confusion. (17) DVT prophylaxis: Karol, SCDs Disposition - can transfer to med/tele. Consult palliative to establish goals of care with complicated patient. Eventually back to custodial. As per custodial records, they are working on a transfer to [facility] which is more like LTACH/SNF care for prisoners Admission and Anticipated Discharge Date Admission Date: January 29, 2021 Subjective Patient is unsure why he is in hospital. Appears to be calmer than yesterday and not yelling out. Notably having a lot of bowel movements whenever he is moved, brown and loose. No nausea, vomiting or abdominal pain. Reports he will try to increase his oral intake and take medications as prescribed. Offers no explanation why he has been refusing medication. Review of Systems Review of Systems: All systems reviewed & are unremarkable except as noted in HPI & below Physical Exam Constitutional: + not well nourished and no acute distress Eyes: + anicteric sclerae; normal pupil size ENMT: Ears: no external ear abnormality Nose: no external nose abnormality Mouth: + dry oral mucous membranes Respiratory: normal respiratory effort, lungs clear to auscultation Cardiovascular: RRR, no murmur, no edema Gastrointestinal (Abdomen): Inspection/Auscultation: + abdomen distended (Mild) and normal bowel sounds Percussion/Palpation: + abdomen rigid and abdomen soft; abdomen nontender and no guarding Musculoskeletal: Extremities: no cyanosis and no clubbing Skin: + ulcer (unstageable right heel ulcer without surrounding cellulitis) Neurologic: + focal motor deficit (chronic leg flexion) Motor/Sensory: no tremor Psychiatric: Orientation: alert Eye Contact: + fair eye contact Genitourinary: no CVA tenderness Indwelling vieira catheter present Lymphatic: no lymphedema Results & Data Results & Data ([facility]) Vital Signs (Past 12 Hours) Vital Signs Temp Pulse Pulse Resp BP Pulse Ox 02/01/21 13:36 101 H 02/01/21 12:48 37.2 C 97 H 20 111/63 99 02/01/21 08:00 101 H 02/01/21 07:00 36.5 C 88 16 137/62 93 02/01/21 03:48 36.4 C L 82 20 138/82 PG Care Time/CCT Total # of Minutes Spent Total Time Spent with Patient: Total time spent is greater than 50% in coordination of care (as documented) at patient's floor/unit and/or counseling patient: Coding Level of Care Code 11499 Subseq Hosp Care Lvl 3 Diagnoses Gram negative septicemia A41.50 Hypernatremia E87.0 Acute metabolic encephalopathy G93.41 UTI (urinary tract infection) due to urinary indwelling Vieira catheter T83.511A; N39.0 Diabetic ulcer of right heel E11.621; L97.419 Diabetic ulcer of right foot E11.621; L97.519 Hypokalemia E87.6 Murmur, cardiac R01.1 COVID-19 U07.1 Flexion contractures M24.50 Hyperlipidemia E78.5 BPH w urinary obs/LUTS N40.1; N13.8 Hypertension I10 Seizure disorder G40.909 Major depressive disorder F32.9 Constipation K59.00 DVT prophylaxis Z29.9
--- NOTE | 2021-02-01 14:38 | XCELERA ---
[id number]
[2021-02-01] MEDS: ENOXAPARIN INJ 40 MG/0.4 ML SYR SQ SCH (15:33)
--- NOTE | 2021-02-01 15:40 | XRay Report ---
KUB CLINICAL HISTORY: Fecal impaction. FINDINGS: 2 AP, portable, supine abdominal radiographs are correlated with abdominal CT dated 11/11/19 21. There is a nonobstructed abdominal bowel gas pattern. There is rectosigmoid fecal impaction and m oderate to severe constipation. No evidence of intraperitoneal free air is seen on these supine image s. There are no abnormal abdominal calcifications. Vascular calcifications are noted in the pelvis. T he skeletal structures are osteopenic and appear intact. There is moderate lumbosacral spondylosis. IMPRESSION: Rectosigmoid fecal impaction and moderate to severe constipation. Electronically signed by: Ras Briones M.D. 02/01/2021 3:39 PM
--- NOTE | 2021-02-01 17:36 | Palliative Care Consultation ---
Date of Consultation February 01, 2021 Assessment & Plan (1) Palliative care encounter: This patient is a 65 year old male who presented to the [facility] from [facility] with urosepsis. He was in the ICU and received Levophed. It is suspected that his sepsis presentation is related to the open wounds he has on his feet. His urine did return gram negative ESBL. He did have COVID in October 2020, but continues to be positive, but it does not appear that he has an acute active infection. Urology has seen and evaluated this patient and he was noted to be a poor surgical candidate and was deemed unlikely to tolerate a TURP. chronic catheter or superior pubic cath could be considered. Additional PMH includes: urinary retention, HTN, seizure disorder, BPH, Diabetes and HLD. This man has been progressively weaker over the past few years and has developed contractures, leaving him bedbound. Ultimately, Palliative Medicine was consulted to discuss overall goals of care. I met with the patient and two guards in room 251. Pt was awake, alert, and able to have full oriented conversation with me. I asked him some questions regarding his history. He said that his lower extremity contractures have been present for the past 3 years, presumably due to weakness. It does not appear this is fully understood. I did discuss with him his current hospitalization and the chronic illness related to his urinary retention. It was difficult to have conversation with Mr. Shukla as he would not stay focused on the topics presented. We discussed code status and when describing the differences between Full Code and DNR/DNI, he just said "well that sounds bad", but couldn't elaborate more. Pt to remain a FULL CODE at this time. He was fixated on telling me that he doesnt like to be turned and its painful. Advised we could consider premedicating with turns and see if that is helpful.Pt does have Tylenol ordered PRN, could see if this is helpful. I brought up him choosing a decision maker and he said "I want it to be you" pointing at me. I redirected him to choosing a friend or next of kin. He said he does have a brother, Jamin, that was incarcerated at the same time as him. He was unable to tell me what his goals are. I am unsure if this was due to just meeting me, or if there is an underlying confusion or psych component to consider. I did discuss the above with Case Management who will reach out to [facility] tomorrow and gain information to see if we are able to reach out to his brother, Jamin, or not. Will have to reassess. Palliative will follow. (2) Gram negative septicemia: (3) Diabetic ulcer of right foot: (4) Weakness: History of Present Illness Reason for Consultation: Goals of care Requesting Physician: Dr. Rey Attending Physician: Rohit Rey MD History of Present Illness This patient is a 65 year old male who presented to the [facility] from [facility] with urosepsis. He was in the ICU and received Levophed. It is suspected that his sepsis presentation is related to the open wounds he has on his feet. His urine did return gram negative ESBL. He did have COVID in October 2020, but continues to be positive, but it does not appear that he has an acute active infection. Urology has seen and evaluated this patient and he was noted to be a poor surgical candidate and was deemed unlikely to tolerate a TURP. chronic catheter or superior pubic cath could be considered. Additional PMH includes: urinary retention, HTN, seizure disorder, BPH, Diabetes and HLD. This man has been progressively weaker over the past few years and has developed contractures, leaving him bedbound. Ultimately, Palliative Medicine was consulte d to discuss overall goals of care. Please see A/P for further details. Thanks for involving palliative medicine with this unfortunate individual. Allergies Allergy/AdvReac Type Severity Reaction Status Date / Time daptomycin Allergy Rash Verified 01/29/21 11:52 Home Medications Medication Instructions Recorded Confirmed Type cyanocobalamin (vitamin B-12) 500 mcg PO QAM 11/11/20 01/29/21 History [Vitamin B-12] lubiprostone [Amitiza] 24 mcg PO BID 11/11/20 01/29/21 History metoprolol tartrate 50 mg PO BID 11/11/20 01/29/21 History oxcarbazepine 600 mg PO BID 11/11/20 01/29/21 History rosuvastatin 10 mg PO HS 11/11/20 01/29/21 History tamsulosin [Flomax] 0.4 mg PO HS 11/11/20 01/29/21 History nortriptyline 25 mg PO HS 12/04/20 01/29/21 History nortriptyline 75 mg PO HS 12/04/20 01/29/21 History acetaminophen-codeine 1 tab PO BID 01/29/21 01/29/21 History ammonium lactate 1 applic TOPICAL BID 01/29/21 01/29/21 History baclofen 5 mg PO BID 01/29/21 01/29/21 History furosemide 20 mg PO DAILY 01/29/21 01/29/21 History Patient History Medical History Adjustment disorder with anxious mood Anemia BPH w urinary obs/LUTS Chronic hepatitis C Congestive heart failure Constipation Diverticulosis Dysthymia Elevation of cardiac enzymes Flexion contractures Gait abnormality GERD (gastroesophageal reflux disease) Hemorrhoids History of endocarditis Hyperlipidemia Hypertension Insomnia Low back pain Major depressive disorder Major depressive disorder with psychotic features Morbilliform rash Murmur, cardiac Onychomycosis Peripheral vascular disease Rhinitis, allergic Seizure disorder Tinea unguium Urinary retention Weakness Family History Other Family history non-contributory Social History Smoking Status: Former smoker Tobacco Type: Cigarettes Hx Alcohol Use: No Preferred Language: Latvian Communication Ability: Impaired Staff Trainer Required: No Beliefs That Will Affect Care: None Current Living Situation: Other Current Living Situation Comment: Prisoner at [facility] Feels Safe at Home: Declines to Answer Assistive Devices: None Review of Systems Review of Systems: Marlow System assessment Scale: Pain: 1/3 Nausea: 0/3 Shortness of Breath: 0/3 Anxiety: 1/3 Tiredness: 0/3 Palliative Performance Scale: 30% Physical Exam Constitutional: + frail appearing, cooperative and comfortable; no acute dis tress ENMT: external ear and nose normal, oropharynx normal Neck: trachea midline, no thyromegaly Cardiovascular: Rate/Rhythm: regular rate and regular rhythm Gastrointestinal (Abdomen): normal bowel sounds, soft, nontender, no hepatosplenomegaly Musculoskeletal: lower extremity contractures Skin: no rashes, warm and dry + dry skin and + pallor Psychiatric: Orientation: alert and oriented x 3 Insight: + limited insight Judgement: + limited judgement Results & Data ([facility]) Vital Signs (Past 12 Hours) Vital Signs Temp Pulse Pulse Resp BP Pulse Ox 02/01/21 14:52 99 H 02/01/21 14:33 36.6 C 94 H 20 128/83 98 02/01/21 13:36 101 H 02/01/21 12:48 37.2 C 97 H 20 111/63 99 02/01/21 08:00 101 H 02/01/21 07:00 36.5 C 88 16 137/62 93 PG Care Time/CCT Total # of Minutes Spent Total Time Spent with Patient: Total time spent is greater than 50% in coordination of care (as documented) at patient's floor/unit and/or counseling patient: 70 minutes with > 50% of that time spent assessing the patient, discussing goals of care and collaborating with IDT Coding Level of Care Code 46889 Inpt Consult Level 3 Diagnoses Palliative care encounter Z51.5 Gram negative septicemia A41.50 Diabetic ulcer of right foot E11.621; L97.519 Weakness R53.1 Time Spent (min) 70
[2021-02-01] MEDS: ROSUVASTATIN CALCIUM 10 MG TAB PO SCH (20:37)
[2021-02-01] MEDS: NORTRIPTYLINE HCL 25 MG CAP PO SCH ×2 (20:38)
[2021-02-01] MEDS: POLYETHYLENE (MIRALAX) 17 GM PACK PO SCH (20:40)
[2021-02-02] MEDS: MEROPENEM 500 MG in SYRINGE 0 ML IV SCH ×5 (02:15→20:16)
[2021-02-02 06:32] LABS: BUN Creatinine Ratio 24.5 (10-20); Calcium 7.5 mg/dl (8.5-10.1); Creatinine Clr Calc Pharmacy 152.1 ml/min; Est GFR (African American) 131.8; Est GFR (Non-African American) 113.7; Phosphorus 1.8 mg/dl (2.5-4.9); Potassium 3.1 mmol/L (3.5-5.1)
[2021-02-02] MEDS: POTASSIUM CHLORIDE 40 MEQ in DEXTROSE 5% 1,000 ML IV SCH ×2 (09:20→22:53)
[2021-02-02] MEDS: LUBIPROSTONE 8 MCG CAP PO SCH ×2 (09:21→20:27)
[2021-02-02] MEDS: METOPROLOL TARTRATE 25 MG TAB PO SCH ×2 (09:21→20:28)
[2021-02-02] MEDS: OXcarbazepine 150 MG TABLET PO SCH ×2 (09:22→20:32)
[2021-02-02] MEDS: CYANOCOBALAMIN 500 MCG TABLET (VITAMIN B-12) PO SCH (09:23)
[2021-02-02] MEDS: POLYETHYLENE (MIRALAX) 17 GM PACK PO SCH ×3 (09:24→20:37)
[2021-02-02] MEDS: BACLOFEN 10 MG TAB PO SCH ×2 (09:28→20:26)
--- NOTE | 2021-02-02 13:50 | XRay Report ---
XR ankle RT 2V HISTORY: 65 years-old Male non-healing right heel ulcer ?osteomyelitis chronic ulcer of the right hi ndfoot COMPARISON: None TECHNIQUE: 2 views of the right ankle FINDINGS: Arterial calcifications. Marginal spurring of the calcaneus. Mild tibiotalar and midfoot osteoarthrit is. Soft tissue swelling of the heel pad. Fracture, dislocation or osseous erosion identified. IMPRESSION: No acute fracture or osseous erosion to suggest osteomyelitis. ACT 112: Negative or not required by law. The above report was generated using voice recognition software. It may contain grammatical, syntax o r spelling errors. Electronically signed by: Brian Caban M.D. 02/02/2021 1:49 PM
[2021-02-02] MEDS: POT PHOSPHATE MONOBASIC W/ SOD TAB PO SCH ×3 (14:06→20:38)
[2021-02-02] MEDS: ENOXAPARIN INJ 40 MG/0.4 ML SYR SQ SCH (14:06)
--- NOTE | 2021-02-02 14:19 | Ultrasound Report ---
RIGHT LOWER EXTREMITY ARTERIAL DOPPLER ULTRASOUND CLINICAL HISTORY: non-healing heel ulcer COMPARISON STUDY: No previous studies for comparison. TECHNIQUE: Ankle to brachial indices were obtained. Grayscale, color and duplex Doppler sonography of the arterial system of the right lower extremity was performed. FINDINGS: Right ankle to brachial index measured 1.15 when using posterior tibial artery and 1.19 whe n using the dorsalis pedis. The left ankle to brachial index measured 1.03 when using posterior tibia l artery and 1.19 when using the dorsalis pedis. No elevated velocities were identified within the ri ght lower extremity. Mild atherosclerotic plaque was noted. Note was made of triphasic flow within th e right common femoral, superficial femoral and popliteal arteries. There was also triphasic flow wit hin the right posterior tibial and anterior tibial arteries. There is monophasic flow within the righ t peroneal artery. There is triphasic flow within the right dorsalis pedis. IMPRESSION: 1. Normal bilateral ankle to brachial indices. 2. Mild atherosclerotic plaque within the right lower extremity without evidence for a hemodynamicall y significant stenosis. ACT 112: Negative or not required by law. Electronically signed by: Grayson Phillips M.D. 02/02/2021 2:17 PM
--- NOTE | 2021-02-02 19:39 | Hospitalist Progress Note ---
Date of Service February 02, 2021 Assessment & Plan (1) Gram negative septicemia: ESBL bacteremia with UTI as source from urinary retention Initially with hypotension minimally responsive to IV fluid resuscitation with 3 L in ER Central line placed in the right IJ, started Levophed in ER with septic shock however weaned off Levophed very quickly. Sepsis no longer present. Pinedo catheter placed in the ER and should remain mcc as per Urology - Continue IV meropenem for ESBL Klebsiella - repeat BCxs-NG 48 hours - appreciate ID consult - continue meropenem for total course 14 days from 01/30 (last day February 12). May switch to ertapenem on discharge. Will get US arterial doppler and ankle XR today to assess for osteomyelitis as this may change medical management even though he is unlikely surgical candidate. MRI ankle can likely be performed on outpatient basis if ankle XR does not show osteomyelitis. (2) Hypernatremia: Secondary to poor oral intake Resolved with D5W, however I suspect this will return quickly once discontinued and the patient will bounce back to hospital. Appreciate palliative consult for this difficult patient. (3) Acute metabolic encephalopathy: Secondary to sepsis with shock, UTI initially Was much improved on 01/30 after being obtunded on admission, however on 01/31 mixing up words in speech, lethargic and irritable - now taking his medications and oral intake improved. Can likely stop D5W tomorrow after potassium corrects and hopefully oral intake will continue to improve with constipation management. Correctable causes include hypernatremia and possible overflow diarrhea. Appreciate palliative care (4) UTI (urinary tract infection) due to urinary indwelling Pinedo catheter: As above (5) Diabetic ulcer of right heel: Unstageable. Wound care nurse consult [place] with Betadine daily Follow up with wound care clinic Consider outpatient MRI but given ESBL blood and urine cultures current sepsis from urine source rather than osteomyelitis. Ankle XR and US arterial doppler today. (6) Diabetic ulcer of right foot: As above ordered Aquacel Ag No surrounding cellulitis (7) Hypokalemia: Potassium 2.9 on admission, current K 3.1 on AM labs KCl 20 meq IV + 40 meq in IV fluids + K Phos tablets QID - Continue to hold lasix. (8) Murmur, cardiac: Grossly normal mitral valve on TTE. No current murmur on exam. 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 and current ESBL Klebsiella (10) Flexion contractures: Causing him to have bedbound status, this is for unknown reasons, is no history of stroke, has been nonambulatory and bedbound for many years at the snf At risk for pressure ulcers as he does have these above -continue home baclofen, T#3 prn, Pamelor if will take po (11) Hyperlipidemia: continue statin (12) BPH w urinary obs/LUTS: With numerous failures of trials of void throughout hospitalization and at the present Had 1200 mL returned upon placement of Pinedo catheter here Never followed up with urology since last admission and was supposed to have outpatient cystoscopy Consult urology this admission again for further evaluation for management- recommends eventual SP catheter once infection cleared vs prophylactic rotating abx/ID evaluation dc'd Flomax as will always have Pinedo (13) Hypertension: Hypotensive as above on admission, now improved Continue metoprolol, hold furosemide for dehydration and hypokalemia (14) Seizure disorder: No concern for seizure at this time continue home oxcarbazepine if will take Seizure precautions (15) Major depressive disorder: continue nortriptyline (16) Constipation: Having overflow diarrhea. Large BM with enema yesterday. Repeat XR KUB tomorrow to assess for resolution of fecal loading. Continue Amitiza (17) DVT prophylaxis: Lovenox, SCDs Disposition. Consult palliative to establish goals of care with complicated patient. Eventually back to snf. As per snf records, they are working on a transfer to [facility] [place] which is more like LTACH/SNF care for prisoners Admission and Anticipated Discharge Date Admission Date: January 29, 2021 Subjective Still not eating much by report. Had a large BM after enema yesterday. Knows he is in hospital but unknown which one. Orientated to person but not date. Not particularly aware of his multiple medical conditions. Review of Systems Review of Systems: All systems reviewed & are unremarkable except as noted in HPI & below Physical Exam Constitutional: + not well nourished and no acute distress Eyes: + anicteric sclerae; normal pupil size ENMT: Ears: no external ear abnormality Nose: no external nose abnormality Mouth: + dry oral mucous membranes Neck: trachea midline Respiratory: normal respiratory effort, lungs clear to auscultation Cardiovascular: RRR, no murmur, no edema Gastrointestinal (Abdomen): Inspection/Auscultation: + abdomen distended (Mild) and normal bowel sounds Percussion/Palpation: + abdomen rigid and abdomen soft; abdomen nontender and no guarding Musculoskeletal: Extremities: no cyanosis and no clubbing Skin: + ulcer (unstageable right heel ulcer without surrounding cellulitis) Neurologic: + focal motor deficit (chronic leg flexion) Motor/Sensory: no tremor Psychiatric: Orientation: alert Eye Contact: + fair eye contact Genitourinary: no CVA tenderness Lymphatic: no lymphedema Results & Data Results & Data ([facility]) Vital Signs (Past 12 Hours) Vital Signs Temp Pulse Pulse Resp BP Pulse Ox 02/02/21 19:36 36.4 C L 89 16 113/78 100 02/02/21 15:49 36.6 C 92 H 18 102/69 100 02/02/21 11:19 36.5 C 105 H 18 122/79 97 02/02/21 08:04 36.8 C 99 H 18 108/72 99 02/02/21 08:00 97 H PG Care Time/CCT Total # of Minutes Spent Total Time Spent with Patient: Total time spent is greater than 50% in coordination of care (as documented) at patient's floor/unit and/or counseling patient: Coding Level of Care Code 24708 Subseq Hosp Care Lvl 2 Diagnoses Gram negative septicemia A41.50 Hypernatremia E87.0 Acute metabolic encephalopathy G93.41 UTI (urinary tract infection) due to urinary indwelling Pinedo catheter T83.511A; N39.0 Diabetic ulcer of right heel E11.621; L97.419 Diabetic ulcer of right foot E11.621; L97.519 Hypokalemia E87.6 Murmur, cardiac R01.1 COVID-19 U07.1 Flexion contractures M24.50 Hyperlipidemia E78.5 BPH w urinary obs/LUTS N40.1; N13.8 Hypertension I10 Seizure disorder G40.909 Major depressive disorder F32.9 Constipation K59.00 DVT prophylaxis Z29.9
[2021-02-02] MEDS: NORTRIPTYLINE HCL 25 MG CAP PO SCH ×2 (20:30)
[2021-02-02] MEDS: ROSUVASTATIN CALCIUM 10 MG TAB PO SCH (20:35)
[2021-02-03] MEDS: MEROPENEM 500 MG in SYRINGE 0 ML IV SCH ×4 (01:28→20:36)
[2021-02-03 06:34] LABS: BUN Creatinine Ratio 17.5 (10-20); Calcium 7.6 mg/dl (8.5-10.1); Creatinine Clr Calc Pharmacy 158.4 ml/min; Est GFR (Non-African American) 115.6; Phosphorus 2.1 mg/dl (2.5-4.9); Potassium 3.5 mmol/L (3.5-5.1)
[2021-02-03] MEDS: POLYETHYLENE (MIRALAX) 17 GM PACK PO SCH ×3 (08:40→20:43)
[2021-02-03] MEDS: METOPROLOL TARTRATE 25 MG TAB PO SCH ×2 (08:40→20:37)
[2021-02-03] MEDS: LUBIPROSTONE 8 MCG CAP PO SCH ×2 (08:40→20:37)
[2021-02-03] MEDS: OXcarbazepine 150 MG TABLET PO SCH ×2 (08:40→20:38)
[2021-02-03] MEDS: CYANOCOBALAMIN 500 MCG TABLET (VITAMIN B-12) PO SCH (08:40)
[2021-02-03] MEDS: BACLOFEN 10 MG TAB PO SCH ×2 (08:46→20:37)
[2021-02-03] MEDS: POT PHOSPHATE MONOBASIC W/ SOD TAB PO SCH ×4 (08:49→20:38)
[2021-02-03] MEDS: POTASSIUM CHLORIDE 40 MEQ in DEXTROSE 5% 1,000 ML IV SCH (11:06)
--- NOTE | 2021-02-03 13:18 | Hospitalist Progress Note ---
Date of Service February 03, 2021 Assessment & Plan (1) Gram negative septicemia: ESBL bacteremia with UTI as source from urinary retention Initially with hypotension minimally responsive to IV fluid resuscitation with 3 L in ER Central line placed in the right IJ, started Levophed in ER with septic shock however weaned off Levophed very quickly. Sepsis no longer present. Pinedo catheter placed in the ER and should remain long-term as per Urology - Continue IV meropenem for ESBL Klebsiella while in hospital - repeat BCxs-NG to date - appreciate ID consult - continue meropenem for total course 14 days from 01/30 (last day February 12). May switch to ertapenem on discharge again with last date of treatment being 02/12. -US arterial doppler and ankle XR negative for PAD and osteomyelitis, respectively Do not suspect osteomyelitis at this time Continue local wound care for wounds PICC line consent obtained (2) Hypernatremia: Secondary to poor oral intake-now resolved Resolved with D5W, however I suspect this will return quickly once discontinued and the patient will bounce back to hospital. Appreciate palliative consult for this difficult patient. (3) Acute metabolic encephalopathy: Secondary to sepsis with shock, UTI initially Was much improved on 01/30 after being obtunded on admission, however on 01/31 mixing up words in speech, lethargic and irritable possibly due to withdrawal from baclofen - now taking his medications and oral intake improved. Significantly improved- back to baseline as I have taken care of him many times in the past Correctable causes include hypernatremia and possible overflow diarrhea. Appreciate palliative care (4) UTI (urinary tract infection) due to urinary indwelling Pinedo catheter: As above (5) Diabetic ulcer of right heel: Unstageable. Wound care nurse consult [place] with Betadine daily Follow up with wound care clinic Consider outpatient MRI but given ESBL blood and urine cultures current sepsis from urine source rather than osteomyelitis. (6) Diabetic ulcer of right foot: As above ordered Aquacel Ag No surrounding cellulitis (7) Hypokalemia: Now resolved after replacement Continue with potassium phosphate p.o. 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 Klebsiella (10) Flexion contractures: Causing him to have bedbound status, this is for unknown reasons, is no history of stroke, has been nonambulatory and bedbound for many years at the senior care At risk for pressure ulcers as he does have these above -continue home baclofen, T#3 prn, Pamelor (11) Hyperlipidemia: continue statin (12) BPH w urinary obs/LUTS: With numerous failures of trials of void throughout hospitalization and at the present Had 1200 mL returned upon placement of Pinedo catheter here Never followed up with urology since last admission and was supposed to have outpatient cystoscopy Consult urology this admission again for further evaluation for management- recommends eventual SP catheter once infection cleared vs prophylactic rotating abx/ID evaluation dc'd Flomax as will always have Pinedo Needs follow-up appointment with urology after discharge Infectious disease did not recommend prophylactic antibiotics (13) Hypertension: Hypotensive as above on admission, now improved Continue metoprolol, hold furosemide for dehydration and hypokalemia (14) Seizure disorder: No concern for seizure at this time continue home oxcarbazepine Seizure precautions (15) Major depressive disorder: continue nortriptyline (16) Constipation: Having overflow diarrhea. Large BM with enema on 02/01 Continue Amitiza (17) DVT prophylaxis: Lovenox, SCDs Disposition. Consult palliative to establish goals of care with complicated patient. Eventually back to senior care-hopefully tomorrow if they can get the IV ertapenem ordered in. As per senior care records, they are working on a transfer to [facility] which is more like LTACH/SNF care for prisoners Admission and Anticipated Discharge Date Admission Date: January 29, 2021 Subjective Patient has no complaints. He feels very well. He denies any pain except when his legs are moved which is chronic. He is eating and drinking well. He had his oliva shaved off and I barely recognized him. He states "I do not know when that happened." He remains afebrile. I discussed informed consent for PICC line with him and he stated "I know that sheet (referencing the informed consent) from top to bottom." Telemetry with normal sinus rhythm, rates in the 90s to 100s, first-degree AV block Review of Systems Review of Systems: All systems reviewed & are unremarkable except as noted in HPI & below Physical Exam Constitutional: average body habitus; no acute distress Eyes: + anicteric sclerae ENMT: Nose: no external nose abnormality Neck: trachea midline, no thyromegaly Respiratory: normal respiratory effort, lungs clear to auscultation normal respiratory effort Cardiovascular: RRR, no murmur, no edema Chest (Breasts): Chest: normal inspection of chest Gastrointestinal (Abdomen): Inspection/Auscultation: + abdomen distended (Mild, chronic for him) and normal bowel sounds Percussion/Palpation: abdomen soft Musculoskeletal: Extremities: no cyanosis and no clubbing Skin: no rashes, warm and dry Neurologic: + focal motor deficit (Cannot extend legs) Psychiatric: Orientation: alert and oriented x 3 Genitourinary: no penis abnormality (Pinedo in place with clear yellow urine) Lymphatic: no lymphedema Results & Data Results & Data ([facility]) Vital Signs (Past 12 Hours) Vital Signs Temp Pulse Pulse Resp BP Pulse Ox 02/03/21 09:00 75 02/03/21 07:42 36.5 C 78 18 121/79 99 02/03/21 04:15 36.1 C L 90 16 105/69 97 Laboratory Results 02/03/21 Range/Units 05:40 Sodium 138 (136-145) mmol/L Potassium 3.5 (3.5-5.1) mmol/L Chloride 105 (98-107) mmol/L Carbon Dioxide 28 (21-32) mmol/L Anion Gap 5.0 (3-11) BUN 8 (7-18) mg/dl Creatinine 0.48 L (0.6-1.4) mg/dl Est Cr Clr Drug Dosing 158.4 ml/min Est GFR ( Amer) 134.0 Est GFR (Non-Af Amer) 115.6 BUN/Creatinine Ratio 17.5 (10-20) Glucose 116 H (70-99) mg/dl Calcium 7.6 L (8.5-10.1) mg/dl Phosphorus 2.1 L (2.5-4.9) mg/dl PG Care Time/CCT Total # of Minutes Spent Total Time Spent with Patient: Total time spent is greater than 50% in coordination of care (as documented) at patient's floor/unit and/or counseling patient: Coding Level of Care Code 04330 Subseq Hosp Care Lvl 2 Diagnoses Gram negative septicemia A41.50 Hypernatremia E87.0 Acute metabolic encephalopathy G93.41 UTI (urinary tract infection) due to urinary indwelling Pinedo catheter T83.511A; N39.0 Diabetic ulcer of right heel E11.621; L97.419 Diabetic ulcer of right foot E11.621; L97.519 Hypokalemia E87.6 Murmur, cardiac R01.1 COVID-19 U07.1 Flexion contractures M24.50 Hyperlipidemia E78.5 BPH w urinary obs/LUTS N40.1; N13.8 Hypertension I10 Seizure disorder G40.909 Major depressive disorder F32.9 Constipation K59.00 DVT prophylaxis Z29.9
[2021-02-03] MEDS: ENOXAPARIN INJ 40 MG/0.4 ML SYR SQ SCH (17:26)
[2021-02-03] MEDS: NORTRIPTYLINE HCL 25 MG CAP PO SCH ×2 (20:37→20:38)
[2021-02-03] MEDS: ROSUVASTATIN CALCIUM 10 MG TAB PO SCH (20:38)
--- NOTE | 2021-02-03 21:10 | XRay Report ---
KUB CLINICAL HISTORY: Fecal impaction. FINDINGS: 2 AP, portable, supine abdominal radiographs are compared to study dated 02/01/2021 and anant elated with abdominal CT dated 11/11/2020. There is a nonobstructed abdominal bowel gas pattern. There is moderate to severe constipation. No evidence of intraperitoneal free air is seen on these supine images. There are no abnormal abdominal calcifications. Vascular calcifications are noted in the pelv is. The skeletal structures are osteopenic and appear intact. There is moderate lumbosacral spondylos is. IMPRESSION: 1. Moderate to severe constipation persists. 2. The volume of stool within the rectosigmoid colon appears decreased from previous. Electronically signed by: Ras Briones M.D. 02/03/2021 9:09 PM
[2021-02-04] MEDS: MEROPENEM 500 MG in SYRINGE 0 ML IV SCH ×2 (02:07→09:50)
[2021-02-04 06:09] LABS: Basophils # (auto) 0.03 K/uL (0-0.2); Basophils % (auto) 0.6 %; Eosinophils % (auto) 4.3 %; Hematocrit (blood only) 30.5 % (42-52); Hemoglobin 10.1 g/dL (14.0-18.0); Immature Granulocytes # (auto) 0.07 K/uL (0.00-0.02); Immature Granulocytes % (auto) 1.5 %; Lymphocytes # (auto) 1.11 K/uL (1.2-3.4); Lymphocytes % (auto) 23.8 %; Mean Corpuscular Hgb Conc 33.1 g/dL (32-36); Mean Corpuscular Volume 90.5 fL (80-100); Mean Platelet Volume 9.6 fL (7.4-10.4); Monocytes # (auto) 0.45 K/uL (0.11-0.59); Monocytes % (auto) 9.6 %; Neutrophils # (auto) 2.81 K/uL (1.4-6.5); Neutrophils % (auto) 60.2 %; Platelet Count 119 K/uL (130-400); RDW Coefficient of Variation 14.4 % (11.5-14.5); RDW Standard Deviation 47.8 fL (36.4-46.3); Red Blood Count 3.37 M/uL (4.7-6.1); White Blood Count 4.67 K/uL (4.8-10.8)
[2021-02-04 06:38] LABS: Alanine Aminotransferase 55 U/L (12-78); Albumin Globulin Ratio 0.8 (0.9-2); Albumin Level 2.2 gm/dl (3.4-5.0); Alkaline Phosphatase 113 U/L (45-117); Aspartate Aminotransferase 43 U/L (15-37); BUN Creatinine Ratio 29.3 (10-20); Blood Urea Nitrogen 10 mg/dl (7-18); Calcium 7.8 mg/dl (8.5-10.1); Carbon Dioxide 27 mmol/L (21-32); Chloride 109 mmol/L (98-107); Creatinine Clr Calc Pharmacy 211.2 ml/min; Est GFR (African American) > 150.0 ml/min; Est GFR (Non-African American) 130.2 ml/min; Globulin 2.9 gm/dl (2.5-4.0); Glucose 90 mg/dl (70-99); Magnesium 1.8 mg/dl (1.8-2.4); Potassium 3.5 mmol/L (3.5-5.1); Sodium 140 mmol/L (136-145); Total Protein 5.1 gm/dl (6.4-8.2)
[2021-02-04 06:39] LABS: Bilirubin,Total 0.3 mg/dl (0.2-1); Phosphorus 2.3 mg/dl (2.5-4.9)
[2021-02-04] MEDS: METOPROLOL TARTRATE 25 MG TAB PO SCH (08:59)
[2021-02-04] MEDS: OXcarbazepine 150 MG TABLET PO SCH (08:59)
[2021-02-04] MEDS: POT PHOSPHATE MONOBASIC W/ SOD TAB PO SCH ×2 (08:59→13:43)
[2021-02-04] MEDS: LUBIPROSTONE 8 MCG CAP PO SCH (08:59)
[2021-02-04] MEDS: POLYETHYLENE (MIRALAX) 17 GM PACK PO SCH ×2 (09:00→13:43)
[2021-02-04] MEDS ORDERED: bisacodyL 10 MG SUPP PR SCH (09:00)
[2021-02-04] MEDS: BACLOFEN 10 MG TAB PO SCH (09:02)
[2021-02-04] MEDS: CYANOCOBALAMIN 500 MCG TABLET (VITAMIN B-12) PO SCH (09:50)
--- NOTE | 2021-02-04 13:14 | Discharge Summary ---
Date of Service February 04, 2021 Admission HPI Per Admitting Provider This patient is a 65-year-old male prisoner with a history of intermittent indwelling Pinedo catheter, HTN, flexion contractures and bedbound status, ESBL Klebsiella and VRE Pinedo catheter associated UTIs with sepsis, seizure disorder, hyperlipidemia, chronic constipation, history of mitral valve endocarditis in 2013 who presents to the ER with fever and increased lethargy at the [facility] today. He does have a long history of UTIs and sepsis, however he was also seen at the wound care clinic yesterday and had one of his right foot wounds debrided after it probed to the bone and was noted to have erythema surrounding it with moderate amount of serosanguineous drainage. His right heel wound is covered in eschar and is being pain and with Betadine, well his right lateral ankle wound with 70% improved in size with some surrounding erythema. When I saw him, all he did was moan when his legs were touched, but he would not answer any of my questions. He did open his eyes and look at me from time to time when I shouted his name and touched him. He was unable to give any information. In the ER, a Pinedo catheter was placed and approximately 1200 mL of purulent cloudy urine came out. EMS was contacted and he was given 1 L of IV fluids by EMS on the way here for blood pressures in the 80s systolic, and 2 more liters of IV fluids here in the ER. His blood pressures remained with a MAP less than 65 and he was started on Levophed and had a central line placed. He was febrile in the ER. Lactate was normal, procalcitonin was normal. He was initially given IV cefepime and vancomycin, however after review of his previous cultures, I ordered meropenem and linezolid to cover for his history of previous resistant bacteria. He was hypoxic to 73% and was also placed on 3 L nasal cannula. Chest x-ray was negative for pneumonia. CT of the head was negative for acute issues. CBC showed a leukocytosis of 14,000 with neutrophilia, he was also hypokalemic with potassium 2.9 and this was replaced in the ER with 20 mEq of IV potassium chloride. Renal function was up from baseline but still fairly within normal limits, and LFTs only with mildly elevated alkaline phosphatase. Troponin was negative. Urinalysis was grossly abnormal. His Covid-19 test was also positive, however he has been positive at 3 different times over the last 3 months and is still within 90 days from his initial positive test. It is unclear if he has an ongoing Covid infection, however most likely he does not. He will be admitted to the ICU for UTI and possibly acute osteomyelitis with septic shock requiring vasopressors as well as acute respiratory failure with hypoxia. Principal Diagnosis Gram negative septicemia, UTI, septic shock, acute metabolic encephalopathy Discharge Exam Constitutional average body habitus; no acute distress Eyes + anicteric sclerae ENMT Nose: no external nose abnormality Neck trachea midline, no thyromegaly Respiratory normal respiratory effort, lungs clear to auscultation normal respiratory effort Cardiovascular Rate/Rhythm: regular rate and regular rhythm Heart Sounds: + murmur (3/6 apical holosystolic murmur) Chest (Breasts) Chest: normal inspection of chest Gastrointestinal (Abdomen) Inspection/Auscultation: + abdomen distended (Mild, chronic for him) and normal bowel sounds Percussion/Palpation: abdomen soft Musculoskeletal Extremities: no cyanosis and no clubbing Skin no rashes, warm and dry Neurologic + focal motor deficit (Cannot extend legs) Motor/Sensory: no tremor Psychiatric Orientation: alert, oriented to person, oriented to place and cooperative Genitourinary no penis abnormality (Pinedo in place with clear yellow urine) Lymphatic no lymphedema Discharge Data Allergies Allergy/AdvReac Type Severity Reaction Status Date / Time daptomycin Allergy Rash Verified 01/29/21 11:52 Consultations 01/29/21 12:51 ED Decision to Admit Stat 01/29/21 15:[address] Security Routine Consult Urology Routine 01/30/21 09:36 Consult Infectious Diseases Routine 02/01/21 10:08 Consult Palliative Care Routine Ordered Studies 01/29/21 10:02 CT head/brain wo con Stat 02/02/21 13:00 US arterial duplex LE RT Routine Chest X-Ray 01/29/21 10:01 XR chest 1V portable CLINICAL HISTORY: Sepsis COMPARISON STUDY: 12/04/2020 FINDINGS: The cardiac and mediastinal contours remain stable. There is no failure. There is no lobar consolidation. There are no pleural effusions. There is a suboptimal inspiration with mild bronchovascular crowding the lung bases.[ IMPRESSION: 1. Suboptimal inspiration with mild bronchovascular crowding lung bases 2. No evidence of lobar consolidation. ACT 112: Negative or not required by law. Electronically signed by: Rush Cohen M.D. 01/29/2021 10:[address] 01/29/21 10:02 CT head/brain wo con CLINICAL HISTORY: Acute change in mental status COMPARISON STUDY: December 04, 2020 TECHNIQUE: Axial CT of the brain is performed from the vertex to the skull base. IV contrast was not administered for this examination. A dose lowering technique was utilized adhering to the principles of ALARA. CT DOSE: 691.05 mGy.cm FINDINGS: No intra or extra-axial mass lesions are visualized. There is no CT evidence of acute cortical infarction. There is no evidence of midline shift. There is no acute hemorrhage. No calvarial fractures are visualized. There are patchy white matter hypodensities likely on a small vessel basis. There is no evidence of pathologic ventricular dilatation. There is no evidence of acute sinusitis IMPRESSION: No acute intracranial findings ACT 112: Negative or not required by law. Electronically signed by: Rush Cohen M.D. 01/29/2021 11:11 AM Chest X-Ray 01/29/21 11:58 XR chest 1V portable CLINICAL HISTORY: Chest x-ray status post central line placement COMPARISON STUDY: 01/29/2021 FINDINGS: The cardiac and mediastinal contours remain stable. There has been interval insertion of a right internal jugular central venous catheter. The tip projects at the superior vena cava. There is no pneumothorax. There is no acute parenchymal consolidation.[ IMPRESSION: Interval placement of a right internal jugular central venous catheter. The tip projects over the superior vena cava. There is no pneumothorax. ACT 112: Negative or not required by law. Electronically signed by: Rush Cohen M.D. 01/29/2021 12:56 PM KUB X-Ray 02/01/21 14:24 KUB CLINICAL HISTORY: Fecal impaction. FINDINGS: 2 AP, portable, supine abdominal radiographs are correlated with abdominal CT dated 11/11/2020. There is a nonobstructed abdominal bowel gas pattern. There is rectosigmoid fecal impaction and moderate to severe constipation. No evidence of intraperitoneal free air is seen on these supine images. There are no abnormal abdominal calcifications. Vascular calcifications are noted in the pelvis. The skeletal structures are osteopenic and appear intact. There is moderate lumbosacral spondylosis. IMPRESSION: Rectosigmoid fecal impaction and moderate to severe constipation. Electronically signed by: Ras Briones M.D. 02/01/2021 3:39 PM Ankle X-Ray 02/02/21 11:42 XR ankle RT 2V HISTORY: 65 years-old Male non-healing right heel ulcer ?osteomyelitis chronic ulcer of the right hindfoot COMPARISON: None TECHNIQUE: 2 views of the right ankle FINDINGS: Arterial calcifications. Marginal spurring of the calcaneus. Mild tibiotalar and midfoot osteoarthritis. Soft tissue swelling of the heel pad. Fracture, dislocation or osseous erosion identified. IMPRESSION: No acute fracture or osseous erosion to suggest osteomyelitis. ACT 112: Negative or not required by law. The above report was generated using voice recognition software. It may contain grammatical, syntax or spelling errors. Electronically signed by: Brian Caban M.D. 02/02/2021 1:49 PM Duplex Scan Lower Extremity Artery 02/02/21 13:00 RIGHT LOWER EXTREMITY ARTERIAL DOPPLER ULTRASOUND CLINICAL HISTORY: non-healing heel ulcer COMPARISON STUDY: No previous studies for comparison. TECHNIQUE: Ankle to brachial indices were obtained. Grayscale, color and duplex Doppler sonography of the arterial system of the right lower extremity was performed. FINDINGS: Right ankle to brachial index measured 1.15 when using posterior tibial artery and 1.19 when using the dorsalis pedis. The left ankle to brachial index measured 1.03 when using posterior tibial artery and 1.19 when using the dorsalis pedis. No elevated velocities were identified within the right lower extremity. Mild atherosclerotic plaque was noted. Note was made of triphasic flow within the right common femoral, superficial femoral and popliteal arteries. There was also triphasic flow within the right posterior tibial and anterior tibial arteries. There is monophasic flow within the right peroneal artery. There is triphasic flow within the right dorsalis pedis. IMPRESSION: 1. Normal bilateral ankle to brachial indices. 2. Mild atherosclerotic plaque within the right lower extremity without evidence for a hemodynamically significant stenosis. ACT 112: Negative or not required by law. Electronically signed by: Grayson Phillips M.D. 02/02/2021 2:17 PM KUB X-Ray 02/03/21 07:00 KUB CLINICAL HISTORY: Fecal impaction. FINDINGS: 2 AP, portable, supine abdominal radiographs are compared to study dated 02/01/2021 and correlated with abdominal CT dated 11/11/2020. There is a nonobstructed abdominal bowel gas pattern. There is moderate to severe constipation. No evidence of intraperitoneal free air is seen on these supine images. There are no abnormal abdominal calcifications. Vascular calcifications are noted in the pelvis. The skeletal structures are osteopenic and appear intact. There is moderate lumbosacral spondylosis. IMPRESSION: 1. Moderate to severe constipation persists. 2. The volume of stool within the rectosigmoid colon appears decreased from previous. Electronically signed by: Ras Briones M.D. 02/03/2021 9:09 PM Hospital Course (1) Gram negative septicemia: ESBL bacteremia with UTI as source from urinary retention Initially with septic shock and hypotension minimally responsive to IV fluid resuscitation with 3 L in ER Central line placed in the right IJ, started Levophed in ER with septic shock however weaned off Levophed very quickly. Sepsis no longer present. Pinedo catheter placed in the ER and should remain usp as per Urology - Continued IV meropenem for ESBL Klebsiella while in hospital - repeat BCxs-NG to date - appreciate ID consult - continue meropenem for total course 14 days from 01/30 (last day February 12). May switch to ertapenem on discharge again with last date of treatment being 02/12. -US arterial doppler and ankle XR negative for PAD and osteomyelitis, respectively Do not suspect osteomyelitis at this time Continue local wound care for wounds PICC line consent obtained and PICC placed RUE (2) Hypernatremia: Secondary to poor oral intake-now resolved Resolved with D5W (3) Acute metabolic encephalopathy: Secondary to sepsis with shock, UTI initially Was much improved on 01/30 after being obtunded on admission, however on 01/31 mixing up words in speech, lethargic and irritable possibly due to withdrawal from baclofen or Trileptal as was not able to take his po meds for 2-3 days upon admission - now taking his medications and oral intake improved. Significantly improved- back to baseline as I have taken care of him many times in the past Correctable causes include hypernatremia and possible overflow diarrhea. Appreciate palliative care (4) UTI (urinary tract infection) due to urinary indwelling Pinedo catheter: As above (5) Diabetic ulcer of right heel: Unstageable. Wound care nurse consult [place] with Betadine daily Follow up with wound care clinic Consider outpatient MRI but given ESBL blood and urine cultures current sepsis from urine source rather than osteomyelitis. (6) Diabetic ulcer of right foot: As above ordered Aquacel Ag No surrounding cellulitis (7) Hypokalemia: Now resolved after replacement Continued with potassium phosphate p.o. replacement Continue to hold Lasix after discharge (8) Murmur, cardiac: Grossly normal mitral valve on TTE 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 and current ESBL Klebsiella (10) Flexion contractures: Causing him to have bedbound status, this is for unknown reasons, is no history of stroke, has been nonambulatory and bedbound for many years at the [place] [facility] At risk for pressure ulcers as he does have these above -continue home baclofen, T#3 prn, [place] (11) Hyperlipidemia: continue statin (12) BPH w urinary obs/LUTS: With numerous failures of trials of void throughout hospitalization and at the present Had 1200 mL returned upon placement of Pinedo catheter here Never followed up with urology since last admission and was supposed to have outpatient cystoscopy Consult urology this admission again for further evaluation for management- recommends eventual SP catheter once infection cleared vs prophylactic rotating abx/ID evaluation dc'd Flomax as will always have Pinedo Needs follow-up appointment with urology after discharge Infectious disease did not recommend prophylactic antibiotics (13) Hypertension: Hypotensive as above on admission, now improved Continue metoprolol, discontinue home furosemide for dehydration and hypokalemia (14) Seizure disorder: No concern for seizure at this time continue home oxcarbazepine Seizure precautions (15) Major depressive disorder: continue nortriptyline (16) Constipation: Having overflow diarrhea. Large BM with enema on 02/01 and multiple BMs on day of discharge Continue Amitiza, Miralax (17) DVT prophylaxis: Lovenox, SCDs Disposition. Consult palliative to establish goals of care with complicated patient. Pt was not able to make decisions adequately for self at the time of our evaluation-asked Palliative Care MERCHANDISE SHOPPER to be his decision maker. Palliative Care was not able to get in touch with pt's brother during hospitalization-this is recommended to be followed up on by [facility] physician. Remains full code at this time but has numerous comorbidities and recurrent admissions for encephalopathy and infections. Needs improved goals of care plan and resuscitation status to be addressed with POA. Discharge back to [facility]-today with IV ertapenem ordered in. As per [facility], they are working on a transfer to [facility] which is more like LTACH/SNF care for prisoners Total Time Total Time Spent Total Time Spent (In Minutes): 40 min Total Time Includes: Examination of the Patient, Discharge Planning, Medication Reconciliation and Communication With Other Providers ([facility] physician) Discharge Plan Discharge Items [facility]position[facility] Reason For Visit: UTI, SEPTIC SHOCK Discharge Diagnosis: Septic shock, ESBL Klebsiella bacteremia and UTI Condition on Discharge: Fair Activity: Resume your previous activity Non-emergency contact: Primary Care Provider and Urologist Call non-emergency contact if: you have any medication questions, your symptoms worsen, your pain is not controlled, your pain is worsening, your pain is unusual for you, your pain is concerning for you, you have a fever and your temperature is above 101 Follow-up/Referrals: Praveen Child DO [Physician] - (Follow up within 2-3 weeks for consideration for suprapubic catheter placement.) Raj MARIO [Primary Care Provider] - Diet: Regular Diet Texture: Easy to Chew Addtl Attending Provider Instructions: Continue ertapenem 1 gram IV q24 hours through February 12 for ESBL Klebsiella bacteremia and UTI. Check CBC, CMP once weekly while on antibiotics. Continue local wound care to the right foot wounds and follow up with Wound Care clinic. Please keep the Pinedo catheter in place and follow up with the Urologist in 2-3 weeks to discuss a suprapubic catheter. Pending Studies at Discharge: No Stand-Alone Forms: My [facility] Skilled Items Patient informed of condition?: Yes Communicable Disease: No Discharge Prognosis: Improving Lines: PICC Urinary Catheter: Yes Medications and DC Order Prescriptions: New ertapenem 1 gram recon soln 1 g IV DAILY 8 Days Qty: 8 RF: 0 polyethylene glycol 3350 [Miralax] 17 gram Powder In Packet 17 g PO DAILY Qty: 30 RF: 0 Phospha 250 Neutral 250 mg Tablet 1 tab PO BID Qty: 60 RF: 0 metoprolol tartrate 25 mg Tablet 25 mg PO BID Qty: 60 RF: 0 Continued cyanocobalamin (vitamin B-12) [Vitamin B-12] 500 mcg Tablet 500 mcg PO QAM RF: 0 oxcarbazepine 600 mg Tablet 600 mg PO BID RF: 0 rosuvastatin 10 mg Tablet 10 mg PO HS RF: 0 lubiprostone [Amitiza] 24 mcg Capsule 24 mcg PO BID RF: 0 nortriptyline 25 mg Capsule 25 mg PO HS RF: 0 nortriptyline 75 mg Capsule 75 mg PO HS RF: 0 acetaminophen-codeine 300-30 mg Tablet 1 tab PO BID RF: 0 ammonium lactate 12 % Cream 1 applic TOPICAL BID RF: 0 baclofen 5 mg Tablet 5 mg PO BID RF: 0 Discontinued tamsulosin [Flomax] 0.4 mg Capsule 0.4 mg PO HS RF: 0 metoprolol tartrate 50 mg Tablet 50 mg PO BID RF: 0 furosemide 20 mg Tablet 20 mg PO DAILY RF: 0 Discharge Orders: Discharge Order (Routine); Ordered 02/04/21 Ordered By: Gisela Garvin Admission Data Admit Date/Time: 01/29/21 13:56 Attending Provider: Gisela Garvin Admit Provider: Gisela Garvin Primary Care Provider: Raj MARIO Other Providers: Gisela Garvin ; Jamey Barrera ; Praveen Child ; Jordy Park ; Jeff Jeffries ; Sy Adam I. ; Gualberto Laurent II ; Delilah Alarcon ; Kian Sena ; Jeana Rice Other Interventions: Discharge Summary Assessment (RN) Last Done: 02/04/21 14:14 Coding Level of Care Code D/C Day Management >30 mins Diagnoses Gram negative septicemia A41.50 Hypernatremia E87.0 Acute metabolic encephalopathy G93.41 UTI (urinary tract infection) due to urinary indwelling Pinedo catheter T83.511A; N39.0 Diabetic ulcer of right heel E11.621; L97.419 Diabetic ulcer of right foot E11.621; L97.519 Hypokalemia E87.6 Murmur, cardiac R01.1 COVID-19 U07.1 Flexion contractures M24.50 Hyperlipidemia E78.5 BPH w urinary obs/LUTS N40.1; N13.8 Hypertension I10 Seizure disorder G40.909 Major depressive disorder F32.9 Constipation K59.00 DVT prophylaxis Z29.9
[2021-02-04] MEDS ORDERED: ERTAPENEM SODIUM 1,000 MG in SODIUM CHLORIDE 0.9% 50 ML IV SCH (14:00)
== END 2021-02-04 15:10 | DRG 698 ==
LOC: ED 09:47 → SUATTDRO 13:56 → 1E 13:56 → 2S 18:53 → 2W 02-01 10:18

== ENCOUNTER 2021-04-11 21:14 | Inpatient (IN) ==
[2021-04-11] MEDS ORDERED: ACETAMINOPHEN 650 MG SUPP PR STA (21:46)
[2021-04-11] MEDS ORDERED: SODIUM CHLORIDE 0.9% 1000ML 2,000 ML IV ONE (21:46)
[2021-04-11] MEDS ORDERED: VANCOMYCIN HCL 1,750 MG in SODIUM CHLORIDE 0.9% 500 ML IV ONE (21:48)
[2021-04-11] MEDS ORDERED: VANCOMYCIN CONSULT ACTIVE PRN (21:48)
[2021-04-11] MEDS ORDERED: MEROPENEM CONSULT ACITVE PRN (21:49)
[2021-04-11] MEDS ORDERED: MEROPENEM 500 MG in SYRINGE 0 ML IV SCH (22:00)
[2021-04-11 22:02] LABS: Basophils # (auto) 0.04 K/uL (0-0.2); Basophils % (auto) 0.5 %; Hematocrit (blood only) 40.5 % (42-52); Immature Granulocytes # (auto) 0.02 K/uL (0.00-0.02); Immature Granulocytes % (auto) 0.2 %; Lymphocytes # (auto) 0.52 K/uL (1.2-3.4); Lymphocytes % (auto) 6.4 %; Mean Corpuscular Hemoglobin 30.7 pg (25-34); Mean Corpuscular Hgb Conc 32.1 g/dL (32-36); Mean Corpuscular Volume 95.7 fL (80-100); Mean Platelet Volume 9.7 fL (7.4-10.4); Monocytes # (auto) 1.28 K/uL (0.11-0.59); Monocytes % (auto) 15.8 %; Neutrophils # (auto) 6.26 K/uL (1.4-6.5); Neutrophils % (auto) 77.1 %; Platelet Count 255 K/uL (130-400); RDW Coefficient of Variation 15.1 % (11.5-14.5); RDW Standard Deviation 53.2 fL (36.4-46.3); Red Blood Count 4.23 M/uL (4.7-6.1); White Blood Count 8.12 K/uL (4.8-10.8)
[2021-04-11] MEDS ORDERED: ACETAMINOPHEN 1000 MG/100 ML IV IV STA (22:17)
[2021-04-11 22:18] LABS: INR 1.1 (0.9-1.1); Partial Thromboplastin Time 27.6 Seconds (21.0-31.0); Prothrombin Time 10.9 Seconds (9.0-12.0)
[2021-04-11 22:27] LABS: Alanine Aminotransferase 24 U/L (12-78); Albumin Globulin Ratio 0.8 (0.9-2); Alkaline Phosphatase 100 U/L (45-117); BUN Creatinine Ratio 23.5 (10-20); Bilirubin,Total 0.6 mg/dl (0.2-1); Blood Urea Nitrogen 23 mg/dl (7-18); Calcium 8.7 mg/dl (8.5-10.1); Carbon Dioxide 24 mmol/L (21-32); Chloride 109 mmol/L (98-107); Creatinine Clr Calc Pharmacy 68.9 ml/min; Est GFR (African American) 91.1 ml/min; Est GFR (Non-African American) 78.6 ml/min; Glucose 142 mg/dl (70-99); Sodium 141 mmol/L (136-145); Troponin I < 0.015 ng/ml (0-0.045)
--- NOTE | 2021-04-11 22:28 | Emergency Department Note ---
Impression & Plan Sepsis, Acute urinary retention, AMS (altered mental status), Elevated lactic acid level ED Provider Note [id number] AGE[facility] 65 SEX: M : 1955 ARRIVES VIA: Ambulance INFORMANT: Patient ED PROVIDER(S): Jeet Liu DO CHIEF COMPLAINT: Altered mental status HPI: Patient is a 65-year-old male who presents to the ER for altered mental status. He is a prisoner at [facility] and is in the medical unit. He became more confused febrile and tachycardic. He did stop taking his lactulose. He has a history of sepsis, bacteremia, UTIs and recurrent ulcers. History is limited secondary to mentation. Normally he is awake alert and talking. Following his last discharge she pulled his PICC line and refused any antibiotics. ROS: See above HPI for pertinent positives & negatives. A total of 10 systems reviewed and were otherwise negative. PAST MEDICAL HISTORY:See Below PAST SURGICAL HISTORY:See Below FAMILY HISTORY:See Below SOCIAL HISTORY:See Below HOME MEDICATIONS:See Below ALLERGIES:See Below VITALS:See Below PHYSICAL EXAMINATION: GENERAL: Lying in bed, confused, ill-appearing EYE EXAM: normal conjunctiva. PERRL and EOM's grossly intact. OROPHARYNX: Dry mucous membranes NECK: supple, no nuchal rigidity, no adenopathy, non-tender LUNGS: Clear to auscultation. Normal chest wall mechanics HEART: Tacky +HEIDY, S1 normal and S2 normal ABDOMEN: abdomen soft, non-tender, normo-active bowel sounds, no masses, no rebound or guarding. SKIN: Ulcer on the right heel and right first toe UPPER EXTREMITIES: upper extremities are grossly normal. LOWER EXTREMITIES: No pitting edema. NEURO EXAM: Moans to sternal rub and moves extremities. Nonverbal. MEDICAL DECISION MAKING: Patient is a 65-year-old male who presents the ER for sepsis. He is found to be afebrile, tachycardic and confused. IV was established blood was obtained. Labs show no significant leukocytosis and mild anemia 13. INR unremarkable. BM P with slightly elevated chloride. Lactic acid was elevated at 4. LFTs bilirubin was unremarkable. Troponin was negative. UA does suggest a clear UTI. Previous cultures were reviewed and patient was given meropenem/broad- spectrum antibiotics. CT head and CT abdomen pelvis was unremarkable. Chest x- ray was unremarkable. Triage Nursing notes reviewed. Limited review of prior medical records performed Vital Signs: reviewed and remarkable for no significant abnormalities Differential diagnosis: Differential diagnosis includes etiologies such as sepsis, UTI, pneumonia, metabolic, electrolyte abnormalities, cardiac sources, intracerebral event, toxicologic, neurological, as well as others were entertained. ER treatment provided: See below Diagnostics interpreted by me: ECG: Sinus rhythm rate 78 Normal axis No PVCs QTC 469 Cardiac Monitoring: An order was placed for continuous cardiac monitoring. The monitor shows a rate of 72 with sinus rhythm. Laboratory studies: As stated above and show below. Imaging studies: Comparison: CT head 01/29/21 Involutional and chronic small vessel ischemic changes. No ICH, mass-effect, or edema. No skull fracture. Sinuses and mastoid air cells are clear. CT ABDOMEN & PELVIS With Contrast: Comparison: CT abdomen and pelvis 11/11/20. Rectal wall thickening and perirectal fat stranding suggesting proctitis. Constipation. No bowel obstruction. Normal appendix. Urinary bladder wall thickening and surrounding fat stranding, correlate with urinalysis for possible cystitis. Pinedo catheter in the urinary bladder. Motion degraded exam. Nodular liver suggesting cirrhosis. Distended gallbladder without evidence of acute cholecystitis. Mild splenomegaly. Pancreas and adrenal glands are unremarkable. Symmetric renal enhancement. No hydronephrosis. Stable small right kidney cyst. Previously noted bilateral renal calculi are not well visualized on today's exam. Anasarca. Fat-containing left inguinal hernia. Consultation(s): Discussed with Miller for further evaluation Procedures: none Critical Care: I have personally spent 33 minutes of critical care time in the direct management of this patient. This includes bedside care, interpretation of diagn ostic studies, and testing, discussion with consultants, patient, and family members, and other required patient management activities. This 33 minutes is in excess of all separately billable procedures. Past Med/Surg History Medical History Adjustment disorder with anxious mood Anemia BPH w urinary obs/LUTS Chronic hepatitis C Congestive heart failure Constipation COVID-19 Diabetes Diverticulosis Dysthymia Elevation of cardiac enzymes Flexion contractures Gait abnormality GERD (gastroesophageal reflux disease) Hemorrhoids History of endocarditis Hyperlipidemia Hypertension Insomnia Low back pain Major depressive disorder Major depressive disorder with psychotic features Morbilliform rash Murmur, cardiac Onychomycosis Peripheral vascular disease Rhinitis, allergic Seizure disorder Tinea unguium Urinary retention Weakness Family History Other Family history non-contributory Social History Smoking Status: Unknown if ever smoked Tobacco Type: Cigarettes Hx Alcohol Use: No Preferred Language: Bengali Communication Ability: Impaired Inside Sales Trainer Required: No Beliefs That Will Affect Care: None Current Living Situation: Other Current Living Situation Comment: Prisoner at [facility] Raj Feels Safe at Home: Yes Assistive Devices: None Allergies Allergies Allergy/AdvReac Type Severity Reaction Status Date / Time daptomycin Allergy Rash Verified 04/11/21 21:43 Home Meds Home Medications Medication Instructions Recorded Confirmed cyanocobalamin (vitamin B-12) 500 500 mcg PO QAM 11/11/20 04/11/21 mcg tablet (Vitamin B-12) lubiprostone 24 mcg capsule 24 mcg PO BID 11/11/20 04/11/21 (Amitiza) oxcarbazepine 600 mg tablet 600 mg PO BID 11/11/20 04/11/21 nortriptyline 75 mg capsule 75 mg PO HS 12/04/20 04/11/21 baclofen 5 mg tablet 5 mg PO BID 01/29/21 04/11/21 magnesium hydroxide 400 mg/5 mL 30 ml PO DAILY PRN 02/15/21 04/11/21 oral suspension (Milk of Magnesia) lactulose 10 gram/15 mL oral 15 ml PO TID 04/11/21 04/11/21 solution (Constulose) potassium chloride 20 mEq 20 meq PO DAILY 04/11/21 04/11/21 tablet,extended release Previous Rx's Medication Instructions Recorded metoprolol tartrate 25 mg tablet 25 mg PO BID #60 tab 02/04/21 Results & Data (ED) Vital Signs Vital Signs - 24 hr 04/11/21 21:22 04/11/21 21:34 04/11/21 21:40 Temperature 39.7 C H Temperature Source Rectal Pulse Rate 122 H 119 H 118 H Pulse Rate from SpO2 Sensor 193 H 132 H Pulse Rhythm Regular Pulse Strength Normal Respiratory Rate 32 H 26 H 27 H Respiratory Effort / Characteristics Non-Labored Spontaneous Respiratory Depth Normal Respiratory Pattern Tachypnea Blood Pressure 114/68 Blood Pressure Mean 83 Blood Pressure Position Lying Pulse Oximetry 96 93 93 Oxygen Delivery Method Room Air Sepsis Recent Fever Within 48 Hours Yes Sepsis New/Unexplained Change in Mental Status Yes Sepsis Action Taken by Nursing Physician Notified 04/11/21 21:44 04/11/21 21:50 04/11/21 21:51 Temperature Temperature Source Pulse Rate Pulse Rate from SpO2 Sensor Pulse Rhythm Pulse Strength Respiratory Rate Respiratory Effort / Characteristics Labored Respiratory Depth Respiratory Pattern Blood Pressure Blood Pressure Mean Blood Pressure Position Pulse Oximetry Oxygen Delivery Method Room Air Room Air Sepsis Recent Fever Within 48 Hours Sepsis New/Unexplained Change in Mental Status Sepsis Action Taken by Nursing 04/11/21 22:00 04/11/21 22:16 04/11/21 22:30 Temperature Temperature Source Pulse Rate 114 H 110 H 112 H Pulse Rate from SpO2 Sensor 118 H 111 H 112 H Pulse Rhythm Pulse Strength Respiratory Rate 24 20 26 H Respiratory Effort / Characteristics Respiratory Depth Respiratory Pattern Blood Pressure 107/53 L 114/62 106/63 Blood Pressure Mean 71 79 77 Blood Pressure Position Pulse Oximetry 99 100 99 Oxygen Delivery Method Sepsis Recent Fever Within 48 Hours Sepsis New/Unexplained Change in Mental Status Sepsis Action Taken by Nursing 04/11/21 22:45 04/11/21 22:54 04/11/21 23:16 Temperature Temperature Source Pulse Rate 112 H 106 H Pulse Rate from SpO2 Sensor 114 H 105 H Pulse Rhythm Pulse Strength Respiratory Rate 26 H 28 H 24 Respiratory Effort / Characteristics Spontaneous Respiratory Depth Respiratory Pattern Tachypnea Blood Pressure 120/55 L Blood Pressure Mean 72 76 Blood Pressure Position Pulse Oximetry 99 98 Oxygen Delivery Method Sepsis Recent Fever Within 48 Hours Sepsis New/Unexplained Change in Mental Status Sepsis Action Taken by Nursing 04/11/21 23:45 04/12/21 00:00 04/12/21 00:16 Temperature 37.4 C Temperature Source Pulse Rate 101 H 106 H 106 H Pulse Rate from SpO2 Sensor 100 H 106 H 105 H Pulse Rhythm Pulse Strength Respiratory Rate 20 23 27 H Respiratory Effort / Characteristics Respiratory Depth Respiratory Pattern Blood Pressure 91/55 L 93/47 L 80/50 L Blood Pressure Mean 67 62 60 Blood Pressure Position Pulse Oximetry 97 95 98 Oxygen Delivery Method Sepsis Recent Fever Within 48 Hours Sepsis New/Unexplained Change in Mental Status Sepsis Action Taken by Nursing 04/12/21 00:31 04/12/21 00:45 04/12/21 01:00 Temperature Temperature Source Pulse Rate 103 H 98 H 96 H Pulse Rate from SpO2 Sensor 103 H 102 H 98 H Pulse Rhythm Pulse Strength Respiratory Rate 19 24 21 Respiratory Effort / Characteristics Respiratory Depth Respiratory Pattern Blood Pressure 107/50 L 100/52 L 113/54 L Blood Pressure Mean 69 68 73 Blood Pressure Position Pulse Oximetry 97 96 96 Oxygen Delivery Method Sepsis Recent Fever Within 48 Hours Sepsis New/Unexplained Change in Mental Status Sepsis Action Taken by Nursing 04/12/21 01:15 04/12/21 01:30 04/12/21 01:45 Temperature Temperature Source Pulse Rate 96 H 95 H 92 H Pulse Rate from SpO2 Sensor 99 H 93 H 93 H Pulse Rhythm Pulse Strength Respiratory Rate 22 18 17 Respiratory Effort / Characteristics Respiratory Depth Respiratory Pattern Blood Pressure 101/59 L 101/50 L 118/56 L Blood Pressure Mean 73 67 76 Blood Pressure Position Pulse Oximetry 97 97 96 Oxygen Delivery Method Sepsis Recent Fever Within 48 Hours Sepsis New/Unexplained Change in Mental Status Sepsis Action Taken by Nursing Laboratory Data Result diagrams: 04/11/21 21:49 04/11/21 21:49 Lab Results 04/11/21 04/11/21 04/11/21 Range/Units 21:49 21:49 21:49 WBC 8.12 (4.8-10.8) K/uL RBC 4.23 L (4.7-6.1) M/uL Hgb 13.0 L (14.0-18.0) g/dL Hct 40.5 L (42-52) % MCV 95.7 (80-100) fL MCH 30.7 (25-34) pg MCHC 32.1 (32-36) g/dL RDW Std Deviation 53.2 H (36.4-46.3) fL RDW Coeff of Abad 15.1 H (11.5-14.5) % Plt Count 255 (130-400) K/uL MPV 9.7 (7.4-10.4) fL Immature Gran % (Auto) 0.2 % Neut % (Auto) 77.1 % Lymph % (Auto) 6.4 % Crook % (Auto) 15.8 % Eos % (Auto) 0.0 % Baso % (Auto) 0.5 % Neut # (Auto) 6.26 (1.4-6.5) K/uL Lymph # (Auto) 0.52 L (1.2-3.4) K/uL Crook # (Auto) 1.28 H (0.11-0.59) K/uL Eos # (Auto) 0.00 (0-0.5) K/uL Baso # (Auto) 0.04 (0-0.2) K/uL Immature Gran # (Auto) 0.02 (0.00-0.02) K/uL PT 10.9 (9.0-12.0) Seconds INR 1.1 (0.9-1.1) APTT 27.6 (21.0-31.0) Seconds PTT Ratio 1.0 Sodium (136-145) mmol/L Potassium (3.5-5.1) mmol/L Chloride (98-107) mmol/L Carbon Dioxide (21-32) mmol/L Anion Gap (3-11) BUN (7-18) mg/dl Creatinine (0.6-1.4) mg/dl Est Cr Clr Drug Dosing ml/min Est GFR ( Amer) ml/min Est GFR (Non-Af Amer) ml/min BUN/Creatinine Ratio (10-20) Glucose (70-99) mg/dl Lactate (0.4-2.0) mmol/L Calcium (8.5-10.1) mg/dl Magnesium (1.8-2.4) mg/dl Total Bilirubin (0.2-1) mg/dl AST (15-37) U/L ALT (12-78) U/L Alkaline Phosphatase (45-117) U/L Ammonia 14.2 (11-32) umol/L Troponin I (0-0.045) ng/ml Total Protein (6.4-8.2) gm/dl Albumin (3.4-5.0) gm/dl Globulin (2.5-4.0) gm/dl Albumin/Globulin Ratio (0.9-2) Procalcitonin (0-0.5) ng/ml Urine Color Urine Appearance (Clear) Urine pH (4.5-7.5) Ur Specific [place] (1.000-1.030) Urine Protein (Negative) Urine Glucose (UA) (Negative) Urine Ketones (Negative) Urine Blood (Negative) Urine Nitrite (Negative) Urine Bilirubin (Negative) Urine Urobilinogen (Negative) Ur Leukocyte Esterase (Negative) Urine WBC (Auto) (0-5) /hpf Urine RBC (Auto) (0-4) /hpf U Hyaline Cast (Auto) (0-5) /lpf U Epithel Cells (Auto) (0-5) /lpf Urine Bacteria (Auto) (Negative) Urine Yeast COVID-19 Eval Order SARS-CoV-2 (PCR) (Negative) 04/11/21 04/11/21 04/11/21 Range/Units 21:49 21:49 21:49 WBC (4.8-10.8) K/uL RBC (4.7-6.1) M/uL Hgb (14.0-18.0) g/dL Hct (42-52) % MCV (80-100) fL MCH (25-34) pg MCHC (32-36) g/dL RDW Std Deviation (36.4-46.3) fL RDW Coeff of Abad (11.5-14.5) % Plt Count (130-400) K/uL MPV (7.4-10.4) fL Immature Gran % (Auto) % Neut % (Auto) % Lymph % (Auto) % Crook % (Auto) % Eos % (Auto) % Baso % (Auto) % Neut # (Auto) (1.4-6.5) K/uL Lymph # (Auto) (1.2-3.4) K/uL Crook # (Auto) (0.11-0.59) K/uL Eos # (Auto) (0-0.5) K/uL Baso # (Auto) (0-0.2) K/uL Immature Gran # (Auto) (0.00-0.02) K/uL PT (9.0-12.0) Seconds INR (0.9-1.1) APTT (21.0-31.0) Seconds PTT Ratio Sodium 141 (136-145) mmol/L Potassium 4.6 (3.5-5.1) mmol/L Chloride 109 H (98-107) mmol/L Carbon Dioxide 24 (21-32) mmol/L Anion Gap 9.0 (3-11) BUN 23 H (7-18) mg/dl Creatinine 1.00 (0.6-1.4) mg/dl Est Cr Clr Drug Dosing 68.9 ml/min Est GFR ( Amer) 91.1 ml/min Est GFR (Non-Af Amer) 78.6 ml/min BUN/Creatinine Ratio 23.5 H (10-20) Glucose 142 H (70-99) mg/dl Lactate 4.0 H* (0.4-2.0) mmol/L Calcium 8.7 (8.5-10.1) mg/dl Magnesium 2.5 H (1.8-2.4) mg/dl Total Bilirubin 0.6 (0.2-1) mg/dl AST 18 (15-37) U/L ALT 24 (12-78) U/L Alkaline Phosphatase 100 (45-117) U/L Ammonia (11-32) umol/L Troponin I < 0.015 (0-0.045) ng/ml Total Protein 7.0 (6.4-8.2) gm/dl Albumin 3.0 L (3.4-5.0) gm/dl Globulin 4.0 (2.5-4.0) gm/dl Albumin/Globulin Ratio 0.8 L (0.9-2) Procalcitonin 0.93 H (0-0.5) ng/ml Urine Color Urine Appearance (Clear) Urine pH (4.5-7.5) Ur Specific [place] (1.000-1.030) Urine Protein (Negative) Urine Glucose (UA) (Negative) Urine Ketones (Negative) Urine Blood (Negative) Urine Nitrite (Negative) Urine Bilirubin (Negative) Urine Urobilinogen (Negative) Ur Leukocyte Esterase (Negative) Urine WBC (Auto) (0-5) /hpf Urine RBC (Auto) (0-4) /hpf U Hyaline Cast (Auto) (0-5) /lpf U Epithel Cells (Auto) (0-5) /lpf Urine Bacteria (Auto) (Negative) Urine Yeast COVID-19 Eval Order SARS-CoV-2 (PCR) (Negative) 04/11/21 04/11/21 04/11/21 Range/Units 22:21 22:21 22:45 WBC (4.8-10.8) K/uL RBC (4.7-6.1) M/uL Hgb (14.0-18.0) g/dL Hct (42-52) % MCV (80-100) fL MCH (25-34) pg MCHC (32-36) g/dL RDW Std Deviation (36.4-46.3) fL RDW Coeff of Abad (11.5-14.5) % Plt Count (130-400) K/uL MPV (7.4-10.4) fL Immature Gran % (Auto) % Neut % (Auto) % Lymph % (Auto) % [place] % (Auto) % Eos % (Auto) % Baso % (Auto) % Neut # (Auto) (1.4-6.5) K/uL Lymph # (Auto) (1.2-3.4) K/uL [place] # (Auto) (0.11-0.59) K/uL Eos # (Auto) (0-0.5) K/uL Baso # (Auto) (0-0.2) K/uL Immature Gran # (Auto) (0.00-0.02) K/uL PT (9.0-12.0) Seconds INR (0.9-1.1) APTT (21.0-31.0) Seconds PTT Ratio Sodium (136-145) mmol/L Potassium (3.5-5.1) mmol/L Chloride (98-107) mmol/L Carbon Dioxide (21-32) mmol/L Anion Gap (3-11) BUN (7-18) mg/dl Creatinine (0.6-1.4) mg/dl Est Cr Clr Drug Dosing ml/min Est GFR ( Amer) ml/min Est GFR (Non-Af Amer) ml/min BUN/Creatinine Ratio (10-20) Glucose (70-99) mg/dl Lactate (0.4-2.0) mmol/L Calcium (8.5-10.1) mg/dl Magnesium (1.8-2.4) mg/dl Total Bilirubin (0.2-1) mg/dl AST (15-37) U/L ALT (12-78) U/L Alkaline Phosphatase (45-117) U/L Ammonia (11-32) umol/L Troponin I (0-0.045) ng/ml Total Protein (6.4-8.2) gm/dl Albumin (3.4-5.0) gm/dl Globulin (2.5-4.0) gm/dl Albumin/Globulin Ratio (0.9-2) Procalcitonin (0-0.5) ng/ml Urine Color Yellow Urine Appearance Turbid A (Clear) Urine pH 5.5 (4.5-7.5) Ur Specific [place] 1.017 (1.000-1.030) Urine Protein 2+ H (Negative) Urine Glucose (UA) Negative (Negative) Urine Ketones Negative (Negative) Urine Blood 3+ H (Negative) Urine Nitrite Positive A (Negative) Urine Bilirubin Negative (Negative) Urine Urobilinogen Negative (Negative) Ur Leukocyte Esterase 3+ H (Negative) Urine WBC (Auto) >30 H (0-5) /hpf Urine RBC (Auto) 10-30 H (0-4) /hpf U Hyaline Cast (Auto) 0 (0-5) /lpf U Epithel Cells (Auto) 10-20 H (0-5) /lpf Urine Bacteria (Auto) 1+ H (Negative) Urine Yeast Not Reportable COVID-19 Eval Order Covid19 at [facility] SARS-CoV-2 (PCR) NEGATIVE (Negative) 04/11/21 Range/Units 23:58 WBC (4.8-10.8) K/uL RBC (4.7-6.1) M/uL Hgb (14.0-18.0) g/dL Hct (42-52) % MCV (80-100) fL MCH (25-34) pg MCHC (32-36) g/dL RDW Std Deviation (36.4-46.3) fL RDW Coeff of Abad (11.5-14.5) % Plt Count (130-400) K/uL MPV (7.4-10.4) fL Immature Gran % (Auto) % Neut % (Auto) % Lymph % (Auto) % [place] % (Auto) % Eos % (Auto) % Baso % (Auto) % Neut # (Auto) (1.4-6.5) K/uL Lymph # (Auto) (1.2-3.4) K/uL [place] # (Auto) (0.11-0.59) K/uL Eos # (Auto) (0-0.5) K/uL Baso # (Auto) (0-0.2) K/uL Immature Gran # (Auto) (0.00-0.02) K/uL PT (9.0-12.0) Seconds INR (0.9-1.1) APTT (21.0-31.0) Seconds PTT Ratio Sodium (136-145) mmol/L Potassium (3.5-5.1) mmol/L Chloride (98-107) mmol/L Carbon Dioxide (21-32) mmol/L Anion Gap (3-11) BUN (7-18) mg/dl Creatinine (0.6-1.4) mg/dl Est Cr Clr Drug Dosing ml/min Est GFR ( Amer) ml/min Est GFR (Non-Af Amer) ml/min BUN/Creatinine Ratio (10-20) Glucose (70-99) mg/dl Lactate 2.5 H* (0.4-2.0) mmol/L Calcium (8.5-10.1) mg/dl Magnesium (1.8-2.4) mg/dl Total Bilirubin (0.2-1) mg/dl AST (15-37) U/L ALT (12-78) U/L Alkaline Phosphatase (45-117) U/L Ammonia (11-32) umol/L Troponin I (0-0.045) ng/ml Total Protein (6.4-8.2) gm/dl Albumin (3.4-5.0) gm/dl Globulin (2.5-4.0) gm/dl Albumin/Globulin Ratio (0.9-2) Procalcitonin (0-0.5) ng/ml Urine Color Urine Appearance (Clear) Urine pH (4.5-7.5) Ur Specific [place] (1.000-1.030) Urine Protein (Negative) Urine Glucose (UA) (Negative) Urine Ketones (Negative) Urine Blood (Negative) Urine Nitrite (Negative) Urine Bilirubin (Negative) Urine Urobilinogen (Negative) Ur Leukocyte Esterase (Negative) Urine WBC (Auto) (0-5) /hpf Urine RBC (Auto) (0-4) /hpf U Hyaline Cast (Auto) (0-5) /lpf U Epithel Cells (Auto) (0-5) /lpf Urine Bacteria (Auto) (Negative) Urine Yeast COVID-19 Eval Order SARS-CoV-2 (PCR) (Negative) Administered Medications Meropenem 500 mg/ Syringe 10 mls @ 2 mls/min IV Q8H [facility]; Protocol Stop: 04/13/21 21:59 Last Admin: 04/11/21 22:02 Dose: 2 mls/min Documented by: [id number] Discontinued Medications Acetaminophen (Acetaminophen 650 Mg Supp) 650 mg TN NOW STA Stop: 04/11/21 21:47 Last Admin: 04/11/21 22:54 Dose: Not Given Documented by: [id number] Acetaminophen (Acetaminophen 1000 Mg/100 Ml Iv) 1,000 mg IV NOW STA Stop: 04/11/21 22:18 Last Admin: 04/11/21 22:42 Dose: 1,000 mg Documented by: [id number] Sodium Chloride (Nss 1000ml) 2,000 mls @ 999 mls/hr IV .Q2H1M ONE Stop: 04/11/21 23:46 Last Infusion: 04/12/21 00:26 Dose: 0 mls/hr Documented by: [id number] Admin: 04/11/21 21:52 Dose: 999 mls/hr Documented by: [id number] Vancomycin HCl 1,750 mg/ (Sodium Chloride) 535 mls @ 200 mls/hr IV NOW ONE Stop: 04/12/21 00:28 Last Admin: 04/11/21 22:02 Dose: 200 mls/hr Documented by: [id number] Sodium Chloride (Nss 1000ml) 1,000 mls @ 999 mls/hr IV .Q1H1M JJ Stop: 04/12/21 01:38 Last Admin: 04/12/21 00:46 Dose: 999 mls/hr Documented by: [id number] Ioversol (Optiray 320 100ml) 93 ml IV ONCE ONE Stop: 04/11/21 23:00 Last Admin: 04/11/21 23:00 Dose: 93 ml Documented by: [id number] Discharge Plan Visit Data Chief Complaint: Altered Mental Status Stated Complaint: ILLNESS ED Provider: Jeet Liu Discharge Problem: Sepsis, Acute urinary retention, AMS (altered mental status), Elevated lactic acid level Discharge Instructions Interventions: ED Discharge Assessment Last Done: 04/12/21 02:07 Forms Stand Alone Forms: [facility] Prescriptions Prescriptions: No Action cyanocobalamin (vitamin B-12) [Vitamin B-12] 500 mcg Tablet 500 mcg PO QAM RF: 0 oxcarbazepine 600 mg Tablet 600 mg PO BID RF: 0 lubiprostone [Amitiza] 24 mcg Capsule 24 mcg PO BID RF: 0 lactulose [Constulose] 10 gram/15 mL Solution 15 ml PO TID RF: 0 potassium chloride 20 mEq Tablet Extended Release 20 meq PO DAILY RF: 0 nortriptyline 75 mg Capsule 75 mg PO HS RF: 0 baclofen 5 mg Tablet 5 mg PO BID RF: 0 metoprolol tartrate 25 mg Tablet 25 mg PO BID Qty: 60 RF: 0 magnesium hydroxide [Milk of Magnesia] 400 mg/5 mL Suspension 30 ml PO DAILY PRN (Reason: Constipation) RF: 0 Referrals Referrals: Raj MARIO [Primary Care Provider] - Discharge Problem: Sepsis Qualifiers: Sepsis type: sepsis due to unspecified organism Sepsis acute organ dysfunction status: unspecified Qualified Code(s): A41.9 - Sepsis, unspecified organism AMS (altered mental status) Qualifiers: Altered mental status type: unspecified Qualified Code(s): R41.82 - Altered mental status, unspecified
[2021-04-11 22:32] LABS: Potassium 4.6 mmol/L (3.5-5.1)
[2021-04-11 22:35] LABS: Aspartate Aminotransferase 18 U/L (15-37); Magnesium 2.5 mg/dl (1.8-2.4)
[2021-04-11 22:56] LABS: Appearance Urine Turbid (Clear); Bacteria Urine Automated 1+ (Negative); Bilirubin Urine Negative (Negative); Blood Urine 3+ (Negative); Color Urine Yellow; Glucose Urine UA Negative (Negative); Ketones Urine Negative (Negative); Leukocyte Esterase Urine 3+ (Negative); Nitrite Urine Positive (Negative); Protein Urine 2+ (Negative); Specific Gravity Urine 1.017 (1.000-1.030); Urobilinogen Urine Negative (Negative); WBC Urine Automated >30 /hpf (0-5); pH Urine 5.5 (4.5-7.5)
[2021-04-11] MEDS ORDERED: OPTIRAY 320 100ml IV ONE (22:59)
[2021-04-11 23:06] LABS: Cast Urine Automated 0 /lpf (0-5)
[2021-04-12] MEDS ORDERED: SODIUM CHLORIDE 0.9% 1000ML 1,000 ML IV SCH ×2 (00:38→01:45)
--- NOTE | 2021-04-12 00:44 | History & Physical Report ---
Date of Service April 12, 2021 Assessment & Plan (1) Sepsis: Plan: Marc Shukla is a 65-year-old male presented from [facility] following being found as progressively more confused, febrile, and tachycardic in their medical unit earlier today. Sepsis: -Tachycardic, tachypneic, febrile, elevated lactate on admission -Patient with urosepsis admission in January requiring vasopressors; attributed to multidrug-resistant Klebsiella at that time -CT abdomen pelvis demonstrating signs of cystitis with fat stranding, additional signs of rectal wall thickening concerning for potential proctitis -Urinalysis demonstrating luz maria bacteria, positive nitrites, 3+ leuk esterase, 3+ blood -Initial lactate of 4 with repeat of 2.5 following 2L NS bolus -Procalcitonin 0.93 -Covid negative -Currently not requiring vasopressors following additional 1 L bolus, and IVF NS@150/hr -Urine culture sent -Blood cultures sent -Continue meropenem, and vancomycin Altered mental status: -Likely secondary to sepsis -Ammonia 14.2 on admission -Patient had recently stopped taking his lactulose Diet: NPO CODE STATUS: Full code (2) AMS (altered mental status): (3) Gram negative septicemia: (4) Acute UTI: History of Present Illness Chief Complaint: Sepsis Primary Care Provider: [facility] Marc Shukla is a 65-year-old male presented from [facility] following being found as progressively more confused, febrile, and tachycardic in their medical unit earlier today. Does have recent medical history of urosepsis requiring vasopressors during admission in January. Has a chronic indwelling Pinedo catheter, has been bedbound as result of lower extremity contractures for the last 3 years. Upon initial presentation to ER, patient was hypotensive tachycardic tachypneic and febrile, with a lactate of 4.0. Following bolus of 2 L normal saline had improvement in blood pressure tachypnea and tachycardia. However patient remained confused and disoriented with inability to express coherent sentences or responses. During recent admission patient had urine cultures demonstrating Klebsiella with multidrug resistance. Completed a 14-day course of meropenem/ertapenem in January for resolution of this infection. Has been following with wound clinic for diabetic foot wounds of right foot. Allergies Allergy/AdvReac Type Severity Reaction Status Date / Time daptomycin Allergy Rash Verified 04/11/21 21:43 Home Medications Medication Instructions Recorded Confirmed Type cyanocobalamin (vitamin B-12) 500 500 mcg PO QAM 11/11/20 04/11/21 History mcg tablet (Vitamin B-12) lubiprostone 24 mcg capsule 24 mcg PO BID 11/11/20 04/11/21 History (Amitiza) oxcarbazepine 600 mg tablet 600 mg PO BID 11/11/20 04/11/21 History nortriptyline 75 mg capsule 75 mg PO HS 12/04/20 04/11/21 History baclofen 5 mg tablet 5 mg PO BID 01/29/21 04/11/21 History metoprolol tartrate 25 mg tablet 25 mg PO BID #60 tab 02/04/21 04/11/21 Rx magnesium hydroxide 400 mg/5 mL 30 ml PO DAILY PRN 02/15/21 04/11/21 History oral suspension (Milk of Magnesia) lactulose 10 gram/15 mL oral 15 ml PO TID 04/11/21 04/11/21 History solution (Constulose) potassium chloride 20 mEq 20 meq PO DAILY 04/11/21 04/11/21 History tablet,extended release Past Med/Surg History Medical History Adjustment disorder with anxious mood Anemia BPH w urinary obs/LUTS Chronic hepatitis C Congestive heart failure Constipation COVID-19 Diabetes Diverticulosis Dysthymia Elevation of cardiac enzymes Flexion contractures Gait abnormality GERD (gastroesophageal reflux disease) Hemorrhoids History of endocarditis Hyperlipidemia Hypertension Insomnia Low back pain Major depressive disorder Major depressive disorder with psychotic features Morbilliform rash Murmur, cardiac Onychomycosis Peripheral vascular disease Rhinitis, allergic Seizure disorder Tinea unguium Urinary retention Weakness Family History Other Family history non-contributory Social History Smoking Status: Former smoker Tobacco Type: Cigarettes Second Hand Exposure: No; Do You Dip or Chew Tobacco: No; Hx Alcohol Use: No Hx Substance Use: No Preferred Language: Maltese Communication Ability: Effective Pony Ride Attendant Required: No Beliefs That Will Affect Care: None Current Living Situation: Other Current Living Situation Comment: [facility] Other Information That Helps Us Care for You: No Feels Safe at Home: Declines to Answer Assistive Devices: Wheelchair Review of Systems Review of Systems: Unobtainable due to cognitive status Physical Exam Constitutional: + ill appearing, + altered mental status, + language barrier, + frail appearing and + disheveled Eyes: PERRL, conjunctivae normal, anicteric sclerae Respiratory: + tachypneic; no respiratory distress and no labored breathing Auscultation: lungs clear to auscultation bilaterally; no crackles, no rales and no wheezes Cardiovascular: Rate/Rhythm: regular rhythm and + tachycardic Heart Sounds: + murmur (diastolic apical murmur) Gastrointestinal (Abdomen): Inspection/Auscultation: + abdomen distended, normal bowel sounds and + hypoactive bowel sounds; no abdominal wall ecchymosis Percussion/Palpation: + abdomen tender and + guarding Skin: Ulcer of right heel and first toe Neurologic: + focal motor deficit (tonic lower extremities) Psychiatric: Orientation: alert; + not oriented x 3 Results & Data Results & Data ([facility]) Vital Signs (Past 12 Hours) Vital Signs Temp Pulse Resp BP Pulse Ox 04/12/21 00:16 37.4 C 106 H 27 H 80/50 L 98 04/12/21 00:00 106 H 23 93/47 L 95 04/11/21 23:45 101 H 20 91/55 L 97 04/11/21 23:16 106 H 24 120/55 L 98 04/11/21 22:54 28 H 04/11/21 22:45 112 H 26 H 99 04/11/21 22:30 112 H 26 H 106/63 99 04/11/21 22:16 110 H 20 114/62 100 04/11/21 22:00 114 H 24 107/53 L 99 04/11/21 21:40 118 H 27 H 93 04/11/21 21:34 119 H 26 H 93 04/11/21 21:22 39.7 C H 122 H 32 H 114/68 96 Laboratory Results 04/12/21 04/11/21 04/11/21 Range/Units 03:09 23:58 22:45 WBC (4.8-10.8) K/uL RBC (4.7-6.1) M/uL Hgb (14.0-18.0) g/dL Hct (42-52) % MCV (80-100) fL MCH (25-34) pg MCHC (32-36) g/dL RDW Std Deviation (36.4-46.3) fL RDW Coeff of Abad (11.5-14.5) % Plt Count (130-400) K/uL MPV (7.4-10.4) fL Immature Gran % (Auto) % Neut % (Auto) % Lymph % (Auto) % [place] % (Auto) % Eos % (Auto) % Baso % (Auto) % Neut # (Auto) (1.4-6.5) K/uL Lymph # (Auto) (1.2-3.4) K/uL [place] # (Auto) (0.11-0.59) K/uL Eos # (Auto) (0-0.5) K/uL Baso # (Auto) (0-0.2) K/uL Immature Gran # (Auto) (0.00-0.02) K/uL PT (9.0-12.0) Seconds INR (0.9-1.1) APTT (21.0-31.0) Seconds PTT Ratio Sodium (136-145) mmol/L Potassium (3.5-5.1) mmol/L Chloride (98-107) mmol/L Carbon Dioxide (21-32) mmol/L Anion Gap (3-11) BUN (7-18) mg/dl Creatinine (0.6-1.4) mg/dl Est Cr Clr Drug Dosing ml/min Est GFR ( Amer) ml/min Est GFR (Non-Af Amer) ml/min BUN/Creatinine Ratio (10-20) Glucose (70-99) mg/dl Lactate 2.5 H* (0.4-2.0) mmol/L Calcium (8.5-10.1) mg/dl Magnesium (1.8-2.4) mg/dl Total Bilirubin (0.2-1) mg/dl AST (15-37) U/L ALT (12-78) U/L Alkaline Phosphatase (45-117) U/L Ammonia (11-32) umol/L Troponin I (0-0.045) ng/ml Total Protein (6.4-8.2) gm/dl Albumin (3.4-5.0) gm/dl Globulin (2.5-4.0) gm/dl Albumin/Globulin Ratio (0.9-2) Procalcitonin (0-0.5) ng/ml Urine Color Yellow Urine Appearance Turbid A (Clear) Urine pH 5.5 (4.5-7.5) Ur Specific [place] 1.017 (1.000-1.030) Urine Protein 2+ H (Negative) Urine Glucose (UA) Negative (Negative) Urine Ketones Negative (Negative) Urine Blood 3+ H (Negative) Urine Nitrite Positive A (Negative) Urine Bilirubin Negative (Negative) Urine Urobilinogen Negative (Negative) Ur Leukocyte Esterase 3+ H (Negative) Urine WBC (Auto) >30 H (0-5) /hpf Urine RBC (Auto) 10-30 H (0-4) /hpf U Hyaline Cast (Auto) 0 (0-5) /lpf U Epithel Cells (Auto) 10-20 H (0-5) /lpf Urine Bacteria (Auto) 1+ H (Negative) Urine Yeast Not Reportable Nasal Screen MRSA (PCR) Pending COVID-19 Eval Order SARS-CoV-2 (PCR) (Negative) 04/11/21 04/11/21 04/11/21 Range/Units 22:21 22:21 21:49 WBC (4.8-10.8) K/uL RBC (4.7-6.1) M/uL Hgb (14.0-18.0) g/dL Hct (42-52) % MCV (80-100) fL MCH (25-34) pg MCHC (32-36) g/dL RDW Std Deviation (36.4-46.3) fL RDW Coeff of Abad (11.5-14.5) % Plt Count (130-400) K/uL MPV (7.4-10.4) fL Immature Gran % (Auto) % Neut % (Auto) % Lymph % (Auto) % [place] % (Auto) % Eos % (Auto) % Baso % (Auto) % Neut # (Auto) (1.4-6.5) K/uL Lymph # (Auto) (1.2-3.4) K/uL [place] # (Auto) (0.11-0.59) K/uL Eos # (Auto) (0-0.5) K/uL Baso # (Auto) (0-0.2) K/uL Immature Gran # (Auto) (0.00-0.02) K/uL PT (9.0-12.0) Seconds INR (0.9-1.1) APTT (21.0-31.0) Seconds PTT Ratio Sodium (136-145) mmol/L Potassium (3.5-5.1) mmol/L Chloride (98-107) mmol/L Carbon Dioxide (21-32) mmol/L Anion Gap (3-11) BUN (7-18) mg/dl Creatinine (0.6-1.4) mg/dl Est Cr Clr Drug Dosing ml/min Est GFR ( Amer) ml/min Est GFR (Non-Af Amer) ml/min BUN/Creatinine Ratio (10-20) Glucose (70-99) mg/dl Lactate (0.4-2.0) mmol/L Calcium (8.5-10.1) mg/dl Magnesium (1.8-2.4) mg/dl Total Bilirubin (0.2-1) mg/dl AST (15-37) U/L ALT (12-78) U/L Alkaline Phosphatase (45-117) U/L Ammonia (11-32) umol/L Troponin I (0-0.045) ng/ml Total Protein (6.4-8.2) gm/dl Albumin (3.4-5.0) gm/dl Globulin (2.5-4.0) gm/dl Albumin/Globulin Ratio (0.9-2) Procalcitonin 0.93 H (0-0.5) ng/ml Urine Color Urine Appearance (Clear) Urine pH (4.5-7.5) Ur Specific [place] (1.000-1.030) Urine Protein (Negative) Urine Glucose (UA) (Negative) Urine Ketones (Negative) Urine Blood (Negative) Urine Nitrite (Negative) Urine Bilirubin (Negative) Urine Urobilinogen (Negative) Ur Leukocyte Esterase (Negative) Urine WBC (Auto) (0-5) /hpf Urine RBC (Auto) (0-4) /hpf U Hyaline Cast (Auto) (0-5) /lpf U Epithel Cells (Auto) (0-5) /lpf Urine Bacteria (Auto) (Negative) Urine Yeast Nasal Screen MRSA (PCR) COVID-19 Eval Order Covid19 at [facility] SARS-CoV-2 (PCR) NEGATIVE (Negative) 04/11/21 04/11/21 04/11/21 Range/Units 21:49 21:49 21:49 WBC (4.8-10.8) K/uL RBC (4.7-6.1) M/uL Hgb (14.0-18.0) g/dL Hct (42-52) % MCV (80-100) fL MCH (25-34) pg MCHC (32-36) g/dL RDW Std Deviation (36.4-46.3) fL RDW Coeff of Abad (11.5-14.5) % Plt Count (130-400) K/uL MPV (7.4-10.4) fL Immature Gran % (Auto) % Neut % (Auto) % Lymph % (Auto) % [place] % (Auto) % Eos % (Auto) % Baso % (Auto) % Neut # (Auto) (1.4-6.5) K/uL Lymph # (Auto) (1.2-3.4) K/uL [place] # (Auto) (0.11-0.59) K/uL Eos # (Auto) (0-0.5) K/uL Baso # (Auto) (0-0.2) K/uL Immature Gran # (Auto) (0.00-0.02) K/uL PT 10.9 (9.0-12.0) Seconds INR 1.1 (0.9-1.1) APTT 27.6 (21.0-31.0) Seconds PTT Ratio 1.0 Sodium 141 (136-145) mmol/L Potassium 4.6 (3.5-5.1) mmol/L Chloride 109 H (98-107) mmol/L Carbon Dioxide 24 (21-32) mmol/L Anion Gap 9.0 (3-11) BUN 23 H (7-18) mg/dl Creatinine 1.00 (0.6-1.4) mg/dl Est Cr Clr Drug Dosing 68.9 ml/min Est GFR ( Amer) 91.1 ml/min Est GFR (Non-Af Amer) 78.6 ml/min BUN/Creatinine Ratio 23.5 H (10-20) Glucose 142 H (70-99) mg/dl Lactate 4.0 H* (0.4-2.0) mmol/L Calcium 8.7 (8.5-10.1) mg/dl Magnesium 2.5 H (1.8-2.4) mg/dl Total Bilirubin 0.6 (0.2-1) mg/dl AST 18 (15-37) U/L ALT 24 (12-78) U/L Alkaline Phosphatase 100 (45-117) U/L Ammonia (11-32) umol/L Troponin I < 0.015 (0-0.045) ng/ml Total Protein 7.0 (6.4-8.2) gm/dl Albumin 3.0 L (3.4-5.0) gm/dl Globulin 4.0 (2.5-4.0) gm/dl Albumin/Globulin Ratio 0.8 L (0.9-2) Procalcitonin (0-0.5) ng/ml Urine Color Urine Appearance (Clear) Urine pH (4.5-7.5) Ur Specific [place] (1.000-1.030) Urine Protein (Negative) Urine Glucose (UA) (Negative) Urine Ketones (Negative) Urine Blood (Negative) Urine Nitrite (Negative) Urine Bilirubin (Negative) Urine Urobilinogen (Negative) Ur Leukocyte Esterase (Negative) Urine WBC (Auto) (0-5) /hpf Urine RBC (Auto) (0-4) /hpf U Hyaline Cast (Auto) (0-5) /lpf U Epithel Cells (Auto) (0-5) /lpf Urine Bacteria (Auto) (Negative) Urine Yeast Nasal Screen MRSA (PCR) COVID-19 Eval Order SARS-CoV-2 (PCR) (Negative) 04/11/21 04/11/21 Range/Units 21:49 21:49 WBC 8.12 (4.8-10.8) K/uL RBC 4.23 L (4.7-6.1) M/uL Hgb 13.0 L (14.0-18.0) g/dL Hct 40.5 L (42-52) % MCV 95.7 (80-100) fL MCH 30.7 (25-34) pg MCHC 32.1 (32-36) g/dL RDW Std Deviation 53.2 H (36.4-46.3) fL RDW Coeff of Abad 15.1 H (11.5-14.5) % Plt Count 255 (130-400) K/uL MPV 9.7 (7.4-10.4) fL Immature Gran % (Auto) 0.2 % Neut % (Auto) 77.1 % Lymph % (Auto) 6.4 % [place] % (Auto) 15.8 % Eos % (Auto) 0.0 % Baso % (Auto) 0.5 % Neut # (Auto) 6.26 (1.4-6.5) K/uL Lymph # (Auto) 0.52 L (1.2-3.4) K/uL [place] # (Auto) 1.28 H (0.11-0.59) K/uL Eos # (Auto) 0.00 (0-0.5) K/uL Baso # (Auto) 0.04 (0-0.2) K/uL Immature Gran # (Auto) 0.02 (0.00-0.02) K/uL PT (9.0-12.0) Seconds INR (0.9-1.1) APTT (21.0-31.0) Seconds PTT Ratio Sodium (136-145) mmol/L Potassium (3.5-5.1) mmol/L Chloride (98-107) mmol/L Carbon Dioxide (21-32) mmol/L Anion Gap (3-11) BUN (7-18) mg/dl Creatinine (0.6-1.4) mg/dl Est Cr Clr Drug Dosing ml/min Est GFR ( Amer) ml/min Est GFR (Non-Af Amer) ml/min BUN/Creatinine Ratio (10-20) Glucose (70-99) mg/dl Lactate (0.4-2.0) mmol/L Calcium (8.5-10.1) mg/dl Magnesium (1.8-2.4) mg/dl Total Bilirubin (0.2-1) mg/dl AST (15-37) U/L ALT (12-78) U/L Alkaline Phosphatase (45-117) U/L Ammonia 14.2 (11-32) umol/L Troponin I (0-0.045) ng/ml Total Protein (6.4-8.2) gm/dl Albumin (3.4-5.0) gm/dl Globulin (2.5-4.0) gm/dl Albumin/Globulin Ratio (0.9-2) Procalcitonin (0-0.5) ng/ml Urine Color Urine Appearance (Clear) Urine pH (4.5-7.5) Ur Specific [place] (1.000-1.030) Urine Protein (Negative) Urine Glucose (UA) (Negative) Urine Ketones (Negative) Urine Blood (Negative) Urine Nitrite (Negative) Urine Bilirubin (Negative) Urine Urobilinogen (Negative) Ur Leukocyte Esterase (Negative) Urine WBC (Auto) (0-5) /hpf Urine RBC (Auto) (0-4) /hpf U Hyaline Cast (Auto) (0-5) /lpf U Epithel Cells (Auto) (0-5) /lpf Urine Bacteria (Auto) (Negative) Urine Yeast Nasal Screen MRSA (PCR) COVID-19 Eval Order SARS-CoV-2 (PCR) (Negative) Diagnostic Findings CT ABDOMEN & PELVIS With Contrast: Comparison: CT abdomen and pelvis 11/11/20. Rectal wall thickening and perirectal fat stranding suggesting proctitis. Constipation. No bowel obstruction. Normal appendix. Urinary bladder wall thickening and surrounding fat stranding, correlate with urinalysis for possible cystitis. Pinedo catheter in the urinary bladder. Motion degraded exam. Nodular liver suggesting cirrhosis. Distended gallbladder without evidence of acute cholecystitis. Mild splenomegaly. Pancreas and adrenal glands are unremarkable. Symmetric renal enhancement. No hydronephrosis. Stable small right kidney cyst. Previously noted bilateral renal calculi are not well visualized on today's exam. Anasarca. Fat-containing left inguinal hernia. Osteopenia. Mild chronic L4 compression fracture. Radiologist: Inez Eldridge M.D CT HEAD: Comparison: CT head 01/29/21 Involutional and chronic small vessel ischemic changes. No ICH, mass-effect, or edema. No skull fracture. Sinuses and mastoid air cells are clear. Radiologist: Inez Chente, M.D. Medications Administered Current Inpatient Medications Acetaminophen (Acetaminophen 325 Mg Tab) 650 mg PO Q4H PRN PRN Reason: Pain or Fever Stop: 05/12/21 02:43 Al Hydrox/Mg Hydrox/Simethicone (Aluminum/Magnesium Susp 30 Ml Udc) 15 ml PO Q4H PRN PRN Reason: Dyspepsia Stop: 05/12/21 02:43 Baclofen (Baclofen 10 Mg Tab) 5 mg PO BID JJ Stop: 05/12/21 02:43 Last Admin: 04/12/21 03:36 Dose: 5 mg Documented by: Sodium Chloride (Nss 1000ml) 1,000 mls @ 150 mls/hr IV .[id number] JJ Stop: 05/12/21 01:44 Last Admin: 04/12/21 03:37 Dose: 150 mls/hr Documented by: Meropenem 500 mg/ Syringe 10 mls @ 2 mls/min IV Q6H JJ; Protocol Stop: 04/14/21 03:59 Last Admin: 04/12/21 03:36 Dose: 2 mls/min Documented by: Magnesium Hydroxide (Magnesium Hydroxide Susp 30 Ml Udc) 30 ml PO Q12H PRN PRN Reason: Constipation Stop: 05/12/21 02:43 Miscellaneous Information (Vancomycin Consult Active) 1 ea N/A UD PRN PRN Reason: Consult Stop: 05/11/21 21:47 Miscellaneous Information (Meropenem Consult Acitve) 1 ea N/A UD PRN PRN Reason: Consult Stop: 05/11/21 21:48 Nortriptyline HCl (Nortriptyline Hcl 25 Mg Cap) 75 mg PO HS JJ Stop: 05/12/21 20:59 Ondansetron HCl (Ondansetron Inj 2 Mg/Ml 2 Ml Vial) 4 mg IV Q6H PRN PRN Reason: Nausea Stop: 05/12/21 02:43 Oxcarbazepine (Oxcarbazepine 150 Mg Tablet) 600 mg PO BID JJ Stop: 05/12/21 08:59 Potassium Chloride (Potassium Chloride Crtab 20 Meq Tabcr) 20 meq PO DAILY JJ Stop: 05/12/21 08:59 Supervising Physician Co-Signing Physician Notes Attending addendum: I have physically seen this patient, have supervised the medical residents lida parson, and agree with the H&P unless as otherwise noted. Assessment and Plan: Sepsis due to UTI- Similar presentation require admission from 01/29-02/04 Follow urine culture and sensitivity Follow blood culture and sensitivity NSS 250 mils per hour Vancomycin IV per pharmacokinetic monitoring Meropenem IV Remaining orders and notations as noted Resident Activity Tracking Resident Involvement: Resident Care Provided Care Provided: Adult [facility] Medicine (1) Sepsis Sepsis acute organ dysfunction status: unspecified Sepsis type: sepsis due to unspecified organism Qualified Code(s): A41.9 - Sepsis, unspecified organism (2) AMS (altered mental status) Altered mental status type: unspecified Qualified Code(s): R41.82 - Altered mental status, unspecified
[2021-04-12] MEDS ORDERED: MAGNESIUM HYDROXIDE SUSP 30 ML UDC PO PRN (02:44)
[2021-04-12] MEDS ORDERED: ALUMINUM/MAGNESIUM SUSP 30 ML UDC PO PRN (02:44)
[2021-04-12] MEDS ORDERED: ONDANSETRON INJ 2 MG/ML 2 ML VIAL IV PRN (02:44)
[2021-04-12] MEDS ORDERED: ACETAMINOPHEN 325 MG TAB PO PRN (02:44)
[2021-04-12] MEDS: BACLOFEN 10 MG TAB PO SCH ×2 (03:36→10:02)
[2021-04-12] MEDS: MEROPENEM 500 MG in SYRINGE 0 ML IV SCH ×3 (03:36→16:49)
[2021-04-12 05:37] LABS: Basophils # (auto) 0.02 K/uL (0-0.2); Basophils % (auto) 0.3 %; Eosinophils # (auto) 0.03 K/uL (0-0.5); Eosinophils % (auto) 0.4 %; Hematocrit (blood only) 31.4 % (42-52); Immature Granulocytes # (auto) 0.01 K/uL (0.00-0.02); Immature Granulocytes % (auto) 0.1 %; Lymphocytes # (auto) 0.79 K/uL (1.2-3.4); Lymphocytes % (auto) 11.2 %; Mean Corpuscular Hemoglobin 30.4 pg (25-34); Mean Corpuscular Hgb Conc 31.8 g/dL (32-36); Mean Corpuscular Volume 95.4 fL (80-100); Mean Platelet Volume 9.2 fL (7.4-10.4); Monocytes # (auto) 0.68 K/uL (0.11-0.59); Monocytes % (auto) 9.6 %; Neutrophils # (auto) 5.53 K/uL (1.4-6.5); Neutrophils % (auto) 78.4 %; Platelet Count 159 K/uL (130-400); RDW Coefficient of Variation 14.9 % (11.5-14.5); RDW Standard Deviation 52.6 fL (36.4-46.3); Red Blood Count 3.29 M/uL (4.7-6.1); White Blood Count 7.06 K/uL (4.8-10.8)
[2021-04-12 06:17] LABS: Albumin Globulin Ratio 0.8 (0.9-2); Albumin Level 2.5 gm/dl (3.4-5.0); BUN Creatinine Ratio 34.2 (10-20); Bilirubin,Total 0.6 mg/dl (0.2-1); Calcium 7.8 mg/dl (8.5-10.1); Creatinine Clr Calc Pharmacy 107.6 ml/min; Est GFR (African American) 119.1 ml/min; Est GFR (Non-African American) 102.7 ml/min; Magnesium 2.3 mg/dl (1.8-2.4); Phosphorus 2.4 mg/dl (2.5-4.9); Potassium 3.3 mmol/L (3.5-5.1); Total Protein 5.5 gm/dl (6.4-8.2)
--- NOTE | 2021-04-12 06:38 | Hospitalist Progress Note ---
Date of Service April 12, 2021 Assessment & Plan (1) Sepsis: Plan: Marc Shukla is a 65-year-old male presented from [facility] following being found as progressively more confused, febrile, and tachycardic in their medical unit earlier today. Urosepsis Patient tachycardic, tachypneic, febrile, elevated lactate and procalcitonin on admission History of urosepsis in 01/2021 requiring vasopressors, attributed to MDR Klebsiella at that time CT abdomen/pelvis demonstrating signs of cystitis with fat stranding, additional signs of rectal wall thickening concerning for potential proctitis Vancomycin discontinued after culture showed GNR; continue meropenem until culture/sensitivities result Continue LR @ 150mL/hr Follow urine and blood cultures Confusion Likely secondary to urosepsis Ammonia 14.2 on admission; patient had recently stopped taking lactulose Treat as above Hypokalemia Patient with potassium of 3.3 KCl 20mEq added to IVF One-time 40mEq dose of KCl given Hyperchloremia NSS switched to LR FEN: heart healthy diet Code status: full code DVT ppx: lovenox Isolation: contact Consults: non Dispo: PCU tele (2) AMS (altered mental status): (3) Gram negative septicemia: (4) Acute UTI: Admission and Anticipated Discharge Date Admission Date: April 12, 2021 Supervising Physician Co-Signing Physician Notes I personally examined the patient and verified all ash points of history and exam, discussed case, and agree with decision making with Dr Mejía still confused, thinks we're at [facility] legs hurt vitals noted appearing somewhat uncomfortable from legs. abd soft nd nt no masses ext contractures and ulcerations - julieth L heel w black eschar no tracking erythema sepsis - gram negative bacteremia - most likely urinary source from chronic vieira cath. meropenem pending final Cx given prior resistance patterns, then streamline as possible heel ulcers - no tracking erythema. needs offloading and wound care. otherwise as above Subjective Patient seen and evaluated at bedside this morning. Patient is confused this morning, thinking he is still at [facility], and that he wants to watch the long term guards go hunting. Alert and oriented to person only. Endorses pain in his LE bilaterally but no abdominal or catheter-associated pain. Tolerating meals well, continuing to make urine. Patient denies CP, SOB, abdominal pain, nausea, vomiting, lightheadedness, diarrhea, or other symptoms. Review of Systems Review of Systems: See HPI Physical Exam Physical Exam: Constitutional: slightly uncomfortable-appearing, no acute distress CV: tachycardic, no murmur appreciated, extremities well-perfused Resp: CTABL, no wheezes/rales/rhonchi appreciated, no increased work of breathing GI: soft, nondistended, nontender MSK: flexion contractures of BL LE Skin: pressure ulcer of the heels noted bilaterally, multiple optifoam dressings present on BL LE Neuro: alert, oriented to person only, confusion evident, no focal deficits appreciated Results & Data Results & Data ([facility]) Vital Signs (Past 12 Hours) Vital Signs Temp Pulse Pulse Resp BP BP Pulse Ox 04/12/21 05:10 100 H 21 95 04/12/21 05:00 101 H 15 97 04/12/21 04:50 96 H 20 100 04/12/21 04:40 104 H 26 H 100 04/12/21 04:30 99 H 21 98 04/12/21 04:20 100 H 20 92 04/12/21 04:19 103 H 20 98 04/12/21 03:17 99 H 20 125/74 95 04/12/21 03:02 96 H 24 124/74 99 04/12/21 02:44 36.8 C 91 H 24 109/84 99 04/12/21 02:14 97 04/12/21 01:45 92 H 17 118/56 L 96 04/12/21 01:30 95 H 18 101/50 L 97 04/12/21 01:15 96 H 22 101/59 L 97 04/12/21 01:00 96 H 21 113/54 L 96 04/12/21 00:45 98 H 24 100/52 L 96 04/12/21 00:31 103 H 19 107/50 L 97 04/12/21 00:16 37.4 C 106 H 27 H 80/50 L 98 04/12/21 00:00 106 H 23 93/47 L 95 04/11/21 23:45 101 H 20 91/55 L 97 04/11/21 23:16 106 H 24 120/55 L 98 04/11/21 22:54 28 H 04/11/21 22:45 112 H 26 H 99 04/11/21 22:30 112 H 26 H 106/63 99 04/11/21 22:16 110 H 20 114/62 100 04/11/21 22:00 114 H 24 107/53 L 99 04/11/21 21:40 118 H 27 H 93 04/11/21 21:34 119 H 26 H 93 04/11/21 21:22 39.7 C H 122 H 32 H 114/68 96 (1) Sepsis Sepsis acute organ dysfunction status: unspecified Sepsis type: sepsis due to unspecified organism Qualified Code(s): A41.9 - Sepsis, unspecified organism (2) AMS (altered mental status) Altered mental status type: unspecified Qualified Code(s): R41.82 - Altered mental status, unspecified
--- NOTE | 2021-04-12 06:52 | CT Scan Report ---
CT head/brain wo con CLINICAL HISTORY: Acute change in mental status COMPARISON STUDY: 01/29/2021 TECHNIQUE: Axial CT of the brain is performed from the vertex to the skull base. IV contrast was not administered for this examination. A dose lowering technique was utilized adhering to the principles of ALARA. CT DOSE: FINDINGS: No intra or extra-axial mass lesions are visualized. There is no CT evidence of acute cortical infarc tion. There is no evidence of midline shift. There is no acute hemorrhage. No calvarial fractures ar e visualized. There are patchy white matter hypodensities likely on a small vessel basis. There is mild ventricular prominence which is felt to be secondary to volume loss There is no evidence of acute sinusitis IMPRESSION: No acute intracranial findings ACT 112: Negative or not required by law. Electronically signed by: Rush Cohen M.D. 04/12/2021 6:50 AM
--- NOTE | 2021-04-12 07:12 | XRay Report ---
XR chest 1V portable CLINICAL HISTORY: SEPSIS COMPARISON STUDY: 02/28/2021 FINDINGS: The patient is listing to the left. The heart is the upper limits of normal in size. There is no failure. There is no focal pulmonary consolidation. There are no pleural effusions. There is mi nor left basilar atelectasis[ IMPRESSION: No active disease in the chest. ACT 112: Negative or not required by law. Electronically signed by: Rush Cohen M.D. 04/12/2021 7:11 AM
[2021-04-12] MEDS: NSS + 20MEQ KCL 20 MEQ/1,000 ML BAG IV SCH ×2 (07:43→15:49)
--- NOTE | 2021-04-12 07:46 | CT Scan Report ---
CT abd pelvis IV con only CLINICAL HISTORY: Abdominal pain. COMPARISON STUDY: 11/11/2020 TECHNIQUE: Patient was scanned in a dynamic helical fashion during intravenous administration of 93 c c of Optiray 320 A dose lowering technique was utilized adhering to the principles of ALARA. CT DOSE: 1447.01 mGy.cm FINDINGS: Lower chest: There is respiratory motion artifact. There are mild basilar atelectatic changes. There are coronary artery calcifications. Liver: No focal hepatic masses are visualized. Possible hepatic cirrhosis.. Gallbladder: Cholelithiasis. The gallbladder is mildly distended. Spleen: Normal in size and attenuation. Pancreas: Unremarkable. Adrenal glands: There is mild adrenal gland thickening more pronounced on the left. Kidneys: There is a stable lower pole left renal cortical scar. There is a 7 mm lower pole left renal hypodensity likely representing a cyst. There is a 1 cm right renal hypodensity likely representing a cyst. There is no hydronephrosis Bowel: There is a moderate fecal colonic load. There is a rectal wall thickening consistent with a no nspecific proctitis. Peritoneum: There is trace fluid within the pelvis. There is no free intraperitoneal air. There is a fat-containing left inguinal hernia. Vasculature: The abdominal aorta is normal in course and caliber. There is a left common femoral vein filling defects versus flow related artifact. Adenopathy: None. Pelvic viscera: There is a joint Pinedo catheter. There is bladder wall thickening Skeletal structures: Is an old L4 vertebral body deformity. There are degenerative changes with disco genic and plate sclerosis at the L4-5 level. IMPRESSION: 1. No evidence of bowel obstruction. No evidence of free air 2. Moderate fecal colonic load. Rectal wall thickening consistent with a nonspecific proctitis 3. Bladder wall thickening 4. Cholelithiasis and mild gallbladder distention 5. Motion degraded study 6. Small left common femoral vein DVT versus flow related artifact. ACT 112: Negative or not required by law. Electronically signed by: Rush Cohen M.D. 04/12/2021 7:45 AM
[2021-04-12] MEDS ORDERED: VANCOMYCIN HCL 1,000 MG in SODIUM CHLORIDE 0.9% 250 ML IV SCH (10:00)
[2021-04-12] MEDS: OXcarbazepine 150 MG TABLET PO SCH (10:02)
[2021-04-12] MEDS: POTASSIUM CHLORIDE CRTAB 20 MEQ TABCR PO SCH (10:02)
--- NOTE | 2021-04-12 11:53 | Pharmacy Report ---
Pharmacy Vanc AUC Short Note - Date of Service April 12, 2021 - Assessment & Plan Assessment 65 year old M receiving vanc and meropenem empirically for possible urosepsis. Pertinent past microbiologic data includes: klebsiella ESBL in the blood and urine and VRE in the urine. Blood and urine cx pending. Day # 1 of antimicrobial therapy. Plan Vancomycin * AUC/ANAND is the preferred PK/PD target for vancomycin * AUC guided dosing is effective and associated with decreased risk of nephrotoxicity compared to traditional trough targets * Predicted Trough level of 13.4 mcg/mL is predicted to achieve target AUC/ANAND of 400-600 mg/L.hr and may be associated with a 9 % risk of nephrotoxicity * Loading dose of 1250 mg IV X 1 last evening followed by 1000 mg IV every 12 hours * Trough or random level ordered for: Current indication/duration is empiric 48 hours. Will order a level if therapy to continue past that. Pharmacy will continue to follow and will adjust dose/frequency as necessary. Thank you.
--- NOTE | 2021-04-12 13:23 | Electrocardiogram Report ---
Test Reason : Blood Pressure : / mmHG Vent. Rate : 115 BPM Atrial Rate : 117 BPM P-R Int : 196 ms QRS Dur : 082 ms QT Int : 332 ms P-R-T Axes : 017 057 063 degrees QTc Int : 459 ms Poor data quality, interpretation may be adversely affected Probable Sinus rhythm Nonspecific ST abnormality Abnormal ECG When compared with ECG of 28-FEB-2021 14:26, No significant change Confirmed by Des Aceves ([id number]) on 04/12/2021 1:23:35 PM Referred By: Raj SCI Confirmed By:Des Aceves
--- NOTE | 2021-04-12 17:02 | Billing Data ---
Date of Service April 12, 2021 Coding Level of Care Code 22248 Subseq Hosp Care Lvl 3
[2021-04-12] MEDS: POTASSIUM CHLORIDE 20 MEQ in LACTATED RINGER'S 1,000 ML IV SCH (18:09)
[2021-04-13] MEDS: POTASSIUM CHLORIDE 20 MEQ in LACTATED RINGER'S 1,000 ML IV SCH ×4 (00:05→19:41)
[2021-04-13] MEDS: NORTRIPTYLINE HCL 25 MG CAP PO SCH ×2 (00:36→19:43)
[2021-04-13] MEDS: BACLOFEN 10 MG TAB PO SCH ×3 (00:36→19:49)
[2021-04-13] MEDS: OXcarbazepine 150 MG TABLET PO SCH ×3 (00:36→19:42)
[2021-04-13] MEDS: MEROPENEM 500 MG in SYRINGE 0 ML IV SCH ×5 (00:37→19:49)
--- NOTE | 2021-04-13 02:38 | Billing Data ---
Date of Service April 13, 2021 Coding Level of Care Code 92291 Initial Inpt Care Lvl 3
[2021-04-13 06:29] LABS: Basophils # (auto) 0.01 K/uL (0-0.2); Basophils % (auto) 0.1 %; Eosinophils # (auto) 0.55 K/uL (0-0.5); Eosinophils % (auto) 6.5 %; Hematocrit (blood only) 32.3 % (42-52); Hemoglobin 10.5 g/dL (14.0-18.0); Immature Granulocytes # (auto) 0.03 K/uL (0.00-0.02); Immature Granulocytes % (auto) 0.4 %; Lymphocytes # (auto) 0.48 K/uL (1.2-3.4); Lymphocytes % (auto) 5.7 %; Mean Corpuscular Hemoglobin 30.6 pg (25-34); Mean Corpuscular Hgb Conc 32.5 g/dL (32-36); Mean Corpuscular Volume 94.2 fL (80-100); Mean Platelet Volume 9.1 fL (7.4-10.4); Monocytes # (auto) 0.43 K/uL (0.11-0.59); Monocytes % (auto) 5.1 %; Neutrophils # (auto) 6.95 K/uL (1.4-6.5); Neutrophils % (auto) 82.2 %; Platelet Count 176 K/uL (130-400); RDW Coefficient of Variation 14.8 % (11.5-14.5); RDW Standard Deviation 50.8 fL (36.4-46.3); Red Blood Count 3.43 M/uL (4.7-6.1); White Blood Count 8.45 K/uL (4.8-10.8)
[2021-04-13 07:32] LABS: Albumin Globulin Ratio 0.7 (0.9-2); Albumin Level 2.3 gm/dl (3.4-5.0); BUN Creatinine Ratio 28.5 (10-20); Bilirubin,Total 0.6 mg/dl (0.2-1); Creatinine Clr Calc Pharmacy 105.9 ml/min; Est GFR (African American) 118.3 ml/min; Est GFR (Non-African American) 102.1 ml/min; Globulin 3.1 gm/dl (2.5-4.0); Magnesium 2.1 mg/dl (1.8-2.4); Phosphorus 1.8 mg/dl (2.5-4.9); Potassium 3.8 mmol/L (3.5-5.1); Total Protein 5.4 gm/dl (6.4-8.2)
--- NOTE | 2021-04-13 08:00 | Hospitalist Progress Note ---
Date of Service April 13, 2021 Assessment & Plan (1) Sepsis: Plan: Marc Shukla is a 65-year-old male presented from [facility] following being found as progressively more confused, febrile, and tachycardic in their medical unit earlier today. Urosepsis Patient tachycardic, tachypneic, febrile, elevated lactate and procalcitonin on admission History of urosepsis in 01/2021 requiring vasopressors, attributed to MDR Klebsiella at that time CT abdomen/pelvis demonstrating signs of cystitis with fat stranding, additional signs of rectal wall thickening concerning for potential proctitis Vancomycin discontinued after culture showed GNR; continue meropenem until culture/sensitivities result Continue LR @ 150mL/hr Follow urine and blood cultures Confusion Likely secondary to urosepsis Ammonia 14.2 on admission; patient had recently stopped taking lactulose Treat as above Pressure ulcers Pressure ulcers noted on LE BL, ganregnous-appearing ulcer on R heel R wrist with developing pressure ulcer secondary to locked restraint - asked RN to contact [facility] food beverage supervisor to have this chanced to soft restraint Wound care followoing Hypokalemia: resolved Patient with potassium of 3.3 KCl 20mEq added to IVF One-time 40mEq dose of KCl given Trend daily BMP Hyperchloremia NSS switched to LR FEN: heart healthy diet Code status: full code DVT ppx: lovenox Isolation: contact Consults: non Dispo: PCU tele (2) AMS (altered mental status): (3) Gram negative septicemia: (4) Acute UTI: Admission and Anticipated Discharge Date Admission Date: April 12, 2021 Supervising Physician Co-Signing Physician Notes I personally examined the patient and verified all ash points of history and exam, discussed case, and agree with decision making with Dr Mejía less confused, legs hurt less. vitals noted nad heent nc at mmm breathing unlabored no accessory muscles good effort skin ongoing ulcerations dressed no tracking erythema sepsis - gram negative bacteremia - most likely urinary source from chronic vieira cath. continue meropenem pending final Cx given prior resistance patterns (still pending), then streamline as possible heel ulcers and sacral ulcers present on admission currently unstageable even after seen by wound nurse - no tracking erythema. continue offloading and wound care. otherwise as above Subjective Patient seen and evaluated at bedside this morning. No acute events overnight. Feels well this morning. Denies abdominal, pelvic, or catheter site pain. Alert and oriented to person and situation, not to time, for place - knew he was at a hospital but did not know which. No new concerns today. Denies CP, SOB, nausea, vomiting, fever, chills, diarrhea. Review of Systems Review of Systems: See HPI Physical Exam Physical Exam: Constitutional: slightly uncomfortable-appearing, no acute distress CV: tachycardic, no murmur appreciated, extremities well-perfused Resp: CTABL, no wheezes/rales/rhonchi appreciated, no increased work of breathing GI: soft, nondistended, nontender MSK: flexion contractures of BL LE Skin: black pressure ulcer of the heels noted bilaterally, multiple optifoam dressings present on BL LE Neuro: alert, oriented to person, situation, but not to place (knew he was at a hospital, did not know which), not to time Results & Data Results & Data ([facility]) Vital Signs (Past 12 Hours) Vital Signs Temp Pulse Pulse Resp BP BP BP 04/13/21 07:38 36.8 C 108 H 16 135/90 04/13/21 04:00 36.6 C 114 H 18 140/107 H 04/13/21 01:02 112 H 21 155/96 H 04/13/21 00:58 36.8 C 04/13/21 00:52 112 H 17 140/111 H 04/13/21 00:42 37.0 C 115 H 20 160/97 H 04/13/21 00:32 115 H 18 148/95 H 04/13/21 00:23 117 H 15 145/92 H 04/13/21 00:12 113 H 19 166/97 H 04/13/21 00:02 114 H 21 157/99 H 04/13/21 00:00 117 H 04/12/21 23:52 113 H 19 159/94 H 04/12/21 23:42 116 H 20 169/100 H 04/12/21 23:32 113 H 19 158/101 H 04/12/21 23:22 115 H 18 166/97 H 04/12/21 23:12 116 H 20 150/100 H 04/12/21 23:02 116 H 23 150/105 H 04/12/21 22:52 117 H 20 162/96 H 04/12/21 22:42 112 H 19 172/105 H 04/12/21 22:33 112 H 19 169/113 H 04/12/21 22:22 111 H 19 155/101 H 04/12/21 22:12 112 H 23 160/100 H 04/12/21 22:02 112 H 18 164/97 H 04/12/21 21:52 113 H 19 153/87 H 04/12/21 21:42 113 H 19 160/96 H 04/12/21 21:33 113 H 20 143/83 H 04/12/21 21:22 112 H 19 153/83 H 04/12/21 21:12 113 H 21 147/103 H 04/12/21 21:02 112 H 20 161/99 H 04/12/21 20:52 117 H 17 148/94 H 04/12/21 20:42 105 H 16 145/85 H 04/12/21 20:32 106 H 15 157/92 H 04/12/21 20:22 108 H 22 161/96 H 04/12/21 20:12 108 H 19 153/88 H 04/12/21 20:02 112 H 21 131/96 Pulse Ox 04/13/21 07:38 100 04/13/21 04:00 95 04/13/21 01:02 04/13/21 00:58 04/13/21 00:52 04/13/21 00:42 95 04/13/21 00:32 04/13/21 00:23 04/13/21 00:12 04/13/21 00:02 04/13/21 00:00 04/12/21 23:52 04/12/21 23:42 04/12/21 23:32 04/12/21 23:22 04/12/21 23:12 04/12/21 23:02 04/12/21 22:52 04/12/21 22:42 04/12/21 22:33 04/12/21 22:22 04/12/21 22:12 04/12/21 22:02 04/12/21 21:52 04/12/21 21:42 04/12/21 21:33 04/12/21 21:22 04/12/21 21:12 04/12/21 21:02 04/12/21 20:52 04/12/21 20:42 04/12/21 20:32 04/12/21 20:22 04/12/21 20:12 04/12/21 20:02 (1) Sepsis Sepsis acute organ dysfunction status: unspecified Sepsis type: sepsis due to unspecified organism Qualified Code(s): A41.9 - Sepsis, unspecified organism (2) AMS (altered mental status) Altered mental status type: unspecified Qualified Code(s): R41.82 - Altered mental status, unspecified
[2021-04-13] MEDS: ENOXAPARIN INJ 40 MG/0.4 ML SYR SQ SCH (09:16)
[2021-04-13] MEDS: POTASSIUM CHLORIDE CRTAB 20 MEQ TABCR PO SCH (09:17)
--- NOTE | 2021-04-13 19:00 | Billing Data ---
Date of Service April 13, 2021 Coding Level of Care Code 27505 Subseq Hosp Care Lvl 3
[2021-04-14] MEDS: POTASSIUM CHLORIDE 20 MEQ in LACTATED RINGER'S 1,000 ML IV SCH ×4 (02:31→22:15)
[2021-04-14 06:39] LABS: Eosinophils # (auto) 0.47 K/uL (0-0.5); Eosinophils % (auto) 9.2 %; Hematocrit (blood only) 29.5 % (42-52); Hemoglobin 9.5 g/dL (14.0-18.0); Immature Granulocytes # (auto) 0.02 K/uL (0.00-0.02); Immature Granulocytes % (auto) 0.4 %; Lymphocytes # (auto) 0.58 K/uL (1.2-3.4); Lymphocytes % (auto) 11.4 %; Mean Corpuscular Hemoglobin 29.6 pg (25-34); Mean Corpuscular Hgb Conc 32.2 g/dL (32-36); Mean Corpuscular Volume 91.9 fL (80-100); Mean Platelet Volume 9.2 fL (7.4-10.4); Monocytes # (auto) 0.31 K/uL (0.11-0.59); Monocytes % (auto) 6.1 %; Neutrophils # (auto) 3.73 K/uL (1.4-6.5); Neutrophils % (auto) 72.9 %; Platelet Count 153 K/uL (130-400); RDW Coefficient of Variation 14.6 % (11.5-14.5); RDW Standard Deviation 49.2 fL (36.4-46.3); Red Blood Count 3.21 M/uL (4.7-6.1); White Blood Count 5.11 K/uL (4.8-10.8)
[2021-04-14 07:12] LABS: Albumin Level 2.1 gm/dl (3.4-5.0); BUN Creatinine Ratio 30.3 (10-20); Calcium 7.9 mg/dl (8.5-10.1); Est GFR (African American) 125.8 ml/min; Est GFR (Non-African American) 108.5 ml/min; Potassium 3.9 mmol/L (3.5-5.1)
[2021-04-14 07:15] LABS: Albumin Globulin Ratio 0.7 (0.9-2); Bilirubin,Total 0.4 mg/dl (0.2-1); Globulin 2.9 gm/dl (2.5-4.0); Phosphorus 1.9 mg/dl (2.5-4.9)
--- NOTE | 2021-04-14 07:52 | Hospitalist Progress Note ---
Date of Service April 14, 2021 Assessment & Plan (1) Sepsis: Plan: Marc Shukla is a 65-year-old male presented from [facility] following being found as progressively more confused, febrile, and tachycardic in their medical unit earlier today. Urosepsis Patient tachycardic, tachypneic, febrile, elevated lactate and procalcitonin on admission History of urosepsis in 01/2021 requiring vasopressors, attributed to MDR Klebsiella at that time CT abdomen/pelvis demonstrating signs of cystitis with fat stranding, additional signs of rectal wall thickening concerning for potential proctitis Vancomycin discontinued after culture showed GNR; continue meropenem until culture/sensitivities result Continue LR @ 150mL/hr 1/2 blood cultures with K. pneumoniae ESBL, urine culture with 3+ bacteria all with high counts - repeat blood and urine culture ordered Meropenem discontinued, switched to ertapenem IV Confusion Likely secondary to urosepsis Ammonia 14.2 on admission; patient had recently stopped taking lactulose Treat as above Pressure ulcers Pressure ulcers noted on LE BL, ganregnous-appearing ulcer on R heel R wrist with developing pressure ulcer secondary to locked restraint - asked RN to contact [facility] supervisor screen printing to have this chanced to soft restraint Wound care following Hypokalemia: resolved Patient with potassium of 3.3 KCl 20mEq added to IVF One-time 40mEq dose of KCl given Trend daily BMP Hyperchloremia: improving NSS switched to LR FEN: heart healthy diet Code status: full code DVT ppx: lovenox Isolation: contact Consults: non Dispo: stepping down to med/surg (2) AMS (altered mental status): (3) Gram negative septicemia: (4) Acute UTI: Admission and Anticipated Discharge Date Admission Date: April 12, 2021 Supervising Physician Co-Signing Physician Notes I personally examined the patient and verified all ash points of history and exam, discussed case, and agree with decision making with Dr Mejía Confusion about the same as yesterday, no other new complaints otherwise.. vitals noted nad heent nc at mmm breathing unlabored no accessory muscles good effort skin ongoing ulcerations dressed no tracking erythema sepsis - gram negative bacteremia - most likely urinary source from chronic vieira cath. Change antibiotics to ertapenem, return to [facility]f once infirmary is able to take him. heel ulcers and sacral ulcers present on admission currently unstageable even after seen by wound nurse - no tracking erythema. continue offloading and wound care. Would definitely benefit from ongoing wound care at the alf if they are able to accommodate this Metabolic encephalopathypresent on admission, caused by septic picture, improved some but now seems to be basically status quo, anticipate this taking a while to resolve. otherwise as above Subjective Patient seen and evaluated at bedside this morning. No acute events overnight. Feels well this morning. Denies abdominal, pelvic, or catheter site pain. Alert, oriented to person only. Has a good appetite. No new concerns today. Denies CP, SOB, nausea, vomiting, fever, chills, diarrhea. Review of Systems Review of Systems: See HPI Physical Exam Physical Exam: Constitutional: well-appearing, no acute distress CV: tachycardic, no murmur appreciated, extremities well-perfused Resp: CTABL, no wheezes/rales/rhonchi appreciated, no increased work of breathing GI: soft, nondistended, nontender MSK: flexion contractures of BL LE Skin: black pressure ulcer of the heels noted bilaterally, multiple optifoam dressings present on BL LE Neuro: alert, oriented to person only Results & Data Results & Data ([facility]) Vital Signs (Past 12 Hours) Vital Signs Temp Pulse Pulse Resp BP Pulse Ox 04/14/21 07:42 69 04/13/21 22:24 36.7 C 99 H 18 154/98 H 97 (1) Sepsis Sepsis acute organ dysfunction status: unspecified Sepsis type: sepsis due to unspecified organism Qualified Code(s): A41.9 - Sepsis, unspecified organism (2) AMS (altered mental status) Altered mental status type: unspecified Qualified Code(s): R41.82 - Altered mental status, unspecified
[2021-04-14] MEDS: ENOXAPARIN INJ 40 MG/0.4 ML SYR SQ SCH (08:31)
[2021-04-14] MEDS: OXcarbazepine 150 MG TABLET PO SCH (08:32)
[2021-04-14] MEDS: BACLOFEN 10 MG TAB PO SCH (08:35)
[2021-04-14] MEDS: POTASSIUM CHLORIDE CRTAB 20 MEQ TABCR PO SCH (08:35)
[2021-04-14] MEDS: ERTAPENEM SODIUM 1,000 MG in SODIUM CHLORIDE 0.9% 50 ML IV SCH (09:47)
--- NOTE | 2021-04-14 18:54 | Billing Data ---
Date of Service April 14, 2021 Coding Level of Care Code 37705 Subseq Hosp Care Lvl 2
[2021-04-15] MEDS: BACLOFEN 10 MG TAB PO SCH ×3 (01:35→20:02)
[2021-04-15] MEDS: NORTRIPTYLINE HCL 25 MG CAP PO SCH ×2 (01:36→20:02)
[2021-04-15] MEDS: OXcarbazepine 150 MG TABLET PO SCH ×3 (01:36→20:01)
[2021-04-15] MEDS: POTASSIUM CHLORIDE 20 MEQ in LACTATED RINGER'S 1,000 ML IV SCH ×3 (05:12→20:01)
[2021-04-15 07:24] LABS: Basophils # (auto) 0.01 K/uL (0-0.2); Basophils % (auto) 0.3 %; Eosinophils # (auto) 0.36 K/uL (0-0.5); Hemoglobin 9.4 g/dL (14.0-18.0); Immature Granulocytes # (auto) 0.02 K/uL (0.00-0.02); Immature Granulocytes % (auto) 0.6 %; Lymphocytes # (auto) 0.62 K/uL (1.2-3.4); Lymphocytes % (auto) 17.2 %; Mean Corpuscular Hemoglobin 29.7 pg (25-34); Mean Corpuscular Hgb Conc 32.4 g/dL (32-36); Mean Corpuscular Volume 91.5 fL (80-100); Monocytes # (auto) 0.33 K/uL (0.11-0.59); Monocytes % (auto) 9.2 %; Neutrophils # (auto) 2.26 K/uL (1.4-6.5); Neutrophils % (auto) 62.7 %; Platelet Count 170 K/uL (130-400); RDW Coefficient of Variation 14.3 % (11.5-14.5); RDW Standard Deviation 48.6 fL (36.4-46.3); Red Blood Count 3.17 M/uL (4.7-6.1)
[2021-04-15 07:39] LABS: Blood Urea Nitrogen 10 mg/dl (7-18); Calcium 7.6 mg/dl (8.5-10.1); Carbon Dioxide 24 mmol/L (21-32); Chloride 109 mmol/L (98-107); Glucose 72 mg/dl (70-99); Potassium 3.8 mmol/L (3.5-5.1); Sodium 138 mmol/L (136-145)
[2021-04-15 08:17] LABS: BUN Creatinine Ratio 27.3 (10-20); Creatinine Clr Calc Pharmacy 209.2 ml/min; Est GFR (African American) > 150.0 ml/min; Est GFR (Non-African American) 130.2 ml/min
[2021-04-15] MEDS: POTASSIUM CHLORIDE CRTAB 20 MEQ TABCR PO SCH (09:11)
[2021-04-15] MEDS: ERTAPENEM SODIUM 1,000 MG in SODIUM CHLORIDE 0.9% 50 ML IV SCH (09:12)
[2021-04-15] MEDS: ENOXAPARIN INJ 40 MG/0.4 ML SYR SQ SCH (09:12)
--- NOTE | 2021-04-15 11:08 | Hospitalist Progress Note ---
Date of Service April 15, 2021 Assessment & Plan (1) Sepsis: Plan: Marc Shukla is a 65-year-old male presented from [facility] following being found as progressively more confused, febrile, and tachycardic in their medical unit earlier today. Urosepsis Patient tachycardic, tachypneic, febrile, elevated lactate and procalcitonin on admission History of urosepsis in 01/2021 requiring vasopressors, attributed to MDR Klebsiella at that time CT abdomen/pelvis demonstrating signs of cystitis with fat stranding, additional signs of rectal wall thickening concerning for potential proctitis Vancomycin discontinued after culture showed GNR; continue meropenem until culture/sensitivities result Continue LR @ 150mL/hr 1/2 blood cultures with K. pneumoniae ESBL, urine culture with 3+ bacteria all with high counts - repeat blood and urine culture ordered Meropenem discontinued, switched to ertapenem IV Confusion Likely secondary to urosepsis Ammonia 14.2 on admission; patient had recently stopped taking lactulose Treat as above Pressure ulcers Pressure ulcers noted on LE BL, ganregnous-appearing ulcer on R heel R wrist with developing pressure ulcer secondary to locked restraint - asked RN to contact [facility] soaping department supervisor to have this chanced to soft restraint Wound care following Hypokalemia: resolved Patient with potassium of 3.3 KCl 20mEq added to IVF One-time 40mEq dose of KCl given Trend daily BMP Hyperchloremia: improving NSS switched to LR FEN: heart healthy diet Code status: full code DVT ppx: lovenox Isolation: contact Consults: non Dispo: stepping down to med/surg (2) AMS (altered mental status): (3) Gram negative septicemia: (4) Acute UTI: Admission and Anticipated Discharge Date Admission Date: April 12, 2021 Supervising Physician Co-Signing Physician Notes I personally examined the patient and verified all ash points of history and exam, discussed case, and agree with decision making with Dr Mejía still waiting on shelter to obtain ertapenem vitals noted nad breathing unlabored no accessory muscles good effort no pallor sepsis - gram negative bacteremia - most likely urinary source from chronic vieira cath. Changed antibiotics to ertapenem, return to shelter once infirmary is able to take him. anticipate 14 days of therapy heel ulcers and sacral ulcers present on admission currently unstageable even after seen by wound nurse - no tracking erythema. continue offloading and wound care. Would definitely benefit from ongoing wound care at the shelter if they are able to accommodate this Metabolic encephalopathypresent on admission, caused by septic picture, improved some but now seems to be basically status quo, anticipate this taking a while to resolve. otherwise as above Subjective Patient seen and evaluated at bedside this morning. No acute events overnight. Feels okay this morning, requesting root beer. Alert, oriented to person only. Has a good appetite. Denies CP, SOB, nausea, vomiting, fever, chills, diarrhea. Review of Systems Review of Systems: See HPI Physical Exam Physical Exam: Constitutional: well-appearing, no acute distress CV: tachycardic, no murmur appreciated, extremities well-perfused Resp: CTABL, no wheezes/rales/rhonchi appreciated, no increased work of breathing GI: soft, nondistended, nontender MSK: flexion contractures of BL LE Skin: black pressure ulcer of the heels noted bilaterally, multiple optifoam dressings present on BL LE Neuro: alert, oriented to person only Results & Data Results & Data ([facility]) Vital Signs (Past 12 Hours) Vital Signs Temp Pulse Resp BP Pulse Ox 04/15/21 07:00 36.5 C 88 18 125/66 98 Resident Activity Tracking Resident Involvement: Resident Care Provided Care Provided: Adult Hospital Medicine (1) Sepsis Sepsis acute organ dysfunction status: unspecified Sepsis type: sepsis due to unspecified organism Qualified Code(s): A41.9 - Sepsis, unspecified organism (2) AMS (altered mental status) Altered mental status type: unspecified Qualified Code(s): R41.82 - Altered mental status, unspecified
[2021-04-15] MEDS: CEROVITE ADV FORMULA TAB PO SCH (16:26)
--- NOTE | 2021-04-15 19:38 | Billing Data ---
Date of Service April 15, 2021 Coding Level of Care Code 61502 Subseq Hosp Care Lvl 1
[2021-04-15] MEDS: ASCORBIC ACID 500 MG TAB PO SCH (20:02)
[2021-04-16] MEDS: POTASSIUM CHLORIDE 20 MEQ in LACTATED RINGER'S 1,000 ML IV SCH ×2 (03:25→09:00)
[2021-04-16] MEDS: ASCORBIC ACID 500 MG TAB PO SCH (08:50)
[2021-04-16] MEDS: ENOXAPARIN INJ 40 MG/0.4 ML SYR SQ SCH (08:50)
[2021-04-16] MEDS: CEROVITE ADV FORMULA TAB PO SCH (08:51)
[2021-04-16] MEDS: BACLOFEN 10 MG TAB PO SCH (08:56)
[2021-04-16] MEDS: POTASSIUM CHLORIDE CRTAB 20 MEQ TABCR PO SCH (08:56)
[2021-04-16] MEDS: ERTAPENEM SODIUM 1,000 MG in SODIUM CHLORIDE 0.9% 50 ML IV SCH (08:56)
[2021-04-16] MEDS: OXcarbazepine 150 MG TABLET PO SCH (08:56)
[2021-04-16 09:09] LABS: Basophils # (auto) 0.02 K/uL (0-0.2); Basophils % (auto) 0.5 %; Eosinophils # (auto) 0.31 K/uL (0-0.5); Eosinophils % (auto) 7.1 %; Hematocrit (blood only) 31.1 % (42-52); Hemoglobin 10.1 g/dL (14.0-18.0); Immature Granulocytes # (auto) 0.04 K/uL (0.00-0.02); Immature Granulocytes % (auto) 0.9 %; Lymphocytes # (auto) 0.87 K/uL (1.2-3.4); Lymphocytes % (auto) 19.9 %; Mean Corpuscular Hemoglobin 29.8 pg (25-34); Mean Corpuscular Hgb Conc 32.5 g/dL (32-36); Mean Corpuscular Volume 91.7 fL (80-100); Mean Platelet Volume 8.8 fL (7.4-10.4); Monocytes # (auto) 0.43 K/uL (0.11-0.59); Monocytes % (auto) 9.8 %; Neutrophils % (auto) 61.8 %; Platelet Count 176 K/uL (130-400); RDW Coefficient of Variation 14.5 % (11.5-14.5); Red Blood Count 3.39 M/uL (4.7-6.1); White Blood Count 4.37 K/uL (4.8-10.8)
--- NOTE | 2021-04-16 09:23 | Hospitalist Progress Note ---
Date of Service April 16, 2021 Assessment & Plan (1) Sepsis: Plan: Marc Shukla is a 65-year-old male presented from [facility] following being found as progressively more confused, febrile, and tachycardic in their medical unit earlier today. Urosepsis Patient tachycardic, tachypneic, febrile, elevated lactate and procalcitonin on admission History of urosepsis in 01/2021 requiring vasopressors, attributed to MDR Klebsiella at that time CT abdomen/pelvis demonstrating signs of cystitis with fat stranding, additional signs of rectal wall thickening concerning for potential proctitis Vancomycin discontinued after culture showed GNR; continue meropenem until culture/sensitivities result Continue LR @ 150mL/hr 1/2 blood cultures with K. pneumoniae ESBL, urine culture with 3+ bacteria all with high counts - repeat blood and urine culture ordered Meropenem discontinued, switched to ertapenem IV Confusion Likely secondary to urosepsis Ammonia 14.2 on admission; patient had recently stopped taking lactulose Treat as above Pressure ulcers Pressure ulcers noted on LE BL, ganregnous-appearing ulcer on R heel R wrist with developing pressure ulcer secondary to locked restraint - asked RN to contact [facility] supervisor locomotive to have this chanced to soft restraint Wound care following Hypokalemia: resolved Patient with potassium of 3.3 KCl 20mEq added to IVF One-time 40mEq dose of KCl given Trend daily BMP Hyperchloremia: improving NSS switched to LR FEN: heart healthy diet Code status: full code DVT ppx: lovenox Isolation: contact Consults: non Dispo: stepping down to med/surg (2) AMS (altered mental status): (3) Gram negative septicemia: (4) Acute UTI: Admission and Anticipated Discharge Date Admission Date: April 12, 2021 Results & Data Results & Data ([facility]) Vital Signs (Past 12 Hours) Vital Signs Temp Pulse Resp BP Pulse Ox 04/16/21 07:34 36.7 C 93 H 16 120/73 100 04/15/21 23:51 127/67 04/15/21 22:52 36.6 C 94 H 16 175/72 H 92 (1) Sepsis Sepsis acute organ dysfunction status: unspecified Sepsis type: sepsis due to unspecified organism Qualified Code(s): A41.9 - Sepsis, unspecified organism (2) AMS (altered mental status) Altered mental status type: unspecified Qualified Code(s): R41.82 - Altered m ental status, unspecified
[2021-04-16 09:37] LABS: BUN Creatinine Ratio 19.9 (10-20); Calcium 8.5 mg/dl (8.5-10.1); Creatinine Clr Calc Pharmacy 160.2 ml/min; Est GFR (African American) 135.2 ml/min; Est GFR (Non-African American) 116.7 ml/min; Potassium 4.2 mmol/L (3.5-5.1)
--- NOTE | 2021-04-16 19:36 | Billing Data ---
Date of Service April 16, 2021 Coding Level of Care Code D/C DAY MANAGEMENT <30 MINS
--- NOTE | 2021-04-16 21:31 | Discharge Summary ---
Date of Service April 16, 2021 Admission HPI Per Admitting Provider Marc Shukla is a 65-year-old male presented from [facility] following being found as progressively more confused, febrile, and tachycardic in their medical unit earlier today. Does have recent medical history of urosepsis requiring vasopressors during admission in January. Has a chronic indwelling Vieira catheter, has been bedbound as result of lower extremity contractures for the last 3 years. Upon initial presentation to ER, patient was hypotensive tachycardic tachypneic and febrile, with a lactate of 4.0. Following bolus of 2 L normal saline had improvement in blood pressure tachypnea and tachycardia. However patient remained confused and disoriented with inability to express coherent sentences or responses. During recent admission patient had urine cultures demonstrating Klebsiella with multidrug resistance. Completed a 14-day course of meropenem/ertapenem in January for resolution of this infection. Has been following with wound clinic for diabetic foot wounds of right foot. Admission Exam Per Admitting Provider Constitutional: + ill appearing, + altered mental status, + language barrier, + frail appearing and + disheveled Eyes: PERRL, conjunctivae normal, anicteric sclerae Respiratory: + tachypneic; no respiratory distress and no labored breathing Auscultation: lungs clear to auscultation bilaterally; no crackles, no rales and no wheezes Cardiovascular: Rate/Rhythm: regular rhythm and + tachycardic Heart Sounds: + murmur (diastolic apical murmur) Gastrointestinal (Abdomen): Inspection/Auscultation: + abdomen distended, normal bowel sounds and + hypoactive bowel sounds; no abdominal wall ecchymosis Percussion/Palpation: + abdomen tender and + guarding Skin: Ulcer of right heel and first toe Neurologic: + focal motor deficit (tonic lower extremities) Psychiatric: Orientation: alert; + not oriented x 3 Principal Diagnosis Urosepsis Discharge Exam Constitutional: well-appearing, no acute distress CV: tachycardic, no murmur appreciated, extremities well-perfused Resp: CTABL, no wheezes/rales/rhonchi appreciated, no increased work of breathing GI: soft, nondistended, nontender MSK: flexion contractures of BL LE Skin: black pressure ulcer of the heels noted bilaterally, multiple optifoam dressings present on BL LE Neuro: alert, oriented to person only Discharge Data Allergies Allergy/AdvReac Type Severity Reaction Status Date / Time daptomycin Allergy Rash Verified 04/11/21 21:43 Consultations 04/11/21 23:31 ED Decision to Admit Stat Ordered Studies 04/11/21 22:07 CT abd pelvis IV con only Urgent CT head/brain wo con Urgent Hospital Course (1) Sepsis: Urosepsis, bacteremia Patient tachycardic, tachypneic, febrile, elevated lactate and procalcitonin on admission History of urosepsis in 01/2021 requiring vasopressors, attributed to MDR Klebsiella at that time CT abdomen/pelvis demonstrating signs of cystitis with fat stranding, additional signs of rectal wall thickening concerning for potential proctitis Blood culture from 04/11 grew Klebsiella pneumonia ESBL Vancomycin discontinued after culture showed GNR; continue meropenem until culture/sensitivities result Continue LR @ 150mL/hr One of two blood cultures with K. pneumoniae ESBL, urine culture with 3+ bacteria all with high counts - repeat blood and urine culture ordered Meropenem discontinued, switched to ertapenem IV Continue ertapenem 1g IV daily through 04/24/2021 Confusion: resolved Likely secondary to urosepsis; ammonia 14.2 on admission Resolved over the course of hospitalization Treat as above Pressure ulcers Pressure ulcers noted on LE BL, gangrenous-appearing ulcer on R heel R wrist with developing pressure ulcer secondary to locked restraint - asked RN to contact [facility] [employer] supervisor to have this chanced to soft restraint Wound care following; continue wound care upon discharge Hypokalemia: resolved Patient with potassium of 3.3 KCl 20mEq added to IVF Continue weekly BMP upon discharge (2) AMS (altered mental status): (3) Gram negative septicemia: (4) Acute UTI: Total Time Total Time Spent Total Time Spent (In Minutes): see attending documentation Discharge Plan Discharge Items [facility]position[facility] Reason For Visit: UROSEPSIS Discharge Diagnosis: Sepsis secondary to acute complicated cystitis, bacteremia Activity: Resume your previous activity Non-emergency contact: Primary Care Provider Call non-emergency contact if: your symptoms worsen and you have a fever Follow-up/Referrals: Raj MARIO [Primary Care Provider] - Diet: Heart Healthy Addtl Attending Provider Instructions: Marc Shukal is a 65-year-old male presented from [facility] following being found as progressively more confused, febrile, and tachycardic in their medical unit earlier today. Urosepsis, bacteremia Patient tachycardic, tachypneic, febrile, elevated lactate and procalcitonin on admission History of urosepsis in 01/2021 requiring vasopressors, attributed to MDR Klebsiella at that time CT abdomen/pelvis demonstrating signs of cystitis with fat stranding, additional signs of rectal wall thickening concerning for potential proctitis Blood culture from 04/11 grew Klebsiella pneumonia ESBL Vancomycin discontinued after culture showed GNR; continue meropenem until culture/sensitivities result Continue LR @ 150mL/hr One of two blood cultures with K. pneumoniae ESBL, urine culture with 3+ bacteria all with high counts - repeat blood and urine culture ordered Meropenem discontinued, switched to ertapenem IV Continue ertapenem 1g IV daily through 04/24/2021 Confusion Likely secondary to urosepsis; ammonia 14.2 on admission Treat as above Pressure ulcers Pressure ulcers noted on LE BL, ganregnous-appearing ulcer on R heel R wrist with developing pressure ulcer secondary to locked restraint - asked RN to contact [facility] [employer] supervisor to have this chanced to soft restraint Wound care following Hypokalemia: resolved Patient with potassium of 3.3 KCl 20mEq added to IVF Trend daily BMP Pending Studies at Discharge: No Stand-Alone Forms: My [facility] Skilled Items Patient informed of condition?: Yes Discharge Level of Care: Other Communicable Disease: No Discharge Prognosis: Improving Lines: PICC Urinary Catheter: Yes Medications and DC Order Prescriptions: New ertapenem 1 gram recon soln 1 g IV DAILY Qty: 8 RF: 0 Continued cyanocobalamin (vitamin B-12) [Vitamin B-12] 500 mcg Tablet 500 mcg PO QAM RF: 0 oxcarbazepine 600 mg Tablet 600 mg PO BID RF: 0 lubiprostone [Amitiza] 24 mcg Capsule 24 mcg PO BID RF: 0 lactulose [Constulose] 10 gram/15 mL Solution 15 ml PO TID RF: 0 potassium chloride 20 mEq Tablet Extended Release 20 meq PO DAILY RF: 0 nortriptyline 75 mg Capsule 75 mg PO HS RF: 0 baclofen 5 mg Tablet 5 mg PO BID RF: 0 metoprolol tartrate 25 mg Tablet 25 mg PO BID Qty: 60 RF: 0 magnesium hydroxide [Milk of Magnesia] 400 mg/5 mL Suspension 30 ml PO DAILY PRN (Reason: Constipation) RF: 0 Discharge Orders: Discharge Order (Routine); Ordered 04/16/21 Ordered By: Waqas Valdez/Other Patient Handouts: Preventing Deep Vein Thrombosis Admission Data Admit Date/Time: 04/12/21 00:38 Attending Provider: Jeet Hurst Admit Provider: Abdirahman Lawson Primary Care Provider: Raj MARIO Other Providers: Bereket Palafox Other Interventions: Discharge Summary Assessment (RN) Last Done: 04/16/21 11:32 Supervising Physician Co-Signing Physician Notes I personally examined the patient and verified all ash points of history and exam, discussed case, and agree with decision making with Dr Mejía [facility] has ertapenem vitals noted nad breathing unlabored no accessory muscles good effort no pallor sepsis - gram negative bacteremia - most likely urinary source from chronic vieira cath. Changed antibiotics to ertapenem, [facility] has it now. also showing enterococcus - but klebsiella caused bacteremia, pt clinically is better, procal trending down - strongly suspect enterococcus is not causative and not infection -- colonization -- therefore to reduce risk of perpetuating further MDR organisms will just treat klebsiella at this time -- should he show any worsening, [facility] can then reference sensitivities for enterococcus to alter coverage should the need arise. heel ulcers and sacral ulcers present on admission currently unstageable even after seen by wound nurse - really would benefit from ongoing wound care at [facility] if this is possible Metabolic encephalopathypresent on admission, caused by septic picture, improved some but now seems to be basically status quo, anticipate this taking a while to resolve. otherwise as above Resident Activity Tracking Resident Involvement: Resident Care Provided Care Provided: Adult Hospital Medicine
--- NOTE | 2021-04-28 06:49 | Coding Query ---
CODING QUERY To promote full compliance with coding requirements relating to patient care, provider participation is requested in all cases of seam finisher uncertainty. Please assist us with the question(s) below: In the record, it states that the patient has an Cystitis. Please clarify below the cause of the Cystitis if applicable. Thank you. ( x) The chronic indwelling Pinedo was the cause of the Cystitis. ( ) Cystitis, unspecified cause. ( ) Other (Specify): Thanks, Timi Macias [facility] Principal Diagnosis: "that condition established after study, to be chiefly responsible for occasioning the admission of the patient to the hospital for care." Co-Existing Principal Diagnosis: "when two or more diagnoses equally meet the criteria for principal diagnosis as determined by the circumstances of admission, diagnostic work up, and/or therapy provided, and the Alphabetic Index, Tabular List, or another coding guideline does not provide sequencing direction, any one of the diagnoses may be sequenced first." "When the physician has documented what appears to be a current diagnosis in the body of the record, but has not included the diagnosis in the final diagnostic statement, the physician should be asked whether the diagnosis should be added." (Source Coding [facility] 2 QTR90. p3-4) MITCH
== END 2021-04-16 15:27 | DRG 698 ==
LOC: ED 21:14 → 1E 04-12 00:38 → SUATTDRO 04-12 00:38 → 1E 04-12 02:07 → 2E 04-13 01:08 → 3W 04-14 19:29

== ENCOUNTER 2022-06-02 17:01 | Inpatient (IN) ==
[2022-06-02] MEDS ORDERED: SODIUM CHLORIDE 0.9% 1000ML 1,000 ML IV SCH ×3 (17:30→20:25)
[2022-06-02] MEDS ORDERED: VANCOMYCIN CONSULT ACTIVE PRN ×2 (17:39→22:55)
[2022-06-02] MEDS ORDERED: SODIUM CHLORIDE 0.9% 1000ML 1,000 ML IV ONE (17:39)
[2022-06-02] MEDS ORDERED: PIPERACILLIN/TAZOBACTAM 4.5 GM/120 ML BAG IV ONE (17:39)
[2022-06-02] MEDS ORDERED: VANCOMYCIN HCL 1,750 MG in SODIUM CHLORIDE 0.9% 500 ML IV ONE (17:39)
[2022-06-02 17:57] LABS: Basophils # (auto) 0.05 K/uL (0-0.2); Basophils % (auto) 0.4 %; Eosinophils # (auto) 0.01 K/uL (0-0.50); Eosinophils % (auto) 0.1 %; Hematocrit (blood only) 44.3 % (40.1-51.0); Hemoglobin 15.3 g/dl (14.0-18.0); Immature Granulocytes # (auto) 0.07 K/uL (0.00-0.02); Immature Granulocytes % (auto) 0.6 %; Lymphocytes # (auto) 0.79 K/uL (1.2-3.4); Lymphocytes % (auto) 6.4 %; Mean Corpuscular Hemoglobin 31.2 pg (25.0-34.0); Mean Corpuscular Hgb Conc 34.5 g/dL (32.0-36.0); Mean Corpuscular Volume 90.4 fL (80.0-100.0); Mean Platelet Volume 9.9 fL (9.4-12.4); Monocytes # (auto) 0.69 K/uL (0.24-0.82); Monocytes % (auto) 5.6 %; Neutrophils # (auto) 10.72 K/uL (1.4-6.5); Neutrophils % (auto) 86.9 %; Platelet Count 118 K/uL (130-400); RDW Coefficient of Variation 13.5 % (11.5-14.5); RDW Standard Deviation 44.7 fL (36.4-46.3); White Blood Count 12.33 K/ul (4.8-10.8)
[2022-06-02 18:23] LABS: Albumin Globulin Ratio 1.2 (0.9-2); Albumin Level 3.7 gm/dl (3.4-5.0); BUN Creatinine Ratio 22.6 (10-20); Bilirubin,Total 1.4 mg/dl (0.2-1.0); Calcium 9.1 mg/dl (8.5-10.1); Creatinine Clr Calc Pharmacy 37.7 ml/min; Est GFR (African American) 39.4 ml/min; INR 1.3 (0.9-1.1); Magnesium 1.9 mg/dl (1.7-2.4); Partial Thromboplastin Ratio 1.2; Partial Thromboplastin Time 33.1 Seconds (21.0-31.0); Potassium 4.4 mmol/L (3.5-5.1); Prothrombin Time 13.6 Seconds (9.0-12.0); Total Protein 6.7 gm/dl (6.0-8.3)
[2022-06-02 18:26] LABS: Troponin I High Sensitivity 7.9 pg/ml (0-20)
--- NOTE | 2022-06-02 18:37 | XRay Report ---
XR chest 1V portable CLINICAL HISTORY: SEPSIS TECHNIQUE: Single frontal radiograph of the chest was obtained. Comparison: Comparison is made to chest radiograph 04/11/2021 FINDINGS: No lines and tubes are seen. The cardiomediastinal silhouette is normal. Lungs are underinflated but clear. No evidence of pleural effusion or pneumothorax. IMPRESSION: Lungs are underinflated but clear. ACT 112: Negative or not required by law. Electronically signed by: Shadi Hess M.D. 06/02/2022 6:35 PM
[2022-06-02 19:29] LABS: Appearance Urine Turbid (Clear); Bacteria Urine Automated 4+ (Negative); Bilirubin Urine Negative (Negative); Blood Urine 3+ (Negative); Color Urine Dark Yellow; Epithelial Cell Urine Auto >30 /lpf (0-5); Glucose Urine UA Negative (Negative); Ketones Urine Trace (Negative); Leukocyte Esterase Urine 3+ (Negative); Nitrite Urine Negative (Negative); Protein Urine 2+ (Negative); Specific Gravity Urine 1.019 (1.000-1.030); Urobilinogen Urine Negative (Negative); WBC Urine Automated >30 /hpf (0-5); pH Urine 6.5 (4.5-7.5)
[2022-06-02] MEDS ORDERED: SODIUM CHLORIDE 0.9% 1000ML 500 ML IV ONE (19:31)
--- NOTE | 2022-06-02 19:38 | CT Scan Report ---
CT head/brain wo con CLINICAL HISTORY: ams Technique: Contiguous axial CT images of the head were acquired from the base of the skull to the ronnell tara without intravenous contrast administration. Images were viewed in brain, subdural and [facility]. Automated dose lowering techniques and/or adjustment according to patient size were utilized for this exam. Comparison: Comparison is made to CT head 04/11/2081 Findings: Areas of decreased attenuation are present in the periventricular and subcortical white matter bilate rally consistent with small vessel ischemic disease. Generalized cerebral atrophy with commensurate e nlargement of the ventricles, sulci, and cisterns is also present. There is no acute intracranial hem orrhage or evidence of acute territorial infarction. No shift of the midline structures, mass effect, or extra-axial abnormalities are shown. Atherosclerotic calcifications are present in the intracran ial segments of the internal carotid arteries. Imaged portions of the paranasal sinuses and mastoid air cells are clear. The orbits appear normal. There are no acute fractures of the calvaria or scalp swelling. Impression: No acute intracranial hemorrhage, no evidence of acute territorial infarction or other acute intracra nial disease process. ACT 112: Negative or not required by law. Electronically signed by: Shadi Hess M.D. 06/02/2022 7:36 PM
[2022-06-02 19:58] LABS: Cast Urine Automated 0 /lpf (0-5)
--- NOTE | 2022-06-02 20:07 | CT Scan Report ---
CT abd pelvis wo con CLINICAL HISTORY: alisson ro abd pain ro kidney stone TECHNIQUE: Helical axial images of the abdomen and pelvis were obtained. Automated dose lowering tech niques and/or adjustment according to patient size were utilized for this exam. This exam was perfor med without intravenous contrast. CT DOSE: 1046.90 mGy.cm COMPARISON: Comparison is made to CT abdomen pelvis 04/11/2021 FINDINGS: Lower chest: Atelectasis is seen in the lung bases. Liver: Unremarkable. No focal lesions are seen. Gallbladder and biliary tree: The gallbladder is prominent, increased in size from prior exam. A mild ly calcified stone is noted.. No intra- or extrahepatic biliary ductal dilation. Pancreas: Unremarkable, no focal lesions. Spleen: Unremarkable. Adrenals: Unremarkable. Kidneys and ureters: No obstructive stone is seen. Nonobstructive stones are noted on the left. No hy dronephrosis is seen. Bladder: Pinedo catheter is seen. Reproductive organs: Prostatic calcifications are seen which may represent prior hemorrhage or granul omatous disease. Bowel: Prominent stool burden is seen in the rectum. Previously noted proctitis has resolved. Lymph nodes Retroperitoneal: Unremarkable. Pelvic: Unremarkable. Mesenteric: Unremarkable. Peritoneum: Soft tissue stranding is seen most prominently in the splenic flexure. Vessels: Atherosclerotic calcifications are seen. Abdominal wall: Unremarkable. Bones: Degenerative changes in the visualized spine. Redemonstration of old sclerosis at L4. IMPRESSION: 1. No evidence of obstructive nephrolithiasis is seen. 2. Cholelithiasis and prominence of the gallbladder is seen without definite gallbladder wall thicke naina. If there is concern for acute cholecystitis, right upper quadrant ultrasound can be performed. 3. Peritoneal stranding at the splenic flexure is nonspecific. No evidence of diverticulitis is seen . ACT 112: Negative or not required by law. Electronically signed by: Shadi Hess M.D. 06/02/2022 8:05 PM
--- NOTE | 2022-06-02 20:27 | Emergency Department Note ---
History of Present Illness General Chief complaint: Urinary Symptoms Stated complaint: CONFUSION Time Seen by Provider: 06/02/22 17:28 History of Present Illness Provider complaint: Altered mental status possible UTI Associated symptoms: + confusion; no chest pain, no fever/chills, no headaches, no nausea/vomiting, no seizure or no shortness of breath 66-year-old male presents emergency department for altered mental status possible UTI. Patient was sent from skilled nursing for suspected UTIs patient has a urinary tract infection but is been ripping out his IV and not taking the IV antibiotics as prescribed. Urine appeared infected at the skilled nursing and the patient has been increasingly weak and confused. Home Medications Medication Instructions Recorded Confirmed Type ascorbate calcium (vitamin C) 500 500 mg PO DAILY 10/12/21 10/12/21 History mg tablet cyclobenzaprine 10 mg tablet 10 mg PO BID 10/12/21 10/12/21 History heparin lock flush (porcine) 10 10 unit IV DAILY 10/12/21 10/12/21 History unit/mL intravenous solution nortriptyline 25 mg capsule 25 mg PO HS 10/12/21 10/12/21 History zinc sulfate 50 mg zinc (220 mg) 50 mg PO DAILY 10/12/21 10/12/21 History tablet ciprofloxacin HCl 500 mg tablet 500 mg PO BID 12/31/21 12/31/21 History Allergies Allergy/AdvReac Type Severity Reaction Status Date / Time daptomycin Allergy Rash Verified 12/31/21 13:19 Past Med/Surg History Medical History Adjustment disorder with anxious mood Anemia BPH w urinary obs/LUTS Chronic hepatitis C Congestive heart failure Constipation COVID-19 Diabetes Diverticulosis Dysthymia Elevated lactic acid level Elevation of cardiac enzymes Flexion contractures Gait abnormality GERD (gastroesophageal reflux disease) Hemorrhoids History of endocarditis Hyperlipidemia Hypertension Insomnia Low back pain Major depressive disorder Major depressive disorder with psychotic features Morbilliform rash Murmur, cardiac Onychomycosis Peripheral vascular disease Rhinitis, allergic Seizure disorder Tinea unguium Urinary retention Weakness Family History Other Family history non-contributory Social History Smoking Status: Former smoker Tobacco Type: Cigarettes Second Hand Exposure: No; Hx Alcohol Use: No Hx Substance Use: No Preferred Language: Yemeni Communication Ability: Effective 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 Beliefs That Will Affect Care: None Current Living Situation: Other Current Living Situation Comment: [facility] Feels Safe at Home: Yes Assistive Devices: Glasses Review of Systems Unobtainable due to cognitive status Physical Exam Vital Signs Vital Signs - 24 hr 06/02/22 17:12 06/02/22 17:17 06/02/22 17:20 Temperature 36.8 C Temperature Source Oral Pulse Rate 98 H 96 H 92 H Pulse Rate [Apical] Pulse Rate from SpO2 Sensor 99 H 95 H Pulse Rhythm Regular Pulse Strength Normal Respiratory Rate 20 25 H 24 Respiratory Effort / Characteristics Non-Labored Spontaneous Respiratory Depth Normal Respiratory Pattern Regular Blood Pressure 91/60 L Blood Pressure [Right Arm] Blood Pressure Mean 70 Blood Pressure Mean [Right Arm] Pulse Oximetry 96 95 Oxygen Delivery Method Room Air Sepsis Recent Fever Within 48 Hours No Sepsis New/Unexplained Change in Mental Status N/A Sepsis Action Taken by Nursing No Action Required 06/02/22 17:30 06/02/22 17:30 06/02/22 17:34 Temperature Temperature Source Pulse Rate 93 H 97 H Pulse Rate [Apical] Pulse Rate from SpO2 Sensor 91 H 97 H Pulse Rhythm Pulse Strength Respiratory Rate 22 28 H Respiratory Effort / Characteristics Respiratory Depth Respiratory Pattern Blood Pressure 73/46 L Blood Pressure [Right Arm] Blood Pressure Mean 55 Blood Pressure Mean [Right Arm] Pulse Oximetry 96 95 Oxygen Delivery Method Sepsis Recent Fever Within 48 Hours Sepsis New/Unexplained Change in Mental Status Sepsis Action Taken by Nursing 06/02/22 17:34 06/02/22 17:40 06/02/22 17:45 Temperature Temperature Source Pulse Rate 98 H 95 H Pulse Rate [Apical] Pulse Rate from SpO2 Sensor 99 H 97 H Pulse Rhythm Pulse Strength Respiratory Rate 24 24 Respiratory Effort / Characteristics Respiratory Depth Respiratory Pattern Blood Pressure 88/57 L Blood Pressure [Right Arm] Blood Pressure Mean 67 Blood Pressure Mean [Right Arm] Pulse Oximetry 96 96 Oxygen Delivery Method Sepsis Recent Fever Within 48 Hours Sepsis New/Unexplained Change in Mental Status Sepsis Action Taken by Nursing 06/02/22 17:45 06/02/22 17:50 06/02/22 17:51 Temperature Temperature Source Pulse Rate 96 H 97 H Pulse Rate [Apical] Pulse Rate from SpO2 Sensor 97 H 98 H Pulse Rhythm Pulse Strength Respiratory Rate 24 24 Respiratory Effort / Characteristics Respiratory Depth Respiratory Pattern Blood Pressure 78/50 L Blood Pressure [Right Arm] Blood Pressure Mean 59 Blood Pressure Mean [Right Arm] Pulse Oximetry 97 97 Oxygen Delivery Method Sepsis Recent Fever Within 48 Hours Sepsis New/Unexplained Change in Mental Status Sepsis Action Taken by Nursing 06/02/22 17:51 06/02/22 19:31 06/02/22 19:32 Temperature Temperature Source Pulse Rate 83 Pulse Rate [Apical] 86 Pulse Rate from SpO2 Sensor Pulse Rhythm Pulse Strength Respiratory Rate 16 Respiratory Effort / Characteristics Respiratory Depth Respiratory Pattern Blood Pressure 81/46 L Blood Pressure [Right Arm] 106/48 L Blood Pressure Mean 57 Blood Pressure Mean [Right Arm] 67 Pulse Oximetry 96 94 Oxygen Delivery Method Room Air Room Air Sepsis Recent Fever Within 48 Hours Sepsis New/Unexplained Change in Mental Status Sepsis Action Taken by Nursing 06/02/22 19:33 06/02/22 20:00 Temperature Temperature Source Pulse Rate 85 Pulse Rate [Apical] Pulse Rate from SpO2 Sensor 85 Pulse Rhythm Pulse Strength Respiratory Rate 17 Respiratory Effort / Characteristics Non-Labored Spontaneous Respiratory Depth Respiratory Pattern Blood Pressure 85/53 L Blood Pressure [Right Arm] Blood Pressure Mean 63 Blood Pressure Mean [Right Arm] Pulse Oximetry 97 Oxygen Delivery Method Room Air Sepsis Recent Fever Within 48 Hours Sepsis New/Unexplained Change in Mental Status Sepsis Action Taken by Nursing Physical Exam GENERAL: Ill-appearing HENT: Exam performed. - Head: Normocephalic and atraumatic. - Right Ear: External ear normal. No mastoid tenderness. - Left Ear: External ear normal. No mastoid tenderness. - Mouth/Throat: The oropharynx is clear and moist. No trismus in the jaw. No dental abscesses or uvula swelling. No oropharyngeal exudate or tonsillar abscesses. EYES: Conjunctivae and EOM are normal. Pupils are equal, round, and reactive to light. Right eye exhibits no discharge. Left eye exhibits no discharge. No scleral icterus. NECK: Normal range of motion. Neck supple. No JVD present. No spinous process tenderness present. No carotid bruit present. No rigidity. No tracheal deviation and normal range of motion present. No Brudzinski's sign and no Kernig's sign noted. CV: Normal rate, regular rhythm, normal heart sounds and intact distal pulses. There is no peripheral edema. Palpable radial pulses bue. PULM/CHEST: Clear bilaterally. ABD: The abdomen is soft. LYMPH: No cervical adenopathy. NEURO: GCS eye subscore is 4. GCS verbal subscore is 4. GCS motor subscore is 4 Course Course 1727: The patient was evaluated in room C8. A complete history and physical exam was performed Cardiac monitoring: An order was placed for continuous cardiac monitoring. The monitor shows a rate of 80 with sinus rhythm Patient is hypotensive and reportedly septic. Sepsis protocols were initiated. 1929: Patient's blood pressure has improved with IV fluids. 2023: Labs show leukocytosis 12.3. Creatinine elevated 1.99. Baseline 0.47. Procalcitonin elevated 0.59. Urinalysis does appear infected. COVID-negative. Liver function tests are within normal limits with exception of total bilirubin of 1.4. CT of the head within normal limits. CT of the abdomen shows no kidney stones it does show cholelithiasis with prominence of the gallbladder without gallbladder stranding or thickening. There is no clinical concern for acute cholecystitis as patient does not have pain on palpation of the right upper quadrant, Leung sign negative, and has no other liver function test abnormality other than a bilirubin of 1.4. Discussed the case with Dr. Adam who will evaluate the patient for admission. Administered Medications Discontinued Medications Sodium Chloride (Nss 1000ml) 1,000 mls @ 999 mls/hr IV .Q1H1M JJ Stop: 06/02/22 18:30 Last Admin: 06/02/22 18:55 Dose: 999 mls/hr Documented By: ML Sodium Chloride (Nss 1000ml) 1,000 mls @ 999 mls/hr IV .Q1H1M ONE Stop: 06/02/22 18:39 Last Infusion: 06/02/22 19:14 Dose: 0 mls/hr Documented By: Admin: 06/02/22 17:48 Dose: 999 mls/hr Documented By: ML Piperacillin Sod/Tazobactam Sod (Zosyn) 4.5 gm in 120 mls @ 240 mls/hr IV NOW ONE Stop: 06/02/22 18:08 Last Infusion: 06/02/22 19:14 Dose: 0 mls/hr Documented By: Admin: 06/02/22 17:48 Dose: 240 mls/hr Documented By: ML Vancomycin HCl 1,750 mg/ (Sodium Chloride) 535 mls @ 200 mls/hr IV NOW ONE Stop: 06/02/22 20:19 Last Admin: 06/02/22 19:31 Dose: 200 mls/hr Documented By: ABNER Sodium Chloride (Nss 1000ml) 500 mls @ 999 mls/hr IV .Q31M ONE Stop: 06/02/22 20:01 Last Admin: 06/02/22 20:17 Dose: 999 mls/hr Documented By: ABNER Medical Decision Making Laboratory Data Result diagrams: 06/02/22 17:45 06/02/22 17:45 Lab Results 06/02/22 06/02/22 06/02/22 Range/Units 17:45 17:45 17:45 WBC 12.33 H (4.8-10.8) K/ul RBC 4.90 (4.63-6.08) M/uL Hgb 15.3 (14.0-18.0) g/dl Hct 44.3 (40.1-51.0) % MCV 90.4 (80.0-100.0) fL MCH 31.2 (25.0-34.0) pg MCHC 34.5 (32.0-36.0) g/dL RDW Std Deviation 44.7 (36.4-46.3) fL RDW Coeff of Abad 13.5 (11.5-14.5) % Plt Count 118 L (130-400) K/uL MPV 9.9 (9.4-12.4) fL Immature Gran % (Auto) 0.6 % Neut % (Auto) 86.9 % Lymph % (Auto) 6.4 % [place] % (Auto) 5.6 % Eos % (Auto) 0.1 % Baso % (Auto) 0.4 % Neut # (Auto) 10.72 H (1.4-6.5) K/uL Lymph # (Auto) 0.79 L (1.2-3.4) K/uL [place] # (Auto) 0.69 (0.24-0.82) K/uL Eos # (Auto) 0.01 (0-0.50) K/uL Baso # (Auto) 0.05 (0-0.2) K/uL Immature Gran # (Auto) 0.07 H (0.00-0.02) K/uL PT 13.6 H (9.0-12.0) Seconds INR 1.3 H (0.9-1.1) APTT 33.1 H (21.0-31.0) Seconds PTT Ratio 1.2 Sodium (136-145) mmol/L Potassium (3.5-5.1) mmol/L Chloride (98-107) mmol/L Carbon Dioxide (21-32) mmol/L Anion Gap (3-11) BUN (6-23) mg/dl Creatinine (0.6-1.4) mg/dl Est Cr Clr Drug Dosing ml/min Est GFR ( Amer) ml/min Est GFR (Non-Af Amer) ml/min BUN/Creatinine Ratio (10-20) Glucose (70-99(Fasting)) mg/dl Lactate (0.4-2.0) mmol/L Calcium (8.5-10.1) mg/dl Magnesium (1.7-2.4) mg/dl Total Bilirubin (0.2-1.0) mg/dl AST (13-39) U/L ALT (7-52) U/L Alkaline Phosphatase (34-104) U/L Troponin I High Sens (0-20) pg/ml Total Protein (6.0-8.3) gm/dl Albumin (3.4-5.0) gm/dl Globulin (2.5-4.0) gm/dl Albumin/Globulin Ratio (0.9-2) Procalcitonin 0.59 H (0-0.5) ng/ml Urine Color Urine Appearance (Clear) Urine pH (4.5-7.5) Ur Specific [place] (1.000-1.030) Urine Protein (Negative) Urine Glucose (UA) (Negative) Urine Ketones (Negative) Urine Blood (Negative) Urine Nitrite (Negative) Urine Bilirubin (Negative) Urine Urobilinogen (Negative) Ur Leukocyte Esterase (Negative) Urine WBC (Auto) (0-5) /hpf Urine RBC (Auto) (0-4) /hpf U Hyaline Cast (Auto) (0-5) /lpf U Epithel Cells (Auto) (0-5) /lpf Urine Bacteria (Auto) (Negative) Urine Yeast SARS-CoV-2, RNA, NAAT (NEGATIVE) 06/02/22 06/02/22 06/02/22 Range/Units 17:45 17:45 18:55 WBC (4.8-10.8) K/ul RBC (4.63-6.08) M/uL Hgb (14.0-18.0) g/dl Hct (40.1-51.0) % MCV (80.0-100.0) fL MCH (25.0-34.0) pg MCHC (32.0-36.0) g/dL RDW Std Deviation (36.4-46.3) fL RDW Coeff of Abad (11.5-14.5) % Plt Count (130-400) K/uL MPV (9.4-12.4) fL Immature Gran % (Auto) % Neut % (Auto) % Lymph % (Auto) % [place] % (Auto) % Eos % (Auto) % Baso % (Auto) % Neut # (Auto) (1.4-6.5) K/uL Lymph # (Auto) (1.2-3.4) K/uL [place] # (Auto) (0.24-0.82) K/uL Eos # (Auto) (0-0.50) K/uL Baso # (Auto) (0-0.2) K/uL Immature Gran # (Auto) (0.00-0.02) K/uL PT (9.0-12.0) Seconds INR (0.9-1.1) APTT (21.0-31.0) Seconds PTT Ratio Sodium 137 (136-145) mmol/L Potassium 4.4 (3.5-5.1) mmol/L Chloride 104 (98-107) mmol/L Carbon Dioxide 21 (21-32) mmol/L Anion Gap 12 H (3-11) BUN 45 H (6-23) mg/dl Creatinine 1.99 H (0.6-1.4) mg/dl Est Cr Clr Drug Dosing 37.7 ml/min Est GFR ( Amer) 39.4 ml/min Est GFR (Non-Af Amer) 34.0 ml/min BUN/Creatinine Ratio 22.6 H (10-20) Glucose 127 H (70-99(Fasting)) mg/dl Lactate 1.6 (0.4-2.0) mmol/L Calcium 9.1 (8.5-10.1) mg/dl Magnesium 1.9 (1.7-2.4) mg/dl Total Bilirubin 1.4 H (0.2-1.0) mg/dl AST 14 (13-39) U/L ALT 12 (7-52) U/L Alkaline Phosphatase 94 (34-104) U/L Troponin I High Sens 7.9 (0-20) pg/ml Total Protein 6.7 (6.0-8.3) gm/dl Albumin 3.7 (3.4-5.0) gm/dl Globulin 3.0 (2.5-4.0) gm/dl Albumin/Globulin Ratio 1.2 (0.9-2) Procalcitonin (0-0.5) ng/ml Urine Color Dark Yellow Urine Appearance Turbid A (Clear) Urine pH 6.5 (4.5-7.5) Ur Specific [place] 1.019 (1.000-1.030) Urine Protein 2+ H (Negative) Urine Glucose (UA) Negative (Negative) Urine Ketones Trace H (Negative) Urine Blood 3+ H (Negative) Urine Nitrite Negative (Negative) Urine Bilirubin Negative (Negative) Urine Urobilinogen Negative (Negative) Ur Leukocyte Esterase 3+ H (Negative) Urine WBC (Auto) >30 H (0-5) /hpf Urine RBC (Auto) 10-30 H (0-4) /hpf U Hyaline Cast (Auto) 0 (0-5) /lpf U Epithel Cells (Auto) >30 H (0-5) /lpf Urine Bacteria (Auto) 4+ H (Negative) Urine Yeast Not Reportable SARS-CoV-2, RNA, NAAT (NEGATIVE) 06/02/22 Range/Units 19:05 WBC (4.8-10.8) K/ul RBC (4.63-6.08) M/uL Hgb (14.0-18.0) g/dl Hct (40.1-51.0) % MCV (80.0-100.0) fL MCH (25.0-34.0) pg MCHC (32.0-36.0) g/dL RDW Std Deviation (36.4-46.3) fL RDW Coeff of Abad (11.5-14.5) % Plt Count (130-400) K/uL MPV (9.4-12.4) fL Immature Gran % (Auto) % Neut % (Auto) % Lymph % (Auto) % [place] % (Auto) % Eos % (Auto) % Baso % (Auto) % Neut # (Auto) (1.4-6.5) K/uL Lymph # (Auto) (1.2-3.4) K/uL [place] # (Auto) (0.24-0.82) K/uL Eos # (Auto) (0-0.50) K/uL Baso # (Auto) (0-0.2) K/uL Immature Gran # (Auto) (0.00-0.02) K/uL PT (9.0-12.0) Seconds INR (0.9-1.1) APTT (21.0-31.0) Seconds PTT Ratio Sodium (136-145) mmol/L Potassium (3.5-5.1) mmol/L Chloride (98-107) mmol/L Carbon Dioxide (21-32) mmol/L Anion Gap (3-11) BUN (6-23) mg/dl Creatinine (0.6-1.4) mg/dl Est Cr Clr Drug Dosing ml/min Est GFR ( Amer) ml/min Est GFR (Non-Af Amer) ml/min BUN/Creatinine Ratio (10-20) Glucose (70-99(Fasting)) mg/dl Lactate (0.4-2.0) mmol/L Calcium (8.5-10.1) mg/dl Magnesium (1.7-2.4) mg/dl Total Bilirubin (0.2-1.0) mg/dl AST (13-39) U/L ALT (7-52) U/L Alkaline Phosphatase (34-104) U/L Troponin I High Sens (0-20) pg/ml Total Protein (6.0-8.3) gm/dl Albumin (3.4-5.0) gm/dl Globulin (2.5-4.0) gm/dl Albumin/Globulin Ratio (0.9-2) Procalcitonin (0-0.5) ng/ml Urine Color Urine Appearance (Clear) Urine pH (4.5-7.5) Ur Specific [place] (1.000-1.030) Urine Protein (Negative) Urine Glucose (UA) (Negative) Urine Ketones (Negative) Urine Blood (Negative) Urine Nitrite (Negative) Urine Bilirubin (Negative) Urine Urobilinogen (Negative) Ur Leukocyte Esterase (Negative) Urine WBC (Auto) (0-5) /hpf Urine RBC (Auto) (0-4) /hpf U Hyaline Cast (Auto) (0-5) /lpf U Epithel Cells (Auto) (0-5) /lpf Urine Bacteria (Auto) (Negative) Urine Yeast SARS-CoV-2, RNA, NAAT NEGATIVE (NEGATIVE) Imaging Data Radiologist's Impression: Chest X-Ray 06/02/22 17:29 XR chest 1V portable CLINICAL HISTORY: SEPSIS TECHNIQUE: Single frontal radiograph of the chest was obtained. Comparison: Comparison is made to chest radiograph 04/11/2021 FINDINGS: No lines and tubes are seen. The cardiomediastinal silhouette is normal. Lungs are underinflated but clear. No evidence of pleural effusion or pneumothorax. IMPRESSION: Lungs are underinflated but clear. ACT 112: Negative or not required by law. Electronically signed by: Shadi Hess M.D. 06/02/2022 6:[address] 06/02/22 17:29 CT head/brain wo con CLINICAL HISTORY: ams Technique: Contiguous axial CT images of the head were acquired from the base of the skull to the vertex without intravenous contrast administration. Images were viewed in brain, subdural and bone windows. Automated dose lowering techniques and/or adjustment according to patient size were utilized for this exam. Comparison: Comparison is made to CT head 04/11/2081 Findings: Areas of decreased attenuation are present in the periventricular and subcortical white matter bilaterally consistent with small vessel ischemic dis ease. Generalized cerebral atrophy with commensurate enlargement of the ventricles, sulci, and cisterns is also present. There is no acute intracranial hemorrhage or evidence of acute territorial infarction. No shift of the midline structures, mass effect, or extra-axial abnormalities are shown. At herosclerotic calcifications are present in the intracranial segments of the internal carotid arteries. Imaged portions of the paranasal sinuses and mastoid air cells are clear. The orbits appear normal. There are no acute fractures of the calvaria or scalp swelling. Impression: No acute intracranial hemorrhage, no evidence of acute territorial infarction or other acute intracranial disease process. ACT 112: Negative or not required by law. Electronically signed by: Shadi Hess M.D. 06/02/2022 7:36 PM Abdomen/Pelvis CT 06/02/22 18:58 CT abd pelvis wo con CLINICAL HISTORY: alisson ro abd pain ro kidney stone TECHNIQUE: Helical axial images of the abdomen and pelvis were obtained. Automated dose lowering techniques and/or adjustment according to patient size were utilized for this exam. This exam was performed without intravenous contrast. CT DOSE: 1046.90 mGy.cm COMPARISON: Comparison is made to CT abdomen pelvis 04/11/2021 FINDINGS: Lower chest: Atelectasis is seen in the lung bases. Liver: Unremarkable. No focal lesions are seen. Gallbladder and biliary tree: The gallbladder is prominent, increased in size from prior exam. A mildly calcified stone is noted.. No intra- or extrahepatic biliary ductal dilation. Pancreas: Unremarkable, no focal lesions. Spleen: Unremarkable. Adrenals: Unremarkable. Kidneys and ureters: No obstructive stone is seen. Nonobstructive stones are noted on the left. No hydronephrosis is seen. Bladder: Pinedo catheter is seen. Reproductive organs: Prostatic calcifications are seen which may represent prior hemorrhage or granulomatous disease. Bowel: Prominent stool burden is seen in the rectum. Previously noted proctitis has resolved. Lymph nodes Retroperitoneal: Unremarkable. Pelvic: Unremarkable. Mesenteric: Unremarkable. Peritoneum: Soft tissue stranding is seen most prominently in the splenic flexure. Vessels: Atherosclerotic calcifications are seen. Abdominal wall: Unremarkable. Bones: Degenerative changes in the visualized spine. Redemonstration of old sclerosis at L4. IMPRESSION: 1. No evidence of obstructive nephrolithiasis is seen. 2. Cholelithiasis and prominence of the gallbladder is seen without definite gallbladder wall thickening. If there is concern for acute cholecystitis, right upper quadrant ultrasound can be performed. 3. Peritoneal stranding at the splenic flexure is nonspecific. No evidence of diverticulitis is seen. ACT 112: Negative or not required by law. Electronically signed by: Shadi Hess M.D. 06/02/2022 8:05 PM ECG Data Indication: + abdominal pain Rate (beats per minute): 94 Rhythm: + atrial fibrillation ECG Intervals/blocks: + Normal QRS and + Normal QT-c ECG ST segments: + Normal ST segments MDM Narrative 1728: The patient was evaluated in room C8. A complete history and physical exam was performed Cardiac monitoring: An order was placed for continuous cardiac monitoring. The monitor shows a rate of 80 with sinus rhythm Patient is hypotensive and reportedly septic. Sepsis protocols were initiated. 193: Patient's blood pressure has improved with IV fluids. 2023: Labs show leukocytosis 12.3. Creatinine elevated 1.99. Baseline 0.47. Procalcitonin elevated 0.59. Urinalysis does appear infected. COVID-negative. Liver function tests are within normal limits with exception of total bilirubin of 1.4. CT of the head within normal limits. CT of the abdomen shows no kidney stones it does show cholelithiasis with prominence of the gallbladder without gallbladder stranding or thickening. There is no clinical concern for acute cholecystitis as patient does not have pain on palpation of the right upper quadrant, Leung sign negative, and has no other liver function test abnormality other than a bilirubin of 1.4. Discussed the case with Dr. Adam who will evaluate the patient for admission. Impression & Plan Sepsis Discharge Plan Visit Data Chief Complaint: Urinary Symptoms Stated Complaint: CONFUSION ED Provider: Narciso Victor Discharge Problem: Sepsis Patient Disposition: Admitted As Inpatient Forms Stand Alone Forms: [facility] Prescriptions Prescriptions: No Action ascorbate calcium (vitamin C) 500 mg tablet 500 mg PO DAILY nortriptyline 25 mg capsule 25 mg PO HS cyclobenzaprine 10 mg tablet 10 mg PO BID heparin lock flush (porcine) 10 unit/mL solution 10 unit IV DAILY Rx Instructions: administer after IV drug administration as part of [facility] protocol zinc sulfate 50 mg zinc (220 mg) tablet 50 mg PO DAILY ciprofloxacin HCl 500 mg tablet 500 mg PO BID Referrals Referrals: Raj MARIO [Primary Care Provider] -
--- NOTE | 2022-06-02 20:45 | History & Physical Report ---
Date of Service June 02, 2022 Assessment & Plan (1) Septic shock: Plan: -At this time it appears that the source of the patient's infection is urinary from his chronic indwelling vieira, the patient has had multiple complicated UTI's in the past -Has already received 2.5L NSS and currently receiving another liter of Normosol but is not fluid responsive to this point, concerned that the patient will require vasopressors in the near future -Admit to the ICU, already spoke to their DIAL SCREW ASSEMBLER and they accepted -Patient started on Zosyn and Vancomycin in the ED, has an allergy to Daptomycin so will continue with both for now -Will need to follow blood and urine cultures to tailor abx accordingly -Random cortisol 46.47 -Patient noted to also be thrombocytopenic but no signs of active bleeding, likely due to septic shock and end organ dysfunction, monitor for improvement with current treatment plan -No other signs of infection on exam, labs, and imaging -Patient's bili elevated at 1.4, but no signs of cholecystitis on CT and no abdominal pain on exam, monitor for now -MRSA swab pending (2) Acute kidney injury superimposed on CKD: Plan: -Creatinine currently at 1.99, baseline appears to be 0.6 -Likely due to UTI and septic shock -Monitor renal function after fluid resuscitation -No sign of obstruction on CT (3) Acute UTI: Plan: -Has a chronic vieira and was started on Ceftriaxone at the senior living -Replacing vieira now, continue zosyn and vancomycin for now (4) Metabolic encephalopathy: Plan: -Likely due to current septic shock state -No focal defects on neuro exam and CT head negative for acute chnages -Continue to monitor with adequate treatment (5) Flexion contractures: Plan: -Still at baseline -Per the MAR, he is on 10 mg PO flexeril BID at the senior living, unsure of his last dose, would hold for now with renal function but monitor for possible withdrawal (6) Hypertension: Plan: -Hold any antihypertensives for now (7) Seizure disorder: Plan: -NOt currently on antiseizure medications Plan The patient was discussed with Dr. Adam at the time of admisssion History of Present Illness Chief Complaint: Concern for UTI Primary Care Provider: FABIANO Tran is a 66 year old male inmate at [facility] in [place] with a PMH significant for HTN, seizure disorder, bedbound status with chronic indwelling Vieira, Dyslipidemia, DM II, who presented to the [facility] ED on 06/02/22 for failed outpatient treatment of UTI. Per the ED staff, the patient was noted to have urine studies concerning for UTI and had been started on IV antibiotics at the senior living. He apparently has been confused and pulling out his IV's, limiting their ability to successfully treat him. In the ED the patient was noted to be hypotensive at 73/46, have a leukocytosis of 12.33 with left shift of 10.72, thrombocytopenic at 118, elevated INR of 1.3, creatinine of 1.99 (baseline appears to be approximately 0.6), procal of 0.59, total bili of 1.4, and UA suggestive of UTI. CT of the head was negative for acute changes, CXR was also negative for acute findings. CT of the abdomen/pelvis was negative for obstructive nephrolithiasis and revealed "Cholelithiasis and prominence of the gallbladder is seen without definite gallbladder wall thickening. If there is concern for acute cholecystitis, right upper quadrant ultrasound can be performed. 3. Peritoneal stranding at the splenic flexure is nonspecific. No evidence of diverticulitis is seen". The patient was given 2.5 L NSS, and started on Vancomycin and Zosyn. The patient has a long history of UTI's growing pseudomonas, MRSA, enterococcus faecalis, and klebsiella. At the time of the exam the patient was sleeping in bed. He was very difficult to wake and when woken he was confused and minimally responsive to questioning. He denied pain when asked but would not respond to any other questions. Per the transfer documentation, the patient had been treated with ceftrizxone prior to being transported to the ED. Allergies Allergy/AdvReac Type Severity Reaction Status Date / Time daptomycin Allergy Rash Verified 06/02/22 20:52 Home Medications Medication Instructions Recorded Confirmed Type zinc sulfate 50 mg zinc (220 mg) 50 mg PO DAILY 10/12/21 06/02/22 History tablet L.acidop,casei,lactis,rham-B.lact,rod 1 cap PO DAILY 06/02/22 06/02/22 History 625 mg (10 billion cell) capsule (Advanced Probiotic) Metamucil Free & Clear 1 tbsp PO DAILY 06/02/22 06/02/22 History ascorbic acid (vitamin C) 500 mg 500 mg PO BID 06/02/22 06/02/22 History chewable tablet ceftriaxone 2 gram solution for 2 g IM DAILY 06/02/22 06/02/22 History injection ondansetron HCl 4 mg tablet 4 mg PO QID PRN Nausea And Vomiting 06/02/22 06/02/22 History Past Med/Surg History Medical History Adjustment disorder with anxious mood Anemia BPH w urinary obs/LUTS Chronic hepatitis C Congestive heart failure Constipation COVID-19 Diabetes Diverticulosis Dysthymia Elevated lactic acid level Elevation of cardiac enzymes Flexion contractures Gait abnormality GERD (gastroesophageal reflux disease) Hemorrhoids History of endocarditis Hyperlipidemia Hypertension Insomnia Low back pain Major depressive disorder Major depressive disorder with psychotic features Morbilliform rash Murmur, cardiac Onychomycosis Peripheral vascular disease Rhinitis, allergic Seizure disorder Tinea unguium Urinary retention Weakness Family History Other Family history non-contributory Social History Smoking Status: Former smoker Tobacco Type: Cigarettes Second Hand Exposure: No; Hx Alcohol Use: No Hx Substance Use: No Preferred Language: Estonian Communication Ability: Effective Aluminum Boats Assembler Required: No Beliefs That Will Affect Care: None Current Living Situation: Other Current Living Situation Comment: [facility] Other Information That Helps Us Care for You: No Feels Safe at Home: Yes Safety Concerns: Feels Safe At This Time Assistive Devices: Glasses Review of Systems Review of Systems: ROS unable to be obtained as the patient is currently encephalopathic Physical Exam Physical Exam: Physical Exam: General: In no acute distress, older than stated age, malnourished, chronically ill-appearing HEENT: Normocephalic, atraumatic, no scleral icterus, pupils around round, symmetrical, and reactive to light, dry mucus membranes, trachea midline, no thyromegaly Chest/Pulm: No respiratory distress, symmetrical chest expansion, expiratory wheezing throughout Cardiac: RRR, no murmurs noted Abdomen: Negative for ascites and bruising, normoactive bowel sounds, soft, patient without guarding or tenderness to palpation in all abdominal rowland : Patient with chronic vieira in place with pus at the urethral meatus, dark urine noted in the vieira bag Musculoskeletal: Patient is bedbound at baseline, moves extremities voluntarily when awake, no acute trauma noted on exam Extremities: Radial, dorsalis pedis, and posterior tibial pulses are intact and symmetrical, no edema noted in the BL LE's; Skin: Cool, dry, no rashes , lesions, or scars noted, no skin breakdown noted upon rolling the patient to examine back, buttocks, and posterior legs Neuro: Responds to pain, when awake there are no focal defects, patient oriented to self only at the time of the exam Psych: No acute distress, confused, uncooperative during exam Results & Data Results & Data ([facility]) Vital Signs (Past 12 Hours) Vital Signs Temp Pulse Pulse Resp BP BP Pulse Ox 06/02/22 20:00 85 17 85/53 L 97 06/02/22 19:32 83 94 06/02/22 19:31 86 16 106/48 L 96 06/02/22 17:51 81/46 L 06/02/22 17:51 97 H 24 97 06/02/22 17:50 96 H 24 97 06/02/22 17:45 78/50 L 06/02/22 17:45 95 H 24 96 06/02/22 17:40 98 H 24 96 06/02/22 17:34 88/57 L 06/02/22 17:34 97 H 28 H 95 06/02/22 17:30 93 H 22 96 06/02/22 17:30 73/46 L 06/02/22 17:20 92 H 24 95 06/02/22 17:17 96 H 25 H 06/02/22 17:12 36.8 C 98 H 20 91/60 L 96 O2 Del Method 06/02/22 20:00 Room Air 06/02/22 19:32 Room Air 06/02/22 19:31 Room Air 06/02/22 17:51 06/02/22 17:51 06/02/22 17:50 06/02/22 17:45 06/02/22 17:45 06/02/22 17:40 06/02/22 17:34 06/02/22 17:34 06/02/22 17:30 06/02/22 17:30 06/02/22 17:20 06/02/22 17:17 06/02/22 17:12 Room Air Laboratory Results Abnormal lab results 06/02/22 06/02/2222 Range/Units 17:45 17:45 17:45 WBC 12.33 H (4.8-10.8) K/ul Plt Count 118 L (130-400) K/uL Neut # (Auto) 10.72 H (1.4-6.5) K/uL Lymph # (Auto) 0.79 L (1.2-3.4) K/uL Immature Gran # (Auto) 0.07 H (0.00-0.02) K/uL PT 13.6 H (9.0-12.0) Seconds INR 1.3 H (0.9-1.1) APTT 33.1 H (21.0-31.0) Seconds Anion Gap (3-11) BUN (6-23) mg/dl Creatinine (0.6-1.4) mg/dl BUN/Creatinine Ratio (10-20) Glucose (70-99(Fasting)) mg/dl Total Bilirubin (0.2-1.0) mg/dl Procalcitonin 0.59 H (0-0.5) ng/ml Urine Appearance (Clear) Urine Protein (Negative) Urine Ketones (Negative) Urine Blood (Negative) Ur Leukocyte Esterase (Negative) Urine WBC (Auto) (0-5) /hpf Urine RBC (Auto) (0-4) /hpf U Epithel Cells (Auto) (0-5) /lpf Urine Bacteria (Auto) (Negative) 06/02/22 06/02/22 Range/Units 17:45 18:55 WBC (4.8-10.8) K/ul Plt Count (130-400) K/uL Neut # (Auto) (1.4-6.5) K/uL Lymph # (Auto) (1.2-3.4) K/uL Immature Gran # (Auto) (0.00-0.02) K/uL PT (9.0-12.0) Seconds INR (0.9-1.1) APTT (21.0-31.0) Seconds Anion Gap 12 H (3-11) BUN 45 H (6-23) mg/dl Creatinine 1.99 H (0.6-1.4) mg/dl BUN/Creatinine Ratio 22.6 H (10-20) Glucose 127 H (70-99(Fasting)) mg/dl Total Bilirubin 1.4 H (0.2-1.0) mg/dl Procalcitonin (0-0.5) ng/ml Urine Appearance Turbid A (Clear) Urine Protein 2+ H (Negative) Urine Ketones Trace H (Negative) Urine Blood 3+ H (Negative) Ur Leukocyte Esterase 3+ H (Negative) Urine WBC (Auto) >30 H (0-5) /hpf Urine RBC (Auto) 10-30 H (0-4) /hpf U Epithel Cells (Auto) >30 H (0-5) /lpf Urine Bacteria (Auto) 4+ H (Negative) Diagnostic Findings Chest X-Ray 06/02/22 17:29 XR chest 1V portable CLINICAL HISTORY: SEPSIS TECHNIQUE: Single frontal radiograph of the chest was obtained. Comparison: Comparison is made to chest radiograph 04/11/2021 FINDINGS: No lines and tubes are seen. The cardiomediastinal silhouette is normal. Lungs are underinflated but clear. No evidence of pleural effusion or pneumothorax. IMPRESSION: Lungs are underinflated but clear. ACT 112: Negative or not required by law. Electronically signed by: Shadi Hess M.D. 06/02/2022 6:[address] 06/02/22 17:29 CT head/brain wo con CLINICAL HISTORY: ams Technique: Contiguous axial CT images of the head were acquired from the base of the skull to the vertex without intravenous contrast administration. Images were viewed in brain, subdural and bone windows. Automated dose lowering techniques and/or adjustment according to patient size were utilized for this exam. Comparison: Comparison is made to CT head 04/11/2081 Findings: Areas of decreased attenuation are present in the periventricular and subcortical white matter bilaterally consistent with small vessel ischemic disease. Generalized cerebral atrophy with commensurate enlargement of the ventricles, sulci, and cisterns is also present. There is no acute intracranial hemorrhage or evidence of acute territorial infarction. No shift of the midline structures, mass effect, or extra-axial abnormalities are shown. Atherosclerotic calcifications are present in the intracranial segments of the internal carotid arteries. Imaged portions of the paranasal sinuses and mastoid air cells are clear. The orbits appear normal. There are no acute fractures of the calvaria or scalp swelling. Impression: No acute intracranial hemorrhage, no evidence of acute territorial infarction or other acute intracranial disease process. ACT 112: Negative or not required by law. Electronically signed by: Shadi Hess M.D. 06/02/2022 7:36 PM Abdomen/Pelvis CT 06/02/22 18:58 CT abd pelvis wo con CLINICAL HISTORY: alisson ro abd pain ro kidney stone TECHNIQUE: Helical axial images of the abdomen and pelvis were obtained. Automated dose lowering techniques and/or adjustment according to patient size were utilized for this exam. This exam was performed without intravenous contrast. CT DOSE: 1046.90 mGy.cm COMPARISON: Comparison is made to CT abdomen pelvis 04/11/2021 FINDINGS: Lower chest: Atelectasis is seen in the lung bases. Liver: Unremarkable. No focal lesions are seen. Gallbladder and biliary tree: The gallbladder is prominent, increased in size from prior exam. A mildly calcified stone is noted.. No intra- or extrahepatic biliary ductal dilation. Pancreas: Unremarkable, no focal lesions. Spleen: Unremarkable. Adrenals: Unremarkable. Kidneys and ureters: No obstructive stone is seen. Nonobstructive stones are noted on the left. No hydronephrosis is seen. Bladder: Vieira catheter is seen. Reproductive organs: Prostatic calcifications are seen which may represent prior hemorrhage or granulomatous disease. Bowel: Prominent stool burden is seen in the rectum. Previously noted proctitis has resolved. Lymph nodes Retroperitoneal: Unremarkable. Pelvic: Unremarkable. Mesenteric: Unremarkable. Peritoneum: Soft tissue stranding is seen most prominently in the splenic flexure. Vessels: Atherosclerotic calcifications are seen. Abdominal wall: Unremarkable. Bones: Degenerative changes in the visualized spine. Redemonstration of old sclerosis at L4. IMPRESSION: 1. No evidence of obstructive nephrolithiasis is seen. 2. Cholelithiasis and prominence of the gallbladder is seen without definite gallbladder wall thickening. If there is concern for acute cholecystitis, right upper quadrant ultrasound can be performed. 3. Peritoneal stranding at the splenic flexure is nonspecific. No evidence of diverticulitis is seen. ACT 112: Negative or not required by law. Electronically signed by: Shadi Hess M.D. 06/02/2022 8:05 PM Medications Administered Sodium Chloride (Nss 1000ml) 1,000 mls @ 125 mls/hr IV .Q8H JJ Stop: 07/02/22 19:44 Last Admin: 06/02/22 21:09 Dose: 125 mls/hr Documented By: KMF ECG Additional Comments: Atrial fibrillation Incomplete right bundle branch block Possible Inferior infarct , age undetermined Abnormal ECG When compared with ECG of 11-JUN-2021 18:06, Atrial fibrillation has replaced Sinus rhythm T wave inversion now evident in Inferior leads Code Status & VTE Plan Code Status Full Code VTE Prophylaxis Plan VTE Prophylaxis will be ordered: Yes Supervising Physician Co-Signing Physician Notes Patient seen examined, chart reviewed, case discussed with SONG Marin and I agree with the assessment and plan as documented above. In brief, patient is a 66-year-old male presenting from [facility] with history of BPH with urinary obstruction, indwelling Vieira in place. Has had multiple drug-resistant UTIs in the past. Patient has had increased confusion and agitation in the senior living. UA obtained suggestive of UTI. He has been on IV antibiotics but has been refusing them. He presents with hypotension, leukocytosis and thrombocytopenia concerning for sepsis with a urinary source Patient examined in the ICU. He is awake, alert and oriented. Asking for food HEENTmoist mucous membranes, neck supple Heart + S1-S2, regular Lungs clear to auscultation anteriorly Abdomen soft, nontender Vieira catheter in place Neuro patient is awake and alert answering questions appropriately, asking for food Labs and images reviewed Assessment/plan: Treat with IV antibiotics. Patient was initially on Zosyn now switched to meropenem. Continue vancomycin Monitor blood pressure with low threshold to initiate pressors. Patient has improved markedly since arrival to the ER Remainder as above PG Care Time/CCT Total # of Minutes Spent Total Time Spent with Patient: Total time spent is greater than 50% in coordination of care (as documented) at patient's floor/unit and/or counseling patient: [id number] spent approximately 45 minutes of critical care time while caring for this patient -Time was spent review records, cultures, interpreting labs, independently reviewing imaging, and resuscitation Coding [place] [address] Initial Inpt Care Lvl 3 Patient Type Established Medical Decision Making High Complexity Diagnoses Septic shock A41.9; R65.21 Acute kidney injury superimposed on CKD N17.9; N18.9 Acute UTI N39.0 Metabolic encephalopathy G93.41 Flexion contractures M24.50 Hypertension I10 Seizure disorder G40.909
--- NOTE | 2022-06-02 22:20 | Critical Care Consultation ---
Date of Consultation June 02, 2022 Assessment & Plan (1) Sepsis: Impression: 66-year-old male presents from senior living with acute UTI and severe sepsis. Patient noncompliant with prior treatment for UTI and now presents with severe sepsis with hypotension. He is bedbound and has chronic Pinedo. Patient's blood pressure is responsive to crystalloid bolus and will hold on pressors for now. Admitted to ICU for further management. Neuro - [facility] ICU: Negative Severe depressive disorderno medications on home med list. Monitor Cardiac - Hypotensionsecondary to severe sepsis, improved following fluid resuscitation. Hold on pressors for now but maintain maps greater than 65 -Random cortisol 46, no indication for hydrocortisone at this time -History of CHF but not on medication regimen. Last echo 02/12 with EF 60 to 65%. No valvular abnormalities -Continue with IV fluid resuscitation -Hold antihypertensives Respiratory - No history of pulmonary disease. Lungs clear to auscultation maintaining oxygen saturation on room air. Monitor GI - npo for now RENAL/LYTES - AKIcreatinine 1.9 on admission with baseline 0.6. -Most likely prerenal in the setting of hypotension/dehydration -No obstructive nephrolithiasis on CT abdomen and pelvis -Maintain maps greater than 65 -Continue IV fluid resuscitation -Avoid nephrotoxins and renally adjust medications -Monitor with routine BMPs - Chronic indwelling Pinedo for BPH. Changed on admission. Monitor strict I's and O's ENDO - History of DM type II?Last hemoglobin A1c 5.7 and not currently on insulin regimen. ICU hyperglycemic protocol. Monitor for now HEME - H&H stable, monitor routine CBCs ID - Severe sepsislikely secondary to acute UTI. Mild leukocytosis, slightly elevated Pro-Wilmar of 0.6. Lactate within normal limits. Afebrile -History of multiple UTIs with chronic Pinedo catheter. Patient previously grew MRSA, Enterococcus faecalis, Pseudomonas -Was eating recently undergoing treatment with ceftriaxone but noncompliant -UA with +4 bacteria. Blood cultures and urine culture pending. Nasal MRSA pending -History of Klebsiella ESBL. Will convert Zosyn to meropenem. Continue Vanco for now LINES/IV ACCESS - Peripheral IVs DVT PROPHYLAXIS - SCDs, heparin subcu Thank you for allowing us to participate in the care of this patient. Please refer to my attending physician's documentation for any further recommendations. (2) Acute kidney injury superimposed on CKD: (3) Metabolic encephalopathy: (4) Peripheral arterial disease: (5) Acute UTI: (6) Major depressive disorder: (7) Hypertension: (8) Seizure disorder: (9) Hyperlipidemia: (10) BPH w urinary obs/LUTS: (11) Flexion contractures: (12) CHF (congestive heart failure): (13) Diabetes type 2, uncontrolled: History of Present Illness History of Present Illness Patient is a 66-year-old male presents from [facility] with past medical history HTN, seizure disorder, HLD, DM type II, PAD, chronic hepatitis C, major depressive disorder, CAD, CHF, GERD, bedbound with chronic Pinedo and multiple UTIs and history of noncompliance with medical regimen. Patient was recently being treated for UTI with IV antibiotics but was noncompliant and continued to rip out IVs at the senior living. He was brought to the emergency department with increased confusion. He was noted to be hypotensive with blood pressure 73/46 with urinalysis suggestive of UTI and mildly elevated Pro-Wilmar. CT abdomen pelvis negative for obstructive nephrolithiasis, was noted to have prominence in the gallbladder without definitive gallbladder thickening. He was given 2-1/2 L of crystalloid bolus and started on Vanco and Zosyn. Past UTIs have grown Pseudomonas, MRSA, Enterococcus fecaliths, and Klebsiella. He is now transferred to ICU for further management this time for concerns for severe sepsis with hypotension and developing septic shock. On arrival to the ICU as the patient is comfortable and cooperative but mildly confused. He is able to answer simple questions. He denies any headache, dizziness, syncope, congestion, sore throat, cough, shortness of breath, chest pain or palpitations, abdominal pain, nausea vomiting or diarrhea. Allergies Allergy/AdvReac Type Severity Reaction Status Date / Time daptomycin Allergy Rash Verified 06/02/22 20:52 Home Medications Medication Instructions Recorded Confirmed Type zinc sulfate 50 mg zinc (220 mg) 50 mg PO DAILY 10/12/21 06/02/22 History tablet L.acidop,casei,lactis,rham-B.lact,rod 1 cap PO DAILY 06/02/22 06/02/22 History 625 mg (10 billion cell) capsule (Advanced Probiotic) Metamucil Free & Clear 1 tbsp PO DAILY 06/02/22 06/02/22 History ascorbic acid (vitamin C) 500 mg 500 mg PO BID 06/02/22 06/02/22 History chewable tablet ceftriaxone 2 gram solution for 2 g IM DAILY 06/02/22 06/02/22 History injection ondansetron HCl 4 mg tablet 4 mg PO QID PRN Nausea And Vomiting 06/02/22 06/02/22 History Patient History Medical History Adjustment disorder with anxious mood Anemia BPH w urinary obs/LUTS Chronic hepatitis C Congestive heart failure Constipation COVID-19 Diabetes Diverticulosis Dysthymia Elevated lactic acid level Elevation of cardiac enzymes Flexion contractures Gait abnormality GERD (gastroesophageal reflux disease) Hemorrhoids History of endocarditis Hyperlipidemia Hypertension Insomnia Low back pain Major depressive disorder Major depressive disorder with psychotic features Morbilliform rash Murmur, cardiac Onychomycosis Peripheral vascular disease Rhinitis, allergic Seizure disorder Tinea unguium Urinary retention Weakness Family History Other Family history non-contributory Social History Smoking Status: Former smoker Tobacco Type: Cigarettes Second Hand Exposure: No; Hx Alcohol Use: No Hx Substance Use: No Preferred Language: Turkmen Communication Ability: Effective [employer] Required: No Beliefs That Will Affect Care: None Current Living Situation: Other Current Living Situation Comment: [facility] Feels Safe at Home: Yes Assistive Devices: Glasses Physical Exam Constitutional: WD/WN, vitals as above Eyes: PERRL, conjunctivae normal, anicteric sclerae ENMT: external ear and nose normal, oropharynx normal Neck: trachea midline, no thyromegaly Respiratory: normal respiratory effort, lungs clear to auscultation Cardiovascular: RRR, no murmur, no edema Gastrointestinal (Abdomen): normal bowel sounds, soft, nontender, no hepatosplenomegaly Musculoskeletal: no cyanosis or clubbing, extremities motor strength 5/5 Skin: Superficial sacral pressure ulcer Neurologic: PERRL, EOMI, accommodation nl, no face palsy, no dysarthria Psychiatric: Orientation: oriented to person, oriented to place and cooperative Results & Data Results & Data ([facility]) Vital Signs (Past 12 Hours) Vital Signs Temp Pulse Pulse Resp BP BP Pulse Ox 06/02/22 21:45 77 19 94/52 L 98 06/02/22 21:30 81 19 77/50 L 98 06/02/22 21:00 82 16 81/46 L 100 06/02/22 20:48 82 18 94/53 L 97 06/02/22 20:30 87 18 84/55 L 96 06/02/22 20:00 85 17 85/53 L 97 06/02/22 19:32 83 94 06/02/22 19:31 86 16 106/48 L 96 06/02/22 17:51 81/46 L 06/02/22 17:51 97 H 24 97 06/02/22 17:50 96 H 24 97 06/02/22 17:45 78/50 L 06/02/22 17:45 95 H 24 96 06/02/22 17:40 98 H 24 96 06/02/22 17:34 88/57 L 06/02/22 17:34 97 H 28 H 95 06/02/22 17:30 93 H 22 96 06/02/22 17:30 73/46 L 06/02/22 17:20 92 H 24 95 06/02/22 17:17 96 H 25 H 06/02/22 17:12 36.8 C 98 H 20 91/60 L 96 O2 Del Method 06/02/22 21:45 Room Air 06/02/22 21:30 Room Air 06/02/22 21:00 Room Air 06/02/22 20:48 Room Air 06/02/22 20:30 Room Air 06/02/22 20:00 Room Air 06/02/22 19:32 Room Air 06/02/22 19:31 Room Air 06/02/22 17:51 06/02/22 17:51 06/02/22 17:50 06/02/22 17:45 06/02/22 17:45 06/02/22 17:40 06/02/22 17:34 06/02/22 17:34 06/02/22 17:30 06/02/22 17:30 06/02/22 17:20 06/02/22 17:17 06/02/22 17:12 Room Air Coding Level of Care Code 20542 Inpt Consult Level 3 Diagnoses Sepsis A41.9; R65.20; N17.9 Acute renal failure type: unspecified Sepsis acute organ dysfunction status: with acute organ dysfunction Sepsis type: sepsis due to unspecified organism Severe sepsis acute organ dysfunction type: acute renal failure Severe sepsis shock status: unspecified Acute kidney injury superimposed on CKD N17.9; N18.9 Metabolic encephalopathy G93.41 Peripheral arterial disease I73.9 Acute UTI N39.0 Major depressive disorder F32.9 Hypertension I10 Seizure disorder G40.909 Hyperlipidemia E78.5 BPH w urinary obs/LUTS N40.1; N13.8 Flexion contractures M24.50 CHF (congestive heart failure) I50.9 Diabetes type 2, uncontrolled (1) Sepsis Acute renal failure type: unspecified Sepsis acute organ dysfunction status: with acute organ dysfunction Sepsis type: sepsis due to unspecified organism Severe sepsis acute organ dysfunction type: acute renal failure Severe sepsis shock status: unspecified Qualified Code(s): A41.9 - Sepsis, unspecified organism; R65.20 - Severe sepsis without septic shock; N17.9 - Acute kidney failure, unspecified
[2022-06-02] MEDS ORDERED: DEXTROSE 50% 50 ML SYRINGE IV PRN (22:55)
[2022-06-02] MEDS ORDERED: GLUCOSE 40% GEL 15 GM TUBE PO PRN (22:55)
[2022-06-02] MEDS ORDERED: GLUCAGON FOR INJ 1 MG VIAL SQ PRN (22:55)
[2022-06-02] MEDS ORDERED: GLUCOSE 10 TAB/TUBE PO PRN (22:55)
[2022-06-02] MEDS ORDERED: ICU PROTOCOL FOR HYPERGLYCEMIA PRN (22:55)
[2022-06-02] MEDS: NORMOSOL-R 1,000 ML IV SCH (23:17)
[2022-06-03] MEDS ORDERED: PIPERACILLIN/TAZOBACTAM 3.375 GM in DEXTROSE 5% 100 ML IV SCH
[2022-06-03] MEDS: MEROPENEM 500 MG in SYRINGE 0 ML IV SCH ×4 (00:11→20:30)
[2022-06-03 06:40] LABS: INR 1.3 (0.9-1.1); Prothrombin Time 13.5 Seconds (9.0-12.0)
[2022-06-03 06:41] LABS: Hemoglobin 14.2 g/dl (14.0-18.0); Mean Corpuscular Hemoglobin 32.1 pg (25.0-34.0); Mean Corpuscular Hgb Conc 34.6 g/dL (32.0-36.0); Mean Corpuscular Volume 92.8 fL (80.0-100.0); Mean Platelet Volume 9.9 fL (9.4-12.4); Platelet Count 92 K/uL (130-400); RDW Coefficient of Variation 13.5 % (11.5-14.5); RDW Standard Deviation 46.3 fL (36.4-46.3); Red Blood Count 4.42 M/uL (4.63-6.08); White Blood Count 8.36 K/ul (4.8-10.8)
[2022-06-03 06:53] LABS: Albumin Globulin Ratio 1.3 (0.9-2); Albumin Level 3.5 gm/dl (3.4-5.0); BUN Creatinine Ratio 22.9 (10-20); Bilirubin,Total 1.1 mg/dl (0.2-1.0); Calcium 8.3 mg/dl (8.5-10.1); Est GFR (African American) 54.1 ml/min; Est GFR (Non-African American) 46.7 ml/min; Globulin 2.7 gm/dl (2.5-4.0); Magnesium 1.9 mg/dl (1.7-2.4); Potassium 3.9 mmol/L (3.5-5.1); Total Protein 6.2 gm/dl (6.0-8.3)
[2022-06-03 06:57] LABS: Basophils # (auto) 0.04 K/uL (0-0.2); Basophils % (auto) 0.5 %; Echinocytes 1+; Eosinophils # (auto) 0.01 K/uL (0-0.50); Eosinophils % (auto) 0.1 %; Immature Granulocytes # (auto) 0.05 K/uL (0.00-0.02); Immature Granulocytes % (auto) 0.6 %; Lymphocytes # (auto) 0.35 K/uL (1.2-3.4); Lymphocytes % (auto) 4.2 %; Monocytes # (auto) 0.54 K/uL (0.24-0.82); Monocytes % (auto) 6.5 %; Neutrophils # (auto) 7.37 K/uL (1.4-6.5); Neutrophils % (auto) 88.1 %
[2022-06-03] MEDS ORDERED: VANCOMYCIN HCL 1,000 MG in SODIUM CHLORIDE 0.9% 250 ML IV SCH (08:00)
[2022-06-03] MEDS: HEPARIN SOD 5,000 UNIT/0.5 ML VIAL SQ SCH ×2 (08:57→20:31)
[2022-06-03] MEDS ORDERED: VANCOMYCIN HCL IV SCH (09:00)
[2022-06-03] MEDS ORDERED: HEPARIN SODIUM IV SCH (09:00)
--- NOTE | 2022-06-03 09:39 | Critical Care Progress Note ---
Date of Service June 03, 2022 Assessment & Plan (1) Sepsis: Plan: Impression: 66-year-old male presents from assisted with acute UTI and severe sepsis. Patient noncompliant with prior treatment for UTI and now presents with severe sepsis with hypotension. He is bedbound and has chronic Pinedo. Patient's blood pressure is responsive to crystalloid bolus and will hold on pressors for now. Admitted to ICU for further management. Neuro - [facility] ICU: Negative Severe depressive disorderno medications on home med list. Monitor Cardiac - HypotensionResolved -Random cortisol 46, no indication for hydrocortisone at this time -History of CHF but not on medication regimen. Last echo 02/12 with EF 60 to 65%. No valvular abnormalities -Hold antihypertensives Respiratory - No history of pulmonary disease. Lungs clear to auscultation maintaining oxygen saturation on room air. Monitor GI - npo for now RENAL/LYTES - AKIImproving -Most likely prerenal in the setting of hypotension/dehydration -No obstructive nephrolithiasis on CT abdomen and pelvis -Avoid nephrotoxins and renally adjust medications -Monitor with routine BMPs - Chronic indwelling Pinedo for BPH. Changed on admission. ENDO - History of DM type II?Last hemoglobin A1c 5.7 and not currently on insulin regimen. ICU hyperglycemic protocol. Monitor for now HEME - H&H stable, monitor routine CBCs ID - Severe sepsislikely secondary to acute UTI. Mild leukocytosis, slightly elevated Pro-Wilmar of 0.6. Lactate within normal limits. Afebrile -History of multiple UTIs with chronic Pinedo catheter. Patient previously grew MRSA, Enterococcus faecalis, Pseudomonas -Convert vancomycin to linazolid. Can administer PO. Continue until culture results are available given multiple MDRO in his history. LINES/IV ACCESS - Peripheral IVs DVT PROPHYLAXIS - SCDs, heparin subcu Stable for downgrade out of ICU (2) Acute kidney injury superimposed on CKD: (3) Metabolic encephalopathy: (4) Peripheral arterial disease: (5) Acute UTI: (6) Major depressive disorder: (7) Hypertension: (8) Seizure disorder: (9) Hyperlipidemia: (10) BPH w urinary obs/LUTS: (11) Flexion contractures: (12) CHF (congestive heart failure): (13) Diabetes type 2, uncontrolled: Admission and Anticipated Discharge Date Admission Date: June 02, 2022 Subjective Patient denies chest pain or shortness of breath. Without any significant complaint Physical Exam Physical Exam: General: Alert. nontoxic. Skin: Warm, dry, Head: Atraumatic Ears, nose, mouth and throat: airway patent Cardiovascular: Normal peripheral perfusion Respiratory: no respiratory distress Gastrointestinal: Non distended Suprapubic Pinedo catheter present Results & Data Results & Data ([facility]) Vital Signs (Past 12 Hours) Vital Signs Temp Pulse Pulse Resp BP BP Pulse Ox 06/03/22 09:01 127/64 100 06/03/22 09:01 109 H 22 06/03/22 09:00 109 H 26 H 06/03/22 08:30 110 H 26 H 06/03/22 08:30 115/62 06/03/22 08:00 105 H 28 H 98 06/03/22 08:00 109/65 06/03/22 07:30 104 H 27 H 99 06/03/22 07:30 104/61 06/03/22 07:00 107 H 26 H 98 06/03/22 07:00 95/60 L 06/03/22 06:30 108 H 26 H 99 06/03/22 06:30 108/65 06/03/22 06:00 111 H 23 99 06/03/22 06:00 103/58 L 06/03/22 08:17 06/03/22 08:00 109 H 06/03/22 05:30 109 H 26 H 98 06/03/22 05:30 95/59 L 06/03/22 05:00 111 H 23 99 06/03/22 05:00 101/63 06/03/22 04:30 110 H 25 H 98 06/03/22 04:00 36.8 C 109 H 21 99 06/03/22 04:00 105/62 06/03/22 03:00 111 H 26 H 97 06/03/22 02:00 100 H 22 95 06/03/22 01:07 104 H 20 69 L 06/03/22 01:07 122/75 06/03/22 01:00 105 H 26 H 60 L 06/03/22 00:00 94 H 23 80 L 06/02/22 23:31 97/65 L 06/02/22 23:31 87 25 H 100 06/02/22 23:00 78 26 H 78 L 06/02/22 23:00 36.9 C 99/79 L 06/02/22 22:58 102/64 06/02/22 22:58 78 21 93 06/02/22 23:59 94 H 06/02/22 22:55 80 06/02/22 22:45 77 21 102/64 89 L 06/02/22 22:59 06/02/22 22:30 80 24 95 06/02/22 22:19 78 23 96 06/02/22 22:00 36.9 C 79 22 96/66 L 96 06/02/22 21:45 77 19 94/52 L 98 O2 Del Method 06/03/22 09:01 06/03/22 09:01 06/03/22 09:00 06/03/22 08:30 06/03/22 08:30 06/03/22 08:00 06/03/22 08:00 06/03/22 07:30 06/03/22 07:30 06/03/22 07:00 06/03/22 07:00 06/03/22 06:30 06/03/22 06:30 06/03/22 06:00 06/03/22 06:00 06/03/22 08:17 Room Air 06/03/22 08:00 06/03/22 05:30 06/03/22 05:30 06/03/22 05:00 06/03/22 05:00 06/03/22 04:30 06/03/22 04:00 06/03/22 04:00 06/03/22 03:00 06/03/22 02:00 06/03/22 01:07 06/03/22 01:07 06/03/22 01:00 06/03/22 00:00 06/02/22 23:31 06/02/22 23:31 06/02/22 23:00 06/02/22 23:00 06/02/22 22:58 06/02/22 22:58 06/02/22 23:59 06/02/22 22:55 06/02/22 22:45 06/02/22 22:59 Room Air 06/02/22 22:30 06/02/22 22:19 06/02/22 22:00 Room Air 06/02/22 21:45 Room Air Critical Care Results & Data Vital Signs (Past 12 Hours) Vital Signs Temp Pulse Resp BP Pulse Ox O2 Del Method 06/03/22 08:00 Room Air 06/03/22 09:01 127/64 100 06/03/22 09:01 109 H 22 06/03/22 09:00 109 H 26 H 06/03/22 08:30 110 H 26 H 06/03/22 08:30 115/62 06/03/22 08:00 105 H 28 H 98 06/03/22 08:00 109/65 06/03/22 07:30 104 H 27 H 99 06/03/22 07:30 104/61 06/03/22 07:00 107 H 26 H 98 06/03/22 07:00 95/60 L 06/03/22 06:30 108 H 26 H 99 06/03/22 06:30 108/65 06/03/22 06:00 111 H 23 99 06/03/22 06:00 103/58 L 06/03/22 08:17 Room Air 06/03/22 08:00 109 H 06/03/22 05:30 109 H 26 H 98 06/03/22 05:30 95/59 L 06/03/22 05:00 111 H 23 99 06/03/22 05:00 101/63 06/03/22 04:30 110 H 25 H 98 06/03/22 04:00 36.8 C 109 H 21 99 06/03/22 04:00 105/62 06/03/22 03:00 111 H 26 H 97 06/03/22 02:00 100 H 22 95 06/03/22 01:07 104 H 20 69 L 06/03/22 01:07 122/75 06/03/22 01:00 105 H 26 H 60 L 06/03/22 00:00 94 H 23 80 L 06/02/22 23:31 97/65 L 06/02/22 23:31 87 25 H 100 06/02/22 23:59 94 H Lab & Micro Results (Past 24 Hours) RBC 4.42 M/uL (4.63-6.08) L 06/03/22 WBC 8.36 K/ul (4.8-10.8) 06/03/22 Hgb 14.2 g/dl (14.0-18.0) 06/03/22 Hct 41.0 % (40.1-51.0) 06/03/22 MCV 92.8 fL (80.0-100.0) 06/03/22 MCH 32.1 pg (25.0-34.0) 06/03/22 MCHC 34.6 g/dL (32.0-36.0) 06/03/22 RDW Standard Deviation 46.3 fL (36.4-46.3) 06/03/22 RDW Coefficient of Variation 13.5 % (11.5-14.5) 06/03/22 Plt Count 92 K/uL (130-400) L 06/03/22 MPV 9.9 fL (9.4-12.4) 06/03/22 Neutrophils (%) (Auto) 88.1 % 06/03/22 Lymphocytes (%) (Auto) 4.2 % 06/03/22 Monocytes # (Auto) 0.54 K/uL (0.24-0.82) 06/03/22 Eosinophils # (Auto) 0.01 K/uL (0-0.50) 06/03/22 Immature Granulocyte % (Auto) 0.6 % 06/03/22 Neutrophils # (Auto) 7.37 K/uL (1.4-6.5) H 06/03/22 Lymphocytes # (Auto) 0.35 K/uL (1.2-3.4) L 06/03/22 Monocytes # (Auto) 0.54 K/uL (0.24-0.82) 06/03/22 Eosinophils # (Auto) 0.01 K/uL (0-0.50) 06/03/22 Basophils # (Auto) 0.04 K/uL (0-0.2) 06/03/22 Immature Granulocyte # (Auto) 0.05 K/uL (0.00-0.02) H 06/03 Echinocytes 1+ 06/03/22 Na 139 mmol/L (136-145) 06/03/22 K 3.9 mmol/L (3.5-5.1) 06/03/22 Cl 107 mmol/L (98-107) 06/03/22 CO2 24 mmol/L (21-32) 06/03/22 Anion Gap 8 (3-11) 06/03/22 BUN 35 mg/dl (6-23) H 06/03/22 Creatinine 1.53 mg/dl (0.6-1.4) H 06/03/22 Estimated GFR ( Amer) 54.1 ml/min 06/03/22 Estimated GFR (Non-Af Amer) 46.7 ml/min 06/03/22 BUN/Creatinine Ratio 22.9 (10-20) H 06/03/22 Glu 99 mg/dl (70-99(Fasting)) 06/03/22 Ca 8.3 mg/dl (8.5-10.1) L 06/03/22 Phosphorus Level 3.0 mg/dl (2.5-4.9) 06/03/22 Total Bilirubin 1.1 mg/dl (0.2-1.0) H 06/03/22 AST 13 U/L (13-39) 06/03/22 ALT 11 U/L (7-52) 06/03/22 Alkaline Phosphatase 89 U/L (34-104) 06/03/22 TP 6.2 gm/dl (6.0-8.3) 06/03/22 Albumin 3.5 gm/dl (3.4-5.0) 06/03/22 Globulin 2.7 gm/dl (2.5-4.0) 06/03/22 Albumin/Globulin Ratio 1.3 (0.9-2) 06/03/22 Mg 1.9 mg/dl (1.7-2.4) 06/03/22 05:15 Calcium Level 8.3 mg/dl (8.5-10.1) L 06/03/22 05:15 Prothromb Time International Ratio 1.3 (0.9-1.1) H 06/03/22 05 :15 Diagnostic Findings (Past 24 Hours) Chest X-Ray 06/02/22 17:29 XR chest 1V portable CLINICAL HISTORY: SEPSIS TECHNIQUE: Single frontal radiograph of the chest was obtained. Comparison: Comparison is made to chest radiograph 04/11/2021 FINDINGS: No lines and tubes are seen. The cardiomediastinal silhouette is normal. Lungs are underinflated but clear. No evidence of pleural effusion or pneumothorax. IMPRESSION: Lungs are underinflated but clear. ACT 112: Negative or not required by law. Electronically signed by: Shadi Hess M.D. 06/02/2022 6:[address] 06/02/22 17:29 CT head/brain wo con CLINICAL HISTORY: ams Technique: Contiguous axial CT images of the head were acquired from the base of the skull to the vertex without intravenous contrast administration. Images were viewed in brain, subdural and bone windows. Automated dose lowering techniques and/or adjustment according to patient size were utilized for this exam. Comparison: Comparison is made to CT head 04/11/2081 Findings: Areas of decreased attenuation are present in the periventricular and subcortical white matter bilaterally consistent with small vessel ischemic disease. Generalized cerebral atrophy with commensurate enlargement of the ventricles, sulci, and cisterns is also present. There is no acute intracranial hemorrhage or evidence of acute territorial infarction. No shift of the midline structures, mass effect, or extra-axial abnormalities are shown. Atherosclerotic calcifications are present in the intracranial segments of the internal carotid arteries. Imaged portions of the paranasal sinuses and mastoid air cells are clear. The orbits appear normal. There are no acute fractures of the calvaria or scalp swelling. Impression: No acute intracranial hemorrhage, no evidence of acute territorial infarction or other acute intracranial disease process. ACT 112: Negative or not required by law. Electronically signed by: Shadi Hess M.D. 06/02/2022 7:36 PM Abdomen/Pelvis CT 06/02/22 18:58 CT abd pelvis wo con CLINICAL HISTORY: alisson ro abd pain ro kidney stone TECHNIQUE: Helical axial images of the abdomen and pelvis were obtained. Automated dose lowering techniques and/or adjustment according to patient size were utilized for this exam. This exam was performed without intravenous contrast. CT DOSE: 1046.90 mGy.cm COMPARISON: Comparison is made to CT abdomen pelvis 04/11/2021 FINDINGS: Lower chest: Atelectasis is seen in the lung bases. Liver: Unremarkable. No focal lesions are seen. Gallbladder and biliary tree: The gallbladder is prominent, increased in size from prior exam. A mildly calcified stone is noted.. No intra- or extrahepatic biliary ductal dilation. Pancreas: Unremarkable, no focal lesions. Spleen: Unremarkable. Adrenals: Unremarkable. Kidneys and ureters: No obstructive stone is seen. Nonobstructive stones are noted on the left. No hydronephrosis is seen. Bladder: Pinedo catheter is seen. Reproductive organs: Prostatic calcifications are seen which may represent prior hemorrhage or granulomatous disease. Bowel: Prominent stool burden is seen in the rectum. Previously noted proctitis has resolved. Lymph nodes Retroperitoneal: Unremarkable. Pelvic: Unremarkable. Mesenteric: Unremarkable. Peritoneum: Soft tissue stranding is seen most prominently in the splenic flexure. Vessels: Atherosclerotic calcifications are seen. Abdominal wall: Unremarkable. Bones: Degenerative changes in the visualized spine. Redemonstration of old sclerosis at L4. IMPRESSION: 1. No evidence of obstructive nephrolithiasis is seen. 2. Cholelithiasis and prominence of the gallbladder is seen without definite gallbladder wall thickening. If there is concern for acute cholecystitis, right upper quadrant ultrasound can be performed. 3. Peritoneal stranding at the splenic flexure is nonspecific. No evidence of diverticulitis is seen. ACT 112: Negative or not required by law. Electronically signed by: Shadi Hess M.D. 06/02/2022 8:05 PM I & O Totals 24 Hours 06/02/22 06/03/22 06/04/22 06:59 06:59 06:59 Intake Total 3905.417 / 3905.417 420 / 420 Output Total 1150 / 1150 450 / 450 Balance 2755.417 / 2755.417 -30 / -30 Cumulative 06/02/22 16:35 thru 06/03/22 10:56 Intake Total 4325.417 Output Total 1600 Balance 2725.417 RT Ventilator Mngmt (Last Documented) Ventilator Ordered Settings Respiratory Rate 22 06/03/22 09:01 Ventilator - PT Measurements Respiratory Rate 22 Coding Level of Care Code 82044 Subseq Hosp Care Lvl 3 Diagnoses Sepsis A41.9; R65.20; N17.9 Acute renal failure type: unspecified Sepsis acute organ dysfunction status: with acute organ dysfunction Sepsis type: sepsis due to unspecified organism Severe sepsis acute organ dysfunction type: acute renal failure Severe sepsis shock status: unspecified Acute kidney injury superimposed on CKD N17.9; N18.9 Metabolic encephalopathy G93.41 Peripheral arterial disease I73.9 Acute UTI N39.0 Major depressive disorder F32.9 Hypertension I10 Seizure disorder G40.909 Hyperlipidemia E78.5 BPH w urinary obs/LUTS N40.1; N13.8 Flexion contractures M24.50 CHF (congestive heart failure) I50.9 Diabetes type 2, uncontrolled (1) Sepsis Acute renal failure type: unspecified Sepsis acute organ dysfunction status: with acute organ dysfunction Sepsis type: sepsis due to unspecified organism Severe sepsis acute organ dysfunction type: acute renal failure Severe sepsis shock status: unspecified Qualified Code(s): A41.9 - Sepsis, unspecified organism; R65.20 - Severe sepsis without septic shock; N17.9 - Acute kidney failure, unspecified
--- NOTE | 2022-06-03 09:42 | Electrocardiogram Report ---
Test Reason : Blood Pressure : / mmHG Vent. Rate : 094 BPM Atrial Rate : 094 BPM P-R Int : 182 ms QRS Dur : 106 ms QT Int : 394 ms P-R-T Axes : 000 056 012 degrees QTc Int : 492 ms Sinus rhythm Incomplete right bundle branch block Possible Inferior infarct , age undetermined Abnormal ECG When compared with ECG of 11-JUN-2021 18:06, No significant change Confirmed by Alan Greenfield ([id number]) on 06/03/2022 9:42:10 AM Referred By: Raj [facility] Confirmed By:Alan Greenfield
[2022-06-03] MEDS: LINEZOLID 600 MG TAB PO SCH ×2 (10:07→20:33)
[2022-06-03] MEDS: NORMOSOL-R 1,000 ML IV SCH (13:52)
--- NOTE | 2022-06-03 17:27 | Hospitalist Progress Note ---
Date of Service June 03, 2022 Assessment & Plan (1) Septic shock: Plan: -At this time it appears that the source of the patient's infection is urinary from his chronic indwelling vieira, the patient has had multiple complicated UTI's in the past -Has already received 2.5L NSS and currently receiving another liter of Normosol but is not fluid responsive to this point, concerned that the patient will require vasopressors in the near future -Admit to the ICU, already spoke to their ASSOCIATE PROGRAMMER and they accepted -Patient started on Zosyn and Vancomycin in the ED, has an allergy to Daptomycin so will continue with both for now -Will need to follow blood and urine cultures to tailor abx accordingly -Random cortisol 46.47 -Patient noted to also be thrombocytopenic but no signs of active bleeding, likely due to septic shock and end organ dysfunction, monitor for improvement with current treatment plan -No other signs of infection on exam, labs, and imaging -Patient's bili elevated at 1.4, but no signs of cholecystitis on CT and no abdominal pain on exam, monitor for now -MRSA swab pending On 06/03 bP has been stable. awaiting cultures. prasanna cuellar from ICU. (2) Acute kidney injury superimposed on CKD: Plan: -Creatinine currently at 1.99, baseline appears to be 0.6 -Likely due to UTI and septic shock -Monitor renal function after fluid resuscitation -No sign of obstruction on CT (3) Acute UTI: Plan: -Has a chronic vieira and [facility] the [facility] -Replacing vieira now, continue zosyn and vancomycin for now (4) Metabolic encephalopathy: Plan: -Likely due to current septic shock state -No focal defects on neuro exam and CT head negative for acute chnages -Continue to monitor with adequate treatment (5) Flexion contractures: Plan: -Still at baseline -Per the MAR, he is on 10 mg PO [facility]eril BID at the [facility], unsure of his last dose, would hold for now with renal function but monitor for possible withdrawal (6) Hypertension: Plan: -Hold any antihypertensives for now (7) Seizure disorder: Plan: -NOt currently on antiseizure medications Plan The patient was discussed with Dr. Adam at the time of admisssion Admission and Anticipated Discharge Date Admission Date: June 02, 2022 Subjective 66 yo male is a poor historian. Review of Systems Review of Systems: All systems reviewed & are unremarkable except as noted in HPI & below Physical Exam Physical Exam: General: In no acute distress, older than stated age, malnourished, chronically ill-appearing HEENT: Normocephalic, atraumatic, no scleral icterus, pupils around round, symmetrical, and reactive to light, dry mucus membranes, trachea midline, no thyromegaly Chest/Pulm: No respiratory distress, symmetrical chest expansion, expiratory wheezing throughout Cardiac: RRR, no murmurs noted Abdomen: Negative for ascites and bruising, normoactive bowel sounds, soft, patient without guarding or tenderness to palpation in all abdominal rowland : Patient with chronic vieira in place with pus at the urethral meatus, Musculoskeletal: Patient is bedbound at baseline, moves extremities voluntarily when awake, no acute trauma noted on exam Extremities: Radial, dorsalis pedis, and posterior tibial pulses are intact and symmetrical, no edema noted in the BL LE's; Skin: Cool, dry, no rashes , lesions, or scars noted, no skin breakdown noted upon rolling the patient to examine back, buttocks, and posterior legs Neuro: Responds to pain, when awake there are no focal defects, patient oriented to self only at the time of the exam Psych: No acute distress, confused, uncooperative during exam Results & Data Results & Data ([facility]) Vital Signs (Past 12 Hours) Vital Signs Temp Pulse Resp BP Pulse Ox O2 Del Method 06/03/22 16:00 105 H 22 96 06/03/22 16:00 101/77 06/03/22 15:00 105 H 23 95 06/03/22 15:00 97/60 L 06/03/22 14:00 109 H 24 92 06/03/22 14:00 98/59 L 06/03/22 13:01 109 H 28 H 95 06/03/22 13:01 115/59 L 06/03/22 13:00 108 H 28 H 95 06/03/22 12:00 110 H 27 H 97 06/03/22 12:00 119/63 06/03/22 11:30 111 H 25 H 97 06/03/22 11:30 118/67 06/03/22 11:00 112 H 20 96 06/03/22 11:00 113/60 06/03/22 10:32 108 H 21 90 06/03/22 10:32 93/68 L 06/03/22 10:31 109 H 19 94 06/03/22 10:00 109 H 25 H 94 06/03/22 10:00 112/64 06/03/22 09:30 109 H 27 H 93 06/03/22 09:30 108/62 06/03/22 16:00 105 H 06/03/22 08:00 36.8 C 06/03/22 08:00 Room Air 06/03/22 09:01 127/64 100 06/03/22 09:01 109 H 22 06/03/22 09:00 109 H 26 H 06/03/22 08:30 110 H 26 H 06/03/22 08:30 115/62 06/03/22 08:00 105 H 28 H 98 06/03/22 08:00 109/65 06/03/22 07:30 104 H 27 H 99 06/03/22 07:30 104/61 06/03/22 07:00 107 H 26 H 98 06/03/22 07:00 95/60 L 06/03/22 06:30 108 H 26 H 99 06/03/22 06:30 108/65 06/03/22 06:00 111 H 23 99 06/03/22 06:00 103/58 L 06/03/22 08:17 Room Air 06/03/22 08:00 109 H 06/03/22 05:30 109 H 26 H 98 06/03/22 05:30 95/59 L PG Care Time/CCT Total # of Minutes Spent Total Time Spent with Patient: Total time spent is greater than 50% in coordination of care (as documented) at patient's floor/unit and/or counseling patient: Coding Level of Care Code 75156 Subseq Hosp Care Lvl 2 Diagnoses Septic shock A41.9; R65.21 Acute kidney injury superimposed on CKD N17.9; N18.9 Acute UTI N39.0 Metabolic encephalopathy G93.41 Flexion contractures M24.50 Hypertension I10 Seizure disorder G40.909
[2022-06-03] MEDS ORDERED: ACETAMINOPHEN 500 MG TAB PO STA (19:51)
[2022-06-04] MEDS: NORMOSOL-R 1,000 ML IV SCH ×2 (01:04→16:23)
[2022-06-04] MEDS: MEROPENEM 500 MG in SYRINGE 0 ML IV SCH ×4 (01:04→19:19)
[2022-06-04] MEDS: CARBOHYDRATES FOR HYPOGLYCEMIA PO PRN ×2 (07:22→08:09)
[2022-06-04 07:43] LABS: INR 1.1 (0.9-1.1); Prothrombin Time 11.8 Seconds (9.0-12.0)
[2022-06-04 08:01] LABS: Basophils # (auto) 0.04 K/uL (0-0.2); Basophils % (auto) 0.8 %; Eosinophils # (auto) 0.13 K/uL (0-0.50); Eosinophils % (auto) 2.5 %; Hematocrit (blood only) 38.2 % (40.1-51.0); Hemoglobin 13.2 g/dl (14.0-18.0); Immature Granulocytes # (auto) 0.03 K/uL (0.00-0.02); Immature Granulocytes % (auto) 0.6 %; Lymphocytes # (auto) 0.64 K/uL (1.2-3.4); Lymphocytes % (auto) 12.4 %; Mean Corpuscular Hemoglobin 31.7 pg (25.0-34.0); Mean Corpuscular Hgb Conc 34.6 g/dL (32.0-36.0); Mean Corpuscular Volume 91.8 fL (80.0-100.0); Mean Platelet Volume 11.1 fL (9.4-12.4); Monocytes # (auto) 0.72 K/uL (0.24-0.82); Monocytes % (auto) 13.9 %; Neutrophils # (auto) 3.62 K/uL (1.4-6.5); Neutrophils % (auto) 69.8 %; Platelet Count 70 K/uL (130-400); RDW Coefficient of Variation 13.9 % (11.5-14.5); RDW Standard Deviation 47.1 fL (36.4-46.3); Red Blood Count 4.16 M/uL (4.63-6.08); White Blood Count 5.18 K/ul (4.8-10.8)
[2022-06-04] MEDS: HEPARIN SOD 5,000 UNIT/0.5 ML VIAL SQ SCH ×2 (08:12→20:59)
[2022-06-04 10:38] LABS: Albumin Globulin Ratio 1.2 (0.9-2); Albumin Level 3.4 gm/dl (3.4-5.0); BUN Creatinine Ratio 25.8 (10-20); Bilirubin,Total 0.6 mg/dl (0.2-1.0); Calcium 8.2 mg/dl (8.5-10.1); Creatinine Clr Calc Pharmacy 80.7 ml/min; Est GFR (African American) 98.8 ml/min; Est GFR (Non-African American) 85.2 ml/min; Globulin 2.8 gm/dl (2.5-4.0); Phosphorus 1.5 mg/dl (2.5-4.9); Potassium 3.6 mmol/L (3.5-5.1); Total Protein 6.2 gm/dl (6.0-8.3)
[2022-06-04] MEDS ORDERED: POTASSIUM PHOS 3 MMOL/1 ML INFUSION IV STA (11:00)
[2022-06-04] MEDS ORDERED: POTASSIUM PHOSPHATE 24 MMOL in SODIUM CHLORIDE 0.9% 500 ML IV ONE (11:15)
[2022-06-04] MEDS: LINEZOLID 600 MG TAB PO SCH ×2 (11:44→20:59)
[2022-06-04] MEDS ORDERED: ACETAMINOPHEN 325 MG TAB PO PRN (14:32)
--- NOTE | 2022-06-04 17:37 | Hospitalist Progress Note ---
Date of Service June 04, 2022 Assessment & Plan (1) Septic shock: Plan: -At this time it appears that the source of the patient's infection is urinary from his chronic indwelling vieira, the patient has had multiple complicated UTI's in the past -Has already received 2.5L NSS and currently receiving another liter of Normosol but is not fluid responsive to this point, concerned that the patient will require vasopressors in the near future -Admit to the ICU, already spoke to their ROLLWAY WORKER and they accepted -Patient started on Zosyn and Vancomycin in the ED, has an allergy to Daptomycin so will continue with both for now -Will need to follow blood and urine cultures to tailor abx accordingly -Random cortisol 46.47 -Patient noted to also be thrombocytopenic but no signs of active bleeding, likely due to septic shock and end organ dysfunction, monitor for improvement with current treatment plan -No other signs of infection on exam, labs, and imaging -Patient's bili elevated at 1.4, but no signs of cholecystitis on CT and no abdominal pain on exam, monitor for now -MRSA swab pending On 06/03 bP has been stable. awaiting cultures. prasanna cuellar from ICU. On 06/04 BP stable, however, patient has been getting fevers. (2) Acute kidney injury superimposed on CKD: Plan: -Creatinine currently at 1.99, baseline appears to be 0.6 -Likely due to UTI and septic shock -Monitor renal function after fluid resuscitation -No sign of obstruction on CT (3) Acute UTI: Plan: -Has a chronic vieira and was started on Ceftriaxone at the nursing home -Replacing vieira now, continue zosyn and vancomycin for now (4) Metabolic encephalopathy: Plan: -Likely due to current septic shock state -No focal defects on neuro exam and CT head negative for acute chnages -Continue to monitor with adequate treatment (5) Flexion contractures: Plan: -Still at baseline -Per the MAR, he is on 10 mg PO flexeril BID at the nursing home, unsure of his last dose, would hold for now with renal function but monitor for possible withdrawal (6) Hypertension: Plan: -Hold any antihypertensives for now (7) Seizure disorder: Plan: -NOt currently on antiseizure medications Plan The patient was discussed with Dr. Adam at the time of admisssion Admission and Anticipated Discharge Date Admission Date: June 02, 2022 Subjective 66 yo male is a poor historian Review of Systems Review of Systems: Unobtainable due to cognitive status Physical Exam Physical Exam: General: In no acute distress, older than stated age, malnourished, chronically ill-appearing HEENT: Normocephalic, atraumatic, no scleral icterus, pupils around round, symmetrical, and reactive to light, dry mucus membranes, trachea midline, no thyromegaly Chest/Pulm: No respiratory distress, symmetrical chest expansion, expiratory wheezing throughout Cardiac: RRR, no murmurs noted Abdomen: Negative for ascites and bruising, normoactive bowel sounds, soft, patient without guarding or tenderness to palpation in all abdominal rowland : Patient with chronic vieira in place with pus at the urethral meatus, Musculoskeletal: Patient is bedbound at baseline, moves extremities voluntarily when awake, no acute trauma noted on exam Extremities: Radial, dorsalis pedis, and posterior tibial pulses are intact and symmetrical, no edema noted in the BL LE's; Skin: Cool, dry, no rashes , lesions, or scars noted, no skin breakdown noted upon rolling the patient to examine back, buttocks, and posterior legs Neuro: Responds to pain, when awake there are no focal defects, patient oriented to self only at the time of the exam Psych: No acute distress, confused, uncooperative during exam Results & Data Results & Data ([facility]) Vital Signs (Past 12 Hours) Vital Signs Temp Pulse Resp BP Pulse Ox O2 Del Method 06/04/22 15:25 36.2 C L 102 H 20 104/67 98 Room Air 06/04/22 14:06 38.1 C H 06/04/22 14:05 39.0 C H 97 Room Air 06/04/22 11:16 38.8 C H 76 20 118/59 L 97 Room Air PG Care Time/CCT Total # of Minutes Spent Total Time Spent with Patient: Total time spent is greater than 50% in coordination of care (as documented) at patient's floor/unit and/or counseling patient: Coding Level of Care Code 28719 Subseq Hosp Care Lvl 2 Diagnoses Septic shock A41.9; R65.21 Acute kidney injury superimposed on CKD N17.9; N18.9 Acute UTI N39.0 Metabolic encephalopathy G93.41 Flexion contractures M24.50 Hypertension I10 Seizure disorder G40.909 Time Spent (min) 25
[2022-06-05] MEDS: NORMOSOL-R 1,000 ML IV SCH ×2 (01:59→15:23)
[2022-06-05] MEDS: MEROPENEM 500 MG in SYRINGE 0 ML IV SCH ×4 (01:59→20:39)
[2022-06-05 09:04] LABS: Basophils # (auto) 0.02 K/uL (0-0.2); Basophils % (auto) 0.6 %; Eosinophils # (auto) 0.15 K/uL (0-0.50); Eosinophils % (auto) 4.5 %; Hematocrit (blood only) 32.3 % (40.1-51.0); Hemoglobin 10.9 g/dl (14.0-18.0); Immature Granulocytes # (auto) 0.02 K/uL (0.00-0.02); Immature Granulocytes % (auto) 0.6 %; Lymphocytes # (auto) 0.65 K/uL (1.2-3.4); Lymphocytes % (auto) 19.7 %; Mean Platelet Volume 9.7 fL (9.4-12.4); Monocytes # (auto) 0.33 K/uL (0.24-0.82); Neutrophils # (auto) 2.13 K/uL (1.4-6.5); Neutrophils % (auto) 64.6 %; Platelet Count 78 K/uL (130-400)
[2022-06-05 09:22] LABS: INR 1.1 (0.9-1.1); Prothrombin Time 11.2 Seconds (9.0-12.0)
[2022-06-05 09:24] LABS: BUN Creatinine Ratio 21.2 (10-20); Calcium 7.5 mg/dl (8.5-10.1); Creatinine Clr Calc Pharmacy 123.5 ml/min; Est GFR (African American) 116.8 ml/min; Est GFR (Non-African American) 100.7 ml/min; Potassium 3.2 mmol/L (3.5-5.1)
[2022-06-05 09:30] LABS: Albumin Globulin Ratio 1.2 (0.9-2); Albumin Level 2.8 gm/dl (3.4-5.0); Bilirubin,Total 0.4 mg/dl (0.2-1.0); Globulin 2.3 gm/dl (2.5-4.0); Magnesium 1.8 mg/dl (1.7-2.4); Phosphorus 1.4 mg/dl (2.5-4.9); Total Protein 5.1 gm/dl (6.0-8.3)
[2022-06-05 09:32] LABS: Mean Corpuscular Hemoglobin 31.2 pg (25.0-34.0); Mean Corpuscular Hgb Conc 33.7 g/dL (32.0-36.0); Mean Corpuscular Volume 92.6 fL (80.0-100.0); RDW Coefficient of Variation 13.8 % (11.5-14.5); RDW Standard Deviation 46.7 fL (36.4-46.3); Red Blood Count 3.49 M/uL (4.63-6.08)
[2022-06-05] MEDS: LINEZOLID 600 MG TAB PO SCH ×2 (09:45→20:40)
[2022-06-05] MEDS: HEPARIN SOD 5,000 UNIT/0.5 ML VIAL SQ SCH ×3 (09:48→20:47)
[2022-06-05] MEDS ORDERED: POTASSIUM PHOS 3 MMOL/1 ML INFUSION IV STA (18:05)
[2022-06-05] MEDS ORDERED: POTASSIUM PHOSPHATE 30 MMOL in SODIUM CHLORIDE 0.9% 500 ML IV ONE (18:30)
--- NOTE | 2022-06-05 22:18 | Hospitalist Progress Note ---
Date of Service June 05, 2022 Assessment & Plan (1) Septic shock: Plan: -At this time it appears that the source of the patient's infection is urinary from his chronic indwelling vieira, the patient has had multiple complicated UTI's in the past -Has already received 2.5L NSS and currently receiving another liter of Normosol but is not fluid responsive to this point, concerned that the patient will require vasopressors in the near future -Admit to the ICU, already spoke to their CALCULATION REVIEWER and they accepted -Patient started on Zosyn and Vancomycin in the ED, has an allergy to Daptomycin so will continue with both for now -Will need to follow blood and urine cultures to tailor abx accordingly -Random cortisol 46.47 -Patient noted to also be thrombocytopenic but no signs of active bleeding, likely due to septic shock and end organ dysfunction, monitor for improvement with current treatment plan -No other signs of infection on exam, labs, and imaging -Patient's bili elevated at 1.4, but no signs of cholecystitis on CT and no abdominal pain on exam, monitor for now -MRSA swab pending On 06/03 bP has been stable. awaiting cultures. prasanna cuellar from ICU. On 06/04 BP stable, however, patient has been getting fevers. On 06/05 Patient has been afebrile. continue current antibiotics. (2) Acute kidney injury superimposed on CKD: Plan: -Creatinine currently at 1.99, baseline appears to be 0.6 -Likely due to UTI and septic shock -Monitor renal function after fluid resuscitation -No sign of obstruction on CT (3) Acute UTI: Plan: -Has a chronic vieira and was started on Ceftriaxone at the [facility] -Replacing vieira now, continue zosyn and vancomycin for now (4) Metabolic encephalopathy: Plan: -Likely due to current septic shock state -No focal defects on neuro exam and CT head negative for acute chnages -Continue to monitor with adequate treatment (5) Flexion contractures: Plan: -Still at baseline -Per the MAR, he is on 10 mg PO flexeril BID at the [facility], unsure of his last dose, would hold for now with renal function but monitor for possible withdrawal (6) Hypertension: Plan: -Hold any antihypertensives for now (7) Seizure disorder: Plan: -NOt currently on antiseizure medications Plan The patient was discussed with Dr. Adam at the time of admisssion Admission and Anticipated Discharge Date Admission Date: June 02, 2022 Subjective 66 yo male is a poor historian. But is more talkative today. Review of Systems Review of Systems: All systems reviewed & are unremarkable except as noted in HPI & below Physical Exam Physical Exam: General: In no acute distress, older than stated age, malnourished, chronically ill-appearing HEENT: Normocephalic, atraumatic, no scleral icterus, pupils around round, symmetrical, and reactive to light, dry mucus membranes, trachea midline, no thyromegaly Chest/Pulm: No respiratory distress, symmetrical chest expansion, expiratory wheezing throughout Cardiac: RRR, no murmurs noted Abdomen: Negative for ascites and bruising, normoactive bowel sounds, soft, patient without guarding or tenderness to palpation in all abdominal rowland : Patient with chronic vieira in place with pus at the urethral meatus, Musculoskeletal: Patient is bedbound at baseline, moves extremities voluntarily when awake, no acute trauma noted on exam Extremities: Radial, dorsalis pedis, and posterior tibial pulses are intact and symmetrical, no edema noted in the BL LE's; Skin: Cool, dry, no rashes , lesions, or scars noted, no skin breakdown noted upon rolling the patient to examine back, buttocks, and posterior legs Neuro: Responds to pain, when awake there are no focal defects, patient oriented to self only at the time of the exam Psych: No acute distress, confused, uncooperative during exam Results & Data Results & Data ([facility]) Vital Signs (Past 12 Hours) Vital Signs Temp Pulse Pulse Resp BP Pulse Ox O2 Del Method 06/05/22 16:00 68 06/05/22 18:35 37.0 C 95 H 18 122/73 98 Room Air PG Care Time/CCT Total # of Minutes Spent Total Time Spent with Patient: Total time spent is greater than 50% in coordination of care (as documented) at patient's floor/unit and/or counseling patient: Coding Level of Care Code 57184 Subseq Hosp Care Lvl 2 Diagnoses Septic shock A41.9; R65.21 Acute kidney injury superimposed on CKD N17.9; N18.9 Acute UTI N39.0 Metabolic encephalopathy G93.41 Flexion contractures M24.50 Hypertension I10 Seizure disorder G40.909 Time Spent (min) 25
[2022-06-06] MEDS: NORMOSOL-R 1,000 ML IV SCH ×3 (01:05→22:06)
[2022-06-06] MEDS: MEROPENEM 500 MG in SYRINGE 0 ML IV SCH ×2 (02:23→09:13)
[2022-06-06] MEDS: LINEZOLID 600 MG TAB PO SCH (09:15)
[2022-06-06] MEDS: HEPARIN SOD 5,000 UNIT/0.5 ML VIAL SQ SCH ×2 (09:15→21:21)
[2022-06-06 09:33] LABS: Hematocrit (blood only) 35.8 % (40.1-51.0); Hemoglobin 12.2 g/dl (14.0-18.0); Mean Platelet Volume 9.5 fL (9.4-12.4); Platelet Count 93 K/uL (130-400); White Blood Count 3.98 K/ul (4.8-10.8)
[2022-06-06 09:56] LABS: BUN Creatinine Ratio 21.3 (10-20); Calcium 7.9 mg/dl (8.5-10.1); Est GFR (African American) 120.6 ml/min; Est GFR (Non-African American) 104.1 ml/min; Magnesium 1.8 mg/dl (1.7-2.4); Phosphorus 1.9 mg/dl (2.5-4.9); Potassium 3.8 mmol/L (3.5-5.1)
--- NOTE | 2022-06-06 10:00 | Discharge Summary ---
Date of Service June 06, 2022 Admission HPI Per Admitting Provider Marc is a 66 year old male inmate at [facility] in [place] with a PMH significant for HTN, seizure disorder, bedbound status with chronic indwelling Vieira, Dyslipidemia, DM II, who presented to the [facility] ED on 06/02/22 for failed outpatient treatment of UTI. Per the ED staff, the patient was noted to have urine studies concerning for UTI and had been started on IV antibiotics at the nursing home. He apparently has been confused and pulling out his IV's, limiting their ability to successfully treat him. In the ED the patient was noted to be hypotensive at 73/46, have a leukocytosis of 12.33 with left shift of 10.72, thrombocytopenic at 118, elevated INR of 1.3, creatinine of 1.99 (baseline appears to be approximately 0.6), procal of 0.59, total bili of 1.4, and UA suggestive of UTI. CT of the head was negative for acute changes, CXR was also negative for acute findings. CT of the abdomen/pelvis was negative for obstructive nephrolithiasis and revealed "Cholelithiasis and prominence of the gallbladder is seen without definite gallbladder wall thickening. If there is concern for acute cholecystitis, right upper quadrant ultrasound can be performed. 3. Peritoneal stranding at the splenic flexure is nonspecific. No evidence of diverticulitis is seen". The patient was given 2.5 L NSS, and started on Vancomycin and Zosyn. The patient has a long history of UTI's growing pseudomonas, MRSA, enterococcus faecalis, and klebsiella. At the time of the exam the patient was sleeping in bed. He was very difficult to wake and when woken he was confused and minimally responsive to questioning. He denied pain when asked but would not respond to any other questions. Per the transfer documentation, the patient had been treated with ceftrizxone prior to being transported to the ED. Discharge Exam General: In no acute distress, older than stated age, malnourished, chronically ill-appearing HEENT: Normocephalic, atraumatic, no scleral icterus, pupils around round, symmetrical, and reactive to light, dry mucus membranes, trachea midline, no thyromegaly Chest/Pulm: No respiratory distress, symmetrical chest expansion, expiratory wheezing throughout Cardiac: RRR, no murmurs noted Abdomen: Negative for ascites and bruising, normoactive bowel sounds, soft, patient without guarding or tenderness to palpation in all abdominal rowland : Patient with chronic vieira in place with pus at the urethral meatus, Musculoskeletal: Patient is bedbound at baseline, moves extremities voluntarily when awake, no acute trauma noted on exam Extremities: Radial, dorsalis pedis, and posterior tibial pulses are intact and symmetrical, no edema noted in the BL LE's; Skin: Cool, dry, no rashes , lesions, or scars noted, no skin breakdown noted upon rolling the patient to examine back, buttocks, and posterior legs Neuro: Responds to pain, when awake there are no focal defects, patient oriented to self only at the time of the exam Psych: No acute distress, confused, uncooperative during exam Discharge Data Allergies Allergy/AdvReac Type Severity Reaction Status Date / Time daptomycin Allergy Rash Verified 06/02/22 20:52 Consultations 06/02/22 22:55 Consult Twister In Routine Ordered Studies 06/02/22 17:29 CT head/brain wo con Stat 06/02/22 18:58 CT abd pelvis wo con Stat Hospital Course (1) Septic shock: -At this time it appears that the source of the patient's infection is urinary from his chronic indwelling vieira, the patient has had multiple complicated UTI's in the past -Has already received 2.5L NSS and currently receiving another liter of Normosol but is not fluid responsive to this point, concerned that the patient will require vasopressors in the near future -Admit to the ICU, already spoke to their LITERATURE TEACHER and they accepted -Patient started on Zosyn and Vancomycin in the ED, has an allergy to Daptomycin so will continue with both for now -Will need to follow blood and urine cultures to tailor abx accordingly -Random cortisol 46.47 -Patient noted to also be thrombocytopenic but no signs of active bleeding, likely due to septic shock and end organ dysfunction, monitor for improvement with current treatment plan -No other signs of infection on exam, labs, and imaging -Patient's bili elevated at 1.4, but no signs of cholecystitis on CT and no abdominal pain on exam, monitor for now -MRSA swab pending On 06/03 bP has been stable. awaiting cultures. prasanna cuellar from ICU. On 06/04 BP stable, however, patient has been getting fevers. On 06/05 Patient has been afebrile. continue current antibiotics. (2) Acute kidney injury superimposed on CKD: -Creatinine currently at 1.99, baseline appears to be 0.6 -Likely due to UTI and septic shock -Monitor renal function after fluid resuscitation -No sign of obstruction on CT (3) Acute UTI: -Has a chronic vieira and was started on Ceftriaxone at the nursing home -Replacing vieira now, continue zosyn and vancomycin for now (4) Metabolic encephalopathy: -Likely due to current septic shock state -No focal defects on neuro exam and CT head negative for acute chnages -Continue to monitor with adequate treatment (5) Flexion contractures: -Still at baseline -Per the MAR, he is on 10 mg PO flexeril BID at the nursing home, unsure of his last dose, would hold for now with renal function but monitor for possible withdrawal (6) Hypertension: -Hold any antihypertensives for now (7) Seizure disorder: -NOt currently on antiseizure medications Plan The patient was discussed with Dr. Adam at the time of admisssion Discharge Plan Discharge Items Reason For Visit: UROSEPSIS Follow-up/Referrals: Raj MARIO [Primary Care Provider] - Medications and DC Order Prescriptions: No Action zinc sulfate 50 mg zinc (220 mg) tablet 50 mg PO DAILY ondansetron HCl 4 mg Tablet 4 mg PO QID PRN (Reason: Nausea And Vomiting) ascorbic acid (vitamin C) 500 mg Tablet,Chewable 500 mg PO BID ceftriaxone 2 gram Recon Soln 2 g IM DAILY Advanced Probiotic 625 mg (10 billion cell) Capsule 1 cap PO DAILY Metamucil Free & Clear 1 tbsp PO DAILY Rx Instructions: dissolve in water and drink Admission Data Admit Date/Time: 06/02/22 21:14 Attending Provider: Jens Dodson Admit Provider: Marisela Adam Primary Care Provider: Raj MARIO Other Providers: Renny Valderrama Coding Diagnoses Septic shock A41.9; R65.21 Acute kidney injury superimposed on CKD N17.9; N18.9 Acute UTI N39.0 Metabolic encephalopathy G93.41 Flexion contractures M24.50 Hypertension I10 Seizure disorder G40.909
[2022-06-06 10:11] LABS: Mean Corpuscular Hgb Conc 34.1 g/dL (32.0-36.0); Mean Corpuscular Volume 91.1 fL (80.0-100.0); RDW Coefficient of Variation 13.5 % (11.5-14.5); RDW Standard Deviation 45.9 fL (36.4-46.3); Red Blood Count 3.93 M/uL (4.63-6.08)
[2022-06-06] MEDS: CIPROFLOXACIN 500 MG TAB PO SCH ×2 (11:52→21:27)
--- NOTE | 2022-06-06 22:05 | Hospitalist Progress Note ---
Date of Service June 06, 2022 Assessment & Plan (1) Septic shock: Plan: At this time it appears that the source of the patient's infection is urinary from his chronic indwelling vieira, the patient has had multiple complicated UTI's in the past -Has already received 2.5L NSS and currently receiving another liter of Normosol but is not fluid responsive to this point, concerned that the patient will require vasopressors in the near future -Admit to the ICU, already spoke to their HIGH RISK OB and they accepted -Patient started on Zosyn and Vancomycin in the ED, has an allergy to Daptomycin so will continue with both for now -Will need to follow blood and urine cultures to tailor abx accordingly -Random cortisol 46.47 -Patient noted to also be thrombocytopenic but no signs of active bleeding, likely due to septic shock and end organ dysfunction, monitor for improvement with current treatment plan -No other signs of infection on exam, labs, and imaging -Patient's bili elevated at 1.4, but no signs of cholecystitis on CT and no abdominal pain on exam, monitor for now -MRSA swab pending On 06/03 bP has been stable. awaiting cultures. prasanna cuellar from ICU. On 06/04 BP stable, however, patient has been getting fevers. On 06/05 Patient has been afebrile. continue current antibiotics. On 06/06 transition antibiotics to cipro. (2) Acute kidney injury superimposed on CKD: Plan: -Creatinine currently at 1.99, baseline appears to be 0.6 -Likely due to UTI and septic shock -Monitor renal function after fluid resuscitation -No sign of obstruction on CT (3) Acute UTI: Plan: -Has a chronic vieira and was [facility]riaxone at the [facility] -Replacing vieira now, continue zosyn and vancomycin for now (4) Metabolic encephalopathy: Plan: -Likely due to current septic shock state -No focal defects on neuro exam and CT head negative for acute chnages -Continue to monitor with adequate treatment (5) Flexion contractures: Plan: -Still at baseline -Per the MAR, he is on 10 mg PO flexeril BID at the [facility], unsure of his last dose, would hold for now with renal function but monitor for possible withdrawal (6) Hypertension: Plan: -Hold any antihypertensives for now (7) Seizure disorder: Plan: -NOt currently on antiseizure medications (2) Acute kidney injury superimposed on CKD: (3) Acute UTI: (4) Metabolic encephalopathy: (5) Flexion contractures: (6) Hypertension: (7) Seizure disorder: Admission and Anticipated Discharge Date Admission Date: June 02, 2022 Subjective Patient is a poor historian Review of Systems Review of Systems: All systems reviewed & are unremarkable except as noted in HPI & below Results & Data Results & Data ([place]) Vital Signs (Past 12 Hours) Vital Signs Temp Pulse Pulse Resp BP Pulse Ox O2 Del Method 06/06/22 20:17 36.6 C 20 L 20 115/74 95 Room Air 06/06/22 15:18 72 06/06/22 15:18 37.0 C 74 18 103/66 97 Room Air 06/06/22 12:47 36.7 C 67 18 112/68 95 Room Air 06/06/22 12:01 74 PG Care Time/CCT Total # of Minutes Spent Total Time Spent with Patient: Total time spent is greater than 50% in coordination of care (as documented) at patient's floor/unit and/or counseling patient: Coding Level of Care Code 56205 Subseq Hosp Care Lvl 2 Diagnoses Septic shock A41.9; R65.21 Acute kidney injury superimposed on CKD N17.9; N18.9 Acute UTI N39.0 Metabolic encephalopathy G93.41 Flexion contractures M24.50 Hypertension I10 Seizure disorder G40.909 Time Spent (min) 25
[2022-06-07] MEDS: NORMOSOL-R 1,000 ML IV SCH (07:58)
[2022-06-07] MEDS: CIPROFLOXACIN 500 MG TAB PO SCH ×2 (09:07→20:30)
[2022-06-07] MEDS: HEPARIN SOD 5,000 UNIT/0.5 ML VIAL SQ SCH (09:07)
[2022-06-07 12:07] LABS: BUN Creatinine Ratio 26.9 (10-20); C Reactive Protein 3.53 mg/dl (0-0.5); Calcium 8.5 mg/dl (8.5-10.1); Creatinine Clr Calc Pharmacy 144.3 ml/min; Est GFR (African American) 128.8 ml/min; Est GFR (Non-African American) 111.1 ml/min; Potassium 4.1 mmol/L (3.5-5.1)
[2022-06-07 12:18] LABS: Hematocrit (blood only) 38.4 % (40.1-51.0); Hemoglobin 13.1 g/dl (14.0-18.0); Mean Corpuscular Hemoglobin 31.3 pg (25.0-34.0); Mean Corpuscular Hgb Conc 34.1 g/dL (32.0-36.0); Mean Corpuscular Volume 91.6 fL (80.0-100.0); Mean Platelet Volume 9.5 fL (9.4-12.4); Platelet Count 130 K/uL (130-400); Platelet Estimate Decreased (Normal); RDW Coefficient of Variation 13.5 % (11.5-14.5); RDW Standard Deviation 45.9 fL (36.4-46.3); Red Blood Count 4.19 M/uL (4.63-6.08); White Blood Count 4.59 K/ul (4.8-10.8)
--- NOTE | 2022-06-07 21:49 | Discharge Summary ---
Date of Service June 07, 2022 Principal Diagnosis septic shock Discharge Exam General:In no acute distress, older than stated age, malnourished, chronically ill-appearing HEENT:Normocephalic, atraumatic, no scleral icterus, pupils around round, symmetrical, and reactive to light, dry mucus membranes, trachea midline, no thyromegaly Chest/Pulm:No respiratory distress, symmetrical chest expansion, expiratory wheezing throughout Cardiac:RRR, no murmurs noted Abdomen:Negative for ascites and bruising, normoactive bowel sounds, soft, patient without guarding or tenderness to palpation in all abdominal [place] :Patient with chronic vieira in place with pus at the urethral meatus, Musculoskeletal:Patient is bedbound at baseline, moves extremities voluntarily when awake, no acute trauma noted on exam Extremities:Radial, dorsalis pedis, and posterior tibial pulses are intact and symmetrical, no edema noted in the BL LE's; Skin: Cool, dry, no rashes , lesions, or scars noted, no skin breakdown noted upon rolling the patient to examine back, buttocks, and posterior legs Psych:No acute distress, no longer confused Discharge Data Allergies Allergy/AdvReac Type Severity Reaction Status Date / Time daptomycin Allergy Rash Verified 06/02/22 20:52 Consultations 06/02/22 22:55 Consult Spare Fixer Routine Ordered Studies 06/02/22 17:29 CT head/brain wo con Stat 06/02/22 18:58 CT abd pelvis wo con Stat Hospital Course (1) Septic shock: At this time it appears that the source of the patient's infection is urinary from his chronic indwelling vieira, the patient has had multiple complicated UTI's in the past -Has already received 2.5L NSS and currently receiving another liter of Normosol but is not fluid responsive to this point, concerned that the patient will require vasopressors in the near future -Admit to the ICU, already spoke to their COMMODITY LOAN CLERK and they accepted -Patient started on Zosyn and Vancomycin in the ED, has an allergy to Daptomycin so will continue with both for now -Will need to follow blood and urine cultures to tailor abx accordingly -Random cortisol 46.47 -Patient noted to also be thrombocytopenic but no signs of active bleeding, likely due to septic shock and end organ dysfunction, monitor for improvement with current treatment plan -No other signs of infection on exam, labs, and imaging -Patient's bili elevated at 1.4, but no signs of cholecystitis on CT and no abdominal pain on exam, monitor for now -MRSA swab pending On 06/03 bP has been stable. awaiting cultures. ok to polo from ICU. On 06/04 BP stable, however, patient has been getting fevers. On 06/05 Patient has been afebrile. continue current antibiotics. On 06/06 transition antibiotics to cipro. Ok to discharge on 06/07 discussed with provider computer operations analyst. (2) Acute kidney injury superimposed on CKD: Plan: -Creatinine currently at 1.99, baseline appears to be 0.6 -Likely due to UTI and septic shock -Monitor renal function after fluid resuscitation -No sign of obstruction on CT (3) Acute UTI: Plan: -Has a chronic vieira and was started on Ceftriaxone at the nursing home -Replacing vieira now, continue zosyn and vancomycin for now (4) Metabolic encephalopathy: Plan: -Likely due to current septic shock state -No focal defects on neuro exam and CT head negative for acute chnages -Continue to monitor with adequate treatment (5) Flexion contractures: Plan: -Still at baseline -Per the MAR, he is on 10 mg PO flexeril BID at the nursing home. (6) Hypertension: Plan: -Hold any antihypertensives for now (7) Seizure disorder: Plan: -NOt currently on antiseizure medications (2) Acute kidney injury superimposed on CKD: (3) Acute UTI: (4) Metabolic encephalopathy: (5) Flexion contractures: (6) Hypertension: (7) Seizure disorder: Total Time Total Time Spent Total Time Spent (In Minutes): 35 Discharge Plan Discharge Items [facility] Disposition[facility] Reason For Visit: UROSEPSIS Discharge Diagnosis: Urosepsis Activity: Resume your previous activity Non-emergency contact: Primary Care Provider Call non-emergency contact if: you have any medication questions Follow-up/Referrals: Raj MARIO [Primary Care Provider] - Diet: Regular Addtl Attending Provider Instructions: You were treated for a UTI. You will need 6 more doses of ciprofloxacin at 500 mg PO BID. We will provide his evening dose before he is discharged. We also exchanged his vieira catheter before he was discharged. Pending Studies at Discharge: No Stand-Alone Forms: My [facility] Skilled Items Lines: None Urinary Catheter: Yes (Changed on 06/07/2022) Medications and DC Order Prescriptions: New ciprofloxacin HCl 500 mg Tablet 500 mg PO BID Qty: 6 0RF Continued zinc sulfate 50 mg zinc (220 mg) tablet 50 mg PO DAILY ondansetron HCl 4 mg Tablet 4 mg PO QID PRN (Reason: Nausea And Vomiting) ascorbic acid (vitamin C) 500 mg Tablet,Chewable 500 mg PO BID Advanced Probiotic 625 mg (10 billion cell) Capsule 1 cap PO DAILY Metamucil Free & Clear 1 tbsp PO DAILY Rx Instructions: dissolve in water and drink Discontinued ceftriaxone 2 gram Recon Soln 2 g IM DAILY Discharge Orders: Discharge Order (Routine); Ordered 06/07/22 Ordered By: Jens Valdez/Other Patient Handouts: Urinary Tract Infections in Men Admission Data Admit Date/Time: 06/02/22 21:14 Attending Provider: Jens Dodson Admit Provider: Marisela Adam Primary Care Provider: Raj MARIO Other Providers: Renny Valderrama Other Interventions: Discharge Summary Assessment (RN) Last Done: 06/07/22 19:49 Coding Level of Care Code D/C DAY MANAGEMENT >30 MINS Diagnoses Septic shock A41.9; R65.21 Acute kidney injury superimposed on CKD N17.9; N18.9 Acute UTI N39.0 Metabolic encephalopathy G93.41 Flexion contractures M24.50 Hypertension I10 Seizure disorder G40.909
== END 2022-06-07 21:00 | DRG 698 ==
LOC: ED 17:01 → 1E 21:14 → SUATTDRO 21:14 → 1E 21:56 → 2W 06-03 17:38